=== PATIENT | female | born 1940 | race Caucasian/White ===

== ENCOUNTER 2016-11-09 17:37 | Inpatient (IN) | payer MEDICARE ==
[2016-11-09] MEDS ORDERED: SODIUM CHLORIDE 0.9% 1,000 ML IV STA (18:29)
--- NOTE | 2016-11-09 19:16 | ED ---
General Adult HPI - General Chief complaint: Recheck/Abnormal Lab/Rx Stated complaint: abnormal labs Time Seen by Provider: 11/09/16 18:17 Source: patient, family Mode of arrival: wheelchair Limitations: no limitations - History of Present Illness Initial comments: Patient is a 76-year-old female with past medical history of COPD and heart failure on Lasix presenting with hyponatremia. Patient had routine blood work done the other day which was called into patient today. Patient was told she had a sodium of 118. She was told to hold her Lasix. Patient states she's been weaker than normal period but otherwise denies any other complaints. Denies fever, chills, chest pain, shortness breath, nausea, vomiting, diarrhea, abdominal pain. - Related Data Home Medications Medication Instructions Recorded Confirmed Acetaminophen [Tylenol Arthritis] 650 mg PO Q8H PRN 10/17/16 11/09/16 Albuterol Inhaler [Ventolin Hfa 2 puff INHALATION RT-Q4H PRN 10/17/16 11/09/16 Inhaler] Lisinopril [Prinivil] 10 mg PO DAILY 10/17/16 11/09/16 Meloxicam [Mobic] 15 mg PO DAILY 10/17/16 11/09/16 Multivitamins, Thera [Multivitamin] 1 tab PO DAILY 10/17/16 11/09/16 Furosemide [Lasix] 20 mg PO DAILY 11/09/16 11/09/16 Previous Rx's Medication Instructions Recorded Metoprolol Tartrate [Lopressor] 25 mg PO BID #60 tab 10/20/16 Allergies Allergy/AdvReac Type Severity Reaction Status Date / Time No Known Allergies Allergy Verified 11/09/16 17:47 Review of Systems ROS Statement: Those systems with pertinent positive or pertinent negative responses have been documented in the HPI. Constitutional: No fever and no chills. HENT: No congestion, no rhinorrhea and no sore throat. Eyes: No discharge and no redness. Respiratory: No cough and no shortness of breath. Cardiovascular: No chest pain and no palpitations. Gastrointestinal: No nausea, no vomiting, no abdominal pain and no diarrhea. Genitourinary: No dysuria and no hematuria. Musculoskeletal: No back pain and no arthralgias. Skin: No pallor and no rash. Neurological: No dizziness and No headaches. + Fatigue ROS Other: All systems not noted in ROS Statement are negative. Past Medical History Past Medical History: Heart Failure, COPD, Hypertension History of Any Multi-Drug Resistant Organisms: None Reported Additional Past Surgical History / Comment(s): bilateral cataracts surgery Past Anesthesia/Blood Transfusion Reactions: No Reported Reaction Past Psychological History: No Psychological Hx Reported Smoking Status: Former smoker Past Alcohol Use History: None Reported Past Drug Use History: None Reported - Past Family History Father Family Medical History: Cancer General Exam - General Exam Comments Initial Comments: Constitutional: Frail appearing 76-year-old female. Head: Normocephalic and atraumatic. Eyes: Conjunctivae and EOM are normal. Right eye exhibits no discharge. Left eye exhibits no discharge. No scleral icterus. Neck: Normal range of motion. Neck supple. Cardiovascular: Normal rate and regular rhythm. No murmur heard. Pulmonary/Chest: Effort normal and breath sounds normal. No respiratory distress. No wheezes. Abdominal: Soft. No distension. There is no tenderness. There is no rebound and no guarding. Musculoskeletal: Normal range of motion. No edema or tenderness. Neurological: Patient alert and oriented to person, place, and time. Skin: Skin is warm and dry. Not diaphoretic. Nursing notes and vitals reviewed. Limitations: no limitations Course Vital Signs 11/09/16 11/09/16 17:42 20:03 Temperature 97.2 F L 96.5 F L Pulse Rate 50 L 46 L Respiratory 15 18 Rate Blood Pressure 105/55 129/60 O2 Sat by Pulse 97 96 Oximetry - Reevaluation(s) Reevaluation #1: 11/09/16 19:48 Patient was resting comfortably in bed. Course of stay improved. Denies pain. Discussed physical exam and diagnostic tests with patient. Questions answered and patient is agreeable to staying in the hospital. - Consultations Consultation #1: Discussed care with Dr. Trotter's DARYL. Accepting of patient to their service. EKG Findings - EKG Comments: EKG Findings:: EKG done 2017 showing ventricular rate of 46. Sinus bradycardia. T-wave inversions in 2, 3, aVF, V5, V6. Isolated ST depression in V3. UT, QRS, QTc intervals normal. Prior EKG done October 18, 2016 at 8: 06 showed T-wave inversions inferior laterally. Medical Decision Making - Medical Decision Making Patient's a 76-year-old female with COPD and CHF presenting with hyponatremia. Patient was having routine blood work that showed hyponatremia 116 and repeat 118. Patient complains of generalized fatigue. However today confirms hyponatremia and hyperkalemia. Patient likely is hypovolemic hyponatremia for which IV fluids were provided. UA concern for urinary tract infection for which Rocephin was ordered. EKG was stable T-wave inversions. Troponin was negative. EKG also without any significant QRS widening. Prior to discharge, patient was resting comfortably in bed. Course of stay improved. Denies pain. Discussed physical exam and diagnostic tests with patient. Questions answered and patient is agreeable to discharge with close follow up with Primary Care Physician. Instructed to return to Emergency Department if symptoms worsen. - Lab Data Result diagrams: 11/09/16 19:00 11/09/16 19:00 Lab Results 11/09/16 11/09/16 11/09/16 Range/Units 19:00 19:00 19:00 WBC 7.9 (3.8-10.6) k/uL RBC 4.29 (3.80-5.40) m/uL Hgb 12.6 (11.4-16.0) gm/dL Hct 38.1 (34.0-46.0) % MCV 88.7 (80.0-100.0) fL MCH 29.4 (25.0-35.0) pg MCHC 33.2 (31.0-37.0) g/dL RDW 14.2 (11.5-15.5) % Plt Count 170 (150-450) k/uL Neutrophils % 75 % Lymphocytes % 14 % Monocytes % 6 % Eosinophils % 2 % Basophils % 1 % Neutrophils # 6.0 (1.3-7.7) k/uL Lymphocytes # 1.1 (1.0-4.8) k/uL Monocytes # 0.5 (0-1.0) k/uL Eosinophils # 0.2 (0-0.7) k/uL Basophils # 0.1 (0-0.2) k/uL Sodium 118 L* (137-145) mmol/L Potassium 5.5 H (3.5-5.1) mmol/L Chloride 81 L (98-107) mmol/L Carbon Dioxide 32 H (22-30) mmol/L Anion Gap 5 mmol/L BUN 12 (7-17) mg/dL Creatinine 0.30 L (0.52-1.04) mg/dL Est GFR (MDRD) Af Amer >60 (>60 ml/min/1.73 sqM) Est GFR (MDRD) Non-Af >60 (>60 ml/min/1.73 sqM) Glucose 82 (74-99) mg/dL Calcium 8.6 (8.4-10.2) mg/dL Troponin I (0.000-0.034) ng/mL Urine Color Yellow Urine Appearance Clear (Clear) Urine pH 6.5 (5.0-8.0) Ur Specific [place] 1.008 (1.001-1.035) Urine Protein Negative (Negative) Urine Glucose (UA) Negative (Negative) Urine Ketones Negative (Negative) Urine Blood Trace H (Negative) Urine Nitrate Negative (Negative) Urine Bilirubin Negative (Negative) Urine Urobilinogen 3.0 (<2.0) mg/dL Ur Leukocyte Esterase Moderate H (Negative) Urine RBC 9 H (0-5) /hpf Urine WBC 16 H (0-5) /hpf Urine WBC Clumps Rare H (None) /hpf Ur Squamous Epith Cells 1 (0-4) /hpf Urine Bacteria Occasional H (None) /hpf Urine Mucus Rare H (None) /hpf 11/09/16 Range/Units 19:00 WBC (3.8-10.6) k/uL RBC (3.80-5.40) m/uL Hgb (11.4-16.0) gm/dL Hct (34.0-46.0) % MCV (80.0-100.0) fL MCH (25.0-35.0) pg MCHC (31.0-37.0) g/dL RDW (11.5-15.5) % Plt Count (150-450) k/uL Neutrophils % % Lymphocytes % % Monocytes % % Eosinophils % % Basophils % % Neutrophils # (1.3-7.7) k/uL Lymphocytes # (1.0-4.8) k/uL Monocytes # (0-1.0) k/uL Eosinophils # (0-0.7) k/uL Basophils # (0-0.2) k/uL Sodium (137-145) mmol/L Potassium (3.5-5.1) mmol/L Chloride (98-107) mmol/L Carbon Dioxide (22-30) mmol/L Anion Gap mmol/L BUN (7-17) mg/dL Creatinine (0.52-1.04) mg/dL Est GFR (MDRD) Af Amer (>60 ml/min/1.73 sqM) Est GFR (MDRD) Non-Af (>60 ml/min/1.73 sqM) Glucose (74-99) mg/dL Calcium (8.4-10.2) mg/dL Troponin I 0.034 (0.000-0.034) ng/mL Urine Color Urine Appearance (Clear) Urine pH (5.0-8.0) Ur Specific [place] (1.001-1.035) Urine Protein (Negative) Urine Glucose (UA) (Negative) Urine Ketones (Negative) Urine Blood (Negative) Urine Nitrate (Negative) Urine Bilirubin (Negative) Urine Urobilinogen (<2.0) mg/dL Ur Leukocyte Esterase (Negative) Urine RBC (0-5) /hpf Urine WBC (0-5) /hpf Urine WBC Clumps (None) /hpf Ur Squamous Epith Cells (0-4) /hpf Urine Bacteria (None) /hpf Urine Mucus (None) /hpf Disposition Clinical Impression: Hyponatremia, Hyperkalemia, UTI (urinary tract infection) Disposition: ADMITTED IP TO THIS [facility] Condition: Good Decision to Admit Reason: Admit from EC
[2016-11-09 19:20] LABS: Basophils # (A) 0.1 k/uL (0-0.2); Basophils % (A) 1 %; CH 30.4; CHCM 34.3; Eosinophils # (A) 0.2 k/uL (0-0.7); Eosinophils % (A) 2 %; HCT 38.1 % (34.0-46.0); HGB 12.6 gm/dL (11.4-16.0); Luc # (Auto) 0.14; Luc % (Auto) 2; Lymphocytes # (A) 1.1 k/uL (1.0-4.8); Lymphocytes % (A) 14 %; MCH 29.4 pg (25.0-35.0); MCHC 33.2 g/dL (31.0-37.0); MCV 88.7 fL (80.0-100.0); Mean Platelet Volume 7.2; Monocytes # (A) 0.5 k/uL (0-1.0); Monocytes % (A) 6 %; Neutrophils % (A) 75 %; RBC 4.29 m/uL (3.80-5.40); RDW 14.2 % (11.5-15.5); WBC 7.9 k/uL (3.8-10.6); WBC (Perox) 8.26
[2016-11-09 19:23] LABS: Appearance,Urine Clear (Clear); Bacteria,Urine Occasional /hpf; Bilirubin,Urine Negative (Negative); Glucose,Urine (UA) Negative (Negative); Ketones,Urine Negative (Negative); Leukocyte Esterase,Urine Moderate (Negative); Mucus,Urine Rare /hpf; Nitrite,Urine Negative (Negative); PH, Urine 6.5 (5.0-8.0); Particle Count 2821; Protein,Urine Negative (Negative); RBC,Urine 9 /hpf (0-5); Specific Gravity,Urine 1.008 (1.001-1.035); Squamous Epithelial Cell,Urine 1 /hpf (0-4); UA Billing (MACRO vs. MICRO) MICRO; WBC,Urine 16 /hpf (0-5)
[2016-11-09 19:31] LABS: Anion Gap 5 mmol/L; Blood Urea Nitrogen 12 mg/dL (7-17); Calcium 8.6 mg/dL (8.4-10.2); Carbon Dioxide 32 mmol/L (22-30); Chloride 81 mmol/L (98-107); Glucose 82 mg/dL (74-99); Non-African American GFR(MDRD) >60 (>60 ml/min/1.73 sqM); Potassium 5.5 mmol/L (3.5-5.1)
[2016-11-09 19:33] LABS: Sodium 118 mmol/L (137-145)
[2016-11-10] MEDS: SODIUM CHLORIDE 0.9% 1,000 ML IV SCH ×3 (00:38→21:44)
[2016-11-10 06:37] LABS: CH 29.9; CHCM 33.3; HCT 35.5 % (34.0-46.0); HDW 2.61; HGB 11.5 gm/dL (11.4-16.0); MCHC 32.3 g/dL (31.0-37.0); Mean Platelet Volume 7.1; RBC 3.95 m/uL (3.80-5.40); RDW 14.2 % (11.5-15.5); WBC 5.4 k/uL (3.8-10.6)
[2016-11-10 06:49] LABS: Anion Gap 4 mmol/L; Blood Urea Nitrogen 10 mg/dL (7-17); Carbon Dioxide 30 mmol/L (22-30); Chloride 88 mmol/L (98-107); Glucose 80 mg/dL (74-99); Non-African American GFR(MDRD) >60 (>60 ml/min/1.73 sqM); Potassium 5.1 mmol/L (3.5-5.1); Sodium 122 mmol/L (137-145)
[2016-11-10] MEDS ORDERED: ALBUTEROL NEBULIZED 2.5 MG/3 ML INHALATION PRN (09:28)
[2016-11-10] MEDS: LISINOPRIL 10 MG TAB PO SCH (11:13)
[2016-11-10] MEDS: MELOXICAM 7.5 MG TAB PO SCH (11:14)
[2016-11-10] MEDS: METOPROLOL TARTRATE 25 MG TAB PO SCH ×2 (11:14→21:44)
[2016-11-10] MEDS: MULTIVITAMINS, THERA 1 EACH TAB PO SCH (11:15)
[2016-11-10 14:01] VITALS: BMI 18.9
[2016-11-10] MEDS ORDERED: ACETAMINOPHEN TAB 325 MG TAB PO PRN (15:38)
--- NOTE | 2016-11-10 15:57 | XR ---
EXAMINATION TYPE: XR chest 1V portable DATE OF EXAM: 11/10/2016 3:51 PM HISTORY: Shortness of breath. COMPARISON: 10/20/2016 TECHNIQUE: Single view of the chest is submitted. FINDINGS: Demonstrated are scattered senescent parenchymal change. There is no evidence for focal infiltrate. The heart is enlarged without evidence for congestive failure. Tiny right effusion versus pleural thi ckening. Hilar and mediastinal structures are within normal limits. Degenerative changes are seen of the dorsal spine. IMPRESSION: 1. Chronic changes without evidence for acute pulmonary disease.
--- NOTE | 2016-11-10 18:15 | HP ---
DATE OF ADMISSION: CHIEF COMPLAINT: Abnormal labs, sent from PCP's office. HISTORY OF PRESENT ILLNESS: Mrs. Anika Mcclellan is a 76-year-old female with known history of congestive heart failure with systolic dysfunction, ejection fraction 30% to 35%, moderate aortic regurgitation, and moderate to severe tricuspid regurgitation and severe pulmonary hypertension and chronic obstructive pulmonary disease who came to the hospital as she was found to have sodium level of 118. Patient did have lab work-up done at PCP's office. Patient was told to hold her Lasix and patient felt she has been weaker than normal. Otherwise, patient denied any complaints of chest pain. No worsening shortness of breath. No other issues. The patient denied any fever, chills. No recent illnesses. Apparently patient has been drinking much free water at home. No nausea or vomiting. No diarrhea. No recent illnesses. No sick contacts at home. Patient was admitted to hospital in October 2015 for acute CHF exacerbation and found to have severe pulmonary hypertension and moderate aortic regurgitation at that time. Currently, patient is getting normal saline at 100 mL per hour and her sodium level went up from 118 to 122. Otherwise, denied any fever or chills at this time. REVIEW OF SYSTEMS: CONSTITUTIONAL: No fever. No chills. No weakness or malaise. RESPIRATORY: No cough or sputum production. CARDIOVASCULAR: No worsening shortness of breath. No leg swelling. ABDOMEN: No nausea or vomiting, abdominal pain. GENITOURINARY: Negative. ENDOCRINE: Negative. PSYCHIATRIC: Negative. SKIN: Negative. All other fourteen-point review of systems negative except as above. PAST MEDICAL HISTORY: CHF with ejection fraction 30 to 35%, moderate aortic regurgitation, severe tricuspid regurgitation and severe pulmonary hypertension with PA pressure of 88 mmHg, COPD, active nicotine addiction, hypertension, degenerative joint disease, history of hyponatremia. PAST SURGICAL HISTORY: Bilateral cataract surgery. SOCIAL HISTORY: Patient is a former smoker. Denied any alcohol. Denied any drugs or IVDU. FAMILY HISTORY: Father had cancer. No history of hypertension or premature heart disease in the family. Home medications include: Tylenol arthritis, Ventolin, Lisinopril, Mobic, multivitamin, Lasix and metoprolol. ALLERGIES: No known drug allergies. PHYSICAL EXAMINATION: A 76-year-old female, lying in bed comfortably, awake, alert, oriented x3, appears to be in no apparent distress. VITALS: Blood pressure is 183/70, pulse is 72, respiration 18, temperature afebrile, pulse ox 97% on room air. HEENT: Atraumatic, normocephalic. Neck is supple. No JVD. CVS: S1, S2 heard. No murmurs, no gallop, no rub. LUNGS: Bilateral air entry is present. Basal crackles positive, mainly in the left side. Nonlabored breathing. ABDOMEN: Soft, nontender. Bowel sounds are present. [employer]: Awake, alert, oriented x3. No focal deficit. Cranial nerves are grossly intact. Able to move all her four extremities. EXTREMITIES: No edema. Pulses palpable bilaterally. No clubbing or cyanosis. PSYCHIATRIC: Cooperative. LABORATORY DATA: WBC 7.9, hemoglobin 12.6, platelets 170. Sodium 118, potassium 5.5, chloride 81, bicarb is 32, BUN 12, creatinine 0.3, calcium 8.6. Troponin 0.034. UA showed moderate leukocyte esterase, 15 WBC, and WBC clumps and 1 squamous epithelial cells. Nitrate negative. CHEST X-RAY: Chronic changes without evidence of acute pulmonary disease. IMPRESSION: 1. Hyponatremia most likely hypovolemic hyponatremia due to dehydration and volume depletion. 2. Hyperkalemia. 3. Acute urinary tract infection. 4. History of congestive heart failure systolic dysfunction with ejection fraction of 30 to 35%. 5. Moderate aortic regurgitation. 6. Severe tricuspid regurgitation and severe pulmonary hypertension. 7. Degenerative joint disease. 8. Hypertension, 9. History of left-sided pleural effusion. 10. Chronic obstructive pulmonary disease, stable. 11. Nicotine addiction. Currently the patient quit smoking recently. 12. Deep venous thrombosis prophylaxis with heparin subcu. DISCUSSION AND PLAN: I will continue with the blood pressure medications including metoprolol and lisinopril. Will hold Lasix at this time. Continue with IV fluids. Monitor renal function and potassium is coming down to 5.1 now. Will monitor sodium level, improving at this time. We will continue the current management and follow closely. Will get a chest x-ray and further recommendations based on the clinical course. Prognosis is guarded.
[2016-11-10 22:37] VITALS: RESP 16
[2016-11-11] MEDS: SODIUM CHLORIDE 0.9% 1,000 ML IV SCH ×2 (06:23→20:55)
[2016-11-11 07:09] LABS: Basophils # (A) 0.1 k/uL (0-0.2); Basophils % (A) 2 %; CH 29.3; Eosinophils # (A) 0.2 k/uL (0-0.7); Eosinophils % (A) 4 %; HCT 39.2 % (34.0-46.0); HDW 2.55; HGB 12.3 gm/dL (11.4-16.0); Hypochromasia Slight; Luc # (Auto) 0.16; Luc % (Auto) 3; Lymphocytes # (A) 0.7 k/uL (1.0-4.8); Lymphocytes % (A) 12 %; MCH 29.8 pg (25.0-35.0); MCHC 31.4 g/dL (31.0-37.0); MCV 94.8 fL (80.0-100.0); Mean Platelet Volume 7.8; Monocytes # (A) 0.4 k/uL (0-1.0); Monocytes % (A) 6 %; Neutrophils # (A) 4.4 k/uL (1.3-7.7); Neutrophils % (A) 74 %; RBC 4.13 m/uL (3.80-5.40); RDW 14.3 % (11.5-15.5); WBC (Perox) 5.56
[2016-11-11 07:29] LABS: Anion Gap 6 mmol/L; Blood Urea Nitrogen 11 mg/dL (7-17); Calcium 8.2 mg/dL (8.4-10.2); Carbon Dioxide 25 mmol/L (22-30); Chloride 92 mmol/L (98-107); Glucose 74 mg/dL (74-99); Non-African American GFR(MDRD) >60 (>60 ml/min/1.73 sqM); Potassium 5.1 mmol/L (3.5-5.1); Sodium 123 mmol/L (137-145)
[2016-11-11] MEDS: MELOXICAM 7.5 MG TAB PO SCH (10:15)
[2016-11-11] MEDS: LISINOPRIL 10 MG TAB PO SCH (10:16)
[2016-11-11] MEDS: METOPROLOL TARTRATE 25 MG TAB PO SCH ×2 (10:16→20:55)
[2016-11-11] MEDS: MULTIVITAMINS, THERA 1 EACH TAB PO SCH (12:06)
[2016-11-12] MEDS: SODIUM CHLORIDE 0.9% 1,000 ML IV SCH ×2 (04:43→11:24)
[2016-11-12] MEDS: METOPROLOL TARTRATE 25 MG TAB PO SCH (07:29)
[2016-11-12] MEDS: LISINOPRIL 10 MG TAB PO SCH (07:29)
[2016-11-12] MEDS: MULTIVITAMINS, THERA 1 EACH TAB PO SCH (07:29)
[2016-11-12] MEDS: MELOXICAM 7.5 MG TAB PO SCH (07:29)
[2016-11-12 07:39] VITALS: PULSE 51
[2016-11-12 13:09] VITALS: BP 120/57; TEMP 97.8
[2016-11-12 14:45] LABS: Anion Gap 6 mmol/L; Blood Urea Nitrogen 13 mg/dL (7-17); Calcium 8.3 mg/dL (8.4-10.2); Carbon Dioxide 28 mmol/L (22-30); Chloride 91 mmol/L (98-107); Glucose 111 mg/dL (74-99); Non-African American GFR(MDRD) >60 (>60 ml/min/1.73 sqM); Sodium 125 mmol/L (137-145)
--- NOTE | 2016-12-06 22:56 | DS ---
DATE OF ADMISSION: 11/09/2016 DATE OF DISCHARGE: 11/12/2016 DISCHARGE DIAGNOSIS(ES): 1. Hyponatremia most likely hypovolemic hyponatremia secondary to volume depletion. Lasix has been discontinued. 2. Hyperkalemia, improved. 3. Acute urinary tract infection. 4. History of congestive heart failure, chronic systolic dysfunction ejection fraction 30% to 35% 5. Moderate aortic regurgitation. 6. Severe tricuspid regurgitation and severe pulmonary hypertension. 7. Degenerative joint disease. 8. Hypertension. 9. History of left-sided pleural effusion. 10. Chronic obstructive pulmonary disease, stable. 11. Nicotine addiction, currently the patient quit smoking recently. 12. Deep venous thrombosis prophylaxis with heparin subcu. HOSPITAL COURSE: Ms. Mcclellan is a 76 -year-old female who was sent from PCP's office with sodium level of 118 secondary to volume depletion. Patient was continued on IV fluids while in the hospital. Gently due to history of valvular heart disease and Lasix dose has been discontinued and the patient was continued on blood pressure medication in the form of metoprolol and Lisinopril has been added. Potassium level improved. Otherwise blood pressure is controlled. Patient is tolerating diet, sodium improved to 125 today. The patient does not have any neurological symptoms. Otherwise, patient will be discharged home and will follow-up with primary care physician and cardiology as an outpatient and is stable for discharge. DISCHARGE PHYSICAL EXAMINATION: A 76 -year-old female is lying in the bed. Awake, alert, oriented, x3 appears to be in no apparent distress. VITALS: Blood pressure is 120/77, pulse is 75, respirations 16, temperature afebrile. pulse ox is 95% on room air. Laboratory data reviewed. Sodium of 125, potassium 5.0, chloride 91, calcium 8.3. Discharge physical examination done. Discharge medications include: 1. Tylenol 650 mg q8 hourly p.r.n. for pain arthritis. 2. Albuterol inhaler 2 puffs inhalation q.4-6h. for short of breath. 3. Meloxicam 50 mg p.o. daily p.r.n. for pain. 4. Metoprolol 25 mg p.o. b.i.d. 5. Lisinopril 10 mg daily. Patient will be discharged home in stable condition. She will follow with Dr. Long Bonner. Home with the home health care.
--- NOTE | 2016-12-07 05:37 | PN ---
DATE OF SERVICE: 11/11/2016 INTERVAL HISTORY: Ms. Mcclellan is a 76-year-old female with known history of CHF with systolic dysfunction with ejection fraction 30% to 35% and moderate aortic regurgitation and moderate to severe tricuspid regurgitation and severe pulmonary hypertension and chronic COPD came to the hospital after she was found to have sodium level of 118, most likely secondary to diuresis with Lasix, which has been held at this time and is being continued on IV fluids gently. Patient's sodium level improved to 123 today. Otherwise, patient is symptomatically improving. Denied any headache, dizziness or lightheadedness. No complaints of chest pain, short of breath. No acute overnight issues. REVIEW OF SYSTEMS: CONSTITUTIONAL: No fever. No chills. RESPIRATORY: No cough or sputum production. CARDIOVASCULAR: No chest pain or shortness of breath. ABDOMEN: No nausea, vomiting, or abdominal pain. GENITOURINARY: Negative. ENDOCRINE: Negative. PSYCHIATRIC: Negative. SKIN: Negative. All other 14-point review of systems negative except the above. CURRENT MEDICATIONS: Reviewed. PHYSICAL EXAMINATION: A 76-year-old female lying in the bed comfortably, awake, alert, oriented x3. Appears to be in no apparent distress. VITALS: Blood pressure is 159/73, pulse is 50, respirations 16, temperature afebrile, pulse ox 94% on room air. HEENT: Atraumatic, normocephalic. Neck is supple. No JVD. CVS EXAM: S1, S2 heard. Patient does have systolic murmur and diastolic murmur. LUNGS: Bilateral air entry is present. No wheezing, no crackles. ABDOMEN: Soft, nontender. Bowel sounds are present. CLASSIFICATION CLERK: Awake, alert, oriented x3. No focal neurologic deficits. EXTREMITIES: No edema. Pulses palpable bilaterally. No clubbing or cyanosis. PSYCHIATRIC: Cooperative. LABORATORY DATA: WBC 6.0, hemoglobin 12.3, platelets 193. Sodium 123, potassium 5.1, chloride 92, bicarb is 25. BUN 11, creatinine 0.34. Calcium 8.2. IMPRESSION: 1. Hyponatremia secondary to hypovolemic hyponatremia due to dehydration, volume depletion. Lasix has been held. 2. Hyperkalemia, improved. 3. Acute urinary tract infection. 4. History of congestive heart failure with ejection fraction 30% to 35%, chronic. 5. Moderate aortic regurgitation. 6. Severe tricuspid regurgitation and severe pulmonary hypertension. 7. Degenerative joint disease. 8. Hypertension. 9. History of left-sided pleural effusion. 10. Chronic obstructive pulmonary disease, stable. 11. Nicotine addiction, currently patient did quit smoking recently. 12. Deep venous thrombosis prophylaxis with heparin subcu. DISCUSSION AND PLAN: Patient will be continued on blood pressure medication in the form of metoprolol and lisinopril. Lasix has been held due to volume depletion. Continue with IV fluid. Sodium level is improving now. Potassium is trending down. Will continue with current management. Anticipate discharge in 24 hours with more clinical improvement and laboratory data improvement.
== END 2016-11-12 16:40 | disposition home health service (06) | DRG 641 ==
LOC: EC 17:37 → 6SEL 19:43
PROVIDERS: ADMIT Hospitalist; ATTEND Hospitalist
DX: E87.1 Hypo-osmolality and hyponatremia (principal); E86.0 Dehydration; I27.2 Other secondary pulmonary hypertension; I50.22 Chronic systolic (congestive) heart failure; I11.0 Hypertensive heart disease with heart failure; N39.0 Urinary tract infection, site not specified; J44.9 Chronic obstructive pulmonary disease, unspecified; E87.5 Hyperkalemia; E86.1 Hypovolemia; T50.2X5A Adverse effect of carbonic-anhydrase inhibitors, benzothiadiazides and other diuretics, initial encounter; I08.2 Rheumatic disorders of both aortic and tricuspid valves; R53.83 Other fatigue; M19.90 Unspecified osteoarthritis, unspecified site; Z80.9 Family history of malignant neoplasm, unspecified; Z79.1 Long term (current) use of non-steroidal anti-inflammatories (NSAID); Z79.899 Other long term (current) drug therapy; Z87.891 Personal history of nicotine dependence; Z98.42 Cataract extraction status, left eye; Z98.41 Cataract extraction status, right eye
CPT/HCPCS: 36415; 71010; 80048; 80051; 81001; 82565; 84484; 84520; 85025; 85027; 87086; 93005; 96365; 96366; 99285

== ENCOUNTER 2016-11-15 19:15 | Emergency (ER) | payer MEDICARE ==
[2016-11-15 19:37] VITALS: RESP 18
--- NOTE | 2016-11-15 20:03 | ED ---
General Adult HPI - General Chief complaint: Extremity Problem,Nontraumatic Stated complaint: leg swelling Time Seen by Provider: 11/15/16 19:25 Source: patient, RN notes reviewed Mode of arrival: ambulatory Limitations: no limitations - History of Present Illness Initial comments: This is a 76-year-old female who presents emergency room stating that she was just discharged from hospital a few days ago for hyponatremia. Patient states she went home and has been feeling fine however about 6 got this evening she noticed her left leg was completely swollen. Patient denies any pain or leg or calf. Patient states his leg is normally not any more swollen than the right leg and obviously now it is much more swollen. Patient denies any recent injury or trauma. Patient denies abdominal pain. Patient denies any chest pain palpitations difficulty breathing shortness of breath. Patient denies any recent fever chills or cough. Patient denies headache patient denies numbness weakness. Patient denies any lightheadedness dizziness or near-syncopal episode. - Related Data Home Medications Medication Instructions Recorded Confirmed Acetaminophen [Tylenol Arthritis] 650 mg PO Q8H PRN 10/17/16 11/15/16 Albuterol Inhaler [Ventolin Hfa 2 puff INHALATION RT-Q4H PRN 10/17/16 11/15/16 Inhaler] Meloxicam [Mobic] 15 mg PO DAILY PRN 10/17/16 11/15/16 Furosemide [Lasix] 20 mg PO DAILY 11/15/16 11/15/16 Previous Rx's Medication Instructions Recorded Metoprolol Tartrate [Lopressor] 25 mg PO BID #60 tab 10/20/16 Allergies Allergy/AdvReac Type Severity Reaction Status Date / Time No Known Allergies Allergy Verified 11/15/16 19:49 Review of Systems ROS Statement: Those systems with pertinent positive or pertinent negative responses have been documented in the HPI. ROS Other: All systems not noted in ROS Statement are negative. Past Medical History Past Medical History: Heart Failure, COPD, Hypertension History of Any Multi-Drug Resistant Organisms: None Reported Additional Past Surgical History / Comment(s): bilateral cataracts surgery Past Anesthesia/Blood Transfusion Reactions: No Reported Reaction Past Psychological History: No Psychological Hx Reported Smoking Status: Former smoker Past Alcohol Use History: None Reported Past Drug Use History: None Reported - Past Family History Father Family Medical History: Cancer General Exam - General Exam Comments Initial Comments: GENERAL: Patient is well-developed and well-nourished. Patient is nontoxic and well- hydrated and is in no acute distress. ENT: Neck is soft and supple. No significant lymphadenopathy is noted. Oropharynx is clear. Moist mucous membranes. Neck has full range of motion without eliciting any pain. EYES: The sclera were anicteric and conjunctiva were pink and moist. Extraocular movements were intact and pupils were equal round and reactive to light. Eyelids were unremarkable. PULMONARY: Decreased breath sounds on the right. CARDIOVASCULAR: There is a regular rate and rhythm without any murmurs gallops or rubs. ABDOMEN: Soft and nontender with normal bowel sounds. No palpable organomegaly was noted. There is no palpable pulsatile mass. SKIN: Skin is clear with no lesions or rashes and otherwise unremarkable. NEUROLOGIC: Patient is alert and oriented x3. Cranial nerves II through XII are grossly intact. Motor and sensory are also intact. Normal speech, volume and content. Symmetrical smile. MUSCULOSKELETAL: Normal extremities with adequate strength and full range of motion. Left leg is edematous from the thigh down to the foot much more so than the right leg. LYMPHATICS: No significant lymphadenopathy is noted PSYCHIATRIC: Normal psychiatric evaluation. Normal interpersonal interactions appears functionally intact in deals appropriately with others. No signs of depression. No signs of anxiety. Limitations: no limitations Course Vital Signs 11/15/16 19:33 Temperature 98.5 F Pulse Rate 63 Respiratory 18 Rate Blood Pressure 142/65 O2 Sat by Pulse 96 Oximetry Medical Decision Making - Medical Decision Making I went back in to reevaluate the patient her leg is actually gotten slightly smaller than when I initially saw her and patient agreed with this as did the family. Patient had no other complaints at this time the ultrasound showed no DVT and her lab work was essentially the same as when she left the hospital. Patient did not want to stay in the hospital so I sent the patient to follow-up with primary medical care doctor. - Lab Data Result diagrams: 11/15/16 19:50 11/15/16 19:50 Lab Results 11/15/16 11/15/16 Range/Units 19:50 19:50 WBC 6.2 (3.8-10.6) k/uL RBC 4.05 (3.80-5.40) m/uL Hgb 12.0 (11.4-16.0) gm/dL Hct 36.9 (34.0-46.0) % MCV 91.1 (80.0-100.0) fL MCH 29.7 (25.0-35.0) pg MCHC 32.6 (31.0-37.0) g/dL RDW 14.6 (11.5-15.5) % Plt Count 175 (150-450) k/uL Neutrophils % 76 % Lymphocytes % 12 % Monocytes % 6 % Eosinophils % 4 % Basophils % 1 % Neutrophils # 4.7 (1.3-7.7) k/uL Lymphocytes # 0.7 L (1.0-4.8) k/uL Monocytes # 0.3 (0-1.0) k/uL Eosinophils # 0.3 (0-0.7) k/uL Basophils # 0.1 (0-0.2) k/uL Sodium 126 L (137-145) mmol/L Potassium 5.0 (3.5-5.1) mmol/L Chloride 87 L (98-107) mmol/L Carbon Dioxide 30 (22-30) mmol/L Anion Gap 9 mmol/L BUN 15 (7-17) mg/dL Creatinine 0.39 L (0.52-1.04) mg/dL Est GFR (MDRD) Af Amer >60 (>60 ml/min/1.73 sqM) Est GFR (MDRD) Non-Af >60 (>60 ml/min/1.73 sqM) Glucose 93 (74-99) mg/dL Calcium 8.3 L (8.4-10.2) mg/dL Total Bilirubin 0.5 (0.2-1.3) mg/dL AST 15 (14-36) U/L ALT 25 (9-52) U/L Alkaline Phosphatase 105 (38-126) U/L Total Protein 5.9 L (6.3-8.2) g/dL Albumin 2.8 L (3.5-5.0) g/dL Disposition Clinical Impression: Leg swelling Disposition: HOME SELF-CARE Condition: Good Instructions: Leg Edema (ED) Referrals: Long Bonner MD [Primary Care Provider] - 1-2 days Time of Disposition: 21:16
[2016-11-15 20:12] LABS: Basophils # (A) 0.1 k/uL (0-0.2); Basophils % (A) 1 %; Eosinophils # (A) 0.3 k/uL (0-0.7); Eosinophils % (A) 4 %; HCT 36.9 % (34.0-46.0); HDW 2.58; Luc # (Auto) 0.08; Luc % (Auto) 1; Lymphocytes # (A) 0.7 k/uL (1.0-4.8); Lymphocytes % (A) 12 %; MCH 29.7 pg (25.0-35.0); MCHC 32.6 g/dL (31.0-37.0); MCV 91.1 fL (80.0-100.0); Monocytes # (A) 0.3 k/uL (0-1.0); Monocytes % (A) 6 %; Neutrophils # (A) 4.7 k/uL (1.3-7.7); Neutrophils % (A) 76 %; RBC 4.05 m/uL (3.80-5.40); RDW 14.6 % (11.5-15.5); WBC 6.2 k/uL (3.8-10.6); WBC (Perox) 6.57
--- NOTE | 2016-11-15 20:21 | XR ---
EXAMINATION TYPE: XR chest 2V DATE OF EXAM: 11/15/2016 8:16 PM HISTORY: Shortness of breath and leg swelling. REFERENCE: Previous study dated 11/10/2016. FINDINGS: The lungs are overinflated. The heart is enlarged. There is a small right-sided effusion. T here is vascular congestion and subtle interstitial change. IMPRESSION: 1. COPD. 2. CARDIOMEGALY. 3. SMALL, RIGHT-SIDED EFFUSION. 4. VASCULAR CONGESTION AND SUBTLE INTERSTITIAL CHANGE SUGGESTING MILD PULMONARY EDEMA.
[2016-11-15 20:23] LABS: ALT 25 U/L (9-52); AST 15 U/L (14-36); Alkaline Phosphatase 105 U/L (38-126); Anion Gap 9 mmol/L; Blood Urea Nitrogen 15 mg/dL (7-17); Calcium 8.3 mg/dL (8.4-10.2); Carbon Dioxide 30 mmol/L (22-30); Chloride 87 mmol/L (98-107); Glucose 93 mg/dL (74-99); Non-African American GFR(MDRD) >60 (>60 ml/min/1.73 sqM); Sodium 126 mmol/L (137-145); Total Bilirubin 0.5 mg/dL (0.2-1.3); Total Protein 5.9 g/dL (6.3-8.2)
--- NOTE | 2016-11-15 20:52 | US ---
EXAMINATION TYPE: US venous doppler duplex LE LT DATE OF EXAM: 11/15/2016 8:38 PM COMPARISON: NONE CLINICAL HISTORY: Swelling in left leg SIDE PERFORMED: Left VESSELS IMAGED: External Iliac Vein (EIV) Common Femoral Vein Deep Femoral Vein Greater Saphenous Vein * Femoral Vein Popliteal Vein Small Saphenous Vein * Proximal Calf Veins (* superficial vessels) TECHNOLOGIST IMPRESSION: Left Leg: Negative for DVT. There is extensive edema visualized in the medial left thigh. Probable ly mph nodes visualized in the left groin, largest measuring 1.8 x 0.9 x 1.5 cm. Large anechoic area wit h debris visualized in the left popliteal fossa extending down the left calf measuring approximately 11.1 x 2.4 x 3.5 cm, possible dela cruz's cyst IMPRESSION: 1. This examination is negative for DVT within the left leg. 2. 1.1 cm left-sided popliteal fossa cyst. 3. Normal size inguinal lymph nodes.
[2016-11-15 21:21] VITALS: BP 137/79; PULSE 100; TEMP 97.9
== END 2016-11-15 21:35 | disposition home or self-care (01) ==
LOC: EC 19:15
DX: M79.89 Other specified soft tissue disorders (principal); I10 Essential (primary) hypertension; J44.9 Chronic obstructive pulmonary disease, unspecified; I50.9 Heart failure, unspecified; Z87.891 Personal history of nicotine dependence; Z79.899 Other long term (current) drug therapy
CPT/HCPCS: 36415; 71020; 80053; 85025; 99284; 99285

== ENCOUNTER 2017-12-09 05:54 | Inpatient (IN) | payer MEDICARE ==
[2017-12-09] MEDS ORDERED: DEXTROSE 50%-WATER 50 ML SYRINGE IVP STA (06:20)
[2017-12-09 06:23] LABS: Glucose,Whole Blood 53 mg/dL (75-99)
[2017-12-09 06:25] LABS: Basophils % (A) 0 %; Eosinophils # (A) 0.1 k/uL (0-0.7); Eosinophils % (A) 1 %; HCT 38.8 % (34.0-46.0); HGB 12.7 gm/dL (11.4-16.0); Lymphocytes # (A) 0.8 k/uL (1.0-4.8); Lymphocytes % (A) 9 %; MCH 27.9 pg (25.0-35.0); MCHC 32.7 g/dL (31.0-37.0); MCV 85.5 fL (80.0-100.0); Mean Platelet Volume 9.8; Monocytes # (A) 0.4 k/uL (0-1.0); Monocytes % (A) 5 %; Neutrophils # (A) 7.7 k/uL (1.3-7.7); Neutrophils % (A) 84 %; Platelet Count 173 k/uL (150-450); RBC 4.54 m/uL (3.80-5.40); RDW 13.3 % (11.5-15.5); WBC 9.2 k/uL (3.8-10.6)
--- NOTE | 2017-12-09 06:34 | XR ---
EXAMINATION TYPE: XR chest 1V portable DATE OF EXAM: 12/09/2017 HISTORY: dyspnea. REFERENCE: Previous study dated 11/15/2016. FINDINGS: The lungs are overinflated. The heart is enlarged. There is a small right-sided effusion. T here is bibasilar airspace disease, worse on the left than the right.. IMPRESSION: 1. COPD. 2. CARDIOMEGALY. 3. RIGHT-SIDED EFFUSION. 4. BIBASILAR AIRSPACE DISEASE.
--- NOTE | 2017-12-09 06:44 | ED ---
SOB HPI - General Source: family, EMS Mode of arrival: EMS Limitations: no limitations - History of Present Illness MD Complaint: shortness of breath Onset/Timin -: hour(s) Associated Symptoms: denies other symptoms Treatments Prior to Arrival: oxygen <Rashid Alston - Last Filed: 12/09/17 06:50> <Stalin Brewer - Last Filed: 12/09/17 10:55> - General Chief Complaint: Shortness of Breath Stated Complaint: FÉLIX Time Seen by Provider: 12/09/17 05:59 - History of Present Illness Initial Comments: This patient is a 77-year-old woman brought to be evaluated by EMS. The patient 's family had reportedly found her on the couch and she did not seem responsive. They phoned EMS and then it sounds like a bystander CPR was performed. When first responders arrived, they did find the patient breathing and with palpable pulses. When I interview the patient, she is without complaints. She denies pains, and she denies dyspnea. She does not recall was going on when the ambulance arrived there. (Rashid Alston) - Related Data Home Medications Medication Instructions Recorded Confirmed Albuterol Inhaler [Ventolin Hfa 2 puff INHALATION RT-Q4H PRN 10/17/16 12/09/17 Inhaler] Furosemide [Lasix] 20 mg PO DAILY 12/09/17 12/09/17 Lisinopril [Zestril] 2.5 mg PO DAILY 12/09/17 12/09/17 Previous Rx's Medication Instructions Recorded Metoprolol Tartrate [Lopressor] 25 mg PO BID #60 tab 10/20/16 Allergies Allergy/AdvReac Type Severity Reaction Status Date / Time No Known Allergies Allergy Verified 12/09/17 07:21 Review of Systems ROS Other: All systems not noted in ROS Statement are negative. Constitutional: Denies: fever, chills Respiratory: Denies: cough, dyspnea Cardiovascular: Denies: chest pain, edema Gastrointestinal: Denies: abdominal pain, vomiting, diarrhea Genitourinary: Denies: dysuria Musculoskeletal: Denies: back pain Neurological: Denies: headache, weakness, numbness <Rashid Alston - Last Filed: 12/09/17 06:50> ROS Other: All systems not noted in ROS Statement are negative. <Stalin Brewer - Last Filed: 12/09/17 10:55> ROS Statement: Those systems with pertinent positive or pertinent negative responses have been documented in the HPI. Past Medical History Past Medical History: Heart Failure, COPD, Hypertension History of Any Multi-Drug Resistant Organisms: None Reported Additional Past Surgical History / Comment(s): bilateral cataracts surgery Past Anesthesia/Blood Transfusion Reactions: No Reported Reaction Past Psychological History: No Psychological Hx Reported Smoking Status: Former smoker Past Alcohol Use History: None Reported Past Drug Use History: None Reported - Past Family History Father Family Medical History: Cancer <SebleRashid montez - Last Filed: 12/09/17 06:50> General Exam Limitations: no limitations General appearance: alert, cachectic Head exam: Present: atraumatic, normocephalic Eye exam: Present: normal appearance, other (Blepharitis bilaterally). Absent: scleral icterus, conjunctival injection Neck exam: Present: normal inspection Respiratory exam: Present: normal lung sounds bilaterally, rhonchi. Absent: respiratory distress, wheezes, rales, stridor Cardiovascular Exam: Present: regular rate, normal rhythm, normal heart sounds. Absent: systolic murmur, diastolic murmur, rubs, gallop GI/Abdominal exam: Present: soft. Absent: distended, tenderness, guarding, rebound, rigid Extremities exam: Present: normal inspection, normal capillary refill. Absent: pedal edema Neurological exam: Present: alert, CN II-XII intact. Absent: oriented X3 ( Patient is oriented to person and place but could not recall the date.), motor sensory deficit Skin exam: Present: warm, dry, intact, normal color <GamalielRashid - Last Filed: 12/09/17 06:50> Vital Signs 12/09/17 12/09/17 12/09/17 05:55 06:31 07:33 Temperature 97.3 F L Pulse Rate 106 H 71 Respiratory 20 20 16 Rate Blood Pressure 144/107 156/72 O2 Sat by Pulse 98 94 L Oximetry 12/09/17 12/09/17 09:14 09:29 Temperature Pulse Rate 80 74 Respiratory 16 16 Rate Blood Pressure 141/77 137/75 O2 Sat by Pulse 100 100 Oximetry Medical Decision Making - Lab Data Result diagrams: 12/09/17 06:10 - EKG Data -: EKG Interpreted by Ia EKG shows normal: sinus rhythm, axis (Left axis deviation), intervals (Normal), ST-T waves (There are lateral T inversions.) Rate: normal (Rate approximate 76 bpm) <Rashid Alston - Last Filed: 12/09/17 06:50> - Lab Data Result diagrams: 12/09/17 06:10 12/09/17 06:50 <SaharaesthelaStalin Valerie - Last Filed: 12/09/17 10:55> - Lab Data Lab Results 12/09/17 12/09/17 12/09/17 Range/Units 06:04 06:10 06:10 WBC 9.2 (3.8-10.6) k/uL RBC 4.54 (3.80-5.40) m/uL Hgb 12.7 (11.4-16.0) gm/dL Hct 38.8 (34.0-46.0) % MCV 85.5 (80.0-100.0) fL MCH 27.9 (25.0-35.0) pg MCHC 32.7 (31.0-37.0) g/dL RDW 13.3 (11.5-15.5) % Plt Count 173 (150-450) k/uL Neutrophils % 84 % Lymphocytes % 9 % Monocytes % 5 % Eosinophils % 1 % Basophils % 0 % Neutrophils # 7.7 (1.3-7.7) k/uL Lymphocytes # 0.8 L (1.0-4.8) k/uL Monocytes # 0.4 (0-1.0) k/uL Eosinophils # 0.1 (0-0.7) k/uL Basophils # 0.0 (0-0.2) k/uL PT 12.2 H (9.0-12.0) sec INR 1.3 H (<1.2) APTT 28.9 (22.0-30.0) sec D-Dimer 20.61 H (<0.60) mg/L FEU Sodium (137-145) mmol/L Potassium (3.5-5.1) mmol/L Chloride (98-107) mmol/L Carbon Dioxide (22-30) mmol/L Anion Gap mmol/L BUN (7-17) mg/dL Creatinine (0.52-1.04) mg/dL Est GFR (MDRD) Af Amer (>60 ml/min/1.73 sqM) Est GFR (MDRD) Non-Af (>60 ml/min/1.73 sqM) Glucose (74-99) mg/dL POC Glucose (mg/dL) 53 L (75-99) mg/dL POC Glu Safety Physician ID Trinidad Juan Osmolality ([phone]) mosm/kg Calcium (8.4-10.2) mg/dL Magnesium (1.6-2.3) mg/dL Total Bilirubin (0.2-1.3) mg/dL AST (14-36) U/L ALT (9-52) U/L Alkaline Phosphatase (38-126) U/L Total Creatine Kinase (30-135) U/L CK-MB (CK-2) (0.0-2.4) ng/mL CK-MB (CK-2) Rel Index Troponin I (0.000-0.034) ng/mL NT-Pro-B Natriuret Pep pg/mL Total Protein (6.3-8.2) g/dL Albumin (3.5-5.0) g/dL Urine Color Urine Appearance (Clear) Urine pH (5.0-8.0) Ur Specific [place] (1.001-1.035) Urine Protein (Negative) Urine Glucose (UA) (Negative) Urine Ketones (Negative) Urine Blood (Negative) Urine Nitrite (Negative) Urine Bilirubin (Negative) Urine Urobilinogen (<2.0) mg/dL Ur Leukocyte Esterase (Negative) Urine RBC (0-5) /hpf Urine WBC (0-5) /hpf Urine Bacteria (None) /hpf Urine Osmolality (50-1400) mosm/kg 12/09/17 12/09/17 12/09/17 Range/Units 06:50 06:50 06:50 WBC (3.8-10.6) k/uL RBC (3.80-5.40) m/uL Hgb (11.4-16.0) gm/dL Hct (34.0-46.0) % MCV (80.0-100.0) fL MCH (25.0-35.0) pg MCHC (31.0-37.0) g/dL RDW (11.5-15.5) % Plt Count (150-450) k/uL Neutrophils % % Lymphocytes % % Monocytes % % Eosinophils % % Basophils % % Neutrophils # (1.3-7.7) k/uL Lymphocytes # (1.0-4.8) k/uL Monocytes # (0-1.0) k/uL Eosinophils # (0-0.7) k/uL Basophils # (0-0.2) k/uL PT (9.0-12.0) sec INR (<1.2) APTT (22.0-30.0) sec D-Dimer (<0.60) mg/L FEU Sodium 114 L* (137-145) mmol/L Potassium 4.3 (3.5-5.1) mmol/L Chloride 82 L (98-107) mmol/L Carbon Dioxide 25 (22-30) mmol/L Anion Gap 7 mmol/L BUN 8 (7-17) mg/dL Creatinine 0.33 L (0.52-1.04) mg/dL Est GFR (MDRD) Af Amer >60 (>60 ml/min/1.73 sqM) Est GFR (MDRD) Non-Af >60 (>60 ml/min/1.73 sqM) Glucose 152 H (74-99) mg/dL POC Glucose (mg/dL) (75-99) mg/dL POC Glu Safety Physician ID Osmolality ([phone]) mosm/kg Calcium 8.1 L (8.4-10.2) mg/dL Magnesium 1.5 L (1.6-2.3) mg/dL Total Bilirubin 0.7 (0.2-1.3) mg/dL AST 23 (14-36) U/L ALT 26 (9-52) U/L Alkaline Phosphatase 103 (38-126) U/L Total Creatine Kinase 102 (30-135) U/L CK-MB (CK-2) 3.7 H* (0.0-2.4) ng/mL CK-MB (CK-2) Rel Index 3.6 Troponin I <0.012 (0.000-0.034) ng/mL NT-Pro-B Natriuret Pep 2590 pg/mL Total Protein 5.6 L (6.3-8.2) g/dL Albumin 2.4 L (3.5-5.0) g/dL Urine Color Urine Appearance (Clear) Urine pH (5.0-8.0) Ur Specific [place] (1.001-1.035) Urine Protein (Negative) Urine Glucose (UA) (Negative) Urine Ketones (Negative) Urine Blood (Negative) Urine Nitrite (Negative) Urine Bilirubin (Negative) Urine Urobilinogen (<2.0) mg/dL Ur Leukocyte Esterase (Negative) Urine RBC (0-5) /hpf Urine WBC (0-5) /hpf Urine Bacteria (None) /hpf Urine Osmolality (50-1400) mosm/kg 12/09/17 12/09/17 12/09/17 Range/Units 06:50 07:31 08:42 WBC (3.8-10.6) k/uL RBC (3.80-5.40) m/uL Hgb (11.4-16.0) gm/dL Hct (34.0-46.0) % MCV (80.0-100.0) fL MCH (25.0-35.0) pg MCHC (31.0-37.0) g/dL RDW (11.5-15.5) % Plt Count (150-450) k/uL Neutrophils % % Lymphocytes % % Monocytes % % Eosinophils % % Basophils % % Neutrophils # (1.3-7.7) k/uL Lymphocytes # (1.0-4.8) k/uL Monocytes # (0-1.0) k/uL Eosinophils # (0-0.7) k/uL Basophils # (0-0.2) k/uL PT (9.0-12.0) sec INR (<1.2) APTT (22.0-30.0) sec D-Dimer (<0.60) mg/L FEU Sodium (137-145) mmol/L Potassium (3.5-5.1) mmol/L Chloride (98-107) mmol/L Carbon Dioxide (22-30) mmol/L Anion Gap mmol/L BUN (7-17) mg/dL Creatinine (0.52-1.04) mg/dL Est GFR (MDRD) Af Amer (>60 ml/min/1.73 sqM) Est GFR (MDRD) Non-Af (>60 ml/min/1.73 sqM) Glucose (74-99) mg/dL POC Glucose (mg/dL) 133 H (75-99) mg/dL POC Glu Safety Physician ID Contreras Harry Osmolality 237 L* (280-301) mosm/kg Calcium (8.4-10.2) mg/dL Magnesium (1.6-2.3) mg/dL Total Bilirubin (0.2-1.3) mg/dL AST (14-36) U/L ALT (9-52) U/L Alkaline Phosphatase (38-126) U/L Total Creatine Kinase (30-135) U/L CK-MB (CK-2) (0.0-2.4) ng/mL CK-MB (CK-2) Rel Index Troponin I (0.000-0.034) ng/mL NT-Pro-B Natriuret Pep pg/mL Total Protein (6.3-8.2) g/dL Albumin (3.5-5.0) g/dL Urine Color Yellow Urine Appearance Clear (Clear) Urine pH 6.5 (5.0-8.0) Ur Specific [place] 1.006 (1.001-1.035) Urine Protein Trace H (Negative) Urine Glucose (UA) 2+ H (Negative) Urine Ketones Negative (Negative) Urine Blood Trace H (Negative) Urine Nitrite Negative (Negative) Urine Bilirubin Negative (Negative) Urine Urobilinogen 2.0 (<2.0) mg/dL Ur Leukocyte Esterase Moderate H (Negative) Urine RBC 11 H (0-5) /hpf Urine WBC 11 H (0-5) /hpf Urine Bacteria Rare H (None) /hpf Urine Osmolality (50-1400) mosm/kg 12/09/17 Range/Units 08:42 WBC (3.8-10.6) k/uL RBC (3.80-5.40) m/uL Hgb (11.4-16.0) gm/dL Hct (34.0-46.0) % MCV (80.0-100.0) fL MCH (25.0-35.0) pg MCHC (31.0-37.0) g/dL RDW (11.5-15.5) % Plt Count (150-450) k/uL Neutrophils % % Lymphocytes % % Monocytes % % Eosinophils % % Basophils % % Neutrophils # (1.3-7.7) k/uL Lymphocytes # (1.0-4.8) k/uL Monocytes # (0-1.0) k/uL Eosinophils # (0-0.7) k/uL Basophils # (0-0.2) k/uL PT (9.0-12.0) sec INR (<1.2) APTT (22.0-30.0) sec D-Dimer (<0.60) mg/L FEU Sodium (137-145) mmol/L Potassium (3.5-5.1) mmol/L Chloride (98-107) mmol/L Carbon Dioxide (22-30) mmol/L Anion Gap mmol/L BUN (7-17) mg/dL Creatinine (0.52-1.04) mg/dL Est GFR (MDRD) Af Amer (>60 ml/min/1.73 sqM) Est GFR (MDRD) Non-Af (>60 ml/min/1.73 sqM) Glucose (74-99) mg/dL POC Glucose (mg/dL) (75-99) mg/dL POC Glu Safety Physician ID Osmolality (280-301) mosm/kg Calcium (8.4-10.2) mg/dL Magnesium (1.6-2.3) mg/dL Total Bilirubin (0.2-1.3) mg/dL AST (14-36) U/L ALT (9-52) U/L Alkaline Phosphatase (38-126) U/L Total Creatine Kinase (30-135) U/L CK-MB (CK-2) (0.0-2.4) ng/mL CK-MB (CK-2) Rel Index Troponin I (0.000-0.034) ng/mL NT-Pro-B Natriuret Pep pg/mL Total Protein (6.3-8.2) g/dL Albumin (3.5-5.0) g/dL Urine Color Urine Appearance (Clear) Urine pH (5.0-8.0) Ur Specific [place] (1.001-1.035) Urine Protein (Negative) Urine Glucose (UA) (Negative) Urine Ketones (Negative) Urine Blood (Negative) Urine Nitrite (Negative) Urine Bilirubin (Negative) Urine Urobilinogen (<2.0) mg/dL Ur Leukocyte Esterase (Negative) Urine RBC (0-5) /hpf Urine WBC (0-5) /hpf Urine Bacteria (None) /hpf Urine Osmolality 267 (50-1400) mosm/kg Disposition <Rashid Alston - Last Filed: 12/09/17 06:50> <Stalin Brewer - Last Filed: 12/09/17 10:55> Clinical Impression: Hyponatremia, Hyperkalemia, UTI (urinary tract infection) Disposition: ADMITTED IP TO THIS HOSP Condition: Serious Referrals: Long Bonner MD [Primary Care Provider] - 1-2 days
[2017-12-09 07:07] LABS: ALT 26 U/L (9-52); AST 23 U/L (14-36); Albumin 2.4 g/dL (3.5-5.0); Alkaline Phosphatase 103 U/L (38-126); Anion Gap 7 mmol/L; Blood Urea Nitrogen 8 mg/dL (7-17); Calcium 8.1 mg/dL (8.4-10.2); Carbon Dioxide 25 mmol/L (22-30); Chloride 82 mmol/L (98-107); Glucose 152 mg/dL (74-99); Potassium 4.3 mmol/L (3.5-5.1); Total Bilirubin 0.7 mg/dL (0.2-1.3); Total Protein 5.6 g/dL (6.3-8.2)
[2017-12-09 07:12] LABS: Sodium 114 mmol/L (137-145)
[2017-12-09] MEDS ORDERED: NITROGLYCERIN SL TABS 0.4 MG TAB SUBLINGUAL PRN (07:21)
[2017-12-09] MEDS ORDERED: ALBUTEROL NEBULIZED 2.5 MG/3 ML INHALATION PRN (07:25)
[2017-12-09 07:28] LABS: D-Dimer 20.61 mg/L FEU (<0.60); INR 1.3 (<1.2); Partial Thromboplastin Time 28.9 sec (22.0-30.0); Prothrombin Time 12.2 sec (9.0-12.0)
[2017-12-09] MEDS ORDERED: LEVOFLOXACIN 750MG-D5W PMX 750 MG in DEXTROSE/WATER 1 150ML.BAG IVPB STA (07:28)
[2017-12-09 07:31] LABS: Creatine Kinase 102 U/L (30-135)
[2017-12-09 07:35] LABS: Glucose,Whole Blood 133 mg/dL (75-99)
[2017-12-09] MEDS ORDERED: RX INFO: IV CONTRAST WAS GIVEN 1 EACH MISC MISCELLANE PRN (07:36)
[2017-12-09 07:43] LABS: Troponin I <0.012 ng/mL (0.000-0.034)
[2017-12-09 07:45] LABS: Creatine Kinase MB 3.7 ng/mL (0.0-2.4)
[2017-12-09] MEDS ORDERED: LISINOPRIL 2.5 MG TAB PO SCH (09:00)
[2017-12-09] MEDS ORDERED: FUROSEMIDE 20 MG TAB PO SCH (09:00)
[2017-12-09 09:18] LABS: Appearance,Urine Clear (Clear); Bacteria,Urine Rare /hpf; Bilirubin,Urine Negative (Negative); Blood,Urine Trace (Negative); Color,Urine Yellow; Glucose,Urine (UA) 2+ (Negative); Ketones,Urine Negative (Negative); Leukocyte Esterase,Urine Moderate (Negative); PH, Urine 6.5 (5.0-8.0); Protein,Urine Trace (Negative); RBC,Urine 11 /hpf (0-5); Specific Gravity,Urine 1.006 (1.001-1.035); WBC,Urine 11 /hpf (0-5)
[2017-12-09] MEDS: SODIUM CHLORIDE 0.9% 1,000 ML IV SCH ×2 (09:27→22:02)
--- NOTE | 2017-12-09 09:43 | CT ---
EXAMINATION TYPE: CT chest angio for PE DATE OF EXAM: 12/09/2017 COMPARISON: NONE HISTORY: SOB, elevated d dimer CT DLP: 189.4 mGycm Automated exposure control for dose reduction was used. CONTRAST: CT Chest for pulmonary embolism performed with with IV Contrast, patient injected with 100 mL of Omni paque 350. FINDINGS: There is atelectasis or consolidation at the right lung base. Lungs otherwise clear. There is no significant mediastinal or hilar adenopathy. There is no evidence of pulmonary embolus. The aorta is normal in caliber without evidence of dissect ion. The heart is enlarged. There is no pericardial fluid. There is a small right pleural effusion. There is diffuse osteopenia involving the thoracic spine. This is likely on the basis of osteoporosis process. There is a mild dextroscoliosis. IMPRESSION: 1. This examination is negative for pulmonary embolus. 2. Atelectasis versus consolidation, right lung base. 3. Small right effusion. 4. Cardiomegaly.
[2017-12-09] MEDS ORDERED: SODIUM CHLORIDE 0.9% 500 ML IV STA (11:16)
[2017-12-09] MEDS ORDERED: SODIUM CHLORIDE 0.9% 1,000 ML IV STA (11:16)
[2017-12-09 14:02] LABS: Creatine Kinase MB 6.2 ng/mL (0.0-2.4)
[2017-12-09 14:04] LABS: Troponin I 0.05 ng/mL (0.000-0.034)
[2017-12-09] MEDS: METOPROLOL TARTRATE 25 MG TAB PO SCH ×2 (15:09→21:53)
[2017-12-09 16:48] LABS: Glucose,Whole Blood 85 mg/dL (75-99)
[2017-12-09 17:50] LABS: Glucose,Whole Blood 154 mg/dL (75-99)
[2017-12-09 19:03] LABS: Anion Gap 3 mmol/L; Blood Urea Nitrogen 6 mg/dL (7-17); Calcium 7.7 mg/dL (8.4-10.2); Carbon Dioxide 25 mmol/L (22-30); Chloride 87 mmol/L (98-107); Glucose 119 mg/dL (74-99)
[2017-12-09 19:12] LABS: Sodium 115 mmol/L (137-145)
[2017-12-09 19:23] LABS: Potassium 5.1 mmol/L (3.5-5.1)
[2017-12-09 20:19] LABS: Glucose,Whole Blood 114 mg/dL (75-99)
[2017-12-09 21:13] LABS: Creatine Kinase MB 6.5 ng/mL (0.0-2.4)
[2017-12-09 21:14] LABS: Troponin I 0.105 ng/mL (0.000-0.034)
[2017-12-09 22:14] LABS: Basophils % (A) 0 %; Eosinophils % (A) 0 %; HCT 36.7 % (34.0-46.0); HGB 11.7 gm/dL (11.4-16.0); Lymphocytes # (A) 0.6 k/uL (1.0-4.8); Lymphocytes % (A) 8 %; MCH 27.7 pg (25.0-35.0); MCHC 31.9 g/dL (31.0-37.0); MCV 86.8 fL (80.0-100.0); Mean Platelet Volume 6.3; Monocytes # (A) 0.4 k/uL (0-1.0); Monocytes % (A) 6 %; Neutrophils % (A) 84 %; Platelet Count 152 k/uL (150-450); RBC 4.23 m/uL (3.80-5.40); RDW 12.9 % (11.5-15.5); WBC 7.2 k/uL (3.8-10.6)
[2017-12-09 22:26] LABS: ALT 21 U/L (9-52); AST 24 U/L (14-36); Albumin 2.3 g/dL (3.5-5.0); Alkaline Phosphatase 94 U/L (38-126); Blood Urea Nitrogen 5 mg/dL (7-17); Carbon Dioxide 22 mmol/L (22-30); Glucose 82 mg/dL (74-99); Total Bilirubin 0.6 mg/dL (0.2-1.3); Total Protein 5.4 g/dL (6.3-8.2)
[2017-12-09] MEDS ORDERED: VANCOMYCIN IV PER PHARMACY 1 EACH MISC MISCELLANE PRN (22:30)
[2017-12-09] MEDS ORDERED: IOHEXOL 350 MG/ML 25 ML BOTTLE (ORAL USE) PO PRN (22:31)
[2017-12-09 22:33] LABS: Chloride 87 mmol/L (98-107); Potassium 4.2 mmol/L (3.5-5.1)
[2017-12-09 22:36] LABS: Anion Gap 7 mmol/L
[2017-12-09 22:45] LABS: Sodium 116 mmol/L (137-145)
[2017-12-09] MEDS ORDERED: SODIUM CHLORIDE 3%(HYPERTONIC) 500 ML IV ONE (23:00)
--- NOTE | 2017-12-09 23:04 | CT ---
EXAMINATION TYPE: CT brain wo con DATE OF EXAM: 12/09/2017 COMPARISON: NONE HISTORY: Syncope, altered mental status. CT DLP: 868.9 mGycm Automated exposure control for dose reduction was used. FINDINGS: There is cerebral cortical atrophy. There is no mass effect nor midline shift. There is no sign of in tracranial hemorrhage. The calvarium appears intact. There is sclerotic change in the mastoid sinuses . There is mild hypodensity in the periventricular white matter. IMPRESSION: CEREBRAL ATROPHY AND MILD CHRONIC SMALL VESSEL ISCHEMIA. NO ACUTE INTRACRANIAL ABNORMALITY. BILATERAL MASTOIDITIS.
[2017-12-09] MEDS ORDERED: DEXTROSE 50%-WATER 50 ML SYRINGE IVP ONE (23:10)
[2017-12-09 23:13] LABS: Glucose,Whole Blood 66 mg/dL (75-99)
[2017-12-09 23:32] LABS: Glucose,Whole Blood 89 mg/dL (75-99)
--- NOTE | 2017-12-09 23:52 | HP ---
HISTORY AND PHYSICAL CHIEF COMPLAINT: Unresponsiveness. HISTORY OF PRESENT ILLNESS: This 77-year-old woman with a past medical history of multiple medical problems including COPD, CHF, hypertension, bilateral cataract surgery, being followed by Dr. Bonner in the outpatient setting, recently admitted to [facility] with hyponatremia, hyponatremia thought to be hypovolemic hyponatremia. Lasix discontinued and patient also has urinary retention, CHF, and other multiple medical issues. The patient improved significantly and sodium improved to 125. Patient was sent home. Initially sodium was 118. The patient was initially admitted from Dr. Caldwell's office. The patient went home and the family apparently today found her lying in the bed and was unresponsive. EMS was called and the bystander CPR was performed. The EMS found the patient breathing and having a pulse and the patient was mildly confused. The patient taken to [facility] and admitted for further evaluation and treatment. The chest x-ray showed bilateral infiltrates and the sodium was found to be 115 and the patient is admitted for evaluation. Troponin 0.105. Detailed history could not be taken from the patient because the patient has change in mental status and most of the history taken from my discussion with staff and review of the chart and discussion with the ER physician at this time. PAST MEDICAL HISTORY: History of CHF, COPD, hypertension, recent hyponatremia. MEDICATIONS: Prior to admission include: 1. Lopressor 25 mg b.i.d. 2. Zestril 2.5 mg daily. 3. Lasix 20 mg. 4. Ventolin HFA 2 puffs q.4h p.r.n. ALLERGIES: None. FAMILY HISTORY: History of cancer in the family. SOCIAL HISTORY: Previous history of smoking. No history of current smoking. REVIEW OF SYSTEMS: Could not be taken because of the patient's change in mental status. PHYSICAL EXAM: Patient is confused. Pulse is 64, blood pressure is 118/50, respiration 18, temperature is normal. Pulse ox is 100% on 4 L. HEENT is conjunctivae normal. Oral mucosa moist. Neck is no jugular venous distention. No carotid bruit. No lymph node enlargement. Cardiovascular system: No S1, S2, no S3, no S4. RESPIRATORY: Breath sounds diminished in the bases. Bilateral scattered rhonchi and crackles and coarse crackles also present bilaterally. No bronchial breath sounds. ABDOMEN: Soft, scaphoid, nontender. No mass palpable. Legs no edema and no swelling. NERVOUS SYSTEM: Higher functions as mentioned earlier. Otherwise moves all 4 limbs. No focal deficits. Lymphatics: No lymph nodes palpable in the neck, axillae or groin. Skin no ulcers, rashes or bleeding. LABS: CBC within normal limits and sodium is 115. Chloride is 87. LFTs are normal. Calcium is 7.7, osmolality is 237 and CK-MB 6.5, troponin 0.105. UA noted. ASSESSMENT: 1. Change in mental status acute metabolic encephalopathy, possibly secondary to hyponatremia. 2. Hyponatremia, severe, possibly secondary to Syndrome of inappropriate antidiuretic hormone. 3. Troponin 0.105 indeterminate. 4. History of congestive heart failure with chronic systolic dysfunction, ejection fraction 30-35%. 5. Possible bibasilar pneumonia. Consider aspiration of gram-negative. 6. History of recent urinary tract infection. 7. Moderate aortic regurgitation. 8. Severe tricuspid regurgitation, severe pulmonary hypertension. 9. Degenerative joint disease. 10.Hypertension. 11.History of left-sided pleural effusion. 12.Chronic obstructive pulmonary disease. 13.History of nicotine dependence. RECOMMENDATIONS AND DISCUSSION: In this 77-year-old woman who presented with multiple complex medical issues, we will monitor the patient closely, continue the current medications, management and symptomatic treatment. I would recommend 3% saline because of the extremely low sodium and as well as some symptoms and also change in mental status and acute metabolic encephalopathy. I would also recommend broad-spectrum IV antibiotics, bronchodilators. Resume the home medications. Also recommend nephrology evaluation. Monitor in the ICU with Dr. Naylor. Prognosis: Extremely guarded because of multiple complex medical issues and further recommendations to follow. Copy of dictation being forwarded to Dr. Bonner who is the primary physician. I would also recommend a CT scan of the chest, CT scan of the abdomen and pelvis also and as well as CT scan of the head, also the CT of the chest showing right lung base atelectasis, consolidation. I would also cover with broad-spectrum IV antibiotics for possible acute pneumonia also and flu swabbing was also recommended to rule out the possibility of any acute influenza. MMODL / IJN: [id number] /
[2017-12-10] MEDS ORDERED: FUROSEMIDE 10 MG/ML 2 ML VIAL IV ONE ×2 (00:03→18:56)
[2017-12-10] MEDS: PIPERACILLIN-TAZOBACTAM 3.375 GM in DEXTROSE/WATER 1 50ML.BAG IVPB SCH ×3 (00:23→16:44)
[2017-12-10] MEDS: SODIUM CHLORIDE 0.9% 1,000 ML IV SCH ×2 (00:23→22:26)
[2017-12-10 01:41] LABS: Glucose,Whole Blood 141 mg/dL (75-99)
[2017-12-10] MEDS ORDERED: HYDROCORTISONE SUCCINATE 100 MG/2 ML VIAL IV STA (02:25)
[2017-12-10] MEDS ORDERED: NOREPINEPHRIN 4 MG-0.9% NS PMX 4 MG/250 ML ML IV SCH (02:30)
[2017-12-10 03:09] LABS: Anion Gap 6 mmol/L; Blood Urea Nitrogen 4 mg/dL (7-17); Carbon Dioxide 26 mmol/L (22-30); Chloride 86 mmol/L (98-107); Cholesterol 79 mg/dL (<200); Glucose 104 mg/dL (74-99); HDL Cholesterol 45 mg/dL (40-60); LDL Cholesterol,Calculated 25 mg/dL (0-99); Triglycerides 43 mg/dL (<150)
[2017-12-10 03:10] LABS: Potassium 4.7 mmol/L (3.5-5.1); Sodium 118 mmol/L (137-145)
[2017-12-10 03:16] LABS: Basophils % (A) 0 %; Eosinophils % (A) 0 %; HCT 36.6 % (34.0-46.0); HGB 12.3 gm/dL (11.4-16.0); Lymphocytes # (A) 0.5 k/uL (1.0-4.8); Lymphocytes % (A) 6 %; MCH 28.4 pg (25.0-35.0); MCHC 33.6 g/dL (31.0-37.0); MCV 84.6 fL (80.0-100.0); Mean Platelet Volume 8.5; Monocytes # (A) 0.6 k/uL (0-1.0); Monocytes % (A) 8 %; Neutrophils # (A) 6.3 k/uL (1.3-7.7); Neutrophils % (A) 84 %; Platelet Count 153 k/uL (150-450); RBC 4.32 m/uL (3.80-5.40); WBC 7.5 k/uL (3.8-10.6)
[2017-12-10] MEDS: VANCOMYCIN 750 MG in SODIUM CHLORIDE 0.9% 250 ML IVPB SCH ×2 (04:21→14:00)
[2017-12-10 06:33] LABS: Glucose,Whole Blood 99 mg/dL (75-99)
--- NOTE | 2017-12-10 07:50 | P.NPCON ---
History of Present Illness - Reason for Consult hyponatremia - History of Present Illness Reason for consultation: Hyponatremia History of present illness: Patient is a 77-year-old female seen in renal consultation for hyponatremia. Patient was brought to the hospital by the EMS after she was found unresponsive by the family members. Apparently CPR was performed by a bystander. At the time of EMS evaluation she had good pulses. She is currently resting in bed. She is on nonrebreather. Her sodium level was noted to be 114 at the time of admission. She was maintained on normal saline at 100 mL an hour which was subsequently decreased to 50 mL an hour overnight. She also received 1 dose of Lasix last night at 40 mg. Her sodium level this morning is up to 121. She is nonoliguric. Creatinine is 0.3. I don't see any thiazide diuretics and home medications. Hemodynamically she is stable although her blood pressures were in the systolic 70s to 80s at times and did require short course of levofed which has now been discontinued. She's not able to tolerate anything by mouth at this time. CTA did not suggest pulmonary embolus. She is noted to have a small right effusion. Brain CT revealed no acute changes. Vital signs are stable. General: The patient appeared well nourished and normally developed. HEENT: Head exam is unremarkable. Neck is without jugular venous distension. LUNGS: Lungs are clear to auscultation and percussion. Breath sounds decreased. HEART: Rate and Rhythm are regular. First and second heart sounds normal. No murmurs, rubs or gallops. ABDOMEN: Abdominal exam reveals normal bowel sounds. Non-tender and non- distended. No evidence of peritonitis. EXTREMITITES: No clubbing, cyanosis, or edema. Past Medical History Past Medical History: Heart Failure, COPD, Hypertension History of Any Multi-Drug Resistant Organisms: None Reported Additional Past Surgical History / Comment(s): bilateral cataracts surgery Past Anesthesia/Blood Transfusion Reactions: No Reported Reaction Past Psychological History: No Psychological Hx Reported Smoking Status: Former smoker Past Alcohol Use History: None Reported Past Drug Use History: None Reported - Past Family History Father Family Medical History: Cancer Medications and Allergies Home Medications Medication Instructions Recorded Confirmed Type Albuterol Inhaler [Ventolin Hfa 2 puff INHALATION RT-Q4H PRN 10/17/16 12/09/17 History Inhaler] Metoprolol Tartrate [Lopressor] 25 mg PO BID #60 tab 10/20/16 12/09/17 Rx Furosemide [Lasix] 20 mg PO DAILY 12/09/17 12/09/17 History Lisinopril [Zestril] 2.5 mg PO DAILY 12/09/17 12/09/17 History Allergies Allergy/AdvReac Type Severity Reaction Status Date / Time No Known Allergies Allergy Verified 12/09/17 07:21 Physical Exam Vitals: Vital Signs Temp Pulse Resp BP Pulse Ox 12/10/17 07:00 61 17 131/60 100 12/10/17 06:30 62 17 118/58 100 12/10/17 06:00 66 22 117/72 100 12/10/17 05:30 65 21 140/53 100 12/10/17 05:00 68 27 H 129/51 100 12/10/17 04:50 62 36 H 121/56 100 12/10/17 04:40 60 16 136/60 100 12/10/17 04:30 59 L 15 111/55 100 12/10/17 04:20 60 16 94/51 100 12/10/17 04:10 60 16 113/58 100 12/10/17 04:00 97.6 F 58 L 16 90/46 100 12/10/17 03:50 57 L 18 103/52 100 12/10/17 03:40 54 L 16 81/46 100 12/10/17 03:30 57 L 14 132/63 100 12/10/17 03:20 54 L 16 97/47 100 12/10/17 03:10 57 L 16 100/47 100 12/10/17 03:00 62 17 83/55 100 12/10/17 02:50 66 30 H 112/56 100 12/10/17 02:40 66 25 H 95/55 100 12/10/17 02:30 61 24 72/45 100 12/10/17 02:20 58 L 22 72/45 100 12/10/17 02:10 62 24 90/49 100 12/10/17 02:00 64 27 H 90/49 100 12/10/17 01:30 62 15 95/55 100 12/10/17 01:10 61 15 144/72 100 12/10/17 01:00 72 14 144/72 100 12/10/17 00:50 86 29 H 144/72 100 12/10/17 00:40 93 19 107/50 75 L 12/10/17 00:30 80 24 107/50 88 L 12/10/17 00:20 64 17 107/50 91 L 12/10/17 00:10 78 21 120/55 97 12/10/17 00:00 98.8 F 77 22 120/55 94 L 12/09/17 23:53 77 22 120/55 90 L 12/09/17 23:50 75 23 120/55 95 12/09/17 23:40 64 13 140/73 88 L 12/09/17 23:30 98.5 F 64 17 140/73 98 12/09/17 23:20 67 16 140/73 12/09/17 23:10 98.5 F 74 21 140/73 12/09/17 22:03 66 16 117/56 100 12/09/17 20:54 64 18 102/56 100 12/09/17 19:22 62 20 120/64 100 12/09/17 18:46 62 16 116/62 100 12/09/17 16:55 97.8 F 70 16 112/57 96 12/09/17 16:03 71 16 112/57 95 12/09/17 15:11 81 16 112/59 95 12/09/17 14:00 97.8 F 77 18 105/58 96 12/09/17 13:00 94 22 173/81 91 L 12/09/17 09:29 74 16 137/75 100 12/09/17 09:14 80 16 141/77 100 Intake and Output 12/09/17 12/10/17 12/10/17 22:59 06:59 14:59 Intake Total 753.00 Output Total 1000 Balance -247.00 Intake: IV 400 Sodium Chloride 0.9% 1, 400 000 ml @ 50 mls/hr IV . Q20H [facility] Rx#:[id number] Intake, IV Titration 353.00 Amount Norepinephrin 4 mg-0.9% 53.00 Ns Pmx 4 mg In 250 ml @ Titrate IV .Q0M [facility] Rx#: [id number] Piperacillin-Tazobactam 3 50 .375 gm In Dextrose/Water 1 50ml.bag @ 12.5 mls/hr IVPB Q8HR [facility] Rx#: [id number] Vancomycin 750 mg In 250 Sodium Chloride 0.9% 250 ml @ 125 mls/hr IVPB Q12H [facility] Rx#:[id number] Output: Urine 1000 Other: Voiding Method Indwelling Catheter # Bowel Movements 2 Weight 51.1 kg Results - Lab Results Most recent lab results Calcium 8.0 mg/dL (8.4-10.2) L 12/10/17 02:32 Magnesium 1.5 mg/dL (1.6-2.3) L 12/09/17 06:50 12/10/17 02:32 12/10/17 06:50 Assessment and Plan Plan: Assessment: #1. Hypovolemic hyponatremia improving with normal saline. Sodium level 114 on admission and is up to 121 this morning. Also component of tea and toast diet as a BUN is noted to be only 4 and urine osmolality 267. #2. Pyuria. Follow-up urine culture. #3. Benign hypertension. Patient's been hypotensive this admission. #4. History of CHF. Unknown ejection fraction. Currently compensated. Plan: Continue normal saline at 50 mL an hour. Recheck sodium level at noon today. Check urine sodium level. Possible speech evaluation prior to advancing diet. Continue to monitor renal function and urine output. Hold hypertensives for systolic blood pressure less than 120. Check TSH, cortisol and uric acid level. Follow-up cultures. Thank you for the consultation. I will continue to follow the patient with you during her hospital stay.
[2017-12-10] MEDS: IPRATROPIUM-ALBUTEROL 3 ML NEB INHALATION SCH ×2 (08:31→11:50)
[2017-12-10] MEDS: ENOXAPARIN 40 MG/0.4 ML SYRINGE SQ SCH (09:22)
[2017-12-10] MEDS: PANTOPRAZOLE 40 MG/10 ML VIAL IVP SCH (09:22)
[2017-12-10] MEDS: HYDROCORTISONE SUCCINATE 100 MG/2 ML VIAL IV SCH ×2 (09:38→15:09)
[2017-12-10] MEDS: ASPIRIN 325 MG TAB PO SCH (09:41)
--- NOTE | 2017-12-10 09:44 | XR ---
EXAMINATION TYPE: XR chest 1V DATE OF EXAM: 12/10/2017 COMPARISON: 12/09/2017 HISTORY: 77-year-old female NG tube placement TECHNIQUE: Single frontal view of the chest is obtained. FINDINGS: NG tube is satisfactory. Heart mildly enlarged. Hyperinflation with interstitial prominence. Patchy r ight basilar density. Small meniscus peripheral right costophrenic angle. IMPRESSION: 1. COPD and cardiomegaly. 2. Similar trace right effusion with some adjacent patchy right basilar atelectasis or infiltrate.
[2017-12-10 12:44] LABS: Glucose,Whole Blood 114 mg/dL (75-99)
--- NOTE | 2017-12-10 13:14 | P.CNPUL ---
History of Present Illness Consult date: 12/10/17 Reason for consult: other (ICU management) Chief complaint: Altered mental status History of present illness: This is a 77-year-old female with history of hypertension, congestive heart failure, COPD, patient is mostly bedridden according to her children for the last 1 year. No clear cut reason or etiology for her medical debility. But according to her son, patient has been gradually going downhill for the last one year at least. And she is at a point where she is either in bed or in a wheelchair. Family found patient in bed unresponsive, questionable CPR performed by a bystander, however when EMS arrived the patient had a good pulse. She was resting in bed, placed on a nonrebreather mask, and brought into the hospital. Workup revealed a low sodium of 114. Patient was given 0.9 normal saline, and at one point she was hypotensive requiring fluid boluses with 0.9 normal saline. A 12 point last night the patient became more hypotensive hence she was wasted briefly on norepinephrine. But it is discontinued this morning. CT of the chest showed atelectasis at the right lung base, small tiny right pleural effusion, there was evidence of cardiomegaly , chest x-ray is basically the same. CT of the brain was nondiagnostic. Her CBC was normal. D-dimer was elevated at 20.61, BNP level was 2590, serum osmolality was 23 7 repeat sodium this morning is up to 122. Urine osmolality was 267. Urine sodium was 29. Influenza screen was negative. Considering the profound hyponatremia, and considering the patient may have required 3% saline infusion, patient was admitted to the ICU, did not require any 3% infusion, but she did require a brief infusion of norepinephrine for low blood pressure. The patient herself is a poor historian, nonverbal, does not follow any instructions. Eyes remain closed all the time. Review of Systems Cannot be obtained from the patient, however her son told me that the patient has been deteriorating over the last 1 year or so, mostly in bed or in the wheelchair most of the time. Care is being delivered by her kids at home. According to him she never complains. Past Medical History Past Medical History: Heart Failure, COPD, Hypertension History of Any Multi-Drug Resistant Organisms: None Reported Additional Past Surgical History / Comment(s): bilateral cataracts surgery Past Anesthesia/Blood Transfusion Reactions: No Reported Reaction Past Psychological History: No Psychological Hx Reported Smoking Status: Former smoker Past Alcohol Use History: None Reported Past Drug Use History: None Reported - Past Family History Father Family Medical History: Cancer Medications and Allergies Home Medications Medication Instructions Recorded Confirmed Type Albuterol Inhaler [Ventolin Hfa 2 puff INHALATION RT-Q4H PRN 10/17/16 12/09/17 History Inhaler] Metoprolol Tartrate [Lopressor] 25 mg PO BID #60 tab 10/20/16 12/09/17 Rx Furosemide [Lasix] 20 mg PO DAILY 12/09/17 12/09/17 History Lisinopril [Zestril] 2.5 mg PO DAILY 12/09/17 12/09/17 History Allergies Allergy/AdvReac Type Severity Reaction Status Date / Time No Known Allergies Allergy Verified 12/09/17 07:21 Physical Exam Vitals: Vital Signs Temp Pulse Resp BP Pulse Ox 12/10/17 12:00 98.4 F 59 L 13 90/54 100 12/10/17 11:56 72 12/10/17 11:45 69 12/10/17 11:30 67 17 103/58 100 12/10/17 11:00 65 20 117/60 100 12/10/17 10:30 64 15 118/60 100 12/10/17 10:00 62 15 104/55 100 12/10/17 09:30 68 16 112/58 100 12/10/17 09:00 65 21 114/58 100 12/10/17 08:41 74 12/10/17 08:31 65 12/10/17 08:30 66 14 100/56 100 12/10/17 08:00 98.1 F 65 16 108/60 100 12/10/17 07:30 70 14 110/56 100 12/10/17 07:00 61 17 131/60 100 12/10/17 06:30 62 17 118/58 100 12/10/17 06:00 66 22 117/72 100 12/10/17 05:30 65 21 140/53 100 12/10/17 05:00 68 27 H 129/51 100 12/10/17 04:50 62 36 H 121/56 100 12/10/17 04:40 60 16 136/60 100 12/10/17 04:30 59 L 15 111/55 100 02/19/18 04:20 60 16 94/51 100 02/19/18 04:10 60 16 113/58 100 02/18 04:00 97.6 F 58 L 16 90/46 100 02/19/18 03:50 57 L 18 103/52 100 0219/18 03:40 54 L 16 81/46 100 02/19/18 03:30 57 L 14 132/63 100 0219/18 03:20 54 L 16 97/47 100 02/18 03:10 57 L 16 100/47 100 0219/18 03:00 62 17 83/55 100 0219/18 02:50 66 30 H 112/56 100 02/18 02:40 66 25 H 95/55 100 12/10/18 02:30 61 24 72/45 100 02/18 02:20 58 L 22 72/45 100 12/10/18 02:10 62 24 90/49 100 12/10/18 02:00 64 27 H 90/49 100 18 01:30 62 15 95/55 100 02/18 01:10 61 15 144/72 100 02/18 01:00 72 14 144/72 100 12/10/18 00:50 86 29 H 144/72 100 12/10/18 00:40 93 19 107/50 75 L 12/10/18 00:30 80 24 107/50 88 L //18 00:20 64 17 107/50 91 L 12/10/18 00:10 78 21 120/55 97 02/18 00:00 98.8 F 77 22 120/55 94 L 02/18/18 23:53 77 22 120/55 90 L 02/18/18 23:50 75 23 120/55 95 02/18/18 23:40 64 13 140/73 88 L 02/18/18 23:30 98.5 F 64 17 140/73 98 02/18/18 23:20 67 16 140/73 02/18/18 23:10 98.5 F 74 21 140/73 02/18/18 22:03 66 16 117/56 100 02/18/18 20:54 64 18 102/56 100 02/18/18 19:22 62 20 120/64 100 02/18/18 18:46 62 16 116/62 100 12/09/17 16:55 97.8 F 70 16 112/57 96 12/09/17 16:03 71 16 112/57 95 12/09/17 15:11 81 16 112/59 95 12/09/17 14:00 97.8 F 77 18 105/58 96 12/09/17 13:00 94 22 173/81 91 L Intake and Output 12/09/17 12/10/17 12/10/17 22:59 06:59 14:59 Intake Total 753.00 320.0 Output Total 1000 342 Balance -247.00 -22.0 Intake: IV 400 260.0 Piperacillin-Tazobactam 3 50.0 .375 gm In Dextrose/Water 1 50ml.bag @ 12.5 mls/hr IVPB Q8HR [facility] Rx#: [id number] Sodium Chloride 0.9% 1, 400 210 000 ml @ 50 mls/hr IV . Q20H [facility] Rx#:[id number] Intake, IV Titration 353.00 Amount Norepinephrin 4 mg-0.9% 53.00 Ns Pmx 4 mg In 250 ml @ Titrate IV .Q0M [facility] Rx#: [id number] Piperacillin-Tazobactam 3 50 .375 gm In Dextrose/Water 1 50ml.bag @ 12.5 mls/hr IVPB Q8HR [facility] Rx#: [id number] Vancomycin 750 mg In 250 Sodium Chloride 0.9% 250 ml @ 125 mls/hr IVPB Q12H [facility] Rx#:[id number] Tube Feeding 30 Other 30 Output: Urine 1000 342 Other: Voiding Method Indwelling Catheter Indwelling Catheter # Bowel Movements 2 Weight 51.1 kg 51.1 kg Patient Weight 12/11/17 06:59 Weight 51.1 kg General appearance: Frail-looking 77-year-old, does not respond to any stimuli, eyes closed, nonverbal Head exam: atraumatic, normocephalic Eye exam: Sunken eyeballs, (Blepharitis bilaterally).negative scleral icterus, negative conjunctival injection Neck exam: normal inspection Respiratory exam: Diminished breath sounds at the bases, no crackles or rhonchi or wheezes were appreciated. Cardiovascular Exam: Normal S1 and S2, no S3 gallop, no murmur. GI/Abdominal exam: Soft nontender no megaly no rebound no guarding. Extremities exam: normal inspection, normal capillary refill. Negative pedal edema Neurological exam: Patient is hardly arousable, does not open eyes, does not respond to any stimuli, does not follow any instructions. Skin exam: Multiple decubitus ulcers in the buttock and in the hips area bilaterally. Lymphatics: No lymphadenopathy. Results - Laboratory Findings CBC and BMP: 12/10/17 02:32 12/10/17 12:07 PT/INR, D-dimer PT 12.2 sec (9.0-12.0) H 12/09/17 06:10 INR 1.3 (<1.2) H 12/09/17 06:10 D-Dimer 20.61 mg/L FEU (<0.60) H 12/09/17 06:10 Abnormal lab findings: Abnormal Labs 12/09/17 12/09/17 12/09/17 06:04 06:10 06:10 Lymphocytes # 0.8 L PT 12.2 H INR 1.3 H D-Dimer 20.61 H Sodium Chloride BUN Creatinine Glucose POC Glucose (mg/dL) 53 L Osmolality Uric Acid Calcium Magnesium Total Creatine Kinase CK-MB (CK-2) Troponin I Total Protein Albumin Urine Protein Urine Glucose (UA) Urine Blood Ur Leukocyte Esterase Urine RBC Urine WBC Urine Bacteria Ur Random Sodium 12/09/17 12/09/17 12/09/17 06:50 06:50 06:50 Lymphocytes # PT INR D-Dimer Sodium 114 L* Chloride 82 L BUN Creatinine 0.33 L Glucose 152 H POC Glucose (mg/dL) Osmolality 237 L* Uric Acid Calcium 8.1 L Magnesium 1.5 L Total Creatine Kinase CK-MB (CK-2) 3.7 H* Troponin I Total Protein 5.6 L Albumin 2.4 L Urine Protein Urine Glucose (UA) Urine Blood Ur Leukocyte Esterase Urine RBC Urine WBC Urine Bacteria Ur Random Sodium 12/09/17 12/09/17 12/09/17 07:31 08:42 12:42 Lymphocytes # PT INR D-Dimer Sodium Chloride BUN Creatinine Glucose POC Glucose (mg/dL) 133 H Osmolality Uric Acid Calcium Magnesium Total Creatine Kinase 139 H CK-MB (CK-2) 6.2 H* Troponin I 0.050 H* Total Protein Albumin Urine Protein Trace H Urine Glucose (UA) 2+ H Urine Blood Trace H Ur Leukocyte Esterase Moderate H Urine RBC 11 H Urine WBC 11 H Urine Bacteria Rare H Ur Random Sodium 12/09/17 12/09/17 12/09/17 17:46 18:44 20:16 Lymphocytes # PT INR D-Dimer Sodium 115 L* Chloride 87 L BUN 6 L Creatinine 0.30 L Glucose 119 H POC Glucose (mg/dL) 154 H 114 H Osmolality Uric Acid Calcium 7.7 L Magnesium Total Creatine Kinase CK-MB (CK-2) Troponin I Total Protein Albumin Urine Protein Urine Glucose (UA) Urine Blood Ur Leukocyte Esterase Urine RBC Urine WBC Urine Bacteria Ur Random Sodium 12/09/17 12/09/17 12/09/17 20:28 21:51 21:57 Lymphocytes # 0.6 L PT INR D-Dimer Sodium 116 L* Chloride 87 L BUN 5 L Creatinine 0.30 L Glucose POC Glucose (mg/dL) Osmolality Uric Acid Calcium 8.0 L Magnesium Total Creatine Kinase CK-MB (CK-2) 6.5 H* Troponin I 0.105 H* Total Protein 5.4 L Albumin 2.3 L Urine Protein Urine Glucose (UA) Urine Blood Ur Leukocyte Esterase Urine RBC Urine WBC Urine Bacteria Ur Random Sodium 12/09/17 12/10/17 12/10/17 23:09 01:37 02:32 Lymphocytes # PT INR D-Dimer Sodium 118 L* Chloride 86 L BUN 4 L Creatinine 0.30 L Glucose 104 H POC Glucose (mg/dL) 66 L 141 H Osmolality Uric Acid Calcium 8.0 L Magnesium Total Creatine Kinase CK-MB (CK-2) Troponin I Total Protein Albumin Urine Protein Urine Glucose (UA) Urine Blood Ur Leukocyte Esterase Urine RBC Urine WBC Urine Bacteria Ur Random Sodium 12/10/17 12/10/17 12/10/17 02:32 06:50 06:50 Lymphocytes # 0.5 L PT INR D-Dimer Sodium 121 L Chloride BUN Creatinine Glucose POC Glucose (mg/dL) Osmolality Uric Acid 2.2 L Calcium Magnesium Total Creatine Kinase CK-MB (CK-2) Troponin I Total Protein Albumin Urine Protein Urine Glucose (UA) Urine Blood Ur Leukocyte Esterase Urine RBC Urine WBC Urine Bacteria Ur Random Sodium 12/10/17 12/10/17 12/10/17 08:30 12:07 12:42 Lymphocytes # PT INR D-Dimer Sodium 122 L Chloride BUN Creatinine Glucose POC Glucose (mg/dL) 114 H Osmolality Uric Acid Calcium Magnesium Total Creatine Kinase CK-MB (CK-2) Troponin I Total Protein Albumin Urine Protein Urine Glucose (UA) Urine Blood Ur Leukocyte Esterase Urine RBC Urine WBC Urine Bacteria Ur Random Sodium 29 L - Diagnostic Findings Chest x-ray: image reviewed CT scan - chest: image reviewed Assessment and Plan Assessment: Impression: 1 acute hypovolemic hyponatremia, most likely related to poor intake, not clear to be whether the patient was on diuretics at home or not. 2 chronic medical debility, patient has been bedridden and wheelchair ridden for quite some time. 3 history of benign essential hypertension. 4 history of congestive heart failure, unknown ejection fraction, unknown whether her congestive heart failure is systolic or diastolic. 5 hypotension secondary to hypovolemic shock, strongly doubt any underlying sepsis. 6 multiple decubitus ulcers secondary to medical debility and considering the patient is bed and wheelchair ridden. 7 pyuria as noted on the urinalysis, however urine cultures are pending to determine whether the patient has acute urinary tract infection. [address] of the chest showing mostly atelectasis and small right pleural effusion, doubt clinical significance. At this point. Recommendation: Continue present treatment plan including IV fluids, patient will need some nutritional support, hence a nasogastric tube was placed, and the patient will be fed via enteral feeding. Patient will be placed on GI and DVT prophylaxis, we'll recommend psych social worker evaluation, eventually she needs to be transferred to [facility]/correction. Strongly doubt if the family members can take care of this patient at home. Continue empiric antibiotics presently on tidal final cultures from blood and urine are available. Time with Patient: Greater than 30
--- NOTE | 2017-12-10 13:41 | ECHOF ---
Referral Reason:elected troponins, eval LV function MEASUREMENTS -------- HEIGHT: 152.4 cm WEIGHT: 50.8 kg BP: 108/53 RVIDd: 4.3 cm (< 3.3) IVSd: 1.2 cm (0.6 - 1.1) LVIDd: 3.4 cm (3.9 - 5.3) LVPWd: 1.4 cm (0.6 - 1.1) IVSs: 1.5 cm LVIDs: 2.5 cm LVPWs: 1.7 cm LA Diam: 3.6 cm (2.7 - 3.8) LAESV Index (A-L): 41.07 ml/m Ao Diam: 3.3 cm (2.0 - 3.7) AV Cusp: 2.3 cm (1.5 - 2.6) MV EXCURSION: 14.881 mm (> 18.000) MV EF SLOPE: 60 mm/s (70 - 150) EPSS: 1.1 cm MV E Saw: 0.84 m/s MV DecT: 228 ms MV A Saw: 0.97 m/s MV E/A Ratio: 0.87 AV maxP.45 mmHg AV meanP.89 mmHg AR PHT: 653 ms RAP: 5.00 mmHg RVSP: 49.64 mmHg FINDINGS -------- Sinus rhythm. This was a technically adequate study. The left ventricular size is normal. There is moderate concentric left ventricular hypertrophy. O verall left ventricular systolic function is normal with, an EF between 55 - 60 %. The right ventricle is severely enlarged. LA is severely dilated >40 ml/m2 The right atrium is normal in size. There is mild aortic valve sclerosis. There is mild aortic regurgitation. Peak/mean gradient acro ss the Aortic Valve is 13.45mmHg / 6.89mmHg. The mitral valve leaflets are mildly thickened. Mild mitral annular calcification present. There is trace to mild mitral regurgitation. Mild tricuspid regurgitation present. There is moderate pulmonary hypertension. The right ventric ular systolic pressure, as measured by Doppler, is 49.64mmHg. The pulmonic valve was not well visualized. There is no pulmonic regurgitation present. The aortic root size is normal. Small inferior vena cava consistent with a right atrial pressure of 5 mmHg. There is no pericardial effusion. CONCLUSIONS -------- 1. Sinus rhythm. 2. This was a technically adequate study. 3. The left ventricular size is normal. 4. There is moderate concentric left ventricular hypertrophy. 5. Overall left ventricular systolic function is normal with, an EF between 55 - 60 %. 6. The right ventricle is severely enlarged. 7. LA is severely dilated >40 ml/m2 8. The right atrium is normal in size. 9. There is mild aortic valve sclerosis. 10. There is mild aortic regurgitation. 11. Peak/mean gradient across the Aortic Valve is 13.45mmHg / 6.89mmHg. 12. The mitral valve leaflets are mildly thickened. 13. Mild mitral annular calcification present. 14. There is trace to mild mitral regurgitation. 15. Mild tricuspid regurgitation present. 16. There is moderate pulmonary hypertension. 17. The right ventricular systolic pressure, as measured by Doppler, is 49.64mmHg. 18. The pulmonic valve was not well visualized. 19. There is no pulmonic regurgitation present. 20. The aortic root size is normal. 21. Small inferior vena cava consistent with a right atrial pressure of 5 mmHg. 22. There is no pericardial effusion. VOCATIONAL PLACEMENT SPECIALIST: Amanda Garcia RDCS
[2017-12-10] MEDS: MAGNESIUM SULFATE-D5W PMX 1 GM in DEXTROSE/WATER 1 100ML.BAG IVPB SCH ×2 (13:54→14:57)
--- NOTE | 2017-12-10 15:25 | CONS ---
CONSULTATION This is a 77-year-old lady who has been brought into the hospital after being found sort of unresponsive. 911 was called and after arrival she has not been very responsive. She is quite lethargic. Apparently, she was found on the couch and the patient's children called the EMS and bystander CPR was performed for a few minutes, but even this is not verified. The patient is lethargic, does not respond very well. Her sodium level is quite low. She has been seen here in the hospital in September has ejection fraction in the 35-40% range with a global hypokinesia, carries a diagnosis of cardiomyopathy, hypertension, and COPD. She is a former smoker. Details are unavailable. I cannot obtain any meaningful history from the patient. Her troponin profile suggests hypoxia related myocardial injury and does not represent any significant acute ischemia that would require intervention. She was apparently hypoxic. Troponin went up to 0.10. I am recommending an additional troponin to be performed as well as the repeat echocardiogram. I am unable to obtain any meaningful history from the patient. Her D-dimer was also quite elevated, but CT angiography did not reveal any evidence of pulmonary embolism. PAST MEDICAL HISTORY: Based on the chart review here, this lady carries a diagnosis of cardiomyopathy with ejection fraction in the 35-40% range. She also seems to have bronchial asthma and hypertension. MEDICATIONS: At home include inhalers, Lasix and lisinopril and metoprolol 25 mg b.i.d. ALLERGIES: None. SOCIAL HISTORY: Patient is a past smoker. PHYSICAL EXAMINATION: On examination, blood pressure is 108/60, pulse rate is 70 per minute, sinus. HEENT unremarkable. Fundus was not examined by me. NECK: Supple. There is JVD of 1 cm. No carotid bruit. Heart exam reveals S1, S2 with a short systolic murmur at the base. Lungs reveal diminished air entry. Abdomen is soft, nontender. Lower extremities reveal deformities. There are decubital ulcers noted on her buttock. EKG reveals a sinus mechanism with a lot of artifact, leftward axis, poor R-wave progression over precordial leads. LABORATORY DATA: Suggests the her creatinine is normal. Potassium level is normal. Her troponin profile suggests abnormality, but this may be related to a hypoxia related injury. The patient is very well oxygenated at this time. IMPRESSION: 1. Unresponsive secondary to multiple causes, rule out metabolic causes. 2. Cardiomyopathy, last documented ejection fraction was 35-40%. 3. History of non-ST elevation myocardial infarction, but this is a type 2 myocardial infarction could be related to a hypoxia related injury. 4. RECOMMENDATIONS: I am recommending cautious hydration, echocardiography to repeat another troponin level and magnesium level. The patient is currently on a subcu heparin. Her hyponatremia is being addressed by Nephrology at this time. Prognosis remains quite guarded. Thank you very much for the consult. PRATIK / KRYSTIANN: [id number] /
--- NOTE | 2017-12-10 16:40 | PN ---
PROGRESS NOTE DATE OF SERVICE: 12/10/2017 This 77-year-old woman was admitted with unresponsiveness also had significant metabolic encephalopathy. Patient has severe hyponatremia. Sodium is coming up to 121. NG tube was inserted. The patient is being closely monitored as nephrology evaluation is in progress at this time. PAST MEDICAL HISTORY: Reviewed. REVIEW OF SYSTEMS: Could not be taken because the patient is confused. CURRENT MEDICATIONS: Reviewed include: 1. Ventolin 2.5 q.4h p.r.n. 2. DuoNeb q.i.d. and p.r.n. 3. Aspirin 325 mg daily. 4. Lovenox 40 mg daily. 5. Solu-Cortef 50 mg IV q.i.d. 6. Omnipack 25 mg q.6h p.r.n. 7. Nitrostat 0.4 mg p.r.n. 8. Levophed drip. 9. Zosyn 3.375 IV q.8. 10.Vancomycin. PHYSICAL EXAM: Patient is alert. The patient is conscious but confused. Pulse is 70. Blood pressure 102/60, respirations 18, temp 98.4, pulse ox 100% on 6 L. HEENT conjunctivae normal. Oral mucosa moist. Neck is no jugular venous distention. No carotid bruit. No lymph node enlargement. Cardiovascular systems: S1, S2 muffled. Respiration: Breath sounds diminished at the bases. Bilateral scattered rhonchi and crackles. ABDOMEN: Soft, scaphoid. Legs no edema. No swelling. LABS: CBC within normal limits. Sodium 122, chloride is 86, and glucose 104 and uric acid is 2.2 and magnesium is 1.4. Troponin 0.251. Cortisol is 114. Random sodium is 29. Influenza is negative. ASSESSMENT: 1. Change in mental status acute metabolic encephalopathy, possibly secondary to hyponatremia. 2. Severe hyponatremia, possibly secondary to hypovolemic hyponatremia or Syndrome of inappropriate antidiuretic hormone. 3. Troponin 0.105 indeterminate. 4. History of congestive heart failure with chronic systolic dysfunction ejection fraction 30-35%. 5. Bibasilar pneumonia possibly aspiration or gram-negative. 6. History of recent urinary tract infection. 7. Moderate aortic regurgitation. 8. Severe tricuspid regurgitation and severe pulmonary hypertension. 9. Degenerative joint disease. 10.Hypertension. 11.History of left-sided pleural effusion. 12.Chronic obstructive pulmonary disease. 13.History of nicotine dependence. RECOMMENDATIONS AND DISCUSSION: Recommend to continue current medications. Continue to monitor. Symptomatic treatment and broad-spectrum IV antibiotics and IV fluids, Lasix. Closely monitor with Nephrology and pulmonology. Prognosis is extremely guarded because of multiple complex medical issues. Further medications to follow. See orders for details. MMODL / IJN: [id number] /
[2017-12-10 17:59] LABS: Glucose,Whole Blood 168 mg/dL (75-99)
[2017-12-10 23:58] LABS: Glucose,Whole Blood 162 mg/dL (75-99)
[2017-12-11] MEDS: HYDROCORTISONE SUCCINATE 100 MG/2 ML VIAL IV SCH ×4 (00:10→23:40)
[2017-12-11] MEDS: PIPERACILLIN-TAZOBACTAM 3.375 GM in DEXTROSE/WATER 1 50ML.BAG IVPB SCH ×4 (00:13→23:39)
[2017-12-11] MEDS: INSULIN ASPART 100 UNIT/ML 1 ML 10 ML VIAL SQ SCH ×4 (00:17→17:45)
[2017-12-11] MEDS: VANCOMYCIN 750 MG in SODIUM CHLORIDE 0.9% 250 ML IVPB SCH ×2 (03:12→14:20)
[2017-12-11 04:28] LABS: Basophils % (A) 0 %; Eosinophils % (A) 1 %; HCT 35.4 % (34.0-46.0); HGB 11.5 gm/dL (11.4-16.0); Lymphocytes # (A) 0.3 k/uL (1.0-4.8); Lymphocytes % (A) 5 %; MCH 27.8 pg (25.0-35.0); MCHC 32.5 g/dL (31.0-37.0); MCV 85.7 fL (80.0-100.0); Mean Platelet Volume 6.8; Monocytes # (A) 0.3 k/uL (0-1.0); Monocytes % (A) 5 %; Neutrophils # (A) 5.7 k/uL (1.3-7.7); Neutrophils % (A) 89 %; Platelet Count 159 k/uL (150-450); RBC 4.14 m/uL (3.80-5.40); RDW 13.1 % (11.5-15.5); WBC 6.4 k/uL (3.8-10.6)
[2017-12-11 04:36] LABS: Anion Gap 5 mmol/L; Blood Urea Nitrogen 9 mg/dL (7-17); Calcium 8.5 mg/dL (8.4-10.2); Carbon Dioxide 30 mmol/L (22-30); Chloride 92 mmol/L (98-107); Glucose 100 mg/dL (74-99); Potassium 3.5 mmol/L (3.5-5.1); Sodium 127 mmol/L (137-145)
[2017-12-11] MEDS ORDERED: Potassium Replacement Protocol 1 EACH MISC MISCELLANE PRN (05:32)
[2017-12-11 06:02] LABS: Glucose,Whole Blood 121 mg/dL (75-99)
[2017-12-11] MEDS: MAGNESIUM SULFATE-D5W PMX 1 GM in DEXTROSE/WATER 1 100ML.BAG IVPB SCH ×2 (06:14→07:48)
[2017-12-11] MEDS: POTASSIUM CHLORIDE 10 MEQ in SODIUM CHLORIDE 0.9% 100 ML IV SCH ×2 (06:14→07:49)
[2017-12-11] MEDS: ASPIRIN 325 MG TAB PO SCH (08:28)
[2017-12-11] MEDS: PANTOPRAZOLE 40 MG/10 ML VIAL IVP SCH (08:28)
[2017-12-11] MEDS: ENOXAPARIN 40 MG/0.4 ML SYRINGE SQ SCH (08:28)
[2017-12-11] MEDS: METOPROLOL TARTRATE 12.5 MG TAB PO SCH (09:49)
[2017-12-11] MEDS: IPRATROPIUM-ALBUTEROL 3 ML NEB INHALATION SCH ×4 (10:07→19:56)
--- NOTE | 2017-12-11 10:18 | PN ---
PROGRESS NOTE This lady came in unresponsive. She had hyponatremia, which has improved to 127 from 114. She remains in sinus rhythm. For 24 hours she has been off Levophed. She is also on hydrocortisone. Echo revealed preserved systolic function. Troponin is up to 0.25. However, the troponin levels suggest probably a type 2 myocardial infarction with hypoxia and hypotension related myocardial damage. Overall LV function is good. No aggressive invasive intervention at this time. We will add a small dose of beta sami and see how she does. S1, S2 heard normally, short systolic murmur noted. Lungs reveal improved air entry. Abdomen is soft. Lower extremities reveal some deformities and there is evidence of decub ulcers also. MMODL / IJN: [id number] /
--- NOTE | 2017-12-11 10:45 | P.PN ---
Subjective Progress Note Date: 12/11/17 Principal diagnosis: Acute hypovolemic hyponatremia This is a 77-year-old female with history of hypertension, congestive heart failure, COPD, patient is mostly bedridden according to her children for the last 1 year. No clear cut reason or etiology for her medical debility. But according to her son, patient has been gradually going downhill for the last one year at least. And she is at a point where she is either in bed or in a wheelchair. Family found patient in bed unresponsive, questionable CPR performed by a bystander, however when EMS arrived the patient had a good pulse. She was resting in bed, placed on a nonrebreather mask, and brought into the hospital. Workup revealed a low sodium of 114. Patient was given 0.9 normal saline, and at one point she was hypotensive requiring fluid boluses with 0.9 normal saline. A 12 point last night the patient became more hypotensive hence she was wasted briefly on norepinephrine. But it is discontinued this morning. CT of the chest showed atelectasis at the right lung base, small tiny right pleural effusion, there was evidence of cardiomegaly , chest x-ray is basically the same. CT of the brain was nondiagnostic. Her CBC was normal. D-dimer was elevated at 20.61, BNP level was 2590, serum osmolality was 23 7 repeat sodium this morning is up to 122. Urine osmolality was 267. Urine sodium was 29. Influenza screen was negative. Considering the profound hyponatremia, and considering the patient may have required 3% saline infusion, patient was admitted to the ICU, did not require any 3% infusion, but she did require a brief infusion of norepinephrine for low blood pressure. The patient herself is a poor historian, nonverbal, does not follow any instructions. Eyes remain closed all the time. Patient was reevaluated today on 12/11/2017, patient is a bit more awake, however unable to follow any instructions, pulled her nasogastric tube out yesterday, and refused having another one to be placed. Hence the patient is taking meds by mouth, and her nutrition seems to be very poor since she doesn't eat much. And she keeps saying that she is not hungry and she has no appetite. Hence I recommended a dietitian consult for caloric count, and recommendation regarding nutritional status. Labs were reviewed sodium is up to 127. The rest of the labs were unremarkable including basic metabolic profile and CBC. Cultures of urine and blood are negative so far. Objective - Vital Signs Vital signs: Vital Signs Temp 97.6 F 12/11/17 08:00 Pulse 66 12/11/17 10:00 Resp 16 12/11/17 10:00 BP 159/73 12/11/17 10:00 Pulse Ox 100 12/11/17 10:00 Intake & Output 12/10/17 12/11/17 12/11/17 18:59 06:59 18:59 Intake Total 1215.0 802.5 552.5 Output Total 535 945 122 Balance 680.0 -142.5 430.5 Weight 51.1 kg 48.7 kg Intake: IV 915.0 602.5 502.5 Magnesium Sulfate-D5w Pmx 200 200 1 gm In Dextrose/Water 1 100ml.bag @ 100 mls/hr IVPB Q1H [facility] Rx#: [id number] Piperacillin-Tazobactam 3 75.0 12.5 12.5 .375 gm In Dextrose/Water 1 50ml.bag @ 12.5 mls/hr IVPB Q8HR [facility] Rx#: [id number] Potassium Chloride 10 meq 200 In Sodium Chloride 0.9% 100 ml @ 100 mls/hr IV Q1H [facility] Rx#:[id number] Sodium Chloride 0.9% 1, 390 590 90 000 ml @ 50 mls/hr IV . Q20H [facility] Rx#:[id number] Vancomycin 750 mg In 250 Sodium Chloride 0.9% 250 ml @ 125 mls/hr IVPB Q12H [facility] Rx#:[id number] Oral 50 Tube Feeding 240 200 Other 60 Output: Urine 535 945 122 Other: Voiding Method Indwelling Catheter Indwelling Catheter Indwelling Catheter - Exam General appearance: Frail-looking 77-year-old, awake today, likes to be left alone, follows very simple instructions. Head exam: atraumatic, normocephalic Eye exam: Sunken eyeballs, (Blepharitis bilaterally).negative scleral icterus, negative conjunctival injection Neck exam: normal inspection Respiratory exam: Diminished breath sounds at the bases, no crackles or rhonchi or wheezes were appreciated. Cardiovascular Exam: Normal S1 and S2, no S3 gallop, no murmur. GI/Abdominal exam: Soft nontender no megaly no rebound no guarding. Extremities exam: normal inspection, normal capillary refill. Negative pedal edema Neurological exam: Patient is awake, moves all extremities, follows very simple instructions, wishes to be left alone, refusing to have a nasogastric tube to be placed back in. Skin exam: Multiple decubitus ulcers in the buttock and in the hips area bilaterally. Lymphatics: No lymphadenopathy. - Labs CBC & Chem 7: 12/11/17 04:16 12/11/17 09:18 Labs: Abnormal Lab Results - Last 24 Hours (Table) 12/10/17 12/10/17 12/10/17 Range/Units 12:07 12:07 12:07 Lymphocytes # (1.0-4.8) k/uL Sodium 122 L (137-145) mmol/L Chloride (98-107) mmol/L Creatinine (0.52-1.04) mg/dL Glucose (74-99) mg/dL POC Glucose (mg/dL) (75-99) mg/dL Magnesium 1.4 L (1.6-2.3) mg/dL Troponin I 0.251 H* (0.000-0.034) ng/mL 12/10/17 12/10/17 12/10/17 Range/Units 12:42 17:44 17:58 Lymphocytes # (1.0-4.8) k/uL Sodium 121 L (137-145) mmol/L Chloride (98-107) mmol/L Creatinine (0.52-1.04) mg/dL Glucose (74-99) mg/dL POC Glucose (mg/dL) 114 H 168 H (75-99) mg/dL Magnesium (1.6-2.3) mg/dL Troponin I (0.000-0.034) ng/mL 12/10/17 12/10/17 12/11/17 Range/Units 23:41 23:55 04:16 Lymphocytes # 0.3 L (1.0-4.8) k/uL Sodium 123 L (137-145) mmol/L Chloride (98-107) mmol/L Creatinine (0.52-1.04) mg/dL Glucose (74-99) mg/dL POC Glucose (mg/dL) 162 H (75-99) mg/dL Magnesium (1.6-2.3) mg/dL Troponin I (0.000-0.034) ng/mL 12/11/17 12/11/17 12/11/17 Range/Units 04:16 05:43 09:18 Lymphocytes # (1.0-4.8) k/uL Sodium 127 L 126 L (137-145) mmol/L Chloride 92 L (98-107) mmol/L Creatinine 0.37 L (0.52-1.04) mg/dL Glucose 100 H (74-99) mg/dL POC Glucose (mg/dL) 121 H (75-99) mg/dL Magnesium (1.6-2.3) mg/dL Troponin I (0.000-0.034) ng/mL Microbiology - Last 24 Hours (Table) 12/09/17 20:28 Blood Culture - Preliminary Blood No Growth after 24 hours 12/09/17 08:42 Urine Culture - Final Urine,Catheterized Assessment and Plan Assessment: Impression: 1 acute hypovolemic hyponatremia, and acute metabolic encephalopathy most likely related to poor intake, not clear to be whether the patient was on diuretics at home or not. 2 chronic medical debility, patient has been bedridden and wheelchair ridden for quite some time. 3 history of benign essential hypertension. 4 history of congestive heart failure, unknown ejection fraction, unknown whether her congestive heart failure is systolic or diastolic. 5 hypotension secondary to hypovolemic shock, strongly doubt any underlying sepsis. 6 multiple decubitus ulcers secondary to medical debility and considering the patient is bed and wheelchair ridden. 7 pyuria as noted on the urinalysis, however urine cultures are pending to determine whether the patient has acute urinary tract infection. [address] of the chest showing mostly atelectasis and small right pleural effusion, doubt clinical significance. At this point. Recommendation: Continue present treatment plan including IV fluids, patient will need some nutritional support, dietitian consult was initiated, we will also consult infectious disease to evaluate for recommendation regarding her decubitus ulcers, will transfer the patient out of the ICU to a regular medical floor, she was definitely need some placement hopefully in a halfway upon discharge. Time with Patient: Less than 30
--- NOTE | 2017-12-11 11:50 | P.PN ---
Subjective Patient is seen in follow-up for hyponatremia. Sodium level [place] coming up gradually and was 126 from 9:00 this morning. Patient pulled out her NG tube last night. She is currently maintained on normal saline at 50 mL an hour. She did receive 1 dose of Lasix 20 mg last night. She is currently resting in bed. A little bit more awake today. Starting to tolerate oral intake. Hemodynamically stable. Vital signs are stable. General: The patient appeared well nourished and normally developed. HEENT: Head exam is unremarkable. Neck is without jugular venous distension. LUNGS: Lungs are clear to auscultation and percussion. Breath sounds decreased. HEART: Rate and Rhythm are regular. First and second heart sounds normal. No murmurs, rubs or gallops. ABDOMEN: Abdominal exam reveals normal bowel sounds. Non-tender and non- distended. No evidence of peritonitis. EXTREMITITES: No clubbing, cyanosis, or edema. Objective - Vital Signs Vital signs: Vital Signs Temp 97.6 F 12/11/17 08:00 Pulse 64 12/11/17 11:40 Resp 16 12/11/17 10:00 BP 159/73 12/11/17 10:00 Pulse Ox 100 12/11/17 10:00 Intake & Output 12/10/17 12/11/17 12/11/17 18:59 06:59 18:59 Intake Total 1215.0 802.5 552.5 Output Total 535 945 122 Balance 680.0 -142.5 430.5 Weight 51.1 kg 48.7 kg Intake: IV 915.0 602.5 502.5 Magnesium Sulfate-D5w Pmx 200 200 1 gm In Dextrose/Water 1 100ml.bag @ 100 mls/hr IVPB Q1H [facility] Rx#: [id number] Piperacillin-Tazobactam 3 75.0 12.5 12.5 .375 gm In Dextrose/Water 1 50ml.bag @ 12.5 mls/hr IVPB Q8HR [facility] Rx#: [id number] Potassium Chloride 10 meq 200 In Sodium Chloride 0.9% 100 ml @ 100 mls/hr IV Q1H [facility] Rx#:[id number] Sodium Chloride 0.9% 1, 390 590 90 000 ml @ 50 mls/hr IV . Q20H [facility] Rx#:[id number] Vancomycin 750 mg In 250 Sodium Chloride 0.9% 250 ml @ 125 mls/hr IVPB Q12H [facility] Rx#:[id number] Oral 50 Tube Feeding 240 200 Other 60 Output: Urine 535 945 122 Other: Voiding Method Indwelling Catheter Indwelling Catheter Indwelling Catheter - Labs CBC & Chem 7: 12/11/17 04:16 12/11/17 09:18 Labs: Abnormal Lab Results - Last 24 Hours (Table) 12/10/17 12/10/17 12/10/17 Range/Units 12:07 12:07 12:07 Lymphocytes # (1.0-4.8) k/uL Sodium 122 L (137-145) mmol/L Chloride (98-107) mmol/L Creatinine (0.52-1.04) mg/dL Glucose (74-99) mg/dL POC Glucose (mg/dL) (75-99) mg/dL Magnesium 1.4 L (1.6-2.3) mg/dL Troponin I 0.251 H* (0.000-0.034) ng/mL 12/10/17 12/10/17 12/10/17 Range/Units 12:42 17:44 17:58 Lymphocytes # (1.0-4.8) k/uL Sodium 121 L (137-145) mmol/L Chloride (98-107) mmol/L Creatinine (0.52-1.04) mg/dL Glucose (74-99) mg/dL POC Glucose (mg/dL) 114 H 168 H (75-99) mg/dL Magnesium (1.6-2.3) mg/dL Troponin I (0.000-0.034) ng/mL 12/10/17 12/10/17 12/11/17 Range/Units 23:41 23:55 04:16 Lymphocytes # 0.3 L (1.0-4.8) k/uL Sodium 123 L (137-145) mmol/L Chloride (98-107) mmol/L Creatinine (0.52-1.04) mg/dL Glucose (74-99) mg/dL POC Glucose (mg/dL) 162 H (75-99) mg/dL Magnesium (1.6-2.3) mg/dL Troponin I (0.000-0.034) ng/mL 12/11/17 12/11/17 12/11/17 Range/Units 04:16 05:43 09:18 Lymphocytes # (1.0-4.8) k/uL Sodium 127 L 126 L (137-145) mmol/L Chloride 92 L (98-107) mmol/L Creatinine 0.37 L (0.52-1.04) mg/dL Glucose 100 H (74-99) mg/dL POC Glucose (mg/dL) 121 H (75-99) mg/dL Magnesium (1.6-2.3) mg/dL Troponin I (0.000-0.034) ng/mL Microbiology - Last 24 Hours (Table) 12/09/17 20:28 Blood Culture - Preliminary Blood No Growth after 24 hours 12/09/17 08:42 Urine Culture - Final Urine,Catheterized Assessment and Plan Plan: Assessment: #1. Hypovolemic hyponatremia improved with normal saline. Now appears euvolemic. Also component of tea and toast diet as a BUN is noted to be only 4 and urine osmolality 267 on admission. TSH and cortisol levels normal. #2. Pyuria. Urine culture negative so far. #3. Benign hypertension. Patient was hypotensive on admission but now blood pressures are stable in the range of systolic 112-140. #4. Diastolic CHF with moderate pulmonary hypertension. Plan: Hep-Lock IV fluids. Lasix 20 mg IV once today. Repeat sodium level at 6 PM today. Continue to monitor renal function and urine output. Hold hypertensives for systolic blood pressure less than 120. Follow-up cultures. Stable from nephrology standpoint to be transferred out of the intensive care unit.
[2017-12-11 11:56] LABS: Glucose,Whole Blood 123 mg/dL (75-99)
[2017-12-11] MEDS ORDERED: FUROSEMIDE 10 MG/ML 2 ML VIAL IV ONE (12:00)
--- NOTE | 2017-12-11 12:48 | CDI ---
Last Revision, September 2017 Documentation Clarification Form Date: 12/11/2017 12:25:00 PM From: Marlene Wyatt RN, CCDS Admit Date: 12/09/2017 7:25:00 AM Patient Name: Anika Mcclellan Visit Number: [id number] ATTENTION: The Clinical Documentation Specialists (CDI) and [facility] Coding Staff appreciate your assistance in clarifying documentation. Please respond to the clarification below the line at the bottom and electronically sign. The CDI & [facility] Coding staff will review the response and follow-up if needed. Please note: Queries are made part of the Legal Health Record. If you have any questions, please contact the author of this message via ITS. Dr. Maxim Trotter Documentation in the medical record indicated low O2 saturations and increased O2 requirements. Please indicate a condition associated with the clinical indicators and treatment. History/Risk Factors: CHF, COPD Tobacco use: hx of smoking Clinical Indicators: 12/10 39 Vital signs: HR 93, RR 29, B/P 107/50, spo2 75% on 6l corrected to 100 % w 100% NRB Pulse oximetry: 12/10 39 75% on 6L NC 12/11 Lung/Breathing assessment per Pulmonary Progress note: "Respiratory exam: Diminished breath sounds at the bases, no crackles or rhonchi or wheezes were appreciated." Per V/S nursing documented respirations as Labored Treatment: Breathing TX: Duoneb QID Continuous Pulse ox Per ICU Protocol O2: 2l NC increased to 6L NC, increased to 12/10 100% NRB then changed to 15L high flow, decreased to 10L high flow 8L, gradually decreased to 1-2L at current In your professional opinion, can you please clarify if these findings signify one of the following conditions? Acuity: Acute Acute on Chronic Specificity: Respiratory Failure, further specify (if known): With hypercapnia? With hypoxia? Respiratory Distress Respiratory Insufficiency Other Diagnosis, please specify Unable to determine Please continue to document in your progress notes and discharge summary in order to capture severity of illness and risk of mortality. Include clinical findings that support your diagnosis. MTDD
--- NOTE | 2017-12-11 13:12 | CDI ---
Last Revision, September 2017 Documentation Clarification Form Date: 12/11/2017 12:48:00 PM From: Marlene Wyatt RN, CCDS Admit Date: 12/09/2017 7:25:00 AM Patient Name: Anika Mcclellan Visit Number: [id number] ATTENTION: The Clinical Documentation Specialists (CDI) and [facility] Coding Staff appreciate your assistance in clarifying documentation. Please respond to the clarification below the line at the bottom and electronically sign. The CDI & [facility] Coding staff will review the response and follow-up if needed. Please note: Queries are made part of the Legal Health Record. If you have any questions, please contact the author of this message via ITS. Dr. Maxim Trotter Pt is bed ridden/wheel chair bound and requires assistance with ADLs; please further identify condition if possible. Patient history/risk factors: CHF, Hypovolemic hyponatremia pt came in unresponsive, moderate aortic regurgitation, severe tricuspid Regurg, COPD Clinical Indicators: 12/11 Pulmonary Progress Note: "patient is mostly bedridden according to her children for the last 1 year. Impression: chronic medical debility, patient has been bedridden and wheelchair ridden for quite some time." BMI: 21 Total protein 5.4, albumin 2.3 ED Note: "General Appearance: Cachectic" Nursing Documentation: "Bilaterally equally weak hand tier and detonator. Bilateral lower extremity strength is severely weak, rigid, spastic, but equal. Bilateral upper extremities mild weakness equally. Pressure injuries and dermatitis to skin. Pt requires passive ROM and physical assistance." Treatment: Consults: Nepro, Pulmonary, Cardiology Physical assistance for ADL In your professional opinion, can you please identify a diagnosis for the patients inability to perform ADL's? Functional Quadriplegia Gait Dysfunction Other, please specify Unable to determine Please continue to document in your progress notes and discharge summary in order to capture severity of illness and risk of mortality. Include clinical findings that support your diagnosis. Gait Dysfunction MTDD
--- NOTE | 2017-12-11 13:29 | CDI ---
Last Revision, September 2017 Documentation Clarification Form Date: 12/11/2017 1:21:00 PM From: Marlene Wyatt RN, CCDS Admit Date: 12/09/2017 7:25:00 AM Patient Name: Anika Mcclellan Visit Number: [id number] ATTENTION: The Clinical Documentation Specialists (CDI) and [facility] Coding Staff appreciate your assistance in clarifying documentation. Please respond to the clarification below the line at the bottom and electronically sign. The CDI & [facility] Coding staff will review the response and follow-up if needed. Please note: Queries are made part of the Legal Health Record. If you have any questions, please contact the author of this message via ITS. Dr. 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 Mild Protein-Calorie Malnutrition Moderate Protein-Calorie Malnutrition Severe Protein-Calorie Malnutrition Other condition, please specify Unable to determine Continue to document in your progress notes and discharge summary in order to capture severity of illness and risk of mortality. Include clinical findings that support your diagnosis. none MTDD
--- NOTE | 2017-12-11 17:00 | PN ---
PROGRESS NOTE DATE OF SERVICE: 12/11/2017 This 77-year-old woman who was admitted with change in mental status and severe hyponatremia had possible hypovolemic hyponatremia; SIADH needs to be ruled out. The patient also has a history of CHF. The patient also complained of generalized tiredness and weakness. The patient has a Nieves catheter in situ. The patient is being closely monitored. Patient also had a brief episode of hypotension as well as hypoxia. Past medical history reviewed. REVIEW OF SYSTEMS: CARDIOVASCULAR SYSTEM: No angina, palpitations. RESPIRATORY SYSTEM: As mentioned earlier. GI: As mentioned earlier. : No dysuria or retention. NERVOUS SYSTEM: As mentioned earlier. CURRENT MEDICATIONS: Current medications are reviewed and include: 1. Ventolin 2.5 q.4 and p.r.n. 2. DuoNeb q.i.d. and p.r.n. 3. Aspirin 325 mg daily. 4. Lovenox 40 mg subcutaneously. 5. Solu-Cortef 50 mg IV q.i.d. 6. Lopressor 12.5 mg daily. 7. Vancomycin. 8. Nitrostat 0.4 sublingually p.r.n. 9. Protonix 40 mg IV daily. 10.Zosyn 3.75 IV q.8. 11.Vancomycin 750 IV b.i.d. PHYSICAL EXAMINATION: Patient is alert and oriented x3. Pulse 66, blood pressure 159/73, respiration 16, temperature normal, pulse ox 100% on 1 L. HEENT: Conjunctivae normal. Oral mucosa moist. NECK: No jugular venous distention. No carotid bruit. No lymph node enlargement. CARDIOVASCULAR SYSTEM: S1, S2 muffled. No S3. No S4. RESPIRATORY SYSTEM: Breath sounds diminished at the bases. Scattered rhonchi and crackles. ABDOMEN: Soft, nontender. No mass palpable. LEGS: Minimal edema. NERVOUS SYSTEM: Higher functions as mentioned earlier. Moves all 4 limbs. No focal motor or sensory deficit. LYMPHATICS: No lymph node palpable in neck, axillae or groin. SKIN: No ulcer, rash, bleeding. LABS: CBC within normal limits. Glucose noted. Sodium is 127 and 126. ASSESSMENT: 1. Change in mental status, acute metabolic encephalopathy, possibly secondary to severe hyponatremia, possibly secondary to hypovolemic hyponatremia. SIADH to be ruled out. 2. Acute hypoxic respiratory failure, resolved. 3. Troponin 0.105, indeterminate. 4. History of congestive heart failure with chronic systolic dysfunction, ejection fraction 30% to 35%. 5. Bibasilar pneumonia, possibly aspiration or Gram-negative. 6. History of recent urinary tract infection. 7. Moderate aortic regurgitation. 8. Severe tricuspid regurgitation. 9. Pulmonary hypertension. 10.History of degenerative joint disease. 11.History of hypertension. 12.History of left-sided pleural effusion. 13.Chronic obstructive pulmonary disease. 14.History of nicotine dependence. 15.FULL CODE. RECOMMENDATIONS AND DISCUSSION: In this 77-year-old woman who presented with multiple complex medical issues, we will monitor the patient closely, continue the current medications, continue symptomatic treatment. Remove the Nieves catheter. Continue the rest of the medications. Continue to monitor. Continue with the broad-spectrum IV antibiotics. Monitor closely. PT, OT evaluation. The prognosis is guarded because of the multiple complex medical issues. The most recent chest x-ray was done on 12/10, which was reviewed by me. It showed significant improvement. We will continue to monitor. Increase ambulation. Closely follow with Pulmonary. Further recommendations will follow. MMODL / IJN: [id number] /
[2017-12-11 17:15] LABS: Glucose,Whole Blood 164 mg/dL (75-99)
[2017-12-11 20:31] LABS: Glucose,Whole Blood 210 mg/dL (75-99)
--- NOTE | 2017-12-11 22:06 | P.CONS ---
History of Present Illness - Reason for Consult Consult date: 12/11/17 - Chief Complaint Unresponsive - History of Present Illness 77-year-old female who is cared for by her family in a family living situation apparently became unresponsive and was given some form of CPR by one of the bystanders. EMS was called and upon their arrival the patient had easily palpable pulses in was breathing spontaneously. She was brought to the emergency center where she was found evidence of significant altered status with sodium of 114. It is related over the last year the patient has just declined to the point tenderness she's no longer walking and they're trying to care for her while she is generally bedbound. The patient has obvious dementia and is not able to relate to any specific history. She is quite unaware where she is at, and does not understand my role as a physician. She is unable to assist in turning to have her ulcers evaluated. She is completely unaware of fecal soiling. Review of Systems ROS unobtainable: due to mental status Past Medical History Past Medical History: Heart Failure, COPD, Hypertension History of Any Multi-Drug Resistant Organisms: None Reported Additional Past Surgical History / Comment(s): bilateral cataracts surgery Past Anesthesia/Blood Transfusion Reactions: No Reported Reaction Past Psychological History: No Psychological Hx Reported Additional Psychological History / Comment(s): Cared for at family setting with significant decline over the last year Smoking Status: Former smoker Past Alcohol Use History: None Reported Past Drug Use History: None Reported - Past Family History Father Family Medical History: Cancer Medications and Allergies Home Medications and Allergies Comment(s): Current Medications Albuterol Sulfate (Ventolin Nebulized) 2.5 mg INHALATION RT-Q4H PRN PRN Reason: Shortness Of Breath Albuterol/Ipratropium (Duoneb 0.5 Mg-3 Mg/3 Ml Soln) 3 ml INHALATION RT-QID [facility] Last Admin: 12/11/17 19:56 Dose: 3 ml Aspirin (Aspirin) 325 mg PO DAILY [facility] Last Admin: 12/11/17 08:28 Dose: 325 mg Enoxaparin Sodium (Lovenox) 40 mg SQ DAILY [facility] Last Admin: 12/11/17 08:28 Dose: 40 mg Hydrocortisone Sodium Succinate (Solu-Cortef) 50 mg IV Q8HR [facility] Last Admin: 12/11/17 16:52 Dose: 50 mg Piperacillin/Tazobactam/ (Dextrose 3.375 gm/ IV Solution) 50 mls @ 12.5 mls/hr IVPB Q8HR [facility] Last Admin: 12/11/17 16:52 Dose: 12.5 mls/hr Vancomycin HCl 750 mg/ Sodium (Chloride) 250 mls @ 125 mls/hr IVPB Q12H [facility] Last Admin: 12/11/17 14:20 Dose: 125 mls/hr Insulin Aspart (Novolog) 0 unit SQ Q6H EDUIN PRN Reason: Protocol Last Admin: 12/11/17 17:45 Dose: 3 unit Metoprolol Tartrate (Lopressor) 12.5 mg PO DAILY [facility] Last Admin: 12/11/17 09:49 Dose: 12.5 mg Miscellaneous Information (Potassium Per Protocol) 1 each MISCELLANE DAILY PRN ; Protocol PRN Reason: Per Protocol Miscellaneous Information (Vancomycin Trough Due) 1 each MISCELLANE ONCE ONE Stop: 12/12/17 02:01 Nitroglycerin (Nitrostat) 0.4 mg SUBLINGUAL Q5M PRN PRN Reason: Chest Pain Pantoprazole Sodium (Protonix) 40 mg IVP DAILY [facility] Last Admin: 12/11/17 08:28 Dose: 40 mg Home Medications Medication Instructions Recorded Confirmed Type Albuterol Inhaler [Ventolin Hfa 2 puff INHALATION RT-Q4H PRN 10/17/16 12/09/17 History Inhaler] Metoprolol Tartrate [Lopressor] 25 mg PO BID #60 tab 10/20/16 12/09/17 Rx Furosemide [Lasix] 20 mg PO DAILY 12/09/17 12/09/17 History Lisinopril [Zestril] 2.5 mg PO DAILY 12/09/17 12/09/17 History Allergies Allergy/AdvReac Type Severity Reaction Status Date / Time No Known Allergies Allergy Verified 12/09/17 07:21 Physical Exam Vitals: Vital Signs Temp Pulse Pulse Resp BP BP Pulse Ox 12/11/17 20:08 72 12/11/17 19:57 72 12/11/17 16:18 75 12/11/17 16:08 74 99 12/11/17 15:00 97.6 F 73 16 113/64 97 12/11/17 11:40 64 12/11/17 11:26 64 12/11/17 10:00 66 16 159/73 100 02/20/18 09:00 67 16 138/68 99 12/11/17 08:00 97.6 F 77 16 112/63 94 L 12/11/17 07:00 66 20 136/67 100 12/11/17 05:00 73 33 H 125/66 100 12/11/17 04:00 97.6 F 66 20 119/59 100 12/11/17 03:00 80 17 115/63 100 12/11/17 02:00 70 27 H 114/62 100 12/11/17 01:00 81 21 120/71 99 12/11/17 00:02 82 20 117/65 100 12/11/17 00:00 97.8 F 83 19 117/65 100 12/10/17 23:55 20 12/10/17 23:00 83 30 H 131/70 96 12/10/17 22:00 85 20 135/68 99 Intake and Output 12/11/17 12/11/17 12/11/17 06:59 14:59 22:59 Intake Total 400 720.0 Output Total 295 497 Balance 105 223.0 Intake: IV 400 670.0 Magnesium Sulfate-D5w Pmx 200 1 gm In Dextrose/Water 1 100ml.bag @ 100 mls/hr IVPB Q1H EDUIN Rx#: [id number] Piperacillin-Tazobactam 3 50.0 .375 gm In Dextrose/Water 1 50ml.bag @ 12.5 mls/hr IVPB Q8HR EDUIN Rx#: [id number] Potassium Chloride 10 meq 200 In Sodium Chloride 0.9% 100 ml @ 100 mls/hr IV Q1H EDUIN Rx#:[id number] Sodium Chloride 0.9% 1, 400 220 000 ml @ 50 mls/hr IV . Q20H EDUIN Rx#:[id number] Oral 50 Tube Feeding 0 Output: Urine 295 497 Other: Voiding Method Indwelling Catheter Indwelling Catheter Weight 48.7 kg 48.7 kg Patient Weight 12/12/17 06:59 Weight 48.7 kg 77-year-old female who has a completely unkept status, although she is not grossly dirty, her finger nails have not been attended to in months and are dirty, similar on the feet. The patient is laying in bed with evidence of some early contractures the bilateral lower extremities. It is noted is not able to give any meaningful history. HEENT: Anicteric conjunctiva are pink and moist nasal mucosa grossly intact without significant lesions, there is no thrush. Edentulous Neck: The neck is supple without significant lymphadenopathy or thyromegaly. Lungs: Symmetrical air entry is noted however expiratory wheezes are scattered but no donovan bronchial sounds no dullness or egophony Heart: Irregular with an audible S1 and S2 without S4 no distinct murmur click or rub is noted Abdomen: Positive bowel sounds soft and nontender without palpable masses or organomegaly. There was no guarding or rebound. Extremities: Upper extremity has a IV site that is intact. No lesions in the upper extremities are noted. Lower extremities have evidence of is noted some early contractures. Is evidence of distinct wasting of the musculature of the upper and lower extremities. Please see the nursing photography for the pressure ulcerations noted to the coccyx as well as to the left and right trochanteric areas. The patient is incontinent and unaware Neuro: The patient was arousable, attempts to communicate with the observer. the content of speech is poor and has little meaning. She does not seem to be uncomfortable. As noted she does have some lower extremity contracture starting , when the legs are attempt to be straight and she does complain of discomfort. Results CBC & Chem 7: 12/11/17 04:16 12/11/17 18:15 Labs: Abnormal Lab Results - Last 24 Hours (Table) 12/10/17 12/10/17 12/11/17 Range/Units 23:41 23:55 04:16 Lymphocytes # 0.3 L (1.0-4.8) k/uL Sodium 123 L (137-145) mmol/L Chloride (98-107) mmol/L Creatinine (0.52-1.04) mg/dL Glucose (74-99) mg/dL POC Glucose (mg/dL) 162 H (75-99) mg/dL 12/11/17 12/11/17 12/11/17 Range/Units 04:16 05:43 09:18 Lymphocytes # (1.0-4.8) k/uL Sodium 127 L 126 L (137-145) mmol/L Chloride 92 L (98-107) mmol/L Creatinine 0.37 L (0.52-1.04) mg/dL Glucose 100 H (74-99) mg/dL POC Glucose (mg/dL) 121 H (75-99) mg/dL 12/11/17 12/11/17 12/11/17 Range/Units 11:55 17:13 18:15 Lymphocytes # (1.0-4.8) k/uL Sodium 128 L (137-145) mmol/L Chloride (98-107) mmol/L Creatinine (0.52-1.04) mg/dL Glucose (74-99) mg/dL POC Glucose (mg/dL) 123 H 164 H (75-99) mg/dL 12/11/17 Range/Units 20:29 Lymphocytes # (1.0-4.8) k/uL Sodium (137-145) mmol/L Chloride (98-107) mmol/L Creatinine (0.52-1.04) mg/dL Glucose (74-99) mg/dL POC Glucose (mg/dL) 210 H (75-99) mg/dL Microbiology - Last 24 Hours (Table) 12/09/17 20:28 Blood Culture - Preliminary Blood No Growth after 24 hours Laboratory Results WBC 6.4 k/uL (3.8-10.6) 12/11/17 04:16 RBC 4.14 m/uL (3.80-5.40) 12/11/17 04:16 Hgb 11.5 gm/dL (11.4-16.0) 12/11/17 04:16 Hct 35.4 % (34.0-46.0) 12/11/17 04:16 MCV 85.7 fL (80.0-100.0) 12/11/17 04:16 MCH 27.8 pg (25.0-35.0) 12/11/17 04:16 MCHC 32.5 g/dL (31.0-37.0) 12/11/17 04:16 RDW 13.1 % (11.5-15.5) 12/11/17 04:16 Plt Count 159 k/uL (150-450) 12/11/17 04:16 Neutrophils % 89 % 12/11/17 04:16 Lymphocytes % 5 % 12/11/17 04:16 Monocytes % 5 % 12/11/17 04:16 Eosinophils % 1 % 12/11/17 04:16 Basophils % 0 % 12/11/17 04:16 Neutrophils # 5.7 k/uL (1.3-7.7) 12/11/17 04:16 Lymphocytes # 0.3 k/uL (1.0-4.8) L 12/11/17 04:16 Monocytes # 0.3 k/uL (0-1.0) 12/11/17 04:16 Eosinophils # 0.0 k/uL (0-0.7) 12/11/17 04:16 Basophils # 0.0 k/uL (0-0.2) 12/11/17 04:16 PT 12.2 sec (9.0-12.0) H 12/09/17 06:10 INR 1.3 (<1.2) H 12/09/17 06:10 APTT 28.9 sec (22.0-30.0) 12/09/17 06:10 D-Dimer 20.61 mg/L FEU (<0.60) H 12/09/17 06:10 Sodium 128 mmol/L (137-145) L 12/11/17 18:15 Potassium 3.5 mmol/L (3.5-5.1) 12/11/17 04:16 Chloride 92 mmol/L (98-107) L 12/11/17 04:16 Carbon Dioxide 30 mmol/L (22-30) 12/11/17 04:16 Anion Gap 5 mmol/L 12/11/17 04:16 BUN 9 mg/dL (7-17) 12/11/17 04:16 Creatinine 0.37 mg/dL (0.52-1.04) L 12/11/17 04:16 Est GFR (MDRD) Af Amer >60 (>60 ml/min/1.73 sqM) 12/11/17 04:16 Est GFR (MDRD) Non-Af >60 (>60 ml/min/1.73 sqM) 12/11/17 04:16 Glucose 100 mg/dL (74-99) H 12/11/17 04:16 POC Glucose (mg/dL) 210 mg/dL (75-99) H 12/11/17 20:29 POC Glu Marketing Production Manager ID Stephanie Smallwood 12/11/17 20:29 Osmolality 237 mosm/kg (280-301) L* 12/09/17 06:50 Uric Acid 2.2 mg/dL (3.7-7.4) L 12/10/17 06:50 Calcium 8.5 mg/dL (8.4-10.2) 12/11/17 04:16 Magnesium 1.9 mg/dL (1.6-2.3) 12/11/17 04:16 Total Bilirubin 0.6 mg/dL (0.2-1.3) 12/09/17 21:51 AST 24 U/L (14-36) 12/09/17 21:51 ALT 21 U/L (9-52) 12/09/17 21:51 Alkaline Phosphatase 94 U/L (38-126) 12/09/17 21:51 Total Creatine Kinase 128 U/L (30-135) 12/09/17 20:28 CK-MB (CK-2) 6.5 ng/mL (0.0-2.4) H* 12/09/17 20:28 CK-MB (CK-2) Rel Index 5.1 12/09/17 20:28 Troponin I 0.251 ng/mL (0.000-0.034) H* 12/10/17 12:07 NT-Pro-B Natriuret Pep 2590 pg/mL 12/09/17 06:50 Total Protein 5.4 g/dL (6.3-8.2) L 12/09/17 21:51 Albumin 2.3 g/dL (3.5-5.0) L 12/09/17 21:51 Triglycerides 43 mg/dL (<150) 12/10/17 02:32 Cholesterol 79 mg/dL (<200) 12/10/17 02:32 LDL Cholesterol, Calc 25 mg/dL (0-99) 12/10/17 02:32 HDL Cholesterol 45 mg/dL (40-60) 12/10/17 02:32 TSH 1.570 mIU/L (0.465-4.680) 12/10/17 12:07 Cortisol 114 ug/dL 12/10/17 12:07 Urine Color Yellow 12/09/17 08:42 Urine Appearance Clear (Clear) 12/09/17 08:42 Urine pH 6.5 (5.0-8.0) 12/09/17 08:42 Ur Specific [place] 1.006 (1.001-1.035) 12/09/17 08:42 Urine Protein Trace (Negative) H 12/09/17 08:42 Urine Glucose (UA) 2+ (Negative) H 12/09/17 08:42 Urine Ketones Negative (Negative) 12/09/17 08:42 Urine Blood Trace (Negative) H 12/09/17 08:42 Urine Nitrite Negative (Negative) 12/09/17 08:42 Urine Bilirubin Negative (Negative) 12/09/17 08:42 Urine Urobilinogen 2.0 mg/dL (<2.0) 12/09/17 08:42 Ur Leukocyte Esterase Moderate (Negative) H 12/09/17 08:42 Urine RBC 11 /hpf (0-5) H 12/09/17 08:42 Urine WBC 11 /hpf (0-5) H 12/09/17 08:42 Urine Bacteria Rare /hpf (None) H 12/09/17 08:42 Urine Osmolality 267 mosm/kg (50-1400) 12/09/17 08:42 Ur Random Sodium 29 mmol/L (30-90) L 12/10/17 08:30 Influenza Type A RNA Not Detected (Not Detectd) 12/09/17 22:00 Influenza Type B (PCR) Not Detected (Not Detectd) 12/09/17 22:00 Microbiology 12/09/17 20:28 Blood Blood Culture - Preliminary No Growth after 24 hours 12/09/17 08:42 Urine,Catheterized Urine Culture - Final Assessment and Plan (1) Hyponatremia Current Visit: Yes Status: Acute Code(s): E87.1 - HYPO-OSMOLALITY AND HYPONATREMIA SNOMED Code(s): 34449705 (2) Pressure ulcer of coccygeal region, stage 3 Narrative/Plan: 77-year-old female is transported to hospital after she became unresponsive. The patient was found evidence of significant hyponatremia which is noted to be hypovolemic in nature. With rehydration sodium solution she is not having improvement. There was concern as urinary tract infection however urine culture is negative for blood cultures are pending. She does not have a history of MRSA but does have significant pressure ulcerations and concerns to underlying sepsis. Will continue Zosyn for now however will discontinue vancomycin. Local wound care with hydrocolloid dressings will be utilized to pressure ulcerations. The stage III pressure ulceration of the coccyx is present at admission, is due to pressure and does not appear to be grossly infected at this time. We'll monitor cultures and further alter antibiotic therapy as possible. equipment services associate was contacted for further intervention as far as placement at discharge Current Visit: Yes Status: Acute Code(s): L89.153 - PRESSURE ULCER OF SACRAL REGION, STAGE 3 SNOMED Code(s): 109063301
[2017-12-11 23:49] LABS: Glucose,Whole Blood 229 mg/dL (75-99)
[2017-12-12] MEDS: INSULIN ASPART 100 UNIT/ML 1 ML 10 ML VIAL SQ SCH ×5 (00:14→21:30)
[2017-12-12] MEDS ORDERED: VANCOMYCIN TROUGH DUE 1 EACH MISC MISCELLANE ONE (02:00)
[2017-12-12 06:31] LABS: Glucose,Whole Blood 139 mg/dL (75-99)
[2017-12-12] MEDS: IPRATROPIUM-ALBUTEROL 3 ML NEB INHALATION SCH ×4 (07:26→19:11)
[2017-12-12] MEDS: PIPERACILLIN-TAZOBACTAM 3.375 GM in DEXTROSE/WATER 1 50ML.BAG IVPB SCH ×3 (08:51→23:57)
[2017-12-12] MEDS: HYDROCORTISONE SUCCINATE 100 MG/2 ML VIAL IV SCH ×2 (08:52→15:55)
[2017-12-12] MEDS: ENOXAPARIN 40 MG/0.4 ML SYRINGE SQ SCH (08:52)
[2017-12-12] MEDS: ASPIRIN 325 MG TAB PO SCH (08:52)
[2017-12-12] MEDS: PANTOPRAZOLE 40 MG/10 ML VIAL IVP SCH (08:52)
[2017-12-12] MEDS: METOPROLOL TARTRATE 12.5 MG TAB PO SCH (08:52)
[2017-12-12 10:34] LABS: Basophils % (A) 0 %; Eosinophils % (A) 0 %; HCT 41.1 % (34.0-46.0); HGB 12.7 gm/dL (11.4-16.0); Lymphocytes # (A) 0.2 k/uL (1.0-4.8); Lymphocytes % (A) 3 %; MCH 27.5 pg (25.0-35.0); MCHC 30.8 g/dL (31.0-37.0); MCV 89.4 fL (80.0-100.0); Mean Platelet Volume 6.6; Monocytes # (A) 0.3 k/uL (0-1.0); Monocytes % (A) 4 %; Neutrophils # (A) 5.8 k/uL (1.3-7.7); Neutrophils % (A) 92 %; Platelet Count 176 k/uL (150-450); RDW 13.4 % (11.5-15.5); WBC 6.3 k/uL (3.8-10.6)
[2017-12-12 11:02] LABS: Anion Gap 7 mmol/L; Blood Urea Nitrogen 19 mg/dL (7-17); Calcium 8.8 mg/dL (8.4-10.2); Carbon Dioxide 32 mmol/L (22-30); Chloride 94 mmol/L (98-107); Glucose 263 mg/dL (74-99); Potassium 3.9 mmol/L (3.5-5.1); Sodium 133 mmol/L (137-145)
[2017-12-12 11:32] LABS: Glucose,Whole Blood 204 mg/dL (75-99)
--- NOTE | 2017-12-12 11:39 | P.PN ---
Subjective Patient is seen in follow-up for hyponatremia. Sodium level is coming up gradually and is up to 133 today. She is currently resting in bed. A little bit more awake today. Oral intake is good. No vomiting or diarrhea. Denies chest pain or shortness of breath. Hemodynamically stable. Vital signs are stable. General: The patient appeared well nourished and normally developed. HEENT: Head exam is unremarkable. Neck is without jugular venous distension. LUNGS: Lungs are clear to auscultation and percussion. Breath sounds decreased. HEART: Rate and Rhythm are regular. First and second heart sounds normal. No murmurs, rubs or gallops. ABDOMEN: Abdominal exam reveals normal bowel sounds. Non-tender and non- distended. No evidence of peritonitis. EXTREMITITES: No clubbing, cyanosis, or edema. Objective - Vital Signs Vital signs: Vital Signs Temp 97.2 F L 12/12/17 06:22 Pulse 72 12/12/17 11:18 Resp 17 12/12/17 06:22 BP 139/76 12/12/17 06:22 Pulse Ox 97 12/12/17 06:22 Intake & Output 12/11/17 12/12/17 12/12/17 18:59 06:59 18:59 Intake Total 720.0 Output Total 497 500 Balance 223.0 -500 Weight 48.7 kg Intake: IV 670.0 Magnesium Sulfate-D5w Pmx 200 1 gm In Dextrose/Water 1 100ml.bag @ 100 mls/hr IVPB Q1H EDUIN Rx#: [id number] Piperacillin-Tazobactam 3 50.0 .375 gm In Dextrose/Water 1 50ml.bag @ 12.5 mls/hr IVPB Q8HR EDUIN Rx#: [id number] Potassium Chloride 10 meq 200 In Sodium Chloride 0.9% 100 ml @ 100 mls/hr IV Q1H EDUIN Rx#:[id number] Sodium Chloride 0.9% 1, 220 000 ml @ 50 mls/hr IV . Q20H EDUIN Rx#:[id number] Oral 50 Output: Urine 497 500 Other: Voiding Method Indwelling Catheter Indwelling Catheter # Bowel Movements 1 - Labs CBC & Chem 7: 12/12/17 10:04 12/12/17 10:04 Labs: Abnormal Lab Results - Last 24 Hours (Table) 12/11/17 12/11/1718 Range/Units 11:55 17:13 18:15 MCHC (31.0-37.0) g/dL Lymphocytes # (1.0-4.8) k/uL Sodium 128 L (137-145) mmol/L Chloride (98-107) mmol/L Carbon Dioxide (22-30) mmol/L BUN (7-17) mg/dL Glucose (74-99) mg/dL POC Glucose (mg/dL) 123 H 164 H (75-99) mg/dL 12/11/17 12/11/17 12/12/17 Range/Units 20:29 23:47 06:20 MCHC (31.0-37.0) g/dL Lymphocytes # (1.0-4.8) k/uL Sodium (137-145) mmol/L Chloride (98-107) mmol/L Carbon Dioxide (22-30) mmol/L BUN (7-17) mg/dL Glucose (74-99) mg/dL POC Glucose (mg/dL) 210 H 229 H 139 H (75-99) mg/dL 12/12/17 12/12/17 12/12/17 Range/Units 10:04 10:04 11:28 MCHC 30.8 L (31.0-37.0) g/dL Lymphocytes # 0.2 L (1.0-4.8) k/uL Sodium 133 L (137-145) mmol/L Chloride 94 L (98-107) mmol/L Carbon Dioxide 32 H (22-30) mmol/L BUN 19 H (7-17) mg/dL Glucose 263 H (74-99) mg/dL POC Glucose (mg/dL) 204 H (75-99) mg/dL Microbiology - Last 24 Hours (Table) 12/09/17 20:28 Blood Culture - Preliminary Blood No Growth after 48 hours Assessment and Plan Plan: Assessment: #1. Hypovolemic hyponatremia improved with normal saline. Now appears euvolemic. Also component of tea and toast diet as a BUN is noted to be only 4 and urine osmolality 267 on admission. TSH and cortisol levels normal. #2. Pyuria. Urine culture negative so far. #3. Benign hypertension. Patient was hypotensive on admission but now blood pressures are stable in the range of systolic 120-130s. #4. Diastolic CHF with moderate pulmonary hypertension. Plan: Encouraged oral intake. Add 1200 mL fluid restriction. Continue to monitor renal function and urine output. Hold hypertensives for systolic blood pressure less than 120. Follow-up cultures. Repeat electrolytes in the morning.
[2017-12-12 17:21] LABS: Glucose,Whole Blood 124 mg/dL (75-99)
[2017-12-12 19:05] LABS: Hemoglobin A1C 5.1 % (4.0-6.0)
[2017-12-12 20:34] LABS: Glucose,Whole Blood 212 mg/dL (75-99)
--- NOTE | 2017-12-12 22:28 | P.PN ---
Subjective Progress Note Date: 12/12/17 Principal diagnosis: Weakness 77-year-old female who is cared for by her family in a family living situation apparently became unresponsive and was given some form of CPR by one of the bystanders. EMS was called and upon their arrival the patient had easily palpable pulses in was breathing spontaneously. She was brought to the emergency center where she was found evidence of significant altered status with sodium of 114. It is related over the last year the patient has just declined to the point tenderness she's no longer walking and they're trying to care for her while she is generally bedbound. The patient has obvious dementia and is not able to relate to any specific history. She is quite unaware where she is at, and does not understand my role as a physician. She is unable to assist in turning to have her ulcers evaluated. She is completely unaware of fecal soiling On 12/12/2017 the patient has little change of her status. The staff have put her in an upright position to have a meal and she appears to have great difficulty understanding what she is also due with her food tray. With direction she eventually is able to take a bite of her mash potato. Objective - Vital Signs Vital signs: Vital Signs Temp 99.4 F 12/12/17 15:00 Pulse 84 12/12/17 19:25 Resp 16 12/12/17 15:00 BP 129/77 12/12/17 15:00 Pulse Ox 97 12/12/17 15:03 Intake & Output 12/12/17 12/12/17 12/13/17 06:59 18:59 06:59 Intake Total 50 Output Total 500 650 Balance -500 -600 Weight 48.6 kg Intake: Oral 50 Tube Feeding 0 Output: Urine 500 650 Other: Voiding Method Indwelling Catheter Indwelling Catheter Indwelling Catheter # Bowel Movements 1 - Exam 77-year-old female who has a completely unkept status, although she is not grossly dirty, her finger nails have not been attended to in months and are dirty, similar on the feet. The patient is laying in bed with evidence of some early contractures the bilateral lower extremities. It is noted is not able to give any meaningful history. HEENT: Anicteric conjunctiva are pink and moist nasal mucosa grossly intact without significant lesions, there is no thrush. Edentulous Neck: The neck is supple without significant lymphadenopathy or thyromegaly. Lungs: Symmetrical air entry is noted however expiratory wheezes are scattered but no donovan bronchial sounds no dullness or egophony Heart: Irregular with an audible S1 and S2 without S4 no distinct murmur click or rub is noted Abdomen: Positive bowel sounds soft and nontender without palpable masses or organomegaly. There was no guarding or rebound. Extremities: Upper extremity has a IV site that is intact. No lesions in the upper extremities are noted. Lower extremities have evidence of is noted some early contractures. Is evidence of distinct wasting of the musculature of the upper and lower extremities. Please see the nursing photography for the pressure ulcerations noted to the coccyx as well as to the left and right trochanteric areas. Neuro: The patient was arousable, attempts to communicate with the observer. the content of speech remains poor, She does not seem to be uncomfortable. As noted she does have some lower extremity contracture starting, - Labs CBC & Chem 7: 12/12/17 10:04 12/12/17 10:04 Labs: Abnormal Lab Results - Last 24 Hours (Table) 12/11/17 12/12/17 12/12/17 Range/Units 23:47 06:20 10:04 MCHC 30.8 L (31.0-37.0) g/dL Lymphocytes # 0.2 L (1.0-4.8) k/uL Sodium (137-145) mmol/L Chloride (98-107) mmol/L Carbon Dioxide (22-30) mmol/L BUN (7-17) mg/dL Glucose (74-99) mg/dL POC Glucose (mg/dL) 229 H 139 H (75-99) mg/dL 12/12/17 12/12/17 12/12/17 Range/Units 10:04 11:28 17:20 MCHC (31.0-37.0) g/dL Lymphocytes # (1.0-4.8) k/uL Sodium 133 L (137-145) mmol/L Chloride 94 L (98-107) mmol/L Carbon Dioxide 32 H (22-30) mmol/L BUN 19 H (7-17) mg/dL Glucose 263 H (74-99) mg/dL POC Glucose (mg/dL) 204 H 124 H (75-99) mg/dL 12/12/17 Range/Units 20:32 MCHC (31.0-37.0) g/dL Lymphocytes # (1.0-4.8) k/uL Sodium (137-145) mmol/L Chloride (98-107) mmol/L Carbon Dioxide (22-30) mmol/L BUN (7-17) mg/dL Glucose (74-99) mg/dL POC Glucose (mg/dL) 212 H (75-99) mg/dL Microbiology - Last 24 Hours (Table) 12/09/17 20:28 Blood Culture - Preliminary Blood No Growth after 48 hours Laboratory Results WBC 6.3 k/uL (3.8-10.6) 12/12/17 10:04 RBC 4.60 m/uL (3.80-5.40) 12/12/17 10:04 Hgb 12.7 gm/dL (11.4-16.0) 12/12/17 10:04 Hct 41.1 % (34.0-46.0) 12/12/17 10:04 MCV 89.4 fL (80.0-100.0) 12/12/17 10:04 MCH 27.5 pg (25.0-35.0) 12/12/17 10:04 MCHC 30.8 g/dL (31.0-37.0) L 12/12/17 10:04 RDW 13.4 % (11.5-15.5) 12/12/17 10:04 Plt Count 176 k/uL (150-450) 12/12/17 10:04 Neutrophils % 92 % 12/12/17 10:04 Lymphocytes % 3 % 12/12/17 10:04 Monocytes % 4 % 12/12/17 10:04 Eosinophils % 0 % 12/12/17 10:04 Basophils % 0 % 12/12/17 10:04 Neutrophils # 5.8 k/uL (1.3-7.7) 12/12/17 10:04 Lymphocytes # 0.2 k/uL (1.0-4.8) L 12/12/17 10:04 Monocytes # 0.3 k/uL (0-1.0) 12/12/17 10:04 Eosinophils # 0.0 k/uL (0-0.7) 12/12/17 10:04 Basophils # 0.0 k/uL (0-0.2) 12/12/17 10:04 PT 12.2 sec (9.0-12.0) H 12/09/17 06:10 INR 1.3 (<1.2) H 12/09/17 06:10 APTT 28.9 sec (22.0-30.0) 12/09/17 06:10 D-Dimer 20.61 mg/L FEU (<0.60) H 12/09/17 06:10 Sodium 133 mmol/L (137-145) L 12/12/17 10:04 Potassium 3.9 mmol/L (3.5-5.1) 12/12/17 10:04 Chloride 94 mmol/L (98-107) L 12/12/17 10:04 Carbon Dioxide 32 mmol/L (22-30) H 12/12/17 10:04 Anion Gap 7 mmol/L 12/12/17 10:04 BUN 19 mg/dL (7-17) H 12/12/17 10:04 Creatinine 0.54 mg/dL (0.52-1.04) 12/12/17 10:04 Est GFR (MDRD) Af Amer >60 (>60 ml/min/1.73 sqM) 12/12/17 10:04 Est GFR (MDRD) Non-Af >60 (>60 ml/min/1.73 sqM) 12/12/17 10:04 Glucose 263 mg/dL (74-99) H 12/12/17 10:04 POC Glucose (mg/dL) 212 mg/dL (75-99) H 12/12/17 20:32 POC Glu Asphalt Raker ID Stephanie Smallwood 12/12/17 20:32 Osmolality 237 mosm/kg (280-301) L* 12/09/17 06:50 Uric Acid 2.2 mg/dL (3.7-7.4) L 12/10/17 06:50 Calcium 8.8 mg/dL (8.4-10.2) 12/12/17 10:04 Magnesium 1.9 mg/dL (1.6-2.3) 12/12/17 10:04 Total Bilirubin 0.6 mg/dL (0.2-1.3) 12/09/17 21:51 AST 24 U/L (14-36) 12/09/17 21:51 ALT 21 U/L (9-52) 12/09/17 21:51 Alkaline Phosphatase 94 U/L (38-126) 12/09/17 21:51 Total Creatine Kinase 128 U/L (30-135) 12/09/17 20:28 CK-MB (CK-2) 6.5 ng/mL (0.0-2.4) H* 12/09/17 20:28 CK-MB (CK-2) Rel Index 5.1 12/09/17 20:28 Troponin I 0.251 ng/mL (0.000-0.034) H* 12/10/17 12:07 NT-Pro-B Natriuret Pep 2590 pg/mL 12/09/17 06:50 Total Protein 5.4 g/dL (6.3-8.2) L 12/09/17 21:51 Albumin 2.3 g/dL (3.5-5.0) L 12/09/17 21:51 Triglycerides 43 mg/dL (<150) 12/10/17 02:32 Cholesterol 79 mg/dL (<200) 12/10/17 02:32 LDL Cholesterol, Calc 25 mg/dL (0-99) 12/10/17 02:32 HDL Cholesterol 45 mg/dL (40-60) 12/10/17 02:32 TSH 1.570 mIU/L (0.465-4.680) 12/10/17 12:07 Cortisol 114 ug/dL 12/10/17 12:07 Urine Color Yellow 12/09/17 08:42 Urine Appearance Clear (Clear) 12/09/17 08:42 Urine pH 6.5 (5.0-8.0) 12/09/17 08:42 Ur Specific [place] 1.006 (1.001-1.035) 12/09/17 08:42 Urine Protein Trace (Negative) H 12/09/17 08:42 Urine Glucose (UA) 2+ (Negative) H 12/09/17 08:42 Urine Ketones Negative (Negative) 12/09/17 08:42 Urine Blood Trace (Negative) H 12/09/17 08:42 Urine Nitrite Negative (Negative) 12/09/17 08:42 Urine Bilirubin Negative (Negative) 12/09/17 08:42 Urine Urobilinogen 2.0 mg/dL (<2.0) 12/09/17 08:42 Ur Leukocyte Esterase Moderate (Negative) H 12/09/17 08:42 Urine RBC 11 /hpf (0-5) H 12/09/17 08:42 Urine WBC 11 /hpf (0-5) H 12/09/17 08:42 Urine Bacteria Rare /hpf (None) H 12/09/17 08:42 Urine Osmolality 267 mosm/kg (50-1400) 12/09/17 08:42 Ur Random Sodium 29 mmol/L (30-90) L 12/10/17 08:30 Vancomycin Trough 9.2 ug/mL 12/12/17 01:19 Influenza Type A RNA Not Detected (Not Detectd) 12/09/17 22:00 Influenza Type B (PCR) Not Detected (Not Detectd) 12/09/17 22:00 Microbiology 12/09/17 20:28 Blood Blood Culture - Preliminary No Growth after 48 hours 12/09/17 08:42 Urine,Catheterized Urine Culture - Final Assessment and Plan (1) Hyponatremia Current Visit: Yes Status: Acute Code(s): E87.1 - HYPO-OSMOLALITY AND HYPONATREMIA SNOMED Code(s): 53986041 (2) Pressure ulcer of coccygeal region, stage 3 Narrative/Plan: 77-year-old female is transported to hospital after she became unresponsive. The patient was found evidence of significant hyponatremia which is noted to be hypovolemic in nature. With rehydration sodium solution she is not having improvement. There was concern as urinary tract infection however urine culture is negative for blood cultures are pending. She does not have a history of MRSA but does have significant pressure ulcerations and concerns to underlying sepsis. Will continue Zosyn for now however will discontinue vancomycin. Local wound care with hydrocolloid dressings will be utilized to pressure ulcerations. The stage III pressure ulceration of the coccyx is present at admission, is due to pressure and does not appear to be grossly infected at this time. Cultures are pending. We'll monitor cultures and further alter antibiotic therapy as possible. child protective services specialist was contacted for further intervention as far as placement at discharge Current Visit: Yes Status: Acute Code(s): L89.153 - PRESSURE ULCER OF SACRAL REGION, STAGE 3 SNOMED Code(s): 464276094
[2017-12-13] MEDS: IPRATROPIUM-ALBUTEROL 3 ML NEB INHALATION SCH ×4 (07:14→18:55)
[2017-12-13] MEDS: INSULIN ASPART 100 UNIT/ML 1 ML 10 ML VIAL SQ SCH ×4 (07:43→21:29)
[2017-12-13 08:10] LABS: Glucose,Whole Blood 124 mg/dL (75-99)
[2017-12-13] MEDS: PIPERACILLIN-TAZOBACTAM 3.375 GM in DEXTROSE/WATER 1 50ML.BAG IVPB SCH ×3 (08:24→23:30)
[2017-12-13] MEDS: ASPIRIN 325 MG TAB PO SCH (08:30)
[2017-12-13] MEDS: METOPROLOL TARTRATE 12.5 MG TAB PO SCH (08:30)
[2017-12-13] MEDS: HYDROCORTISONE SUCCINATE 100 MG/2 ML VIAL IV SCH ×4 (08:30→23:30)
[2017-12-13] MEDS: PANTOPRAZOLE 40 MG/10 ML VIAL IVP SCH (08:30)
[2017-12-13] MEDS: ENOXAPARIN 40 MG/0.4 ML SYRINGE SQ SCH (08:30)
[2017-12-13 08:31] LABS: Basophils % (A) 1 %; Eosinophils % (A) 0 %; HGB 11.7 gm/dL (11.4-16.0); Hypochromasia Slight; Lymphocytes # (A) 0.4 k/uL (1.0-4.8); Lymphocytes % (A) 6 %; MCH 27.8 pg (25.0-35.0); MCV 92.7 fL (80.0-100.0); Mean Platelet Volume 6.8; Monocytes # (A) 0.3 k/uL (0-1.0); Monocytes % (A) 6 %; Neutrophils # (A) 4.7 k/uL (1.3-7.7); Neutrophils % (A) 85 %; Platelet Count 149 k/uL (150-450); RBC 4.21 m/uL (3.80-5.40); RDW 13.6 % (11.5-15.5); WBC 5.5 k/uL (3.8-10.6)
[2017-12-13 08:39] LABS: Anion Gap 6 mmol/L; Blood Urea Nitrogen 23 mg/dL (7-17); Calcium 8.8 mg/dL (8.4-10.2); Carbon Dioxide 34 mmol/L (22-30); Chloride 96 mmol/L (98-107); Glucose 120 mg/dL (74-99); Potassium 4.7 mmol/L (3.5-5.1); Sodium 136 mmol/L (137-145)
--- NOTE | 2017-12-13 11:23 | P.PN ---
Subjective Patient is seen in follow-up for hyponatremia. Sodium level is coming up gradually and is up to 136 today. She is currently resting in bed. Currently sleeping. Family present at bedside. Oral intake is good. No major changes overnight. Hemodynamically stable. Vital signs are stable. General: The patient appeared well nourished and normally developed. HEENT: Head exam is unremarkable. Neck is without jugular venous distension. LUNGS: Lungs are clear to auscultation and percussion. Breath sounds decreased. HEART: Rate and Rhythm are regular. First and second heart sounds normal. No murmurs, rubs or gallops. ABDOMEN: Abdominal exam reveals normal bowel sounds. Non-tender and non- distended. No evidence of peritonitis. EXTREMITITES: No clubbing, cyanosis, or edema. Objective - Vital Signs Vital signs: Vital Signs Temp 97.7 F 12/13/17 07:00 Pulse 72 12/13/17 11:07 Resp 16 12/13/17 08:00 BP 120/81 12/13/17 07:00 Pulse Ox 97 12/13/17 07:00 Intake & Output 12/12/17 12/13/17 12/13/17 18:59 06:59 18:59 Intake Total 50 100 Output Total 650 600 Balance -600 -500 Weight 48.6 kg 48.6 kg Intake: IV 50 Piperacillin-Tazobactam 3 50 .375 gm In Dextrose/Water 1 50ml.bag @ 12.5 mls/hr IVPB Q8HR [facility] Rx#: [id number] Intake, IV Titration 50 Amount Piperacillin-Tazobactam 3 50 .375 gm In Dextrose/Water 1 50ml.bag @ 12.5 mls/hr IVPB Q8HR [facility] Rx#: [id number] Oral 50 Tube Feeding 0 Output: Urine 650 600 Other: Voiding Method Indwelling Catheter Indwelling Catheter Indwelling Catheter - Labs CBC & Chem 7: 12/13/17 07:29 12/13/17 07:29 Labs: Abnormal Lab Results - Last 24 Hours (Table) 12/12/17 12/12/17 12/12/17 Range/Units 11:28 17:20 20:32 MCHC (31.0-37.0) g/dL Plt Count (150-450) k/uL Lymphocytes # (1.0-4.8) k/uL Sodium (137-145) mmol/L Chloride (98-107) mmol/L Carbon Dioxide (22-30) mmol/L BUN (7-17) mg/dL Creatinine (0.52-1.04) mg/dL Glucose (74-99) mg/dL POC Glucose (mg/dL) 204 H 124 H 212 H (75-99) mg/dL 12/13/17 12/13/17 12/13/17 Range/Units 07:27 07:29 07:29 MCHC 30.0 L (31.0-37.0) g/dL Plt Count 149 L (150-450) k/uL Lymphocytes # 0.4 L (1.0-4.8) k/uL Sodium 136 L (137-145) mmol/L Chloride 96 L (98-107) mmol/L Carbon Dioxide 34 H (22-30) mmol/L BUN 23 H (7-17) mg/dL Creatinine 0.41 L (0.52-1.04) mg/dL Glucose 120 H (74-99) mg/dL POC Glucose (mg/dL) 124 H (75-99) mg/dL Microbiology - Last 24 Hours (Table) 12/09/17 20:28 Blood Culture - Preliminary Blood No Growth after 72 hours Assessment and Plan Plan: Assessment: #1. Hypovolemic hyponatremia improved with normal saline. Now appears euvolemic. Also component of tea and toast diet as a BUN is noted to be only 4 and urine osmolality 267 on admission. TSH and cortisol levels normal. Sodium level up to 136 today. #2. Pyuria. Urine culture negative so far. #3. Benign hypertension. Controlled. #4. Diastolic CHF with moderate pulmonary hypertension. Plan: Encouraged oral intake. Maintain 1200 mL fluid restriction. Continue to monitor renal function and urine output. Hold hypertensives for systolic blood pressure less than 120. Follow-up cultures. Repeat electrolytes in the morning. Stable to be discharged from nephrology standpoint.
[2017-12-13 12:30] LABS: Glucose,Whole Blood 167 mg/dL (75-99)
[2017-12-13 17:21] LABS: Glucose,Whole Blood 150 mg/dL (75-99)
--- NOTE | 2017-12-13 18:32 | PN ---
PROGRESS NOTE DATE OF SERVICE: 12/13/2017 This 77-year-old woman who was admitted with change in mental status and also acute metabolic encephalopathy secondary to severe hyponatremia is being closely monitored at this time. The patient has significant weakness, also. The sensorium is fluctuating. On exam, patient is mildly arousable. Pulse 82, blood pressure 125/69, respiration 16, temperature 99.1, pulse ox 94% on 1.5 L. HEENT: Conjunctivae normal. Oral mucosa moist. NECK: No jugular venous distention. No carotid bruit. No lymph node enlargement. CARDIOVASCULAR SYSTEM: S1, S2 muffled. No S3. No S4. RESPIRATORY SYSTEM: Breath sounds diminished at the bases. A few scattered rhonchi and crackles. ABDOMEN: Soft, non-tender. No mass palpable. LEGS: No edema. No swelling. NERVOUS SYSTEM: Diffusely weak. LABS: CBC within normal limits. Platelets 149. Sodium 136. Glucose 124. ASSESSMENT: 1. Change in mental status, acute metabolic encephalopathy, possibly secondary to severe hyponatremia, possibly secondary to hypovolemic hyponatremia. SIADH to be ruled out. 2. Acute hypoxic respiratory failure, resolved. 3. Troponin 0.105, indeterminate. 4. History of congestive heart failure with chronic systolic dysfunction, ejection fraction 30% to 35%. 5. Bibasilar pneumonia, possibly aspiration or Gram-negative. 6. History of recent urinary tract infection. 7. Moderate aortic regurgitation. 8. Severe tricuspid regurgitation. 9. Pulmonary hypertension. 10.History of degenerative joint disease. 11.History of hypertension. 12.History of left-sided pleural effusion. 13.Chronic obstructive pulmonary disease. 14.History of nicotine dependence. 15.FULL CODE. RECOMMENDATION AND DISCUSSION: I recommend to continue current medications, continue symptomatic treatment. Otherwise PT/OT evaluation and possible ECF transfer. Prognosis guarded. Continue the rest of the medications. Closely follow with multiple consultants. Further recommendations to follow. MMODL / IJN: [id number] /
[2017-12-13 21:20] LABS: Glucose,Whole Blood 158 mg/dL (75-99)
--- NOTE | 2017-12-13 21:51 | P.PN ---
Subjective Progress Note Date: 12/12/17 Progress note being dictated for Dr. Trotter. Interval history: This a 77-year-old female admitted with change in mental status, acute metabolic encephalopathy secondary to severe hyponatremia, significant generalized weakness and multiple other medical issues. 1200 mL fluid restriction initiated this morning. Sodium improving, 133 .More alert today, Sensorium improving. Diet intake improving with no nausea vomiting or diarrhea. Objective - Vital Signs Vital signs: Vital Signs Temp 99.1 F 12/13/17 15:00 Pulse 75 12/13/17 15:41 Resp 16 12/13/17 15:12 BP 125/69 12/13/17 15:00 Pulse Ox 94 L 12/13/17 15:00 Intake & Output 12/12/17 12/13/17 12/13/17 18:59 06:59 18:59 Intake Total 50 100 50 Output Total 650 600 Balance -600 -500 50 Weight 48.6 kg 48.6 kg 48.6 kg Intake: IV 50 50 Piperacillin-Tazobactam 3 50 50 .375 gm In Dextrose/Water 1 50ml.bag @ 12.5 mls/hr IVPB Q8HR [facility] Rx#: [id number] Intake, IV Titration 50 Amount Piperacillin-Tazobactam 3 50 .375 gm In Dextrose/Water 1 50ml.bag @ 12.5 mls/hr IVPB Q8HR [facility] Rx#: [id number] Oral 50 Tube Feeding 0 Output: Urine 650 600 Other: Voiding Method Indwelling Catheter Indwelling Catheter Indwelling Catheter - Exam PHYSICAL EXAM: VITAL SIGNS: As above GENERAL: Sitting up in bed, tired appearing, arousable HEENT: Conjunctivae normal. eyes normal. Oral mucosa moist NECK: No JVD. No thyroid enlargement. No LNs CARDIOVASCULAR: S1, S2 muffled. No murmur RESPIRATION: Breath sounds diminished in the bases. Scattered rhonchi and crackles. ABDOMEN: Soft, nontender . No guarding. no masses palpable. Bowel sounds heard. LEGS: No edema. no swelling. PSYCHIATRY: Alert and oriented -2, calm, cooperative. NERVOUS SYSTEM: Cranial N 2-12 grossly normal. Moves all 4 limbs. Diffuse weakness Microbiology 12/09/17 20:28 Blood Blood Culture - Preliminary No Growth after 72 hours 12/09/17 08:42 Urine,Catheterized Urine Culture - Final - Labs CBC & Chem 7: 12/13/17 07:29 12/13/17 07:29 Labs: Abnormal Lab Results - Last 24 Hours (Table) 12/12/17 12/12/17 12/13/17 Range/Units 17:20 20:32 07:27 MCHC (31.0-37.0) g/dL Plt Count (150-450) k/uL Lymphocytes # (1.0-4.8) k/uL Sodium (137-145) mmol/L Chloride (98-107) mmol/L Carbon Dioxide (22-30) mmol/L BUN (7-17) mg/dL Creatinine (0.52-1.04) mg/dL Glucose (74-99) mg/dL POC Glucose (mg/dL) 124 H 212 H 124 H (75-99) mg/dL 12/13/17 12/13/17 12/13/17 Range/Units 07:29 07:29 12:28 MCHC 30.0 L (31.0-37.0) g/dL Plt Count 149 L (150-450) k/uL Lymphocytes # 0.4 L (1.0-4.8) k/uL Sodium 136 L (137-145) mmol/L Chloride 96 L (98-107) mmol/L Carbon Dioxide 34 H (22-30) mmol/L BUN 23 H (7-17) mg/dL Creatinine 0.41 L (0.52-1.04) mg/dL Glucose 120 H (74-99) mg/dL POC Glucose (mg/dL) 167 H (75-99) mg/dL Microbiology - Last 24 Hours (Table) 12/09/17 20:28 Blood Culture - Preliminary Blood No Growth after 72 hours Assessment and Plan Assessment: 1. Change in mental status, acute metabolic encephalopathy possibly secondary to severe hyponatremia, possibly hypovolemic hyponatremia, rule out SIADH. 2. Acute hypoxic respiratory failure, resolved 3. Troponin 0.105, indeterminate 4. History of CHF with chronic systolic dysfunction, EF 30-35% 5. Bibasilar pneumonia, possibly aspiration and gram-negative 6. Moderate aortic regurgitation 7. Severe tricuspid regurgitation 8. Pulmonary hypertension 9. Degenerative joint disease 10. COPD Plan: Continue on current medication regime ,monitoring and symptomatic treatment. PT OT. Preauthorization pending for subacute rehab. Discharge planning in progress for tomorrow. Antibiotics as per infectious disease. Close monitoring of electrolytes with repeat labs ordered for a.m. Further recommendations to follow. Prognosis guarded given multiple complex medical issues. The impression and plan of care has been dictated as directed. : I performed a history and examination of this patient, discussed the same with the dictator. I agree with the dictator's note ,documented as a scribe. Any additional findings or plans will be noted.
[2017-12-14 07:19] LABS: Glucose,Whole Blood 192 mg/dL (75-99)
[2017-12-14] MEDS ORDERED: PANTOPRAZOLE 40 MG TABLET PO SCH (07:30)
[2017-12-14] MEDS: IPRATROPIUM-ALBUTEROL 3 ML NEB INHALATION SCH ×4 (07:33→20:21)
[2017-12-14] MEDS: INSULIN ASPART 100 UNIT/ML 1 ML 10 ML VIAL SQ SCH ×4 (08:12→21:45)
[2017-12-14] MEDS: HYDROCORTISONE SUCCINATE 100 MG/2 ML VIAL IV SCH ×3 (08:13→23:36)
[2017-12-14] MEDS: ASPIRIN 325 MG TAB PO SCH (08:13)
[2017-12-14] MEDS: METOPROLOL TARTRATE 12.5 MG TAB PO SCH (08:15)
[2017-12-14] MEDS: ENOXAPARIN 40 MG/0.4 ML SYRINGE SQ SCH (08:15)
[2017-12-14] MEDS: PIPERACILLIN-TAZOBACTAM 3.375 GM in DEXTROSE/WATER 1 50ML.BAG IVPB SCH ×2 (08:38→17:11)
[2017-12-14] MEDS ORDERED: FUROSEMIDE 10 MG/ML 4 ML VIAL IV STA (08:42)
[2017-12-14 08:50] LABS: Basophils % (A) 0 %; Eosinophils % (A) 0 %; HCT 44.1 % (34.0-46.0); HGB 12.4 gm/dL (11.4-16.0); Hypochromasia Marked; Lymphocytes # (A) 0.6 k/uL (1.0-4.8); Lymphocytes % (A) 7 %; MCH 26.8 pg (25.0-35.0); MCHC 28.1 g/dL (31.0-37.0); MCV 95.5 fL (80.0-100.0); Mean Platelet Volume 6.7; Monocytes # (A) 0.8 k/uL (0-1.0); Monocytes % (A) 8 %; Neutrophils # (A) 7.2 k/uL (1.3-7.7); Neutrophils % (A) 82 %; Platelet Count 222 k/uL (150-450); RBC 4.62 m/uL (3.80-5.40); RDW 13.4 % (11.5-15.5); WBC 8.8 k/uL (3.8-10.6)
[2017-12-14 09:08] LABS: Blood Urea Nitrogen 26 mg/dL (7-17); Chloride 97 mmol/L (98-107); Glucose 168 mg/dL (74-99); Potassium 5.5 mmol/L (3.5-5.1); Sodium 143 mmol/L (137-145)
[2017-12-14 09:14] LABS: Anion Gap 6 mmol/L
[2017-12-14 09:17] LABS: Carbon Dioxide 40 mmol/L (22-30)
--- NOTE | 2017-12-14 09:25 | XR ---
EXAMINATION TYPE: XR chest 1V portable DATE OF EXAM: 12/14/2017 COMPARISON: Prior chest x-ray 12/10/2017 HISTORY: Shortness of breath TECHNIQUE: Single frontal view of the chest is obtained. FINDINGS: Patient is rotated. Retrocardiac density is present and has developed in the interval, the re is obscured left hemidiaphragm. Coronary artery calcification is present. No evident pneumothorax. There is blunting the right costophrenic angle as on prior exam. Heart is likely enlarged. NG tube h as been removed. The aorta is dense. IMPRESSION: Correlate for left lower lobe atelectasis versus pneumonia, there may be small effusion. Cardiomegaly. Rotated exam. Follow-up as indicated.
[2017-12-14] MEDS ORDERED: INSULIN REGULAR 100 UNIT/ML VIAL IV ONE (09:35)
--- NOTE | 2017-12-14 09:36 | P.PN ---
Subjective Patient is seen in follow-up for hyponatremia. Sodium level is coming up gradually and is up to 143 today. She is currently resting in bed. Currently sleeping. Oral intake is good. According to the nurse she was quite dyspneic and rhonchorous this morning. She is not requiring 3 L of nasal cannula. Oxygen saturation now is up to 91%. Patient is not a very reliable historian. Vital signs are stable. General: The patient appeared well nourished and normally developed. HEENT: Head exam is unremarkable. Neck is without jugular venous distension. LUNGS: Lungs are clear to auscultation and percussion. Breath sounds decreased. HEART: Rate and Rhythm are regular. First and second heart sounds normal. No murmurs, rubs or gallops. ABDOMEN: Abdominal exam reveals normal bowel sounds. Non-tender and non- distended. No evidence of peritonitis. EXTREMITITES: No clubbing, cyanosis, or edema. Objective - Vital Signs Vital signs: Vital Signs Temp 98.1 F 12/14/17 07:00 Pulse 76 12/14/17 07:44 Resp 20 12/14/17 07:00 BP 124/68 12/14/17 07:00 Pulse Ox 91 L 12/14/17 07:00 Intake & Output 12/13/17 12/14/17 12/14/17 18:59 06:59 18:59 Intake Total 50 300 Output Total 900 700 Balance -850 -400 Weight 48.6 kg 47 kg Intake: IV 50 Piperacillin-Tazobactam 3 50 .375 gm In Dextrose/Water 1 50ml.bag @ 12.5 mls/hr IVPB Q8HR [facility] Rx#: [id number] Oral 300 Output: Urine 900 700 Other: Voiding Method Indwelling Catheter Indwelling Catheter - Labs CBC & Chem 7: 12/14/17 08:21 12/14/17 08:20 Labs: Abnormal Lab Results - Last 24 Hours (Table) 12/13/17 12/13/17 12/13/17 Range/Units 12:28 17:17 21:13 MCHC (31.0-37.0) g/dL Lymphocytes # (1.0-4.8) k/uL Potassium (3.5-5.1) mmol/L Chloride (98-107) mmol/L Carbon Dioxide (22-30) mmol/L BUN (7-17) mg/dL Glucose (74-99) mg/dL POC Glucose (mg/dL) 167 H 150 H 158 H (75-99) mg/dL 12/14/17 12/14/17 12/14/17 Range/Units 07:15 08:20 08:21 MCHC 28.1 L (31.0-37.0) g/dL Lymphocytes # 0.6 L (1.0-4.8) k/uL Potassium 5.5 H (3.5-5.1) mmol/L Chloride 97 L (98-107) mmol/L Carbon Dioxide 40 H* (22-30) mmol/L BUN 26 H (7-17) mg/dL Glucose 168 H (74-99) mg/dL POC Glucose (mg/dL) 192 H (75-99) mg/dL Microbiology - Last 24 Hours (Table) 12/09/17 20:28 Blood Culture - Preliminary Blood No Growth after 96 hours Assessment and Plan Plan: Assessment: #1. Hypovolemic hyponatremia improved with normal saline. Now appears euvolemic. Also component of tea and toast diet as a BUN is noted to be only 4 and urine osmolality 267 on admission. TSH and cortisol levels normal. Sodium level up to 143 today. #2. Pyuria. Urine culture negative so far. #3. Benign hypertension. Controlled. #4. Diastolic CHF with moderate pulmonary hypertension. #5. Metabolic alkalosis secondary to volume contraction. However I will order an ABG to check for underlying respiratory acidosis. #6. Mild hyperkalemia likely from high potassium intake. I don't see any medications that will cause hyperkalemia. No evidence of metabolic acidosis or hyperglycemia. Plan: Encouraged oral intake. I will discontinue the fluid restriction. Continue to monitor renal function and urine output. Hold hypertensives for systolic blood pressure less than 120. Follow-up cultures. Lasix 40 mg IV once now. Check chest x-ray now. Check ABG. Continue to monitor respiratory status closely. 10 units of IV regular insulin with amp D50. Recheck potassium level at 4 PM today.
[2017-12-14 10:16] LABS: ABG Base Excess 14.3 mmol/L; ABG Oxygen Saturation 91.2 % (94-97); ABG PH 7.22 (7.35-7.45); ABG PO2 70 mmHg (83-108); ABG TCO2 45 mmol/L (19-24)
[2017-12-14] MEDS: DEXTROSE 50%-WATER 50 ML SYRINGE IVP STA ×3 (10:17→19:50)
[2017-12-14 10:25] LABS: ABG PCO2 103 mmHg (35-45)
[2017-12-14 10:26] LABS: ABG HCO3 42 mmol/L (21-25)
[2017-12-14 10:47] LABS: Glucose,Whole Blood 313 mg/dL (75-99)
[2017-12-14 10:59] LABS: Glucose,Whole Blood 176 mg/dL (75-99)
[2017-12-14] MEDS ORDERED: SUCCINYLCHOLINE CHLORIDE 100 MG/5 ML SYR IV ONE (11:00)
[2017-12-14] MEDS ORDERED: MIDAZOLAM 2 MG/2 ML VIAL ONE (11:00)
[2017-12-14] MEDS ORDERED: NOREPINEPHRIN 4 MG-0.9% NS PMX 4 MG/250 ML ML IV ONE (11:01)
[2017-12-14] MEDS ORDERED: PROPOFOL 100 ML IV ONE (11:01)
[2017-12-14] MEDS ORDERED: MORPHINE SULFATE 4 MG/ML SYRINGE ONE (11:02)
[2017-12-14] MEDS ORDERED: NOREPINEPHRIN 4 MG-0.9% NS PMX 4 MG/250 ML ML IV SCH (11:15)
[2017-12-14] MEDS ORDERED: PROPOFOL 1,000 MG in EMPTY BAG 1 BAG IV SCH (11:15)
[2017-12-14 11:49] LABS: ABG Base Excess 9.5 mmol/L; ABG HCO3 37 mmol/L (21-25); ABG Oxygen Saturation 99.2 % (94-97); ABG PH 7.21 (7.35-7.45); ABG PO2 270 mmHg (83-108); ABG TCO2 40 mmol/L (19-24)
[2017-12-14 11:52] LABS: ABG PCO2 93 mmHg (35-45)
--- NOTE | 2017-12-14 12:18 | PCN ---
PROCEDURE NOTE The operative report is placement of a right radial arterial line. PREOPERATIVE DIAGNOSIS: Acute hypercapnic respiratory failure requiring intubation and mechanical ventilation. POSTOPERATIVE DIAGNOSIS: Acute hypercapnic respiratory failure requiring intubation and mechanical ventilation. ANESTHESIA USED: None deployed. PROCEDURE: Patient was placed in a supine position. The right wrist was prepared in a sterile fashion, and drapes were applied. The right radial artery was palpated easily, cannulated, and a guidewire was placed. A Unblab catheter was inserted over the guidewire, the guidewire was removed. Good blood flow and good waveform noted on the screen. Line was secured using 3.0 silk sutures. MMODL / IJN: [id number] /
--- NOTE | 2017-12-14 12:18 | PCN ---
PROCEDURE NOTE The operative report is placement of right internal jugular triple-lumen catheter. PREOPERATIVE DIAGNOSIS: Acute hypoxic hypercapnic respiratory failure and hypotension. POSTOPERATIVE DIAGNOSIS: Acute hypoxic hypercapnic respiratory failure and hypotension. ANESTHESIA USED: 2 mL of 1% lidocaine. PROCEDURE: The patient was placed in a Trendelenburg position, and the area of the right cervical region was prepared in a sterile fashion and drapes were applied. Using the posterior approach, the area was locally anesthetized. Then, the right internal jugular vein was easily cannulated using the posterior approach, and a guidewire was placed. The area was dilated, then the dilator was removed. Triple-lumen catheter was inserted and advanced over the guidewire, the guidewire was removed. Good blood flow was noted in the 3 different ports of the triple-lumen catheter. No evidence of any immediate complications. Chest x-ray is pending at the time of my dictation. MMODL / IJN: [id number] /
--- NOTE | 2017-12-14 12:30 | PCN ---
PROCEDURE NOTE PROCEDURE: Intubation. PREOPERATIVE DIAGNOSIS: Acute hypercapnic respiratory failure. POSTOPERATIVE DIAGNOSIS: Acute hypercapnic respiratory failure. ANESTHESIA USED: Patient received 4 mg of morphine sulfate, 4 mg of Versed, and 50 mg of succinylcholine. PROCEDURE: Patient was placed in a supine position, she was Ambu bagged by Respiratory Therapy, and her O2 saturations was noted to be in the mid 90s. Then, she received morphine, Versed, and succinylcholine. When the patient was adequately anesthetized and paralyzed, a GlideScope was used, i.e. depress the tongue, I was able to visualize the vocal cords fully, a size 7.5 endotracheal tube was used, advanced to the vocal cords, and as we advanced to the vocal cords, the cuff was inflated. There was good breath sounds bilaterally and the patient was connected to mechanical ventilation. Saturations was noted to be in the high 90s at the time. Procedure was well tolerated, the endotracheal tube was secured. Had no evidence of any complications. Chest x-ray is pending. MMODL / IJN: [id number] /
--- NOTE | 2017-12-14 12:33 | P.PN ---
Subjective Progress Note Date: 12/14/17 Principal diagnosis: Acute hypoxic and hypercapnic respiratory failure secondary to acute diastolic congestive heart failure and COPD exacerbation This is a 77-year-old female with history of hypertension, congestive heart failure, COPD, patient is mostly bedridden according to her children for the last 1 year. No clear cut reason or etiology for her medical debility. But according to her son, patient has been gradually going downhill for the last one year at least. And she is at a point where she is either in bed or in a wheelchair. Family found patient in bed unresponsive, questionable CPR performed by a bystander, however when EMS arrived the patient had a good pulse. She was resting in bed, placed on a nonrebreather mask, and brought into the hospital. Workup revealed a low sodium of 114. Patient was given 0.9 normal saline, and at one point she was hypotensive requiring fluid boluses with 0.9 normal saline. A 12 point last night the patient became more hypotensive hence she was wasted briefly on norepinephrine. But it is discontinued this morning. CT of the chest showed atelectasis at the right lung base, small tiny right pleural effusion, there was evidence of cardiomegaly , chest x-ray is basically the same. CT of the brain was nondiagnostic. Her CBC was normal. D-dimer was elevated at 20.61, BNP level was 2590, serum osmolality was 23 7 repeat sodium this morning is up to 122. Urine osmolality was 267. Urine sodium was 29. Influenza screen was negative. Considering the profound hyponatremia, and considering the patient may have required 3% saline infusion, patient was admitted to the ICU, did not require any 3% infusion, but she did require a brief infusion of norepinephrine for low blood pressure. The patient herself is a poor historian, nonverbal, does not follow any instructions. Eyes remain closed all the time. Patient was reevaluated today on 12/11/2017, patient is a bit more awake, however unable to follow any instructions, pulled her nasogastric tube out yesterday, and refused having another one to be placed. Hence the patient is taking meds by mouth, and her nutrition seems to be very poor since she doesn't eat much. And she keeps saying that she is not hungry and she has no appetite. Hence I recommended a dietitian consult for caloric count, and recommendation regarding nutritional status. Labs were reviewed sodium is up to 127. The rest of the labs were unremarkable including basic metabolic profile and CBC. Cultures of urine and blood are negative so far. On 12/14/2017 we were reconsulted regarding patient's deteriorating mental status, patient was noted to be hypoxic this morning with a pulse ox around 69% on 1-1/2 L. Her FiO2 was then increased to 5 L per nasal cannula, patient was noted to be increasingly lethargic, barely responsive at the time of our evaluation. Blood gas was obtained on FiO2 of 32%, and it showed primary respiratory acidosis, with acute on chronic hypercapnic respiratory failure, pH was 7.22, pCO2 is 103, pO2 was 70, bicarb was 42, and O2 sat was 91.2 on FiO2 32 %. Patient's lung sounds are positive for coarse rhonchi throughout the lung foss. Patient is tachypnec and tachycardic with a heart rate at 110 BPM. She remained afebrile. She was then placed on BiPAP support with pressures of 12 and 4 and FiO2 of 100%. Stat chest x-ray was obtained and it showed left lower lobe atelectasis versus pneumonia or a small pleural effusion. She was given one-time dose of Lasix 40 mg IV push. Today's labs show sodium is 143, potassium is 5.5, CO2 is 40, BUN was 26, and creatinine was 0.55. Nephrology has ordered 50% dextrose, and 10 units of regular insulin IV push for the treatment of hyperkalemia of 5.5. Patient is starting to diurese. Patient was transferred to the intensive care to the treatment room. The BiPAP treatment did not improve patient's mentation, and decision was made to proceed with intubation and placement on mechanical ventilation. Patient was successfully intubated, and placed on mechanical ventilator with settings of assist control mode with a rate of 16, tidal vital 300, FiO2 of 100% and a PEEP of 5. Repeat blood gases were obtained and reviewed, and showed pH of 7.21, pCO2 of 93, pO2 of 270, and bicarb of 37, this is done on FiO2 of 100%. The settings were adjusted to assist control mode with a rate of 22, tidal volume 300, FiO2 was dropped down to 60%, and PEEP at 5. Patient became very hypotensive with the blood pressure in the 60s over 50s, she was given 2 L bolus of IV 0.9 normal saline. Diprivan is infusing at 10 mics per kilo per minute, and norepinephrine drip is infusing at the rate of 40 mics per minute. Blood pressure has improved, and currently running in the 100s over 50s. OG tube was placed, and connected to low intermittent suction. Right IJ triple lumen central line was placed, right radial arterial line was placed for hemodynamic monitoring. Blood gases will be repeated in half an hour. Objective - Vital Signs Vital signs: Vital Signs Temp 98.1 F 12/14/17 07:00 Pulse 76 12/14/17 07:44 Resp 20 12/14/17 07:00 BP 124/68 12/14/17 07:00 Pulse Ox 91 L 12/14/17 07:00 Intake & Output 12/13/17 12/14/17 12/14/17 18:59 06:59 18:59 Intake Total 50 300 Output Total 900 700 Balance -850 -400 Weight 48.6 kg 47 kg Intake: IV 50 Piperacillin-Tazobactam 3 50 .375 gm In Dextrose/Water 1 50ml.bag @ 12.5 mls/hr IVPB Q8HR [facility] Rx#: [id number] Oral 300 Output: Urine 900 700 Other: Voiding Method Indwelling Catheter Indwelling Catheter Indwelling Catheter - Exam GENERAL EXAM: Sedated, frail looking, chronically ill looking 77-year-old female, in the treatment room on mechanical ventilation HEAD: Normocephalic/atraumatic. EYES: Normal reaction of pupils, equal size. Conjunctiva pink, sclera white. NOSE: Clear with pink turbinates. MOUTH: Upper dentures were removed, there are food debris removed from the mouth. Mucous membranes are dry. ET tube is present, it is secured with a tie , 22 cm at the lip. OG tube is present, to low intermittent suction. THROAT: No erythema or exudates. NECK: No masses, no JVD, no thyroid enlargement, no adenopathy. Right J triple- lumen central venous catheter is present CHEST: No chest wall deformity. Symmetrical expansion. LUNGS: Equal air entry with scattered rhonchi bilaterally. CVS: Regular rate and rhythm, normal S1 and S2, no gallops, no murmurs, no rubs ABDOMEN: Soft, nontender. No hepatosplenomegaly, normal bowel sounds, no guarding or rigidity. EXTREMITIES: No clubbing, no edema, no cyanosis, 2+ pulses and upper and lower extremities. Patient has contractures of upper and lower extremities. 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 There are scattered bruises on bilateral arms and wrists. MUSCULOSKELETAL: Muscle strength and tone normal. SPINE: No scoliosis or deformity SKIN: No rashes CENTRAL NERVOUS SYSTEM: Sedated, intubated on mechanical ventilator No focal deficits, tone is normal in all 4 extremities. PSYCHIATRIC: Unable to assess, patient is sedated and intubated. - Labs CBC & Chem 7: 12/14/17 08:21 12/14/17 08:20 Labs: Abnormal Lab Results - Last 24 Hours (Table) 12/13/17 12/13/17 12/13/17 Range/Units 12:28 17:17 21:13 MCHC (31.0-37.0) g/dL Lymphocytes # (1.0-4.8) k/uL ABG pH (7.35-7.45) ABG pCO2 (35-45) mmHg ABG pO2 (83-108) mmHg ABG HCO3 (21-25) mmol/L ABG Total CO2 (19-24) mmol/L ABG O2 Saturation (94-97) % Potassium (3.5-5.1) mmol/L Chloride (98-107) mmol/L Carbon Dioxide (22-30) mmol/L BUN (7-17) mg/dL Glucose (74-99) mg/dL POC Glucose (mg/dL) 167 H 150 H 158 H (75-99) mg/dL 12/14/17 12/14/17 12/14/17 Range/Units 07:15 08:20 08:21 MCHC 28.1 L (31.0-37.0) g/dL Lymphocytes # 0.6 L (1.0-4.8) k/uL ABG pH (7.35-7.45) ABG pCO2 (35-45) mmHg ABG pO2 (83-108) mmHg ABG HCO3 (21-25) mmol/L ABG Total CO2 (19-24) mmol/L ABG O2 Saturation (94-97) % Potassium 5.5 H (3.5-5.1) mmol/L Chloride 97 L (98-107) mmol/L Carbon Dioxide 40 H* (22-30) mmol/L BUN 26 H (7-17) mg/dL Glucose 168 H (74-99) mg/dL POC Glucose (mg/dL) 192 H (75-99) mg/dL 12/14/17 12/14/17 12/14/17 Range/Units 10:14 10:27 10:56 MCHC (31.0-37.0) g/dL Lymphocytes # (1.0-4.8) k/uL ABG pH 7.22 L (7.35-7.45) ABG pCO2 103 H* (35-45) mmHg ABG pO2 70 L (83-108) mmHg ABG HCO3 42 H* (21-25) mmol/L ABG Total CO2 45 H (19-24) mmol/L ABG O2 Saturation 91.2 L (94-97) % Potassium (3.5-5.1) mmol/L Chloride (98-107) mmol/L Carbon Dioxide (22-30) mmol/L BUN (7-17) mg/dL Glucose (74-99) mg/dL POC Glucose (mg/dL) 313 H 176 H (75-99) mg/dL 12/14/17 Range/Units 11:47 MCHC (31.0-37.0) g/dL Lymphocytes # (1.0-4.8) k/uL ABG pH 7.21 L (7.35-7.45) ABG pCO2 93 H* (35-45) mmHg ABG pO2 270 H (83-108) mmHg ABG HCO3 37 H (21-25) mmol/L ABG Total CO2 40 H (19-24) mmol/L ABG O2 Saturation 99.2 H (94-97) % Potassium (3.5-5.1) mmol/L Chloride (98-107) mmol/L Carbon Dioxide (22-30) mmol/L BUN (7-17) mg/dL Glucose (74-99) mg/dL POC Glucose (mg/dL) (75-99) mg/dL Microbiology - Last 24 Hours (Table) 12/09/17 20:28 Blood Culture - Preliminary Blood No Growth after 96 hours Assessment and Plan Plan: Assessment: #1. Acute hypoxic and hypercapnic respiratory failure secondary to diastolic congestive heart failure, and COPD exacerbation. Patient became increasingly obtunded, blood gas showed severe respiratory acidosis, with acute on chronic hypercapnic respiratory failure, requiring intubation and mechanical ventilation. #2. Acute hyperkalemia, most likely secondary to severe respiratory acidosis, treated with a round of D50 and regular insulin 10 units #3. Acute hypotension secondary to severe respiratory acidosis #4. acute hypovolemic hyponatremia, improved, today's sodium is 143 #5. chronic medical debility, patient has been bedridden and wheelchair ridden for quite some time. #6. history of benign essential hypertension. #7. history of congestive heart failure, diastolic #8. hypotension secondary to hypovolemic shock, strongly doubt any underlying sepsis. #9. multiple decubitus ulcers secondary to medical debility and considering the patient is bed and wheelchair ridden. #10. pyuria as noted on the urinalysis, however urine cultures are negative so far, patient has been afebrile, and has been on Zosyn #11. abnormal CT of the chest showing mostly atelectasis and small right pleural effusion, doubt clinical significance. At this point. Recommendation: Patient was given a brief trial of BiPAP support, however in view of severe degree of respiratory acidosis with hypercapnia failure, she was intubated and placed on mechanical ventilator. We gave her 2 L IV bolus of 0.9 normal saline. She remains on norepinephrine drip currently down to 30 mics per minute , anticipate improvements in her blood pressure as her acidosis improves. Vent changes were made, we'll repeat blood gases in half an hour. Chest x-ray post intubation and placement of right IJ central line catheter was obtained and reviewed, and it showed satisfactory position of the lines in the ET tube. There was again left pleural effusion versus pneumonia or atelectasis is noted. Patient remains on Zosyn, continue with nebulized treatments. We'll continue GI/DVT prophylaxis, will collect new sets of blood cultures, sputum culture and urine culture. Daily chest x-rays, daily labs. I performed a history & physical examination of the patient and discussed their management with my nurse practitioner, Tiffany Juan. I reviewed the nurse practitioner's note and agree with the documented findings and plan of care. Lung sounds are positive for coarse rhonchi bilaterally. The findings and the impression was discussed with the patient. I attest to the documentation by the nurse practitioner. Critical care time is 45 minutes not including the time for procedures Time with Patient: Greater than 30
--- NOTE | 2017-12-14 12:33 | XR ---
EXAMINATION TYPE: XR chest 1V portable DATE OF EXAM: 12/14/2017 COMPARISON: 12/14/2017 HISTORY: Endotracheal tube placement TECHNIQUE: Single frontal view of the chest is obtained. FINDINGS: Endotracheal tube is placed at the level of the aortic arch approximately 3.5 cm from the ana cristina. This is satisfactory in position. Enteric tube slightly cephalad place with the fenestrated p ortion at the gastroesophageal junction and could be advanced at least 3 to 4 cm for optimal placemen t. There is redemonstration of pulmonary hyperinflation, right basilar linear atelectasis, and left basi lar obscuration of the hemidiaphragm and costophrenic angle. Generalized osseous demineralization and dextroscoliotic curvature are seen. IMPRESSION: 1. Satisfactory placement of the endotracheal tube with slight cephalad placement of the enteric tube . Recommend advancement of at least 3 to 4 cm. 2. Persistent retrocardiac density that may relate to a small pleural effusion and atelectasis or pne umonia in the proper clinical setting. 3. Right basilar atelectasis and radiographic sequela of COPD.
[2017-12-14] MEDS ORDERED: DEXTROSE 5% IN WATER 100 ML with AMIODARONE 150 MG IV ONE (13:23)
[2017-12-14] MEDS ORDERED: SODIUM CHLORIDE 0.9% 1,000 ML IV ONE ×3 (13:51→14:02)
[2017-12-14 13:54] LABS: ALT 26 U/L (9-52); AST 19 U/L (14-36); Albumin 2.5 g/dL (3.5-5.0); Alkaline Phosphatase 76 U/L (38-126); Anion Gap 5 mmol/L; Blood Urea Nitrogen 24 mg/dL (7-17); Calcium 8.3 mg/dL (8.4-10.2); Carbon Dioxide 38 mmol/L (22-30); Chloride 102 mmol/L (98-107); Potassium 3.2 mmol/L (3.5-5.1); Sodium 145 mmol/L (137-145); Total Bilirubin 0.4 mg/dL (0.2-1.3); Total Protein 5.4 g/dL (6.3-8.2)
[2017-12-14] MEDS ORDERED: SODIUM CHLORIDE 0.9% 1,000 ML IV SCH (14:00)
[2017-12-14 14:05] LABS: Glucose <20 mg/dL (74-99)
[2017-12-14] MEDS ORDERED: DEXTROSE 50%-WATER 50 ML SYRINGE IVP ONE ×6 (14:05→23:04)
[2017-12-14 14:11] LABS: Glucose,Whole Blood <20 mg/dL (75-99)
[2017-12-14 14:30] LABS: Glucose,Whole Blood 106 mg/dL (75-99)
[2017-12-14] MEDS: AMIODARONE 450 MG in DEXTROSE 5% IN WATER 250 ML IV SCH ×2 (14:34)
[2017-12-14 14:57] LABS: Glucose,Whole Blood 40 mg/dL (75-99)
[2017-12-14 15:40] LABS: Glucose,Whole Blood 90 mg/dL (75-99)
[2017-12-14 15:50] LABS: Glucose,Whole Blood 50 mg/dL (75-99)
[2017-12-14] MEDS: POTASSIUM PHOSPHATE 10 MMOL in SODIUM CHLORIDE 0.9% 250 ML IV SCH ×2 (16:00→17:57)
[2017-12-14 16:15] LABS: Glucose,Whole Blood 122 mg/dL (75-99)
[2017-12-14] MEDS ORDERED: NOREPINEPHRIN 16 MG-0.9%NS PMX 16 MG/250 ML ML IV SCH (16:30)
[2017-12-14 17:00] LABS: Glucose,Whole Blood 50 mg/dL (75-99)
[2017-12-14] MEDS ORDERED: DEXTROSE 10% IN WATER 1,000 ML IV SCH (17:00)
[2017-12-14] MEDS: PROPOFOL 1,000 MG in EMPTY BAG 1 BAG IV SCH ×2 (17:30→18:54)
[2017-12-14 17:37] LABS: Glucose,Whole Blood 117 mg/dL (75-99)
[2017-12-14 18:10] LABS: Glucose,Whole Blood 61 mg/dL (75-99)
[2017-12-14 18:48] LABS: Glucose,Whole Blood 115 mg/dL (75-99)
[2017-12-14 19:54] LABS: Glucose,Whole Blood 37 mg/dL (75-99)
--- NOTE | 2017-12-14 20:03 | PN ---
PROGRESS NOTE DATE OF SERVICE: 12/14/2017 This 77-year-old woman with past medical history of multiple medical problems was admitted with severe hyponatremia, change in mental status, metabolic encephalopathy secondary to hyponatremia. Patient has taken a turn for the worse today. The patient is more short of breath. The patient was thought to have acute on chronic systolic CHF with ejection fraction 30% to 35% with acute hypoxic hypercarbic respiratory failure. Patient was moved to ICU and the patient is mechanically intubated. Patient is being closely monitored. The patient also has atrial ablation with a fast ventricular rate. The patient is on amiodarone drip. The patient is on Levophed drip with hypotension. Patient also had suspected pneumonia previously. The patient was also found to be hypoglycemic. The serum cortisol was normal earlier. Troponin is indeterminate. The patient is mechanically and sedated, unable to give a coherent history; most of the history is taken from my discussion with staff and review of chart at this time. Past medical history reviewed. Review of systems could not be taken because of above- mentioned reasons. CURRENT MEDICATIONS: 1. Ventolin 2.5 q.i.d. p.r.n. 2. DuoNeb q.i.d. and p.r.n. 3. Amiodarone drip. 4. Aspirin 325 mg. 5. Peridex. 6. Dextrose water . 7. Lovenox 40 mg subcutaneously daily. 8. Solu-Cortef 50 IV q.8. 9. NovoLog. 10.Lopressor 12.5 mg daily. 11.Nitrostat. 12.Levophed. PHYSICAL EXAMINATION: Patient is mechanically ventilated and sedated. The pulse is 66, blood pressure 98/57, respiration 24, temperature normal, pulse ox 99% on mechanical ventilation. Vent settings are noted: 400 tidal volume and 45% FiO2, 5 of PEEP. HEENT: Conjunctivae normal. Oral mucosa moist. NECK: Jugular venous distention at the root of the neck. CARDIOVASCULAR SYSTEM: S1, S2 muffled. No S3. No S4. Ejection systolic murmur. RESPIRATORY SYSTEM: Breath sounds diminished at the bases. Bilateral scattered rhonchi and crackles. Expiratory wheezing also present. ABDOMEN: Soft, non-tender. LEGS: No edema. No swelling. NERVOUS SYSTEM: Patient is mechanically ventilated and sedated. LABS: CBC within normal limits. Otherwise ABGs show pH of 7.21, pCO2 93. Potassium is 3.2. Other labs are noted. ASSESSMENT: 1. Change in mental status, acute metabolic encephalopathy, possibly secondary to severe hyponatremia, possibly secondary to hypovolemic hyponatremia. SIADH to be ruled out. Present on admission. 2. Congestive heart failure, acute exacerbation, with acute on chronic systolic dysfunction, ejection fraction 30% to 35%. 3. Hypoglycemia. 4. Acute hypoxic hypercarbic respiratory failure, on mechanical ventilation. 5. Atrial fibrillation with fast ventricular rate. 6. Troponin 0.105, indeterminate. 7. Bibasilar pneumonia. 8. History of recent urinary tract infection. 9. Moderate aortic regurgitation. 10.Severe tricuspid regurgitation. 11.Pulmonary hypertension. 12.History of degenerative joint disease. 13.History of hypertension. 14.History of left-sided pleural effusion. 15.Chronic obstructive pulmonary disease history. 16.History of nicotine dependence. 17.FULL CODE. RECOMMENDATIONS AND DISCUSSION: In this 77-year-old woman who presented with multiple complex medical issues., we will we will monitor the patient closely, continue the current medications, continue with symptomatic treatment. I recommend broad-spectrum IV antibiotics. Continue to monitor. Monitor blood sugars closely. Hydrocortisone. Random cortisol level was high. We will continue to monitor the blood sugars. Hold metoprolol. Levophed drip. Proton pump inhibitors. DVT prophylaxis. Broad-spectrum IV antibiotics. Prognosis guarded because of multiple complex medical issues.. Further recommendations to follow. Will follow the patient closely with Cardiology and Pulmonology. PRATIK / KRYSTIANN: [id number] / KYLIE
[2017-12-14 20:10] LABS: Glucose,Whole Blood 181 mg/dL (75-99)
[2017-12-14 20:50] LABS: Glucose,Whole Blood 75 mg/dL (75-99)
[2017-12-14 21:16] LABS: Glucose,Whole Blood 54 mg/dL (75-99)
[2017-12-14 21:42] LABS: Glucose,Whole Blood 155 mg/dL (75-99)
[2017-12-14] MEDS: CHLORHEXIDINE GLUCONATE 15 ML CUP MUCOUS MEM SCH (21:51)
[2017-12-14] MEDS: PANTOPRAZOLE 40 MG/10 ML VIAL IVP SCH (21:51)
[2017-12-14 22:07] LABS: Glucose,Whole Blood 112 mg/dL (75-99)
[2017-12-14] MEDS: SODIUM CHLORIDE 0.9% 1,000 ML IV SCH (22:30)
[2017-12-14 22:32] LABS: Glucose,Whole Blood 84 mg/dL (75-99)
[2017-12-14] MEDS ORDERED: POTASSIUM CHLORIDE 20 MEQ in WATER FOR INJECTION 1 100ML.BAG IVPB ONE (22:57)
[2017-12-14 23:03] LABS: Glucose,Whole Blood 66 mg/dL (75-99)
--- NOTE | 2017-12-14 23:25 | P.PN ---
Subjective Progress Note Date: 12/14/17 Principal diagnosis: Weakness 77-year-old female who is cared for by her family in a family living situation apparently became unresponsive and was given some form of CPR by one of the bystanders. EMS was called and upon their arrival the patient had easily palpable pulses in was breathing spontaneously. She was brought to the emergency center where she was found evidence of significant altered status with sodium of 114. It is related over the last year the patient has just declined to the point tenderness she's no longer walking and they're trying to care for her while she is generally bedbound. The patient has obvious dementia and is not able to relate to any specific history. She is quite unaware where she is at, and does not understand my role as a physician. She is unable to assist in turning to have her ulcers evaluated. She is completely unaware of fecal soiling On 12/12/2017 the patient has little change of her status. The staff have put her in an upright position to have a meal and she appears to have great difficulty understanding what she is also due with her food tray. With direction she eventually is able to take a bite of her mash potato 12/14/2017 patient has developed respiratory failure and is now intubated sedated and mechanically ventilated. She developed significant hypercarbic respiratory failure with a CO2 of greater than 100. Objective - Vital Signs Vital signs: Vital Signs Temp 98.5 F 12/14/17 23:00 Pulse 58 L 12/14/17 23:00 Resp 24 12/14/17 23:00 BP 91/50 12/14/17 23:00 Pulse Ox 98 12/14/17 23:00 Intake & Output 12/14/17 12/14/17 12/15/17 06:59 18:59 06:59 Intake Total 300 3830.936 371.728 Output Total 700 1225 275 Balance -400 2605.936 96.728 Weight 47 kg 47 kg Intake: Intake, IV Titration 3830.936 331.728 Amount Amiodarone 450 mg In 178.806 Dextrose 5% in Water 250 ml @ 0.5 MG/MIN 16.66 mls /hr IV .Q15H1M [facility] Rx#: [id number] Dextrose 10% in Water 1, 20 60 000 ml @ 20 mls/hr IV . Q24H [facility] Rx#:[id number] Norepinephrin 16 mg-0.9% 9.228 Ns Pmx 16 mg In 250 ml @ Titrate IV .Q0M [facility] Rx#: [id number] Norepinephrin 4 mg-0.9% 213.75 Ns Pmx 4 mg In 250 ml @ Titrate IV .Q0M [facility] Rx#: [id number] Piperacillin-Tazobactam 3 12.5 37.5 .375 gm In Dextrose/Water 1 50ml.bag @ 12.5 mls/hr IVPB Q8HR [facility] Rx#: [id number] Potassium Phosphate 10 125 mmol In Sodium Chloride 0 .9% 250 ml @ 125 mls/hr IV Q2H [facility] Rx#:[id number] Propofol 1,000 mg In 5.88 Empty Bag 1 bag @ Titrate IV .Q0M [facility] Rx#: [id number] Sodium Chloride 0.9% 1, 400 100 000 ml @ 100 mls/hr IV . Q10H [facility] Rx#:[id number] Sodium Chloride 0.9% 1, 1000 000 ml @ 999 mls/hr IV . Q1H1M [facility] Rx#:[id number] Sodium Chloride 0.9% 1, 2000 000 ml @ 999 mls/hr IV . Q1H1M [facility] Rx#:[id number] Oral 300 Tube Feeding 40 Output: Urine 700 1225 275 Other: Voiding Method Indwelling Catheter Indwelling Catheter ABP, PAP, CO, CI - Last Documented Arterial Blood Pressure 122/54 - Exam 77-year-old female who has a completely unkept status, much improved since coming to Hospital but is now intubated sedated and mechanically ventilated because her respiratory failure HEENT: Anicteric conjunctiva are pink and moist nasal mucosa grossly intact without significant lesions, there is no thrush. Edentulous Neck: The neck is supple without significant lymphadenopathy or thyromegaly. Lungs: Symmetrical air entry is noted however expiratory wheezes are scattered but no donovan bronchial sounds Heart: Irregular with an audible S1 and S2 without S4 no distinct murmur click or rub is noted Abdomen: Positive bowel sounds soft and nontender without palpable masses or organomegaly. There was no guarding or rebound. Extremities: Upper extremity has a IV site that is intact. No lesions in the upper extremities are noted. Lower extremities have evidence of is noted some early contractures. Is evidence of distinct wasting of the musculature of the upper and lower extremities. Please see the nursing photography for the pressure ulcerations noted to the coccyx as well as to the left and right trochanteric areas. Neuro: She is intubated sedated and mechanically ventilated - Labs CBC & Chem 7: 12/14/17 08:21 12/14/17 22:00 Labs: Abnormal Lab Results - Last 24 Hours (Table) 12/14/17 12/14/17 12/14/17 Range/Units 07:15 08:20 08:21 MCHC 28.1 L (31.0-37.0) g/dL Lymphocytes # 0.6 L (1.0-4.8) k/uL ABG pH (7.35-7.45) ABG pCO2 (35-45) mmHg ABG pO2 (83-108) mmHg ABG HCO3 (21-25) mmol/L ABG Total CO2 (19-24) mmol/L ABG O2 Saturation (94-97) % Potassium 5.5 H (3.5-5.1) mmol/L Chloride 97 L (98-107) mmol/L Carbon Dioxide 40 H* (22-30) mmol/L BUN 26 H (7-17) mg/dL Glucose 168 H (74-99) mg/dL POC Glucose (mg/dL) 192 H (75-99) mg/dL Calcium (8.4-10.2) mg/dL Phosphorus (2.5-4.5) mg/dL Total Protein (6.3-8.2) g/dL Albumin (3.5-5.0) g/dL 12/14/17 12/14/17 12/14/17 Range/Units 10:14 10:27 10:56 MCHC (31.0-37.0) g/dL Lymphocytes # (1.0-4.8) k/uL ABG pH 7.22 L (7.35-7.45) ABG pCO2 103 H* (35-45) mmHg ABG pO2 70 L (83-108) mmHg ABG HCO3 42 H* (21-25) mmol/L ABG Total CO2 45 H (19-24) mmol/L ABG O2 Saturation 91.2 L (94-97) % Potassium (3.5-5.1) mmol/L Chloride (98-107) mmol/L Carbon Dioxide (22-30) mmol/L BUN (7-17) mg/dL Glucose (74-99) mg/dL POC Glucose (mg/dL) 313 H 176 H (75-99) mg/dL Calcium (8.4-10.2) mg/dL Phosphorus (2.5-4.5) mg/dL Total Protein (6.3-8.2) g/dL Albumin (3.5-5.0) g/dL 12/14/17 12/14/17 12/14/17 Range/Units 11:47 13:30 14:08 MCHC (31.0-37.0) g/dL Lymphocytes # (1.0-4.8) k/uL ABG pH 7.21 L (7.35-7.45) ABG pCO2 93 H* (35-45) mmHg ABG pO2 270 H (83-108) mmHg ABG HCO3 37 H (21-25) mmol/L ABG Total CO2 40 H (19-24) mmol/L ABG O2 Saturation 99.2 H (94-97) % Potassium 3.2 L (3.5-5.1) mmol/L Chloride (98-107) mmol/L Carbon Dioxide 38 H (22-30) mmol/L BUN 24 H (7-17) mg/dL Glucose <20 L* (74-99) mg/dL POC Glucose (mg/dL) <20 L (75-99) mg/dL Calcium 8.3 L (8.4-10.2) mg/dL Phosphorus 2.0 L (2.5-4.5) mg/dL Total Protein 5.4 L (6.3-8.2) g/dL Albumin 2.5 L (3.5-5.0) g/dL 12/14/17 12/14/17 12/14/17 Range/Units 14:29 14:53 15:48 MCHC (31.0-37.0) g/dL Lymphocytes # (1.0-4.8) k/uL ABG pH (7.35-7.45) ABG pCO2 (35-45) mmHg ABG pO2 (83-108) mmHg ABG HCO3 (21-25) mmol/L ABG Total CO2 (19-24) mmol/L ABG O2 Saturation (94-97) % Potassium (3.5-5.1) mmol/L Chloride (98-107) mmol/L Carbon Dioxide (22-30) mmol/L BUN (7-17) mg/dL Glucose (74-99) mg/dL POC Glucose (mg/dL) 106 H 40 L 50 L (75-99) mg/dL Calcium (8.4-10.2) mg/dL Phosphorus (2.5-4.5) mg/dL Total Protein (6.3-8.2) g/dL Albumin (3.5-5.0) g/dL 12/14/17 12/14/17 12/14/17 Range/Units 16:13 16:58 17:35 MCHC (31.0-37.0) g/dL Lymphocytes # (1.0-4.8) k/uL ABG pH (7.35-7.45) ABG pCO2 (35-45) mmHg ABG pO2 (83-108) mmHg ABG HCO3 (21-25) mmol/L ABG Total CO2 (19-24) mmol/L ABG O2 Saturation (94-97) % Potassium (3.5-5.1) mmol/L Chloride (98-107) mmol/L Carbon Dioxide (22-30) mmol/L BUN (7-17) mg/dL Glucose (74-99) mg/dL POC Glucose (mg/dL) 122 H 50 L 117 H (75-99) mg/dL Calcium (8.4-10.2) mg/dL Phosphorus (2.5-4.5) mg/dL Total Protein (6.3-8.2) g/dL Albumin (3.5-5.0) g/dL 12/14/17 12/14/17 12/14/17 Range/Units 18:08 18:45 19:52 MCHC (31.0-37.0) g/dL Lymphocytes # (1.0-4.8) k/uL ABG pH (7.35-7.45) ABG pCO2 (35-45) mmHg ABG pO2 (83-108) mmHg ABG HCO3 (21-25) mmol/L ABG Total CO2 (19-24) mmol/L ABG O2 Saturation (94-97) % Potassium (3.5-5.1) mmol/L Chloride (98-107) mmol/L Carbon Dioxide (22-30) mmol/L BUN (7-17) mg/dL Glucose (74-99) mg/dL POC Glucose (mg/dL) 61 L 115 H 37 L (75-99) mg/dL Calcium (8.4-10.2) mg/dL Phosphorus (2.5-4.5) mg/dL Total Protein (6.3-8.2) g/dL Albumin (3.5-5.0) g/dL 12/14/17 12/14/17 12/14/17 Range/Units 20:07 21:15 21:40 MCHC (31.0-37.0) g/dL Lymphocytes # (1.0-4.8) k/uL ABG pH (7.35-7.45) ABG pCO2 (35-45) mmHg ABG pO2 (83-108) mmHg ABG HCO3 (21-25) mmol/L ABG Total CO2 (19-24) mmol/L ABG O2 Saturation (94-97) % Potassium (3.5-5.1) mmol/L Chloride (98-107) mmol/L Carbon Dioxide (22-30) mmol/L BUN (7-17) mg/dL Glucose (74-99) mg/dL POC Glucose (mg/dL) 181 H 54 L 155 H (75-99) mg/dL Calcium (8.4-10.2) mg/dL Phosphorus (2.5-4.5) mg/dL Total Protein (6.3-8.2) g/dL Albumin (3.5-5.0) g/dL 12/14/17 12/14/17 12/14/17 Range/Units 22:00 22:05 23:01 MCHC (31.0-37.0) g/dL Lymphocytes # (1.0-4.8) k/uL ABG pH (7.35-7.45) ABG pCO2 (35-45) mmHg ABG pO2 (83-108) mmHg ABG HCO3 (21-25) mmol/L ABG Total CO2 (19-24) mmol/L ABG O2 Saturation (94-97) % Potassium 3.1 L (3.5-5.1) mmol/L Chloride (98-107) mmol/L Carbon Dioxide (22-30) mmol/L BUN (7-17) mg/dL Glucose (74-99) mg/dL POC Glucose (mg/dL) 112 H 66 L (75-99) mg/dL Calcium (8.4-10.2) mg/dL Phosphorus (2.5-4.5) mg/dL Total Protein (6.3-8.2) g/dL Albumin (3.5-5.0) g/dL Microbiology - Last 24 Hours (Table) 12/14/17 14:00 Urine Culture - Preliminary Urine,Catheterized 12/09/17 20:28 Blood Culture - Preliminary Blood No Growth after 120 hours Assessment and Plan (1) Hyponatremia Current Visit: Yes Status: Acute Code(s): E87.1 - HYPO-OSMOLALITY AND HYPONATREMIA SNOMED Code(s): 75499370 (2) Pressure ulcer of coccygeal region, stage 3 Narrative/Plan: 77-year-old female is transported to hospital after she became unresponsive. The patient was found evidence of significant hyponatremia which is noted to be hypovolemic in nature. With rehydration sodium solution she is not having improvement. There was concern as urinary tract infection however urine culture is negative for blood cultures are pending. She does not have a history of MRSA but does have significant pressure ulcerations and concerns to underlying sepsis. Will continue Zosyn for now however will discontinue vancomycin. Local wound care with hydrocolloid dressings will be utilized to pressure ulcerations. The stage III pressure ulceration of the coccyx is present at admission, is due to pressure and does not appear to be grossly infected at this time. Cultures are pending. We'll monitor cultures and further alter antibiotic therapy as possible. On 12/14/2012 the patient has had a major decline of her status with respiratory failure hypercapnic in nature requiring intubation with sedation and mechanical ventilation. Her prognosis is very poor. Continue local wound care and antibiotic therapy. Current Visit: Yes Status: Acute Code(s): L89.153 - PRESSURE ULCER OF SACRAL REGION, STAGE 3 SNOMED Code(s): 146422411
[2017-12-14 23:29] LABS: Glucose,Whole Blood 141 mg/dL (75-99)
[2017-12-15 00:09] LABS: Glucose,Whole Blood 94 mg/dL (75-99)
[2017-12-15 00:27] LABS: Glucose,Whole Blood 86 mg/dL (75-99)
[2017-12-15 01:11] LABS: Glucose,Whole Blood 78 mg/dL (75-99)
[2017-12-15] MEDS: PIPERACILLIN-TAZOBACTAM 3.375 GM in DEXTROSE/WATER 1 50ML.BAG IVPB SCH ×3 (01:13→15:35)
[2017-12-15 01:45] LABS: Glucose,Whole Blood 84 mg/dL (75-99)
[2017-12-15 02:39] LABS: Glucose,Whole Blood 81 mg/dL (75-99)
[2017-12-15 03:33] LABS: Glucose,Whole Blood 88 mg/dL (75-99)
[2017-12-15 04:41] LABS: Glucose,Whole Blood 98 mg/dL (75-99)
[2017-12-15 04:53] LABS: Basophils % (A) 0 %; Eosinophils % (A) 0 %; HGB 11.5 gm/dL (11.4-16.0); Hypochromasia Marked; Lymphocytes # (A) 0.6 k/uL (1.0-4.8); Lymphocytes % (A) 5 %; MCH 27.8 pg (25.0-35.0); MCHC 29.6 g/dL (31.0-37.0); Mean Platelet Volume 7.2; Monocytes # (A) 0.6 k/uL (0-1.0); Monocytes % (A) 5 %; Neutrophils # (A) 11.4 k/uL (1.3-7.7); Neutrophils % (A) 89 %; Platelet Count 172 k/uL (150-450); RBC 4.14 m/uL (3.80-5.40); RDW 13.5 % (11.5-15.5); WBC 12.8 k/uL (3.8-10.6)
[2017-12-15 05:04] LABS: ALT 20 U/L (9-52); AST 14 U/L (14-36); Alkaline Phosphatase 60 U/L (38-126); Anion Gap 2 mmol/L; Blood Urea Nitrogen 19 mg/dL (7-17); Calcium 8.3 mg/dL (8.4-10.2); Carbon Dioxide 35 mmol/L (22-30); Chloride 103 mmol/L (98-107); Glucose 102 mg/dL (74-99); Potassium 3.8 mmol/L (3.5-5.1); Sodium 140 mmol/L (137-145); Total Bilirubin 0.3 mg/dL (0.2-1.3); Total Protein 4.6 g/dL (6.3-8.2)
[2017-12-15] MEDS: AMIODARONE 450 MG in DEXTROSE 5% IN WATER 250 ML IV SCH ×2 (05:33)
[2017-12-15] MEDS: MAGNESIUM SULFATE-D5W PMX 1 GM in DEXTROSE/WATER 1 100ML.BAG IVPB SCH ×2 (05:33→06:34)
[2017-12-15 05:34] LABS: Glucose,Whole Blood 94 mg/dL (75-99)
[2017-12-15 05:55] LABS: Phosphorus 2.8 mg/dL (2.5-4.5)
[2017-12-15 06:33] LABS: Glucose,Whole Blood 111 mg/dL (75-99)
[2017-12-15] MEDS: PROPOFOL 1,000 MG in EMPTY BAG 1 BAG IV SCH ×2 (06:34→19:02)
--- NOTE | 2017-12-15 07:00 | XR ---
EXAMINATION TYPE: XR chest 1V portable DATE OF EXAM: 12/15/2017 HISTORY: Tube placement. REFERENCE: Previous study dated 12/14/2017. FINDINGS: The patient is NG tube and ET tube remain in place, unchanged in appearance. A right internal security manager al jugular catheter is in place. Its tip is at the junction of the inferior vena cava and the right a trium. The heart is enlarged. There are small, bilateral effusions. There is dense left basilar airspace dis ease and lesser right basilar airspace disease. There has been no interval change in the appearance o f the chest. IMPRESSION: NO SIGNIFICANT INTERVAL CHANGE IN THE APPEARANCE OF THE CHEST.
[2017-12-15] MEDS: IPRATROPIUM-ALBUTEROL 3 ML NEB INHALATION SCH ×4 (07:06→20:06)
[2017-12-15 07:52] LABS: Glucose,Whole Blood 113 mg/dL (75-99)
[2017-12-15] MEDS: INSULIN ASPART 100 UNIT/ML 1 ML 10 ML VIAL SQ SCH ×2 (08:00→11:43)
[2017-12-15] MEDS: POTASSIUM CHLORIDE 10 MEQ in WATER FOR INJECTION 1 100ML.BAG IVPB SCH ×2 (08:00→09:00)
[2017-12-15] MEDS: HYDROCORTISONE SUCCINATE 100 MG/2 ML VIAL IV SCH ×2 (08:05→15:21)
[2017-12-15 08:21] LABS: ABG Base Excess 9.8 mmol/L; ABG HCO3 34 mmol/L (21-25); ABG Oxygen Saturation 98.2 % (94-97); ABG PCO2 48 mmHg (35-45); ABG PH 7.45 (7.35-7.45); ABG PO2 109 mmHg (83-108); ABG TCO2 35 mmol/L (19-24)
[2017-12-15] MEDS: SODIUM CHLORIDE 0.9% 1,000 ML IV SCH (09:01)
[2017-12-15] MEDS: ENOXAPARIN 40 MG/0.4 ML SYRINGE SQ SCH (09:03)
[2017-12-15] MEDS: CHLORHEXIDINE GLUCONATE 15 ML CUP MUCOUS MEM SCH ×2 (09:04→20:52)
[2017-12-15] MEDS: PANTOPRAZOLE 40 MG/10 ML VIAL IVP SCH ×2 (09:04→20:52)
[2017-12-15] MEDS: ASPIRIN 325 MG TAB PO SCH (09:04)
[2017-12-15 09:05] LABS: Glucose,Whole Blood 110 mg/dL (75-99)
[2017-12-15 10:15] LABS: Glucose,Whole Blood 115 mg/dL (75-99)
--- NOTE | 2017-12-15 11:05 | P.PN ---
Subjective Patient is seen in follow-up for hyponatremia. Sodium level has come up gradually and is 140 today. Patient was noted to be in respiratory distress yesterday and was subsequently transferred to the intensive care unit. She is currently intubated and sedated. She is currently on 2 mics of levofed. She is maintained on tube feeds. Her blood sugar was less than 20 and she is currently maintained on D10 at 45 cc an hour as well as normal saline at 100 mL an hour. Vital signs are stable. General: The patient appeared well nourished and normally developed. HEENT: Head exam is unremarkable. Neck is without jugular venous distension. LUNGS: Lungs are clear to auscultation and percussion. Breath sounds decreased. HEART: Rate and Rhythm are regular. First and second heart sounds normal. No murmurs, rubs or gallops. ABDOMEN: Abdominal exam reveals normal bowel sounds. Non-tender and non- distended. No evidence of peritonitis. EXTREMITITES: No clubbing, cyanosis, or edema. Objective - Vital Signs Vital signs: Vital Signs Temp 98.9 F 12/15/17 08:00 Pulse 54 L 12/15/17 10:00 Resp 24 12/15/17 10:00 BP 93/51 12/15/17 07:00 Pulse Ox 97 12/15/17 10:00 Intake & Output 12/14/17 12/15/17 12/15/17 18:59 06:59 18:59 Intake Total 3830.936 2229.821 697.283 Output Total 1225 625 140 Balance 2605.936 1604.821 557.283 Weight 47 kg 54.3 kg Intake: IV 437.5 Dextrose 10% in Water 1, 135 000 ml @ 45 mls/hr IV . [id number] [facility] Rx#:[id number] Piperacillin-Tazobactam 3 12.5 .375 gm In Dextrose/Water 1 50ml.bag @ 12.5 mls/hr IVPB Q8HR [facility] Rx#: [id number] Sodium Chloride 0.9% 1, 290 000 ml @ 100 mls/hr IV . Q10H [facility] Rx#:[id number] Intake, IV Titration 3830.936 2009.821 149.783 Amount Amiodarone 450 mg In 178.806 Dextrose 5% in Water 250 ml @ 0.5 MG/MIN 16.66 mls /hr IV .Q15H1M [facility] Rx#: [id number] Dextrose 10% in Water 1, 20 440 45 000 ml @ 45 mls/hr IV . [id number] [facility] Rx#:[id number] Magnesium Sulfate-D5w Pmx 200 1 gm In Dextrose/Water 1 100ml.bag @ 100 mls/hr IVPB Q1H [facility] Rx#: [id number] Norepinephrin 16 mg-0.9% 41.301 4.783 Ns Pmx 16 mg In 250 ml @ Titrate IV .Q0M [facility] Rx#: [id number] Norepinephrin 4 mg-0.9% 213.75 Ns Pmx 4 mg In 250 ml @ Titrate IV .Q0M [facility] Rx#: [id number] Piperacillin-Tazobactam 3 12.5 62.5 .375 gm In Dextrose/Water 1 50ml.bag @ 12.5 mls/hr IVPB Q8HR [facility] Rx#: [id number] Potassium Chloride 20 meq 100 In Water For Injection 1 100ml.bag @ 50 mls/hr IVPB [facility]CE [facility] Rx#: [id number] Potassium Phosphate 10 125 mmol In Sodium Chloride 0 .9% 250 ml @ 125 mls/hr IV Q2H [facility] Rx#:[id number] Propofol 1,000 mg In 5.88 41.020 Empty Bag 1 bag @ Titrate IV .Q0M [facility] Rx#: [id number] Sodium Chloride 0.9% 1, 400 100 000 ml @ 100 mls/hr IV . Q10H [facility] Rx#:[id number] Sodium Chloride 0.9% 1, 900 100 000 ml @ 100 mls/hr IV . Q10H [facility] Rx#:[id number] Sodium Chloride 0.9% 1, 1000 000 ml @ 999 mls/hr IV . Q1H1M [facility] Rx#:[id number] Sodium Chloride 0.9% 1, 2000 000 ml @ 999 mls/hr IV . Q1H1M [facility] Rx#:[id number] Tube Feeding 220 80 Other 30 Output: Urine 1225 625 140 Other: Voiding Method Indwelling Catheter Indwelling Catheter Indwelling Catheter ABP, PAP, CO, CI - Last Documented Arterial Blood Pressure 87/45 - Labs CBC & Chem 7: 12/15/17 04:30 12/15/17 04:30 Labs: Abnormal Lab Results - Last 24 Hours (Table) 12/14/17 12/14/17 12/14/17 Range/Units 11:47 13:30 14:08 WBC (3.8-10.6) k/uL MCHC (31.0-37.0) g/dL Neutrophils # (1.3-7.7) k/uL Lymphocytes # (1.0-4.8) k/uL ABG pH 7.21 L (7.35-7.45) ABG pCO2 93 H* (35-45) mmHg ABG pO2 270 H (83-108) mmHg ABG HCO3 37 H (21-25) mmol/L ABG Total CO2 40 H (19-24) mmol/L ABG O2 Saturation 99.2 H (94-97) % Potassium 3.2 L (3.5-5.1) mmol/L Carbon Dioxide 38 H (22-30) mmol/L BUN 24 H (7-17) mg/dL Creatinine (0.52-1.04) mg/dL Glucose <20 L* (74-99) mg/dL POC Glucose (mg/dL) <20 L (75-99) mg/dL Calcium 8.3 L (8.4-10.2) mg/dL Phosphorus 2.0 L (2.5-4.5) mg/dL Total Protein 5.4 L (6.3-8.2) g/dL Albumin 2.5 L (3.5-5.0) g/dL 12/14/17 12/14/17 12/14/17 Range/Units 14:29 14:53 15:48 WBC (3.8-10.6) k/uL MCHC (31.0-37.0) g/dL Neutrophils # (1.3-7.7) k/uL Lymphocytes # (1.0-4.8) k/uL ABG pH (7.35-7.45) ABG pCO2 (35-45) mmHg ABG pO2 (83-108) mmHg ABG HCO3 (21-25) mmol/L ABG Total CO2 (19-24) mmol/L ABG O2 Saturation (94-97) % Potassium (3.5-5.1) mmol/L Carbon Dioxide (22-30) mmol/L BUN (7-17) mg/dL Creatinine (0.52-1.04) mg/dL Glucose (74-99) mg/dL POC Glucose (mg/dL) 106 H 40 L 50 L (75-99) mg/dL Calcium (8.4-10.2) mg/dL Phosphorus (2.5-4.5) mg/dL Total Protein (6.3-8.2) g/dL Albumin (3.5-5.0) g/dL 12/14/17 12/14/17 12/14/17 Range/Units 16:13 16:58 17:35 WBC (3.8-10.6) k/uL MCHC (31.0-37.0) g/dL Neutrophils # (1.3-7.7) k/uL Lymphocytes # (1.0-4.8) k/uL ABG pH (7.35-7.45) ABG pCO2 (35-45) mmHg ABG pO2 (83-108) mmHg ABG HCO3 (21-25) mmol/L ABG Total CO2 (19-24) mmol/L ABG O2 Saturation (94-97) % Potassium (3.5-5.1) mmol/L Carbon Dioxide (22-30) mmol/L BUN (7-17) mg/dL Creatinine (0.52-1.04) mg/dL Glucose (74-99) mg/dL POC Glucose (mg/dL) 122 H 50 L 117 H (75-99) mg/dL Calcium (8.4-10.2) mg/dL Phosphorus (2.5-4.5) mg/dL Total Protein (6.3-8.2) g/dL Albumin (3.5-5.0) g/dL 12/14/17 12/14/17 12/14/17 Range/Units 18:08 18:45 19:52 WBC (3.8-10.6) k/uL MCHC (31.0-37.0) g/dL Neutrophils # (1.3-7.7) k/uL Lymphocytes # (1.0-4.8) k/uL ABG pH (7.35-7.45) ABG pCO2 (35-45) mmHg ABG pO2 (83-108) mmHg ABG HCO3 (21-25) mmol/L ABG Total CO2 (19-24) mmol/L ABG O2 Saturation (94-97) % Potassium (3.5-5.1) mmol/L Carbon Dioxide (22-30) mmol/L BUN (7-17) mg/dL Creatinine (0.52-1.04) mg/dL Glucose (74-99) mg/dL POC Glucose (mg/dL) 61 L 115 H 37 L (75-99) mg/dL Calcium (8.4-10.2) mg/dL Phosphorus (2.5-4.5) mg/dL Total Protein (6.3-8.2) g/dL Albumin (3.5-5.0) g/dL 12/14/17 12/14/17 12/14/17 Range/Units 20:07 21:15 21:40 WBC (3.8-10.6) k/uL MCHC (31.0-37.0) g/dL Neutrophils # (1.3-7.7) k/uL Lymphocytes # (1.0-4.8) k/uL ABG pH (7.35-7.45) ABG pCO2 (35-45) mmHg ABG pO2 (83-108) mmHg ABG HCO3 (21-25) mmol/L ABG Total CO2 (19-24) mmol/L ABG O2 Saturation (94-97) % Potassium (3.5-5.1) mmol/L Carbon Dioxide (22-30) mmol/L BUN (7-17) mg/dL Creatinine (0.52-1.04) mg/dL Glucose (74-99) mg/dL POC Glucose (mg/dL) 181 H 54 L 155 H (75-99) mg/dL Calcium (8.4-10.2) mg/dL Phosphorus (2.5-4.5) mg/dL Total Protein (6.3-8.2) g/dL Albumin (3.5-5.0) g/dL 12/14/17 12/14/17 12/14/17 Range/Units 22:00 22:05 23:01 WBC (3.8-10.6) k/uL MCHC (31.0-37.0) g/dL Neutrophils # (1.3-7.7) k/uL Lymphocytes # (1.0-4.8) k/uL ABG pH (7.35-7.45) ABG pCO2 (35-45) mmHg ABG pO2 (83-108) mmHg ABG HCO3 (21-25) mmol/L ABG Total CO2 (19-24) mmol/L ABG O2 Saturation (94-97) % Potassium 3.1 L (3.5-5.1) mmol/L Carbon Dioxide (22-30) mmol/L BUN (7-17) mg/dL Creatinine (0.52-1.04) mg/dL Glucose (74-99) mg/dL POC Glucose (mg/dL) 112 H 66 L (75-99) mg/dL Calcium (8.4-10.2) mg/dL Phosphorus (2.5-4.5) mg/dL Total Protein (6.3-8.2) g/dL Albumin (3.5-5.0) g/dL 12/14/17 12/15/17 12/15/17 Range/Units 23:27 04:30 04:30 WBC 12.8 H (3.8-10.6) k/uL MCHC 29.6 L (31.0-37.0) g/dL Neutrophils # 11.4 H (1.3-7.7) k/uL Lymphocytes # 0.6 L (1.0-4.8) k/uL ABG pH (7.35-7.45) ABG pCO2 (35-45) mmHg ABG pO2 (83-108) mmHg ABG HCO3 (21-25) mmol/L ABG Total CO2 (19-24) mmol/L ABG O2 Saturation (94-97) % Potassium (3.5-5.1) mmol/L Carbon Dioxide 35 H (22-30) mmol/L BUN 19 H (7-17) mg/dL Creatinine 0.50 L (0.52-1.04) mg/dL Glucose 102 H (74-99) mg/dL POC Glucose (mg/dL) 141 H (75-99) mg/dL Calcium 8.3 L (8.4-10.2) mg/dL Phosphorus (2.5-4.5) mg/dL Total Protein 4.6 L (6.3-8.2) g/dL Albumin 2.0 L (3.5-5.0) g/dL 12/15/17 12/15/17 12/15/17 Range/Units 06:32 07:50 08:19 WBC (3.8-10.6) k/uL MCHC (31.0-37.0) g/dL Neutrophils # (1.3-7.7) k/uL Lymphocytes # (1.0-4.8) k/uL ABG pH (7.35-7.45) ABG pCO2 48 H (35-45) mmHg ABG pO2 109 H (83-108) mmHg ABG HCO3 34 H (21-25) mmol/L ABG Total CO2 35 H (19-24) mmol/L ABG O2 Saturation 98.2 H (94-97) % Potassium (3.5-5.1) mmol/L Carbon Dioxide (22-30) mmol/L BUN (7-17) mg/dL Creatinine (0.52-1.04) mg/dL Glucose (74-99) mg/dL POC Glucose (mg/dL) 111 H 113 H (75-99) mg/dL Calcium (8.4-10.2) mg/dL Phosphorus (2.5-4.5) mg/dL Total Protein (6.3-8.2) g/dL Albumin (3.5-5.0) g/dL 12/15/17 12/15/17 Range/Units 09:03 10:13 WBC (3.8-10.6) k/uL MCHC (31.0-37.0) g/dL Neutrophils # (1.3-7.7) k/uL Lymphocytes # (1.0-4.8) k/uL ABG pH (7.35-7.45) ABG pCO2 (35-45) mmHg ABG pO2 (83-108) mmHg ABG HCO3 (21-25) mmol/L ABG Total CO2 (19-24) mmol/L ABG O2 Saturation (94-97) % Potassium (3.5-5.1) mmol/L Carbon Dioxide (22-30) mmol/L BUN (7-17) mg/dL Creatinine (0.52-1.04) mg/dL Glucose (74-99) mg/dL POC Glucose (mg/dL) 110 H 115 H (75-99) mg/dL Calcium (8.4-10.2) mg/dL Phosphorus (2.5-4.5) mg/dL Total Protein (6.3-8.2) g/dL Albumin (3.5-5.0) g/dL Microbiology - Last 24 Hours (Table) 12/14/17 21:40 Gram Stain - Preliminary Sputum Sputum Culture - Preliminary 12/14/17 14:00 Urine Culture - Preliminary Urine,Catheterized 12/09/17 20:28 Blood Culture - Preliminary Blood No Growth after 120 hours Assessment and Plan Plan: Assessment: #1. Hypovolemic hyponatremia improved with normal saline. Now appears euvolemic. Also component of tea and toast diet as a BUN is noted to be only 4 and urine osmolality 267 on admission. TSH and cortisol levels normal. Sodium level 140 today. #2. Pyuria. Urine culture negative so far. #3. Benign hypertension. Blood pressures were on the lower side due to sedation and she is currently on low-dose Levophed. #4. Diastolic CHF with moderate pulmonary hypertension. #5. Acute hypercapnic respiratory failure. Plan: Discontinue D10. Change normal saline to D5 normal saline to run at 100 mL an hour. Continue to monitor renal function and urine output. Wean levofed and FiO2. Avoid nephrotoxic agents and hypotensive episodes. Maintain tube feeds.
[2017-12-15 11:41] LABS: Glucose,Whole Blood 112 mg/dL (75-99)
[2017-12-15] MEDS: DEXTROSE 5%-0.9% NACL 1,000 ML IV SCH ×2 (11:54→22:00)
[2017-12-15 11:56] LABS: Glucose,Whole Blood 132 mg/dL (75-99)
[2017-12-15 12:44] LABS: Glucose,Whole Blood 126 mg/dL (75-99)
--- NOTE | 2017-12-15 13:46 | P.PN ---
Subjective Progress Note Date: 12/15/17 Principal diagnosis: Acute hypovolemic hyponatremia This is a 77-year-old female with history of hypertension, congestive heart failure, COPD, patient is mostly bedridden according to her children for the last 1 year. No clear cut reason or etiology for her medical debility. But according to her son, patient has been gradually going downhill for the last one year at least. And she is at a point where she is either in bed or in a wheelchair. Family found patient in bed unresponsive, questionable CPR performed by a bystander, however when EMS arrived the patient had a good pulse. She was resting in bed, placed on a nonrebreather mask, and brought into the hospital. Workup revealed a low sodium of 114. Patient was given 0.9 normal saline, and at one point she was hypotensive requiring fluid boluses with 0.9 normal saline. A 12 point last night the patient became more hypotensive hence she was wasted briefly on norepinephrine. But it is discontinued this morning. CT of the chest showed atelectasis at the right lung base, small tiny right pleural effusion, there was evidence of cardiomegaly , chest x-ray is basically the same. CT of the brain was nondiagnostic. Her CBC was normal. D-dimer was elevated at 20.61, BNP level was 2590, serum osmolality was 23 7 repeat sodium this morning is up to 122. Urine osmolality was 267. Urine sodium was 29. Influenza screen was negative. Considering the profound hyponatremia, and considering the patient may have required 3% saline infusion, patient was admitted to the ICU, did not require any 3% infusion, but she did require a brief infusion of norepinephrine for low blood pressure. The patient herself is a poor historian, nonverbal, does not follow any instructions. Eyes remain closed all the time. Patient was reevaluated today on 12/11/2017, patient is a bit more awake, however unable to follow any instructions, pulled her nasogastric tube out yesterday, and refused having another one to be placed. Hence the patient is taking meds by mouth, and her nutrition seems to be very poor since she doesn't eat much. And she keeps saying that she is not hungry and she has no appetite. Hence I recommended a dietitian consult for caloric count, and recommendation regarding nutritional status. Labs were reviewed sodium is up to 127. The rest of the labs were unremarkable including basic metabolic profile and CBC. Cultures of urine and blood are negative so far. On 12/14/2017 we were reconsulted regarding patient's deteriorating mental status, patient was noted to be hypoxic this morning with a pulse ox around 69% on 1-1/2 L. Her FiO2 was then increased to 5 L per nasal cannula, patient was noted to be increasingly lethargic, barely responsive at the time of our evaluation. Blood gas was obtained on FiO2 of 32%, and it showed primary respiratory acidosis, with acute on chronic hypercapnic respiratory failure, pH was 7.22, pCO2 is 103, pO2 was 70, bicarb was 42, and O2 sat was 91.2 on FiO2 32 %. Patient's lung sounds are positive for coarse rhonchi throughout the lung foss. Patient is tachypnec and tachycardic with a heart rate at 110 BPM. She remained afebrile. She was then placed on BiPAP support with pressures of 12 and 4 and FiO2 of 100%. Stat chest x-ray was obtained and it showed left lower lobe atelectasis versus pneumonia or a small pleural effusion. She was given one-time dose of Lasix 40 mg IV push. Today's labs show sodium is 143, potassium is 5.5, CO2 is 40, BUN was 26, and creatinine was 0.55. Nephrology has ordered 50% dextrose, and 10 units of regular insulin IV push for the treatment of hyperkalemia of 5.5. Patient is starting to diurese. Patient was transferred to the intensive care to the treatment room. The BiPAP treatment did not improve patient's mentation, and decision was made to proceed with intubation and placement on mechanical ventilation. Patient was successfully intubated, and placed on mechanical ventilator with settings of assist control mode with a rate of 16, tidal vital 300, FiO2 of 100% and a PEEP of 5. Repeat blood gases were obtained and reviewed, and showed pH of 7.21, pCO2 of 93, pO2 of 270, and bicarb of 37, this is done on FiO2 of 100%. The settings were adjusted to assist control mode with a rate of 22, tidal volume 300, FiO2 was dropped down to 60%, and PEEP at 5. Patient became very hypotensive with the blood pressure in the 60s over 50s, she was given 2 L bolus of IV 0.9 normal saline. Diprivan is infusing at 10 mics per kilo per minute, and norepinephrine drip is infusing at the rate of 40 mics per minute. Blood pressure has improved, and currently running in the 100s over 50s. OG tube was placed, and connected to low intermittent suction. Right IJ triple lumen central line was placed, right radial arterial line was placed for hemodynamic monitoring. Blood gases will be repeated in half an hour. Patient was reevaluated today on 12/11/2017, remains on mechanical ventilation, same ventilator settings as yesterday, patient seems to be hemodynamically stable today, and she is off pressors. She did receive significant amount of fluids yesterday, she is now on nutritional support/enteral feeding. She is also on antibiotics, remains on hydrocortisone, and she remains on GI and DVT prophylaxis. Patient opens eyes to verbal stimuli, she follows simple instructions like squeezing hands and wiggling toes. Otherwise seems to be quite frail and weak, and medically debilitated. ABG today showed a pO2 of 109 pCO2 of 48 pH of 7.45. Electrolytes and renal profile were noted to be relatively normal except for bicarb of 35. CBC is relatively normal with WBC count of 12.8 hemoglobin is 11.5. Patient continued to have intermittent episodes of hypoglycemia yesterday in spite of feeding via orogastric tube, hence she was placed on D10 W drip at 45 ML per hour. That seems to be controlling her sugars fine and remember the patient remains on hydrocortisone at 50 mg IV push every 8. All labs were reviewed, her albumin is 2.0. All cultures remain negative, patient remains on antibiotics in the form Zosyn. Chest x-ray shows a left lower lobe consolidation, possible left lower lobe pneumonia. Objective - Vital Signs Vital signs: Vital Signs Temp 98.5 F 12/15/17 12:00 Pulse 55 L 12/15/17 13:00 Resp 24 12/15/17 13:00 BP 93/51 12/15/17 07:00 Pulse Ox 97 12/15/17 13:00 Intake & Output 12/14/17 12/15/17 12/15/17 18:59 06:59 18:59 Intake Total 3830.936 2229.821 1187.236 Output Total 1225 625 226 Balance 2605.936 1604.821 961.236 Weight 47 kg 54.3 kg Intake: IV 813.0 0.9 for pressure 3 Dextrose 10% in Water 1, 180 000 ml @ 45 mls/hr IV . [id number] EDUIN Rx#:[id number] Dextrose 5%-0.9% NaCl 1, 200 000 ml @ 100 mls/hr IV . Q10H EDUIN Rx#:[id number] Piperacillin-Tazobactam 3 50.0 .375 gm In Dextrose/Water 1 50ml.bag @ 12.5 mls/hr IVPB Q8HR EDUIN Rx#: [id number] Sodium Chloride 0.9% 1, 380 000 ml @ 100 mls/hr IV . Q10H EDUIN Rx#:[id number] Intake, IV Titration 3830.936 2009.821 174.236 Amount Amiodarone 450 mg In 178.806 Dextrose 5% in Water 250 ml @ 0.5 MG/MIN 16.66 mls /hr IV .Q15H1M EDUIN Rx#: [id number] Dextrose 10% in Water 1, 20 440 45 000 ml @ 45 mls/hr IV . [id number] EDUIN Rx#:[id number] Magnesium Sulfate-D5w Pmx 200 1 gm In Dextrose/Water 1 100ml.bag @ 100 mls/hr IVPB Q1H EDUIN Rx#: [id number] Norepinephrin 16 mg-0.9% 41.301 4.783 Ns Pmx 16 mg In 250 ml @ Titrate IV .Q0M EDUIN Rx#: [id number] Norepinephrin 4 mg-0.9% 213.75 Ns Pmx 4 mg In 250 ml @ Titrate IV .Q0M EDUIN Rx#: [id number] Piperacillin-Tazobactam 3 12.5 62.5 .375 gm In Dextrose/Water 1 50ml.bag @ 12.5 mls/hr IVPB Q8HR EDUIN Rx#: [id number] Potassium Chloride 20 meq 100 In Water For Injection 1 100ml.bag @ 50 mls/hr IVPB ONCE ONE Rx#: [id number] Potassium Phosphate 10 125 mmol In Sodium Chloride 0 .9% 250 ml @ 125 mls/hr IV Q2H EDUIN Rx#:[id number] Propofol 1,000 mg In 5.88 41.020 24.453 Empty Bag 1 bag @ Titrate IV .Q0M EDUIN Rx#: [id number] Sodium Chloride 0.9% 1, 400 100 000 ml @ 100 mls/hr IV . Q10H EDUIN Rx#:[id number] Sodium Chloride 0.9% 1, 900 100 000 ml @ 100 mls/hr IV . Q10H EDUIN Rx#:[id number] Sodium Chloride 0.9% 1, 1000 000 ml @ 999 mls/hr IV . Q1H1M ONE Rx#:[id number] Sodium Chloride 0.9% 1, 2000 000 ml @ 999 mls/hr IV . Q1H1M ONE Rx#:[id number] Tube Feeding 220 140 Other 60 Output: Urine 1225 625 226 Other: Voiding Method Indwelling Catheter Indwelling Catheter Indwelling Catheter ABP, PAP, CO, CI - Last Documented Arterial Blood Pressure 99/42 - Exam GENERAL EXAM: Sedated, frail looking, chronically ill looking 77-year-old female, on mechanical ventilation HEAD: Normocephalic/atraumatic. EYES: Normal reaction of pupils, equal size. Conjunctiva pink, sclera white. NOSE: Clear with pink turbinates. MOUTH: Upper dentures were removed, there are food debris removed from the mouth. Mucous membranes are dry. ET tube is present, it is secured with a tie , 22 cm at the lip. OG tube is present, to low intermittent suction. THROAT: No erythema or exudates. NECK: No masses, no JVD, no thyroid enlargement, no adenopathy. Right J triple- lumen central venous catheter is present CHEST: No chest wall deformity. Symmetrical expansion. LUNGS: Equal air entry with scattered rhonchi bilaterally. CVS: Regular rate and rhythm, normal S1 and S2, no gallops, no murmurs, no rubs ABDOMEN: Soft, nontender. No hepatosplenomegaly, normal bowel sounds, no guarding or rigidity. EXTREMITIES: No clubbing, no edema, no cyanosis, 2+ pulses and upper and lower extremities. Patient has contractures of upper and lower extremities. 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 There are scattered bruises on bilateral arms and wrists. MUSCULOSKELETAL: Muscle strength and tone normal. SPINE: No scoliosis or deformity SKIN: No rashes CENTRAL NERVOUS SYSTEM: Sedated, intubated on mechanical ventilator follows simple instructions like squeezing hands and wiggling toes. - Labs CBC & Chem 7: 12/15/17 04:30 12/15/17 04:30 Labs: Abnormal Lab Results - Last 24 Hours (Table) 12/14/17 12/14/17 12/14/17 Range/Units 13:30 14:08 14:29 WBC (3.8-10.6) k/uL MCHC (31.0-37.0) g/dL Neutrophils # (1.3-7.7) k/uL Lymphocytes # (1.0-4.8) k/uL ABG pCO2 (35-45) mmHg ABG pO2 (83-108) mmHg ABG HCO3 (21-25) mmol/L ABG Total CO2 (19-24) mmol/L ABG O2 Saturation (94-97) % Potassium 3.2 L (3.5-5.1) mmol/L Carbon Dioxide 38 H (22-30) mmol/L BUN 24 H (7-17) mg/dL Creatinine (0.52-1.04) mg/dL Glucose <20 L* (74-99) mg/dL POC Glucose (mg/dL) <20 L 106 H (75-99) mg/dL Calcium 8.3 L (8.4-10.2) mg/dL Phosphorus 2.0 L (2.5-4.5) mg/dL Total Protein 5.4 L (6.3-8.2) g/dL Albumin 2.5 L (3.5-5.0) g/dL 12/14/17 12/14/17 12/14/17 Range/Units 14:53 15:48 16:13 WBC (3.8-10.6) k/uL MCHC (31.0-37.0) g/dL Neutrophils # (1.3-7.7) k/uL Lymphocytes # (1.0-4.8) k/uL ABG pCO2 (35-45) mmHg ABG pO2 (83-108) mmHg ABG HCO3 (21-25) mmol/L ABG Total CO2 (19-24) mmol/L ABG O2 Saturation (94-97) % Potassium (3.5-5.1) mmol/L Carbon Dioxide (22-30) mmol/L BUN (7-17) mg/dL Creatinine (0.52-1.04) mg/dL Glucose (74-99) mg/dL POC Glucose (mg/dL) 40 L 50 L 122 H (75-99) mg/dL Calcium (8.4-10.2) mg/dL Phosphorus (2.5-4.5) mg/dL Total Protein (6.3-8.2) g/dL Albumin (3.5-5.0) g/dL 12/14/17 12/14/17 12/14/17 Range/Units 16:58 17:35 18:08 WBC (3.8-10.6) k/uL MCHC (31.0-37.0) g/dL Neutrophils # (1.3-7.7) k/uL Lymphocytes # (1.0-4.8) k/uL ABG pCO2 (35-45) mmHg ABG pO2 (83-108) mmHg ABG HCO3 (21-25) mmol/L ABG Total CO2 (19-24) mmol/L ABG O2 Saturation (94-97) % Potassium (3.5-5.1) mmol/L Carbon Dioxide (22-30) mmol/L BUN (7-17) mg/dL Creatinine (0.52-1.04) mg/dL Glucose (74-99) mg/dL POC Glucose (mg/dL) 50 L 117 H 61 L (75-99) mg/dL Calcium (8.4-10.2) mg/dL Phosphorus (2.5-4.5) mg/dL Total Protein (6.3-8.2) g/dL Albumin (3.5-5.0) g/dL 12/14/17 12/14/17 12/14/17 Range/Units 18:45 19:52 20:07 WBC (3.8-10.6) k/uL MCHC (31.0-37.0) g/dL Neutrophils # (1.3-7.7) k/uL Lymphocytes # (1.0-4.8) k/uL ABG pCO2 (35-45) mmHg ABG pO2 (83-108) mmHg ABG HCO3 (21-25) mmol/L ABG Total CO2 (19-24) mmol/L ABG O2 Saturation (94-97) % Potassium (3.5-5.1) mmol/L Carbon Dioxide (22-30) mmol/L BUN (7-17) mg/dL Creatinine (0.52-1.04) mg/dL Glucose (74-99) mg/dL POC Glucose (mg/dL) 115 H 37 L 181 H (75-99) mg/dL Calcium (8.4-10.2) mg/dL Phosphorus (2.5-4.5) mg/dL Total Protein (6.3-8.2) g/dL Albumin (3.5-5.0) g/dL 12/14/17 12/14/17 12/14/17 Range/Units 21:15 21:40 22:00 WBC (3.8-10.6) k/uL MCHC (31.0-37.0) g/dL Neutrophils # (1.3-7.7) k/uL Lymphocytes # (1.0-4.8) k/uL ABG pCO2 (35-45) mmHg ABG pO2 (83-108) mmHg ABG HCO3 (21-25) mmol/L ABG Total CO2 (19-24) mmol/L ABG O2 Saturation (94-97) % Potassium 3.1 L (3.5-5.1) mmol/L Carbon Dioxide (22-30) mmol/L BUN (7-17) mg/dL Creatinine (0.52-1.04) mg/dL Glucose (74-99) mg/dL POC Glucose (mg/dL) 54 L 155 H (75-99) mg/dL Calcium (8.4-10.2) mg/dL Phosphorus (2.5-4.5) mg/dL Total Protein (6.3-8.2) g/dL Albumin (3.5-5.0) g/dL 12/14/17 12/14/17 12/14/17 Range/Units 22:05 23:01 23:27 WBC (3.8-10.6) k/uL MCHC (31.0-37.0) g/dL Neutrophils # (1.3-7.7) k/uL Lymphocytes # (1.0-4.8) k/uL ABG pCO2 (35-45) mmHg ABG pO2 (83-108) mmHg ABG HCO3 (21-25) mmol/L ABG Total CO2 (19-24) mmol/L ABG O2 Saturation (94-97) % Potassium (3.5-5.1) mmol/L Carbon Dioxide (22-30) mmol/L BUN (7-17) mg/dL Creatinine (0.52-1.04) mg/dL Glucose (74-99) mg/dL POC Glucose (mg/dL) 112 H 66 L 141 H (75-99) mg/dL Calcium (8.4-10.2) mg/dL Phosphorus (2.5-4.5) mg/dL Total Protein (6.3-8.2) g/dL Albumin (3.5-5.0) g/dL 12/15/17 12/15/17 12/15/17 Range/Units 04:30 04:30 06:32 WBC 12.8 H (3.8-10.6) k/uL MCHC 29.6 L (31.0-37.0) g/dL Neutrophils # 11.4 H (1.3-7.7) k/uL Lymphocytes # 0.6 L (1.0-4.8) k/uL ABG pCO2 (35-45) mmHg ABG pO2 (83-108) mmHg ABG HCO3 (21-25) mmol/L ABG Total CO2 (19-24) mmol/L ABG O2 Saturation (94-97) % Potassium (3.5-5.1) mmol/L Carbon Dioxide 35 H (22-30) mmol/L BUN 19 H (7-17) mg/dL Creatinine 0.50 L (0.52-1.04) mg/dL Glucose 102 H (74-99) mg/dL POC Glucose (mg/dL) 111 H (75-99) mg/dL Calcium 8.3 L (8.4-10.2) mg/dL Phosphorus (2.5-4.5) mg/dL Total Protein 4.6 L (6.3-8.2) g/dL Albumin 2.0 L (3.5-5.0) g/dL 12/15/17 12/15/17 12/15/17 Range/Units 07:50 08:19 09:03 WBC (3.8-10.6) k/uL MCHC (31.0-37.0) g/dL Neutrophils # (1.3-7.7) k/uL Lymphocytes # (1.0-4.8) k/uL ABG pCO2 48 H (35-45) mmHg ABG pO2 109 H (83-108) mmHg ABG HCO3 34 H (21-25) mmol/L ABG Total CO2 35 H (19-24) mmol/L ABG O2 Saturation 98.2 H (94-97) % Potassium (3.5-5.1) mmol/L Carbon Dioxide (22-30) mmol/L BUN (7-17) mg/dL Creatinine (0.52-1.04) mg/dL Glucose (74-99) mg/dL POC Glucose (mg/dL) 113 H 110 H (75-99) mg/dL Calcium (8.4-10.2) mg/dL Phosphorus (2.5-4.5) mg/dL Total Protein (6.3-8.2) g/dL Albumin (3.5-5.0) g/dL 12/15/17 12/15/17 12/15/17 Range/Units 10:13 11:39 11:54 WBC (3.8-10.6) k/uL MCHC (31.0-37.0) g/dL Neutrophils # (1.3-7.7) k/uL Lymphocytes # (1.0-4.8) k/uL ABG pCO2 (35-45) mmHg ABG pO2 (83-108) mmHg ABG HCO3 (21-25) mmol/L ABG Total CO2 (19-24) mmol/L ABG O2 Saturation (94-97) % Potassium (3.5-5.1) mmol/L Carbon Dioxide (22-30) mmol/L BUN (7-17) mg/dL Creatinine (0.52-1.04) mg/dL Glucose (74-99) mg/dL POC Glucose (mg/dL) 115 H 112 H 132 H (75-99) mg/dL Calcium (8.4-10.2) mg/dL Phosphorus (2.5-4.5) mg/dL Total Protein (6.3-8.2) g/dL Albumin (3.5-5.0) g/dL 12/15/17 Range/Units 12:43 WBC (3.8-10.6) k/uL MCHC (31.0-37.0) g/dL Neutrophils # (1.3-7.7) k/uL Lymphocytes # (1.0-4.8) k/uL ABG pCO2 (35-45) mmHg ABG pO2 (83-108) mmHg ABG HCO3 (21-25) mmol/L ABG Total CO2 (19-24) mmol/L ABG O2 Saturation (94-97) % Potassium (3.5-5.1) mmol/L Carbon Dioxide (22-30) mmol/L BUN (7-17) mg/dL Creatinine (0.52-1.04) mg/dL Glucose (74-99) mg/dL POC Glucose (mg/dL) 126 H (75-99) mg/dL Calcium (8.4-10.2) mg/dL Phosphorus (2.5-4.5) mg/dL Total Protein (6.3-8.2) g/dL Albumin (3.5-5.0) g/dL Microbiology - Last 24 Hours (Table) 12/14/17 21:40 Gram Stain - Preliminary Sputum Sputum Culture - Preliminary 12/14/17 14:00 Urine Culture - Preliminary Urine,Catheterized 12/09/17 20:28 Blood Culture - Preliminary Blood No Growth after 120 hours Assessment and Plan Assessment: Impression: 1 Acute hypoxic and hypercapnic respiratory failure requiring intubation and mechanical ventilation, most likely secondary to COPD, respiratory muscle weakness, medical debility, and suspect left lower lobe pneumonia. 2 chronic medical debility, patient has been bedridden and wheelchair ridden for quite some time. I suspect profound muscle weakness and respiratory muscle weakness with hypercapnia. 3 history of benign essential hypertension. 4 history of congestive heart failure, unknown ejection fraction, unknown whether her congestive heart failure is systolic or diastolic. 5 hypotension secondary to hypovolemic shock, strongly doubt any underlying sepsis. 6 multiple decubitus ulcers secondary to medical debility and considering the patient is bed and wheelchair ridden. 7 possible urinary tract infection, urine cultures are still pending. 8 left lower lobe consolidation, pneumonia, is a strongly suspected or could be a collapsed left lower lobe. At this point it is not clear. Recommendation: Continue antibiotics, bronchodilators, nutritional support, ventilatory support, hemodynamic support, continue hydrocortisone, will follow closely. Critical care time is 45 minutes. Continue GI and DVT prophylaxis. Follow pending cultures of blood sputum and urine. Prognosis remains extremely poor and guarded, critical care time is 40 minutes. Time with Patient: Greater than 30
[2017-12-15 13:51] LABS: Glucose,Whole Blood 139 mg/dL (75-99)
[2017-12-15] MEDS ORDERED: FUROSEMIDE 10 MG/ML 2 ML VIAL IV ONE (14:15)
[2017-12-15 15:11] LABS: Glucose,Whole Blood 145 mg/dL (75-99)
[2017-12-15 16:00] LABS: Glucose,Whole Blood 135 mg/dL (75-99)
[2017-12-15 17:44] LABS: Glucose,Whole Blood 164 mg/dL (75-99)
[2017-12-15 20:01] LABS: Glucose,Whole Blood 182 mg/dL (75-99)
--- NOTE | 2017-12-15 21:21 | PN ---
PROGRESS NOTE DATE OF SERVICE: 12/15/17 INTERVAL HISTORY: This 77-year-old woman was admitted with multiple medical problems. Currently, had acute respiratory failure. Patient also possibly congestive heart failure acute exacerbation. Patient also had hyponatremia. Patient also had hypoglycemia as well as acute hypoxic hypercarbic respiratory failure also. The patient has atrial fibrillation, multiple medical problems. Patient is on broad-spectrum IV antibiotics. Patient closely monitored in ICU at this time. Dr. Naylor and Nephrology and infectious disease following the patient closely. The chest x-ray the most recent chest x-ray showed no significant difference at this time. The patient has an extremely poor social support. PAST MEDICAL HISTORY: Reviewed. REVIEW OF SYSTEMS: Could not be taken. The patient is mechanically ventilated and sedated. Vent settings noted. CURRENT MEDICATIONS ARE: Reviewed include: 1. Ventolin 2.5 q.4 hours p.r.n. 2. DuoNeb q.i.d. and p.r.n. 3. Aspirin 81 mg. 4. Peridex 15 mL b.i.d. 5. IV fluids. 6. Lovenox 40 mg subcu daily. 7. Solu-Cortef 550 mg IV q.8h. 8. Nitrostat. 9. Protonix 40 mg IV b.i.d. 10.Zosyn 3.65 IV q.8h. 11.Propofol. PHYSICAL EXAM: Patient is mechanically sedated. Pulse 59, blood pressure 115/42, respiratory rate 20, temperature normal, pulse ox 99% on mechanical ventilation. Vent settings are noted on 40% FiO2. HEENT: Conjunctivae normal. Oral mucosa moist. Neck is no jugular venous distention. No carotid bruit. No lymph node enlargement. Cardiovascular system : S1, S2 muffled. Respiratory: Breath sounds diminished in the bases. Neck is no jugular venous distention. No carotid bruit. No lymph node enlargement. Cardiovascular: S1, S2 muffled. RESPIRATORY: Breath sounds diminished in the bases. A few scattered rhonchi and crackles. Expiratory wheezing and crackles. ABDOMEN: Soft, nontender. Legs no edema. No swelling. Central nervous system : Could not be examined significantly emaciated and wasted and weak. LAB: Investigations at this time shows WBC 12.8 and ABGs noted. Sodium is 140, potassium 4.8. ASSESSMENT: 1. Change in mental status, acute metabolic encephalopathy, possibly secondary to severe hypernatremia and possibly secondary to hyponatremia. is to be ruled out present on admission. 2. Congestive heart failure exacerbation with acute on chronic systolic dysfunction, ejection fraction 30-35%. 3. Hypoglycemia, multifactorial. 4. Acute hypoxic hypercarbic respiratory failure on mechanical ventilation. 5. Atrial fibrillation with fast ventricular rate. 6. Troponin 0.105 indeterminate. 7. Bibasilar pneumonia. 8. History of recent urinary tract infection. 9. Moderate aortic regurgitation. 10.Severe tricuspid regurgitation. 11.Pulmonary hypertension. 12.History of degenerative joint disease. 13.History of hypertension. 14.History of left-sided pleural effusion. 15.History of chronic obstructive pulmonary disease. 16.History of nicotine dependence. 17.FULL CODE. RECOMMENDATIONS AND DISCUSSION: Recommend to continue current medications, management and symptomatic treatment. Otherwise, at this time, I recommend continue with mechanical ventilation. Closely follow with Dr. Naylor. Repeat labs. As mentioned earlier, poor social support. Discussed with staff and we will discuss with outsole caser regarding the possibility of obtaining legal guardianship. The patient continues to be full code, but as mentioned earlier, overall prognosis is extremely guarded. Closely follow with Dr. Naylor regarding further attempts and plans at weaning. Further recommendations to follow. MMODL / IJN: [id number] / KYLIE
[2017-12-15 22:58] LABS: Glucose,Whole Blood 200 mg/dL (75-99)
--- NOTE | 2017-12-15 23:00 | P.PN ---
Subjective Progress Note Date: 12/15/17 Principal diagnosis: Weakness 77-year-old female who is cared for by her family in a family living situation apparently became unresponsive and was given some form of CPR by one of the bystanders. EMS was called and upon their arrival the patient had easily palpable pulses in was breathing spontaneously. She was brought to the emergency center where she was found evidence of significant altered status with sodium of 114. It is related over the last year the patient has just declined to the point tenderness she's no longer walking and they're trying to care for her while she is generally bedbound. The patient has obvious dementia and is not able to relate to any specific history. She is quite unaware where she is at, and does not understand my role as a physician. She is unable to assist in turning to have her ulcers evaluated. She is completely unaware of fecal soiling On 12/12/2017 the patient has little change of her status. The staff have put her in an upright position to have a meal and she appears to have great difficulty understanding what she is also due with her food tray. With direction she eventually is able to take a bite of her mash potato 12/14/2017 patient has developed respiratory failure and is now intubated sedated and mechanically ventilated. She developed significant hypercarbic respiratory failure with a CO2 of greater than 100. 12/15/2017 patient remains intubated sedated and mechanically ventilated but nursing staff relates when sedation is lightened she does follow commands such as squeezing hand. The patient is very comfortable and has had improvement of her blood gas with the current ventilation support. Objective - Vital Signs Vital signs: Vital Signs Temp 98.4 F 12/15/17 20:00 Pulse 55 L 12/15/17 22:00 Resp 24 12/15/17 22:00 BP 106/56 12/15/17 22:00 Pulse Ox 98 12/15/17 22:00 Intake & Output 12/15/17 12/15/17 12/16/17 06:59 18:59 06:59 Intake Total 2229.821 1956.512 505.692 Output Total 625 748 184 Balance 8091.059 9005.512 321.692 Weight 54.3 kg 53.9 kg Intake: IV 1398.0 154.5 0.9 at 10 30 30 0.9 for pressure 33 12 Dextrose 10% in Water 1, 180 000 ml @ 45 mls/hr IV . [id number] [facility] Rx#:[id number] Dextrose 5%-0.9% NaCl 1, 700 100 000 ml @ 100 mls/hr IV . Q10H [facility] Rx#:[id number] Piperacillin-Tazobactam 3 75.0 12.5 .375 gm In Dextrose/Water 1 50ml.bag @ 12.5 mls/hr IVPB Q8HR [facility] Rx#: [id number] Sodium Chloride 0.9% 1, 380 000 ml @ 100 mls/hr IV . Q10H [facility] Rx#:[id number] Intake, IV Titration 2009.821 228.512 311.192 Amount Dextrose 10% in Water 1, 440 45 000 ml @ 45 mls/hr IV . [id number] [facility] Rx#:[id number] Dextrose 5%-0.9% NaCl 1, 300 000 ml @ 100 mls/hr IV . Q10H [facility] Rx#:[id number] Magnesium Sulfate-D5w Pmx 200 1 gm In Dextrose/Water 1 100ml.bag @ 100 mls/hr IVPB Q1H [facility] Rx#: [id number] Norepinephrin 16 mg-0.9% 41.301 16.696 Ns Pmx 16 mg In 250 ml @ Titrate IV .Q0M [facility] Rx#: [id number] Piperacillin-Tazobactam 3 62.5 .375 gm In Dextrose/Water 1 50ml.bag @ 12.5 mls/hr IVPB Q8HR [facility] Rx#: [id number] Potassium Chloride 20 meq 100 In Water For Injection 1 100ml.bag @ 50 mls/hr IVPB ONCE ONE Rx#: [id number] Potassium Phosphate 10 125 mmol In Sodium Chloride 0 .9% 250 ml @ 125 mls/hr IV Q2H [facility] Rx#:[id number] Propofol 1,000 mg In 41.020 66.816 11.192 Empty Bag 1 bag @ Titrate IV .Q0M [facility] Rx#: [id number] Sodium Chloride 0.9% 1, 100 000 ml @ 100 mls/hr IV . Q10H [facility] Rx#:[id number] Sodium Chloride 0.9% 1, 900 100 000 ml @ 100 mls/hr IV . Q10H [facility] Rx#:[id number] Tube Feeding 220 240 40 Other 90 Output: Urine 625 748 184 Other: Voiding Method Indwelling Catheter Indwelling Catheter ABP, PAP, CO, CI - Last Documented Arterial Blood Pressure 90/42 - Exam 77-year-old female who has a completely unkept status, much improved since coming to Hospital but is now intubated sedated and mechanically ventilated because her respiratory failure HEENT: Anicteric conjunctiva are pink and moist nasal mucosa grossly intact without significant lesions, there is no thrush. Edentulous Neck: The neck is supple without significant lymphadenopathy or thyromegaly. Lungs: Symmetrical air entry is noted however expiratory wheezes are scattered but no donovan bronchial sounds Heart: Irregular with an audible S1 and S2 without S4 no distinct murmur click or rub is noted Abdomen: Positive bowel sounds soft and nontender without palpable masses or organomegaly. There was no guarding or rebound. Extremities: Upper extremity has a IV site that is intact. No lesions in the upper extremities are noted. Lower extremities have evidence of is noted some early contractures. Is evidence of distinct wasting of the musculature of the upper and lower extremities. Please see the nursing photography for the pressure ulcerations noted to the coccyx as well as to the left and right trochanteric areas. Neuro: She is intubated sedated and mechanically ventilated - Labs CBC & Chem 7: 12/15/17 04:30 12/15/17 16:15 Labs: Abnormal Lab Results - Last 24 Hours (Table) 12/14/17 12/14/17 12/14/17 Range/Units 22:00 23:01 23:27 WBC (3.8-10.6) k/uL MCHC (31.0-37.0) g/dL Neutrophils # (1.3-7.7) k/uL Lymphocytes # (1.0-4.8) k/uL ABG pCO2 (35-45) mmHg ABG pO2 (83-108) mmHg ABG HCO3 (21-25) mmol/L ABG Total CO2 (19-24) mmol/L ABG O2 Saturation (94-97) % Potassium 3.1 L (3.5-5.1) mmol/L Carbon Dioxide (22-30) mmol/L BUN (7-17) mg/dL Creatinine (0.52-1.04) mg/dL Glucose (74-99) mg/dL POC Glucose (mg/dL) 66 L 141 H (75-99) mg/dL Calcium (8.4-10.2) mg/dL Total Protein (6.3-8.2) g/dL Albumin (3.5-5.0) g/dL 12/15/17 12/15/17 12/15/17 Range/Units 04:30 04:30 06:32 WBC 12.8 H (3.8-10.6) k/uL MCHC 29.6 L (31.0-37.0) g/dL Neutrophils # 11.4 H (1.3-7.7) k/uL Lymphocytes # 0.6 L (1.0-4.8) k/uL ABG pCO2 (35-45) mmHg ABG pO2 (83-108) mmHg ABG HCO3 (21-25) mmol/L ABG Total CO2 (19-24) mmol/L ABG O2 Saturation (94-97) % Potassium (3.5-5.1) mmol/L Carbon Dioxide 35 H (22-30) mmol/L BUN 19 H (7-17) mg/dL Creatinine 0.50 L (0.52-1.04) mg/dL Glucose 102 H (74-99) mg/dL POC Glucose (mg/dL) 111 H (75-99) mg/dL Calcium 8.3 L (8.4-10.2) mg/dL Total Protein 4.6 L (6.3-8.2) g/dL Albumin 2.0 L (3.5-5.0) g/dL 12/15/17 12/15/17 12/15/17 Range/Units 07:50 08:19 09:03 WBC (3.8-10.6) k/uL MCHC (31.0-37.0) g/dL Neutrophils # (1.3-7.7) k/uL Lymphocytes # (1.0-4.8) k/uL ABG pCO2 48 H (35-45) mmHg ABG pO2 109 H (83-108) mmHg ABG HCO3 34 H (21-25) mmol/L ABG Total CO2 35 H (19-24) mmol/L ABG O2 Saturation 98.2 H (94-97) % Potassium (3.5-5.1) mmol/L Carbon Dioxide (22-30) mmol/L BUN (7-17) mg/dL Creatinine (0.52-1.04) mg/dL Glucose (74-99) mg/dL POC Glucose (mg/dL) 113 H 110 H (75-99) mg/dL Calcium (8.4-10.2) mg/dL Total Protein (6.3-8.2) g/dL Albumin (3.5-5.0) g/dL 12/15/17 12/15/17 12/15/17 Range/Units 10:13 11:39 11:54 WBC (3.8-10.6) k/uL MCHC (31.0-37.0) g/dL Neutrophils # (1.3-7.7) k/uL Lymphocytes # (1.0-4.8) k/uL ABG pCO2 (35-45) mmHg ABG pO2 (83-108) mmHg ABG HCO3 (21-25) mmol/L ABG Total CO2 (19-24) mmol/L ABG O2 Saturation (94-97) % Potassium (3.5-5.1) mmol/L Carbon Dioxide (22-30) mmol/L BUN (7-17) mg/dL Creatinine (0.52-1.04) mg/dL Glucose (74-99) mg/dL POC Glucose (mg/dL) 115 H 112 H 132 H (75-99) mg/dL Calcium (8.4-10.2) mg/dL Total Protein (6.3-8.2) g/dL Albumin (3.5-5.0) g/dL 12/15/17 12/15/17 12/15/17 Range/Units 12:43 13:49 15:09 WBC (3.8-10.6) k/uL MCHC (31.0-37.0) g/dL Neutrophils # (1.3-7.7) k/uL Lymphocytes # (1.0-4.8) k/uL ABG pCO2 (35-45) mmHg ABG pO2 (83-108) mmHg ABG HCO3 (21-25) mmol/L ABG Total CO2 (19-24) mmol/L ABG O2 Saturation (94-97) % Potassium (3.5-5.1) mmol/L Carbon Dioxide (22-30) mmol/L BUN (7-17) mg/dL Creatinine (0.52-1.04) mg/dL Glucose (74-99) mg/dL POC Glucose (mg/dL) 126 H 139 H 145 H (75-99) mg/dL Calcium (8.4-10.2) mg/dL Total Protein (6.3-8.2) g/dL Albumin (3.5-5.0) g/dL 12/15/17 12/15/17 12/15/17 Range/Units 15:59 17:43 20:00 WBC (3.8-10.6) k/uL MCHC (31.0-37.0) g/dL Neutrophils # (1.3-7.7) k/uL Lymphocytes # (1.0-4.8) k/uL ABG pCO2 (35-45) mmHg ABG pO2 (83-108) mmHg ABG HCO3 (21-25) mmol/L ABG Total CO2 (19-24) mmol/L ABG O2 Saturation (94-97) % Potassium (3.5-5.1) mmol/L Carbon Dioxide (22-30) mmol/L BUN (7-17) mg/dL Creatinine (0.52-1.04) mg/dL Glucose (74-99) mg/dL POC Glucose (mg/dL) 135 H 164 H 182 H (75-99) mg/dL Calcium (8.4-10.2) mg/dL Total Protein (6.3-8.2) g/dL Albumin (3.5-5.0) g/dL Microbiology - Last 24 Hours (Table) 12/09/17 20:28 Blood Culture - Final Blood No Growth after 144 hours 12/14/17 14:00 Urine Culture - Final Urine,Catheterized 12/14/17 14:03 Blood Culture - Preliminary Blood No Growth after 24 hours 12/14/17 21:40 Gram Stain - Preliminary Sputum Sputum Culture - Preliminary Laboratory Results WBC 12.8 k/uL (3.8-10.6) H 12/15/17 04:30 RBC 4.14 m/uL (3.80-5.40) 12/15/17 04:30 Hgb 11.5 gm/dL (11.4-16.0) 12/15/17 04:30 Hct 39.0 % (34.0-46.0) 12/15/17 04:30 MCV 94.0 fL (80.0-100.0) 12/15/17 04:30 MCH 27.8 pg (25.0-35.0) 12/15/17 04:30 MCHC 29.6 g/dL (31.0-37.0) L 12/15/17 04:30 RDW 13.5 % (11.5-15.5) 12/15/17 04:30 Plt Count 172 k/uL (150-450) 12/15/17 04:30 Neutrophils % 89 % 12/15/17 04:30 Lymphocytes % 5 % 12/15/17 04:30 Monocytes % 5 % 12/15/17 04:30 Eosinophils % 0 % 12/15/17 04:30 Basophils % 0 % 12/15/17 04:30 Neutrophils # 11.4 k/uL (1.3-7.7) H 12/15/17 04:30 Lymphocytes # 0.6 k/uL (1.0-4.8) L 12/15/17 04:30 Monocytes # 0.6 k/uL (0-1.0) 12/15/17 04:30 Eosinophils # 0.0 k/uL (0-0.7) 12/15/17 04:30 Basophils # 0.0 k/uL (0-0.2) 12/15/17 04:30 Hypochromasia Marked 12/15/17 04:30 PT 12.2 sec (9.0-12.0) H 12/09/17 06:10 INR 1.3 (<1.2) H 12/09/17 06:10 APTT 28.9 sec (22.0-30.0) 12/09/17 06:10 D-Dimer 20.61 mg/L FEU (<0.60) H 12/09/17 06:10 Sample Site [place] 12/15/17 08:19 ABG pH 7.45 (7.35-7.45) 12/15/17 08:19 ABG pCO2 48 mmHg (35-45) H 12/15/17 08:19 ABG pO2 109 mmHg (83-108) H 12/15/17 08:19 ABG HCO3 34 mmol/L (21-25) H 12/15/17 08:19 ABG Total CO2 35 mmol/L (19-24) H 12/15/17 08:19 ABG O2 Saturation 98.2 % (94-97) H 12/15/17 08:19 ABG Base Excess 9.8 mmol/L 12/15/17 08:19 Rigoberto Test Yes 12/15/17 08:19 FiO2 45 % 12/15/17 08:19 Sodium 140 mmol/L (137-145) 12/15/17 04:30 Potassium 4.2 mmol/L (3.5-5.1) 12/15/17 16:15 Chloride 103 mmol/L (98-107) 12/15/17 04:30 Carbon Dioxide 35 mmol/L (22-30) H 12/15/17 04:30 Anion Gap 2 mmol/L 12/15/17 04:30 BUN 19 mg/dL (7-17) H 12/15/17 04:30 Creatinine 0.50 mg/dL (0.52-1.04) L 12/15/17 04:30 Est GFR (MDRD) Af Amer >60 (>60 ml/min/1.73 sqM) 12/15/17 04:30 Est GFR (MDRD) Non-Af >60 (>60 ml/min/1.73 sqM) 12/15/17 04:30 Glucose 102 mg/dL (74-99) H 12/15/17 04:30 POC Glucose (mg/dL) 182 mg/dL (75-99) H 12/15/17 20:00 POC Glu Information Systems Security Developer ID Genevieve Zaidi 12/15/17 20:[address] Glu mg/dL 100 12/12/17 10:04 Hemoglobin A1c 5.1 % (4.0-6.0) 12/12/17 10:04 Osmolality 237 mosm/kg (280-301) L* 12/09/17 06:50 Plasma Lactic Acid Jase 1.5 mmol/L (0.7-2.0) 12/14/17 14:25 Uric Acid 2.2 mg/dL (3.7-7.4) L 12/10/17 06:50 Calcium 8.3 mg/dL (8.4-10.2) L 12/15/17 04:30 Ionized Calcium Tania 5.1 mg/dL (4.5-5.3) 12/14/17 23:00 Phosphorus 2.8 mg/dL (2.5-4.5) 12/15/17 04:30 Magnesium 1.8 mg/dL (1.6-2.3) 12/15/17 04:30 Total Bilirubin 0.3 mg/dL (0.2-1.3) 12/15/17 04:30 AST 14 U/L (14-36) 12/15/17 04:30 ALT 20 U/L (9-52) 12/15/17 04:30 Alkaline Phosphatase 60 U/L (38-126) 12/15/17 04:30 Total Creatine Kinase 128 U/L (30-135) 12/09/17 20:28 CK-MB (CK-2) 6.5 ng/mL (0.0-2.4) H* 12/09/17 20:28 CK-MB (CK-2) Rel Index 5.1 12/09/17 20:28 Troponin I 0.251 ng/mL (0.000-0.034) H* 12/10/17 12:07 NT-Pro-B Natriuret Pep 2590 pg/mL 12/09/17 06:50 Total Protein 4.6 g/dL (6.3-8.2) L 12/15/17 04:30 Albumin 2.0 g/dL (3.5-5.0) L 12/15/17 04:30 Triglycerides 43 mg/dL (<150) 12/10/17 02:32 Cholesterol 79 mg/dL (<200) 12/10/17 02:32 LDL Cholesterol, Calc 25 mg/dL (0-99) 12/10/17 02:32 HDL Cholesterol 45 mg/dL (40-60) 12/10/17 02:32 TSH 4.130 mIU/L (0.465-4.680) 12/15/17 04:30 Cortisol 114 ug/dL 12/10/17 12:07 Urine Color Yellow 12/09/17 08:42 Urine Appearance Clear (Clear) 12/09/17 08:42 Urine pH 6.5 (5.0-8.0) 12/09/17 08:42 Ur Specific [place] 1.006 (1.001-1.035) 12/09/17 08:42 Urine Protein Trace (Negative) H 12/09/17 08:42 Urine Glucose (UA) 2+ (Negative) H 12/09/17 08:42 Urine Ketones Negative (Negative) 12/09/17 08:42 Urine Blood Trace (Negative) H 12/09/17 08:42 Urine Nitrite Negative (Negative) 12/09/17 08:42 Urine Bilirubin Negative (Negative) 12/09/17 08:42 Urine Urobilinogen 2.0 mg/dL (<2.0) 12/09/17 08:42 Ur Leukocyte Esterase Moderate (Negative) H 12/09/17 08:42 Urine RBC 11 /hpf (0-5) H 12/09/17 08:42 Urine WBC 11 /hpf (0-5) H 12/09/17 08:42 Urine Bacteria Rare /hpf (None) H 12/09/17 08:42 Urine Osmolality 267 mosm/kg (50-1400) 12/09/17 08:42 Ur Random Sodium 29 mmol/L (30-90) L 12/10/17 08:30 Vancomycin Trough 9.2 ug/mL 12/12/17 01:19 Influenza Type A RNA Not Detected (Not Detectd) 12/09/17 22:00 Influenza Type B (PCR) Not Detected (Not Detectd) 12/09/17 22:00 Microbiology 12/09/17 20:28 Blood Blood Culture - Final No Growth after 144 hours 12/14/17 14:00 Urine,Catheterized Urine Culture - Final 12/14/17 14:03 Blood Blood Culture - Preliminary No Growth after 24 hours 12/14/17 21:40 Sputum Gram Stain - Preliminary 12/14/17 21:40 Sputum Sputum Culture - Preliminary 12/09/17 08:42 Urine,Catheterized Urine Culture - Final Assessment and Plan (1) Hyponatremia Current Visit: Yes Status: Acute Code(s): E87.1 - HYPO-OSMOLALITY AND HYPONATREMIA SNOMED Code(s): 97169382 (2) Pressure ulcer of coccygeal region, stage 3 Narrative/Plan: 77-year-old female is transported to hospital after she became unresponsive. The patient was found evidence of significant hyponatremia which is noted to be hypovolemic in nature. With rehydration sodium solution she is not having improvement. There was concern as urinary tract infection however urine culture is negative for blood cultures are pending. She does not have a history of MRSA but does have significant pressure ulcerations and concerns to underlying sepsis. Will continue Zosyn for now however will discontinue vancomycin. Local wound care with hydrocolloid dressings will be utilized to pressure ulcerations. The stage III pressure ulceration of the coccyx is present at admission, is due to pressure and does not appear to be grossly infected at this time. Cultures are pending. We'll monitor cultures and further alter antibiotic therapy as possible. On 12/14/2017 the patient has had a major decline of her status with respiratory failure hypercapnic in nature requiring intubation with sedation and mechanical ventilation. Her prognosis is very poor. Continue local wound care and antibiotic therapy. 12/15/2017 patient has had some improvement in that her ventilator settings have improved she is on less PEEP and FiO2. Pulmonary critical care was following and we'll work toward potential extubation the next several days. Her most recent ABG shows evidence of improvement of her markedly elevated CO2. Her leukocytosis is improving. Sputum culture is in process. Pressure ulcer is being treated and is showing some mild improvement with the current treatment. Continue to offload and will do well to have a specialty mattress when she is out of ICU. Current Visit: Yes Status: Acute Code(s): L89.153 - PRESSURE ULCER OF SACRAL REGION, STAGE 3 SNOMED Code(s): 547685866
[2017-12-16] MEDS: PIPERACILLIN-TAZOBACTAM 3.375 GM in DEXTROSE/WATER 1 50ML.BAG IVPB SCH ×4 (01:01→23:48)
[2017-12-16] MEDS: HYDROCORTISONE SUCCINATE 100 MG/2 ML VIAL IV SCH ×4 (01:01→23:48)
[2017-12-16 02:13] LABS: Glucose,Whole Blood 149 mg/dL (75-99)
[2017-12-16 04:08] LABS: Glucose,Whole Blood 167 mg/dL (75-99)
[2017-12-16 04:18] LABS: Basophils % (A) 0 %; Eosinophils % (A) 0 %; HCT 39.5 % (34.0-46.0); HGB 11.7 gm/dL (11.4-16.0); Hypochromasia Slight; Lymphocytes # (A) 0.7 k/uL (1.0-4.8); Lymphocytes % (A) 6 %; MCH 27.5 pg (25.0-35.0); MCHC 29.6 g/dL (31.0-37.0); MCV 92.9 fL (80.0-100.0); Mean Platelet Volume 7.3; Monocytes # (A) 0.5 k/uL (0-1.0); Monocytes % (A) 5 %; Neutrophils # (A) 9.6 k/uL (1.3-7.7); Neutrophils % (A) 88 %; Platelet Count 179 k/uL (150-450); RBC 4.25 m/uL (3.80-5.40); RDW 13.7 % (11.5-15.5); WBC 10.9 k/uL (3.8-10.6)
[2017-12-16 04:30] LABS: ALT 20 U/L (9-52); AST 9 U/L (14-36); Alkaline Phosphatase 66 U/L (38-126); Anion Gap 4 mmol/L; Blood Urea Nitrogen 18 mg/dL (7-17); Calcium 7.9 mg/dL (8.4-10.2); Carbon Dioxide 35 mmol/L (22-30); Chloride 104 mmol/L (98-107); Glucose 167 mg/dL (74-99); Phosphorus 3.1 mg/dL (2.5-4.5); Sodium 143 mmol/L (137-145); Total Bilirubin 0.2 mg/dL (0.2-1.3); Total Protein 4.4 g/dL (6.3-8.2)
[2017-12-16] MEDS: PROPOFOL 1,000 MG in EMPTY BAG 1 BAG IV SCH ×2 (05:50→16:01)
[2017-12-16] MEDS: POTASSIUM CHLORIDE 10 MEQ in WATER FOR INJECTION 1 100ML.BAG IVPB SCH ×2 (06:29→08:27)
--- NOTE | 2017-12-16 07:02 | XR ---
EXAMINATION TYPE: XR chest 1V portable DATE OF EXAM: 12/16/2017 HISTORY: Tube placement. REFERENCE: Previous study dated 12/15/2017. FINDINGS: The patient is ET tube and NG tube remain in place, unchanged in appearance. There is a rig ht subclavian catheter in place. Its tip is at the junction of the right atrium and the inferior vena cava. The heart is enlarged. There is evidence of COPD. There is right basilar infiltrate either representi ng atelectasis or pneumonia. I suspect bilateral effusions. There is left basilar consolidation. IMPRESSION: 1. HEART AND MEGALY. 2. CONTINUING BIBASILAR INFILTRATES. 3. I SUSPECT SMALL, BILATERAL EFFUSIONS.
[2017-12-16 07:03] LABS: Glucose,Whole Blood 192 mg/dL (75-99)
[2017-12-16] MEDS: DEXTROSE 5%-0.9% NACL 1,000 ML IV SCH ×2 (08:28→11:31)
[2017-12-16] MEDS: PANTOPRAZOLE 40 MG/10 ML VIAL IVP SCH ×2 (08:28→20:11)
[2017-12-16] MEDS: ENOXAPARIN 40 MG/0.4 ML SYRINGE SQ SCH (08:28)
[2017-12-16] MEDS: CHLORHEXIDINE GLUCONATE 15 ML CUP MUCOUS MEM SCH ×2 (08:28→20:11)
[2017-12-16] MEDS: ASPIRIN 81 MG PO SCH (08:28)
[2017-12-16 08:37] LABS: Glucose,Whole Blood 159 mg/dL (75-99)
[2017-12-16] MEDS: IPRATROPIUM-ALBUTEROL 3 ML NEB INHALATION SCH ×4 (08:48→19:29)
[2017-12-16 08:49] LABS: ABG Base Excess 10.3 mmol/L; ABG HCO3 34 mmol/L (21-25); ABG Oxygen Saturation 98.3 % (94-97); ABG PCO2 47 mmHg (35-45); ABG PH 7.47 (7.35-7.45); ABG PO2 116 mmHg (83-108); ABG TCO2 35 mmol/L (19-24)
[2017-12-16] MEDS ORDERED: PANTOPRAZOLE 40 MG TABLET PO SCH (09:00)
--- NOTE | 2017-12-16 10:58 | P.PN ---
Subjective Patient is seen in follow-up for hyponatremia. Sodium level has come up gradually and is 143 today. Patient was noted to be in respiratory distress on December 14 and was subsequently transferred to the intensive care unit. She is currently intubated and sedated. She is currently off levofed. She is maintained on normal saline at 100 mL an hour. She did receive 1 dose of Lasix 20 mg IV yesterday due to decreased urine output. Vital signs are stable. General: The patient appeared well nourished and normally developed. HEENT: Head exam is unremarkable. Neck is without jugular venous distension. LUNGS: Lungs are clear to auscultation and percussion. Breath sounds decreased. HEART: Rate and Rhythm are regular. First and second heart sounds normal. No murmurs, rubs or gallops. ABDOMEN: Abdominal exam reveals normal bowel sounds. Non-tender and non- distended. No evidence of peritonitis. EXTREMITITES: No clubbing, cyanosis, or edema. Objective - Vital Signs Vital signs: Vital Signs Temp 98.4 F 12/16/17 04:00 Pulse 58 L 12/16/17 10:00 Resp 20 12/16/17 10:00 BP 101/58 12/16/17 07:00 Pulse Ox 100 12/16/17 10:00 Intake & Output 12/15/17 12/16/17 12/16/17 18:59 06:59 18:59 Intake Total 6194.182 5857.951 752 Output Total 748 494 165 Balance 5161.325 9472.951 587 Weight 53.9 kg 57.3 kg Intake: IV 1398.0 1007.5 552 0.9 at 10 30 109 40 0.9 for pressure 33 36 12 Dextrose 10% in Water 1, 180 000 ml @ 45 mls/hr IV . [id number] [facility] Rx#:[id number] Dextrose 5%-0.9% NaCl 1, 700 800 400 000 ml @ 100 mls/hr IV . Q10H [facility] Rx#:[id number] Piperacillin-Tazobactam 3 75.0 62.5 .375 gm In Dextrose/Water 1 50ml.bag @ 12.5 mls/hr IVPB Q8HR [facility] Rx#: [id number] Potassium Chloride 10 meq 100 In Water For Injection 1 100ml.bag @ 100 mls/hr IVPB Q1H [facility] Rx#: [id number] Sodium Chloride 0.9% 1, 380 000 ml @ 100 mls/hr IV . Q10H [facility] Rx#:[id number] Intake, IV Titration 228.512 517.451 100 Amount Dextrose 10% in Water 1, 45 000 ml @ 45 mls/hr IV . [id number] [facility] Rx#:[id number] Dextrose 5%-0.9% NaCl 1, 400 000 ml @ 100 mls/hr IV . Q10H [facility] Rx#:[id number] Norepinephrin 16 mg-0.9% 16.696 15.876 Ns Pmx 16 mg In 250 ml @ Titrate IV .Q0M [facility] Rx#: [id number] Potassium Chloride 10 meq 100 In Water For Injection 1 100ml.bag @ 100 mls/hr IVPB Q1H [facility] Rx#: [id number] Propofol 1,000 mg In 66.816 101.575 Empty Bag 1 bag @ Titrate IV .Q0M [facility] Rx#: [id number] Sodium Chloride 0.9% 1, 100 000 ml @ 100 mls/hr IV . Q10H [facility] Rx#:[id number] Tube Feeding 240 220 100 Other 90 Output: Urine 748 494 165 Other: Voiding Method Indwelling Catheter Indwelling Catheter Indwelling Catheter ABP, PAP, CO, CI - Last Documented Arterial Blood Pressure 109/43 - Labs CBC & Chem 7: 12/16/17 04:05 12/16/17 04:05 Labs: Abnormal Lab Results - Last 24 Hours (Table) 12/15/17 12/15/17 12/15/17 Range/Units 11:39 11:54 12:43 WBC (3.8-10.6) k/uL MCHC (31.0-37.0) g/dL Neutrophils # (1.3-7.7) k/uL Lymphocytes # (1.0-4.8) k/uL ABG pH (7.35-7.45) ABG pCO2 (35-45) mmHg ABG pO2 (83-108) mmHg ABG HCO3 (21-25) mmol/L ABG Total CO2 (19-24) mmol/L ABG O2 Saturation (94-97) % Carbon Dioxide (22-30) mmol/L BUN (7-17) mg/dL Creatinine (0.52-1.04) mg/dL Glucose (74-99) mg/dL POC Glucose (mg/dL) 112 H 132 H 126 H (75-99) mg/dL Calcium (8.4-10.2) mg/dL AST (14-36) U/L Total Protein (6.3-8.2) g/dL Albumin (3.5-5.0) g/dL 12/15/17 12/15/17 12/15/17 Range/Units 13:49 15:09 15:59 WBC (3.8-10.6) k/uL MCHC (31.0-37.0) g/dL Neutrophils # (1.3-7.7) k/uL Lymphocytes # (1.0-4.8) k/uL ABG pH (7.35-7.45) ABG pCO2 (35-45) mmHg ABG pO2 (83-108) mmHg ABG HCO3 (21-25) mmol/L ABG Total CO2 (19-24) mmol/L ABG O2 Saturation (94-97) % Carbon Dioxide (22-30) mmol/L BUN (7-17) mg/dL Creatinine (0.52-1.04) mg/dL Glucose (74-99) mg/dL POC Glucose (mg/dL) 139 H 145 H 135 H (75-99) mg/dL Calcium (8.4-10.2) mg/dL AST (14-36) U/L Total Protein (6.3-8.2) g/dL Albumin (3.5-5.0) g/dL 12/15/17 12/15/17 12/15/17 Range/Units 17:43 20:00 22:56 WBC (3.8-10.6) k/uL MCHC (31.0-37.0) g/dL Neutrophils # (1.3-7.7) k/uL Lymphocytes # (1.0-4.8) k/uL ABG pH (7.35-7.45) ABG pCO2 (35-45) mmHg ABG pO2 (83-108) mmHg ABG HCO3 (21-25) mmol/L ABG Total CO2 (19-24) mmol/L ABG O2 Saturation (94-97) % Carbon Dioxide (22-30) mmol/L BUN (7-17) mg/dL Creatinine (0.52-1.04) mg/dL Glucose (74-99) mg/dL POC Glucose (mg/dL) 164 H 182 H 200 H (75-99) mg/dL Calcium (8.4-10.2) mg/dL AST (14-36) U/L Total Protein (6.3-8.2) g/dL Albumin (3.5-5.0) g/dL 12/16/17 12/16/17 12/16/17 Range/Units 02:11 04:05 04:05 WBC 10.9 H (3.8-10.6) k/uL MCHC 29.6 L (31.0-37.0) g/dL Neutrophils # 9.6 H (1.3-7.7) k/uL Lymphocytes # 0.7 L (1.0-4.8) k/uL ABG pH (7.35-7.45) ABG pCO2 (35-45) mmHg ABG pO2 (83-108) mmHg ABG HCO3 (21-25) mmol/L ABG Total CO2 (19-24) mmol/L ABG O2 Saturation (94-97) % Carbon Dioxide 35 H (22-30) mmol/L BUN 18 H (7-17) mg/dL Creatinine 0.48 L (0.52-1.04) mg/dL Glucose 167 H (74-99) mg/dL POC Glucose (mg/dL) 149 H (75-99) mg/dL Calcium 7.9 L (8.4-10.2) mg/dL AST 9 L (14-36) U/L Total Protein 4.4 L (6.3-8.2) g/dL Albumin 2.0 L (3.5-5.0) g/dL 12/16/17 12/16/17 12/16/17 Range/Units 04:05 06:59 08:35 WBC (3.8-10.6) k/uL MCHC (31.0-37.0) g/dL Neutrophils # (1.3-7.7) k/uL Lymphocytes # (1.0-4.8) k/uL ABG pH (7.35-7.45) ABG pCO2 (35-45) mmHg ABG pO2 (83-108) mmHg ABG HCO3 (21-25) mmol/L ABG Total CO2 (19-24) mmol/L ABG O2 Saturation (94-97) % Carbon Dioxide (22-30) mmol/L BUN (7-17) mg/dL Creatinine (0.52-1.04) mg/dL Glucose (74-99) mg/dL POC Glucose (mg/dL) 167 H 192 H 159 H (75-99) mg/dL Calcium (8.4-10.2) mg/dL AST (14-36) U/L Total Protein (6.3-8.2) g/dL Albumin (3.5-5.0) g/dL 12/16/17 Range/Units 08:47 WBC (3.8-10.6) k/uL MCHC (31.0-37.0) g/dL Neutrophils # (1.3-7.7) k/uL Lymphocytes # (1.0-4.8) k/uL ABG pH 7.47 H (7.35-7.45) ABG pCO2 47 H (35-45) mmHg ABG pO2 116 H (83-108) mmHg ABG HCO3 34 H (21-25) mmol/L ABG Total CO2 35 H (19-24) mmol/L ABG O2 Saturation 98.3 H (94-97) % Carbon Dioxide (22-30) mmol/L BUN (7-17) mg/dL Creatinine (0.52-1.04) mg/dL Glucose (74-99) mg/dL POC Glucose (mg/dL) (75-99) mg/dL Calcium (8.4-10.2) mg/dL AST (14-36) U/L Total Protein (6.3-8.2) g/dL Albumin (3.5-5.0) g/dL Microbiology - Last 24 Hours (Table) 12/09/17 20:28 Blood Culture - Final Blood No Growth after 144 hours 12/14/17 14:00 Urine Culture - Final Urine,Catheterized 12/14/17 14:03 Blood Culture - Preliminary Blood No Growth after 24 hours Assessment and Plan Plan: Assessment: #1. Hypovolemic hyponatremia improved with normal saline. Now appears euvolemic. Also component of tea and toast diet as a BUN is noted to be only 4 and urine osmolality 267 on admission. TSH and cortisol levels normal. Sodium level 143 today. #2. Pyuria. Urine culture negative so far. #3. Benign hypertension. Blood pressures were on the lower side due to sedation - now off levofed. #4. Diastolic CHF with moderate pulmonary hypertension. #5. Acute hypercapnic respiratory failure. Plan: I will decreased rate of normal saline to 75 mL an hour. Continue to monitor renal function and urine output. Wean levofed and FiO2. Avoid nephrotoxic agents and hypotensive episodes. May repeat Lasix 20 mg IV once if becomes oliguric.
[2017-12-16] MEDS ORDERED: CISATRACURIUM 2 MG/ML 5 ML VIAL IV ONE ×2 (11:16→11:25)
[2017-12-16 11:51] LABS: Glucose,Whole Blood 133 mg/dL (75-99)
--- NOTE | 2017-12-16 12:12 | PCN ---
PROCEDURE NOTE OPERATIVE REPORT: Bronchoscopy and bronchoalveolar lavage of the left lower lobe. PREOPERATIVE DIAGNOSIS: Respiratory failure, left lower lobe collapse. POSTOPERATIVE DIAGNOSIS: Respiratory failure, left lower lobe collapse. ANESTHESIA: The patient was already on propofol drip and Nimbex was given at a dose of 6 mg x1. DESCRIPTION OF PROCEDURE: Patient was already on mechanical ventilation. Her endotracheal tube was connected to an adapter, which was also connected to mechanical ventilation. After adequate sedation with propofol and Nimbex, the patient was placed in a supine position, the bronchoscope was advanced through the endotracheal tube. In the meantime, we were monitoring her blood pressure continuously, heart rate was continuously monitored, blood pressure and O2 saturation was continuously monitored. The bronchoscope was advanced down the endotracheal tube, and all the way to the trachea. Thorough examination was done of the trachea, ana cristina, right upper lobe, right middle lobe, right lower lobe, left upper lobe lingula and left lower lobe. There was evidence of some mucus plugging noted in the lingula and the left lower lobe. These were suctioned and the left lower lobe was lavaged. Procedure was well tolerated. No evidence of any immediate complications. The fluid obtained from the left lower lobe was sent for the further diagnostic studies. MMODL / IJN: [id number] /
--- NOTE | 2017-12-16 13:15 | P.PN ---
Subjective Progress Note Date: 12/16/17 Principal diagnosis: Acute hypovolemic hyponatremia This is a 77-year-old female with history of hypertension, congestive heart failure, COPD, patient is mostly bedridden according to her children for the last 1 year. No clear cut reason or etiology for her medical debility. But according to her son, patient has been gradually going downhill for the last one year at least. And she is at a point where she is either in bed or in a wheelchair. Family found patient in bed unresponsive, questionable CPR performed by a bystander, however when EMS arrived the patient had a good pulse. She was resting in bed, placed on a nonrebreather mask, and brought into the hospital. Workup revealed a low sodium of 114. Patient was given 0.9 normal saline, and at one point she was hypotensive requiring fluid boluses with 0.9 normal saline. A 12 point last night the patient became more hypotensive hence she was wasted briefly on norepinephrine. But it is discontinued this morning. CT of the chest showed atelectasis at the right lung base, small tiny right pleural effusion, there was evidence of cardiomegaly , chest x-ray is basically the same. CT of the brain was nondiagnostic. Her CBC was normal. D-dimer was elevated at 20.61, BNP level was 2590, serum osmolality was 23 7 repeat sodium this morning is up to 122. Urine osmolality was 267. Urine sodium was 29. Influenza screen was negative. Considering the profound hyponatremia, and considering the patient may have required 3% saline infusion, patient was admitted to the ICU, did not require any 3% infusion, but she did require a brief infusion of norepinephrine for low blood pressure. The patient herself is a poor historian, nonverbal, does not follow any instructions. Eyes remain closed all the time. Patient was reevaluated today on 12/11/2017, patient is a bit more awake, however unable to follow any instructions, pulled her nasogastric tube out yesterday, and refused having another one to be placed. Hence the patient is taking meds by mouth, and her nutrition seems to be very poor since she doesn't eat much. And she keeps saying that she is not hungry and she has no appetite. Hence I recommended a dietitian consult for caloric count, and recommendation regarding nutritional status. Labs were reviewed sodium is up to 127. The rest of the labs were unremarkable including basic metabolic profile and CBC. Cultures of urine and blood are negative so far. On 12/14/2017 we were reconsulted regarding patient's deteriorating mental status, patient was noted to be hypoxic this morning with a pulse ox around 69% on 1-1/2 L. Her FiO2 was then increased to 5 L per nasal cannula, patient was noted to be increasingly lethargic, barely responsive at the time of our evaluation. Blood gas was obtained on FiO2 of 32%, and it showed primary respiratory acidosis, with acute on chronic hypercapnic respiratory failure, pH was 7.22, pCO2 is 103, pO2 was 70, bicarb was 42, and O2 sat was 91.2 on FiO2 32 %. Patient's lung sounds are positive for coarse rhonchi throughout the lung foss. Patient is tachypnec and tachycardic with a heart rate at 110 BPM. She remained afebrile. She was then placed on BiPAP support with pressures of 12 and 4 and FiO2 of 100%. Stat chest x-ray was obtained and it showed left lower lobe atelectasis versus pneumonia or a small pleural effusion. She was given one-time dose of Lasix 40 mg IV push. Today's labs show sodium is 143, potassium is 5.5, CO2 is 40, BUN was 26, and creatinine was 0.55. Nephrology has ordered 50% dextrose, and 10 units of regular insulin IV push for the treatment of hyperkalemia of 5.5. Patient is starting to diurese. Patient was transferred to the intensive care to the treatment room. The BiPAP treatment did not improve patient's mentation, and decision was made to proceed with intubation and placement on mechanical ventilation. Patient was successfully intubated, and placed on mechanical ventilator with settings of assist control mode with a rate of 16, tidal vital 300, FiO2 of 100% and a PEEP of 5. Repeat blood gases were obtained and reviewed, and showed pH of 7.21, pCO2 of 93, pO2 of 270, and bicarb of 37, this is done on FiO2 of 100%. The settings were adjusted to assist control mode with a rate of 22, tidal volume 300, FiO2 was dropped down to 60%, and PEEP at 5. Patient became very hypotensive with the blood pressure in the 60s over 50s, she was given 2 L bolus of IV 0.9 normal saline. Diprivan is infusing at 10 mics per kilo per minute, and norepinephrine drip is infusing at the rate of 40 mics per minute. Blood pressure has improved, and currently running in the 100s over 50s. OG tube was placed, and connected to low intermittent suction. Right IJ triple lumen central line was placed, right radial arterial line was placed for hemodynamic monitoring. Blood gases will be repeated in half an hour. Patient was reevaluated today on 12/15/2017, remains on mechanical ventilation, same ventilator settings as yesterday, patient seems to be hemodynamically stable today, and she is off pressors. She did receive significant amount of fluids yesterday, she is now on nutritional support/enteral feeding. She is also on antibiotics, remains on hydrocortisone, and she remains on GI and DVT prophylaxis. Patient opens eyes to verbal stimuli, she follows simple instructions like squeezing hands and wiggling toes. Otherwise seems to be quite frail and weak, and medically debilitated. ABG today showed a pO2 of 109 pCO2 of 48 pH of 7.45. Electrolytes and renal profile were noted to be relatively normal except for bicarb of 35. CBC is relatively normal with WBC count of 12.8 hemoglobin is 11.5. Patient continued to have intermittent episodes of hypoglycemia yesterday in spite of feeding via orogastric tube, hence she was placed on D10 W drip at 45 ML per hour. That seems to be controlling her sugars fine and remember the patient remains on hydrocortisone at 50 mg IV push every 8. All labs were reviewed, her albumin is 2.0. All cultures remain negative, patient remains on antibiotics in the form Zosyn. Chest x-ray shows a left lower lobe consolidation, possible left lower lobe pneumonia. Reevaluated today on 12/16/2017, remains on mechanical ventilation, and ventilator settings are tidal volume of 350 assist-control rate of 20 PEEP of 5 and FiO2 of 40%. ABG showed a pO2 of 116 pCO2 of 47 pH of 7.47. CBC is relatively unremarkable hemoglobin is 11.7. Basic metabolic profile and renal profile were noted to be normal, bicarb is 35. Her sodium level has improved significantly since admission. Patient is currently off norepinephrine, maintained at 100 mL of normal saline, and she did receive 1 dose of 20 mg of Lasix yesterday for decreased urine output, responded quite well. Chest x-ray today showed left lower lobe consolidation, on bronchoscopy was noted to have a mucous plug which was removed patient remains on enteral feeding via orogastric tube.. Objective - Vital Signs Vital signs: Vital Signs Temp 98.4 F 12/16/17 04:00 Pulse 56 L 12/16/17 12:15 Resp 20 12/16/17 12:00 BP 101/58 12/16/17 07:00 Pulse Ox 94 L 12/16/17 12:00 Intake & Output 12/15/17 12/16/17 12/16/17 18:59 06:59 18:59 Intake Total 8561.311 8277.951 1018 Output Total 748 494 245 Balance 9630.557 7960.951 773 Weight 53.9 kg 57.3 kg Intake: IV 1398.0 1007.5 778 0.9 at 10 30 109 60 0.9 for pressure 33 36 18 Dextrose 10% in Water 1, 180 000 ml @ 45 mls/hr IV . [id number] EDUIN Rx#:[id number] Dextrose 5%-0.9% NaCl 1, 700 800 600 000 ml @ 100 mls/hr IV . Q10H EDUIN Rx#:[id number] Piperacillin-Tazobactam 3 75.0 62.5 .375 gm In Dextrose/Water 1 50ml.bag @ 12.5 mls/hr IVPB Q8HR EDUIN Rx#: [id number] Potassium Chloride 10 meq 100 In Water For Injection 1 100ml.bag @ 100 mls/hr IVPB Q1H EDUIN Rx#: [id number] Sodium Chloride 0.9% 1, 380 000 ml @ 100 mls/hr IV . Q10H EDUIN Rx#:[id number] Intake, IV Titration 228.512 517.451 100 Amount Dextrose 10% in Water 1, 45 000 ml @ 45 mls/hr IV . [id number] EDUIN Rx#:[id number] Dextrose 5%-0.9% NaCl 1, 400 000 ml @ 100 mls/hr IV . Q10H EDUIN Rx#:[id number] Norepinephrin 16 mg-0.9% 16.696 15.876 Ns Pmx 16 mg In 250 ml @ Titrate IV .Q0M EDUIN Rx#: [id number] Potassium Chloride 10 meq 100 In Water For Injection 1 100ml.bag @ 100 mls/hr IVPB Q1H EDUIN Rx#: [id number] Propofol 1,000 mg In 66.816 101.575 Empty Bag 1 bag @ Titrate IV .Q0M EDUIN Rx#: [id number] Sodium Chloride 0.9% 1, 100 000 ml @ 100 mls/hr IV . Q10H EDUIN Rx#:[id number] Tube Feeding 240 220 140 Other 90 Output: Urine 748 494 245 Other: Voiding Method Indwelling Catheter Indwelling Catheter Indwelling Catheter ABP, PAP, CO, CI - Last Documented Arterial Blood Pressure 123/52 - Exam GENERAL EXAM: Sedated, frail looking, chronically ill looking 77-year-old female, on mechanical ventilation HEAD: Normocephalic/atraumatic. EYES: Normal reaction of pupils, equal size. Conjunctiva pink, sclera white. NOSE: Clear with pink turbinates. MOUTH: Upper dentures were removed, there are food debris removed from the mouth. Mucous membranes are dry. ET tube is present, it is secured with a tie , 22 cm at the lip. OG tube is present, to low intermittent suction. THROAT: No erythema or exudates. NECK: No masses, no JVD, no thyroid enlargement, no adenopathy. Right J triple- lumen central venous catheter is present CHEST: No chest wall deformity. Symmetrical expansion. LUNGS: Equal air entry with scattered rhonchi bilaterally. Diminished breath sounds at the left base CVS: Regular rate and rhythm, normal S1 and S2, no gallops, no murmurs, no rubs ABDOMEN: Soft, nontender. No hepatosplenomegaly, normal bowel sounds, no guarding or rigidity. EXTREMITIES: No clubbing, no edema, no cyanosis, 2+ pulses and upper and lower extremities. Patient has contractures of upper and lower extremities. 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 There are scattered bruises on bilateral arms and wrists. MUSCULOSKELETAL: Generalized muscle weakness was noted. SKIN: No rashes, no erythema. CENTRAL NERVOUS SYSTEM: Arousable, follows very simple instructions, but generally weak and frail. - Labs CBC & Chem 7: 12/16/17 04:05 12/16/17 04:05 Labs: Abnormal Lab Results - Last 24 Hours (Table) 12/15/17 12/15/17 12/15/17 Range/Units 13:49 15:09 15:59 WBC (3.8-10.6) k/uL MCHC (31.0-37.0) g/dL Neutrophils # (1.3-7.7) k/uL Lymphocytes # (1.0-4.8) k/uL ABG pH (7.35-7.45) ABG pCO2 (35-45) mmHg ABG pO2 (83-108) mmHg ABG HCO3 (21-25) mmol/L ABG Total CO2 (19-24) mmol/L ABG O2 Saturation (94-97) % Carbon Dioxide (22-30) mmol/L BUN (7-17) mg/dL Creatinine (0.52-1.04) mg/dL Glucose (74-99) mg/dL POC Glucose (mg/dL) 139 H 145 H 135 H (75-99) mg/dL Calcium (8.4-10.2) mg/dL AST (14-36) U/L Total Protein (6.3-8.2) g/dL Albumin (3.5-5.0) g/dL 12/15/17 12/15/17 12/15/17 Range/Units 17:43 20:00 22:56 WBC (3.8-10.6) k/uL MCHC (31.0-37.0) g/dL Neutrophils # (1.3-7.7) k/uL Lymphocytes # (1.0-4.8) k/uL ABG pH (7.35-7.45) ABG pCO2 (35-45) mmHg ABG pO2 (83-108) mmHg ABG HCO3 (21-25) mmol/L ABG Total CO2 (19-24) mmol/L ABG O2 Saturation (94-97) % Carbon Dioxide (22-30) mmol/L BUN (7-17) mg/dL Creatinine (0.52-1.04) mg/dL Glucose (74-99) mg/dL POC Glucose (mg/dL) 164 H 182 H 200 H (75-99) mg/dL Calcium (8.4-10.2) mg/dL AST (14-36) U/L Total Protein (6.3-8.2) g/dL Albumin (3.5-5.0) g/dL 12/16/17 12/16/17 12/16/17 Range/Units 02:11 04:05 04:05 WBC 10.9 H (3.8-10.6) k/uL MCHC 29.6 L (31.0-37.0) g/dL Neutrophils # 9.6 H (1.3-7.7) k/uL Lymphocytes # 0.7 L (1.0-4.8) k/uL ABG pH (7.35-7.45) ABG pCO2 (35-45) mmHg ABG pO2 (83-108) mmHg ABG HCO3 (21-25) mmol/L ABG Total CO2 (19-24) mmol/L ABG O2 Saturation (94-97) % Carbon Dioxide 35 H (22-30) mmol/L BUN 18 H (7-17) mg/dL Creatinine 0.48 L (0.52-1.04) mg/dL Glucose 167 H (74-99) mg/dL POC Glucose (mg/dL) 149 H (75-99) mg/dL Calcium 7.9 L (8.4-10.2) mg/dL AST 9 L (14-36) U/L Total Protein 4.4 L (6.3-8.2) g/dL Albumin 2.0 L (3.5-5.0) g/dL 12/16/17 12/16/17 12/16/17 Range/Units 04:05 06:59 08:35 WBC (3.8-10.6) k/uL MCHC (31.0-37.0) g/dL Neutrophils # (1.3-7.7) k/uL Lymphocytes # (1.0-4.8) k/uL ABG pH (7.35-7.45) ABG pCO2 (35-45) mmHg ABG pO2 (83-108) mmHg ABG HCO3 (21-25) mmol/L ABG Total CO2 (19-24) mmol/L ABG O2 Saturation (94-97) % Carbon Dioxide (22-30) mmol/L BUN (7-17) mg/dL Creatinine (0.52-1.04) mg/dL Glucose (74-99) mg/dL POC Glucose (mg/dL) 167 H 192 H 159 H (75-99) mg/dL Calcium (8.4-10.2) mg/dL AST (14-36) U/L Total Protein (6.3-8.2) g/dL Albumin (3.5-5.0) g/dL 12/16/17 12/16/17 Range/Units 08:47 11:49 WBC (3.8-10.6) k/uL MCHC (31.0-37.0) g/dL Neutrophils # (1.3-7.7) k/uL Lymphocytes # (1.0-4.8) k/uL ABG pH 7.47 H (7.35-7.45) ABG pCO2 47 H (35-45) mmHg ABG pO2 116 H (83-108) mmHg ABG HCO3 34 H (21-25) mmol/L ABG Total CO2 35 H (19-24) mmol/L ABG O2 Saturation 98.3 H (94-97) % Carbon Dioxide (22-30) mmol/L BUN (7-17) mg/dL Creatinine (0.52-1.04) mg/dL Glucose (74-99) mg/dL POC Glucose (mg/dL) 133 H (75-99) mg/dL Calcium (8.4-10.2) mg/dL AST (14-36) U/L Total Protein (6.3-8.2) g/dL Albumin (3.5-5.0) g/dL Microbiology - Last 24 Hours (Table) 12/09/17 20:28 Blood Culture - Final Blood No Growth after 144 hours 12/14/17 14:00 Urine Culture - Final Urine,Catheterized 12/14/17 14:03 Blood Culture - Preliminary Blood No Growth after 24 hours Assessment and Plan Assessment: Impression: 1 Acute hypoxic and hypercapnic respiratory failure requiring intubation and mechanical ventilation, most likely secondary to COPD, respiratory muscle weakness, medical debility, and suspect left lower lobe pneumonia. 2 chronic medical debility, patient has been bedridden and wheelchair ridden for quite some time. I suspect profound muscle weakness and respiratory muscle weakness with hypercapnia. 3 history of benign essential hypertension. 4 history of congestive heart failure, unknown ejection fraction, unknown whether her congestive heart failure is systolic or diastolic. 5 hypotension secondary to hypovolemic shock, strongly doubt any underlying sepsis. 6 multiple decubitus ulcers secondary to medical debility and considering the patient is bed and wheelchair ridden. 7 possible urinary tract infection, urine cultures are still pending. 8 left lower lobe consolidation, pneumonia is strongly suspected, but not confirmed yet. 9 left lower lobe collapse and mucous plugging, improved visually with bronchoscopy and BAL of the left lower lobe on 12/16/2017. Recommendation: Continue antibiotics, bronchodilators, nutritional support, ventilatory support, hemodynamic support, continue hydrocortisone, will follow closely. Critical care time is 35 minutes not including the time spent on procedures/bronchoscopy. At this point, the patient is quite frail, not quite ready for extubation, but this will be addressed in the next 24-48 hours. Time with Patient: Greater than 30
[2017-12-16 16:45] LABS: Glucose,Whole Blood 133 mg/dL (75-99)
--- NOTE | 2017-12-16 17:02 | P.PN ---
Subjective Progress Note Date: 12/16/17 Principal diagnosis: Weakness 77-year-old female who is cared for by her family in a family living situation apparently became unresponsive and was given some form of CPR by one of the bystanders. EMS was called and upon their arrival the patient had easily palpable pulses in was breathing spontaneously. She was brought to the emergency center where she was found evidence of significant altered status with sodium of 114. It is related over the last year the patient has just declined to the point tenderness she's no longer walking and they're trying to care for her while she is generally bedbound. The patient has obvious dementia and is not able to relate to any specific history. She is quite unaware where she is at, and does not understand my role as a physician. She is unable to assist in turning to have her ulcers evaluated. She is completely unaware of fecal soiling On 12/12/2017 the patient has little change of her status. The staff have put her in an upright position to have a meal and she appears to have great difficulty understanding what she is also due with her food tray. With direction she eventually is able to take a bite of her mash potato 12/14/2017 patient has developed respiratory failure and is now intubated sedated and mechanically ventilated. She developed significant hypercarbic respiratory failure with a CO2 of greater than 100. 12/15/2017 patient remains intubated sedated and mechanically ventilated but nursing staff relates when sedation is lightened she does follow commands such as squeezing hand. The patient is very comfortable and has had improvement of her blood gas with the current ventilation support. 12/16/2017 patient has had some difficulties today and that likely has mucus plugging with poor aeration to the left chest. We'll undergo bronchoscopy today and potential extubation after bronchoscopy if she has further improvement. She is without fever or chill and hemodynamically is stable no longer on vasopressor therapy. Objective - Vital Signs Vital signs: Vital Signs Temp 97.8 F 12/16/17 16:00 Pulse 55 L 12/16/17 16:00 Resp 20 12/16/17 16:00 BP 101/58 12/16/17 07:00 Pulse Ox 100 12/16/17 16:00 Intake & Output 12/15/17 12/16/17 12/16/17 18:59 06:59 18:59 Intake Total 1490.120 9076.951 1476.558 Output Total 748 494 385 Balance 1779.453 6294.951 1091.558 Weight 53.9 kg 57.3 kg 57.3 kg Intake: IV 1398.0 1007.5 1100.0 0.9 at 10 30 109 100 0.9 for pressure 33 36 30 Dextrose 10% in Water 1, 180 000 ml @ 45 mls/hr IV . [id number] EDUIN Rx#:[id number] Dextrose 5%-0.9% NaCl 1, 700 800 400 000 ml @ 100 mls/hr IV . Q10H EDUIN Rx#:[id number] Dextrose 5%-0.9% NaCl 1, 420 000 ml @ 70 mls/hr IV . [id number] EDUIN Rx#:[id number] Piperacillin-Tazobactam 3 75.0 62.5 50.0 .375 gm In Dextrose/Water 1 50ml.bag @ 12.5 mls/hr IVPB Q8HR EDUIN Rx#: [id number] Potassium Chloride 10 meq 100 In Water For Injection 1 100ml.bag @ 100 mls/hr IVPB Q1H EDUIN Rx#: [id number] Sodium Chloride 0.9% 1, 380 000 ml @ 100 mls/hr IV . Q10H EDUIN Rx#:[id number] Intake, IV Titration 228.512 517.451 186.558 Amount Dextrose 10% in Water 1, 45 000 ml @ 45 mls/hr IV . [id number] EDUIN Rx#:[id number] Dextrose 5%-0.9% NaCl 1, 400 000 ml @ 100 mls/hr IV . Q10H EDUIN Rx#:[id number] Norepinephrin 16 mg-0.9% 16.696 15.876 Ns Pmx 16 mg In 250 ml @ Titrate IV .Q0M EDUIN Rx#: [id number] Potassium Chloride 10 meq 100 In Water For Injection 1 100ml.bag @ 100 mls/hr IVPB Q1H EDUIN Rx#: [id number] Propofol 1,000 mg In 66.816 101.575 86.558 Empty Bag 1 bag @ Titrate IV .Q0M EDUIN Rx#: [id number] Sodium Chloride 0.9% 1, 100 000 ml @ 100 mls/hr IV . Q10H EDUIN Rx#:[id number] Tube Feeding 240 220 190 Other 90 Output: Urine 748 494 385 Other: Voiding Method Indwelling Catheter Indwelling Catheter Indwelling Catheter ABP, PAP, CO, CI - Last Documented Arterial Blood Pressure 119/52 - Exam 77-year-old female who has a completely unkept status, much improved since coming to Hospital but is now intubated sedated and mechanically ventilated because her respiratory failure HEENT: Anicteric conjunctiva are pink and moist nasal mucosa grossly intact without significant lesions, there is no thrush. Edentulous Neck: The neck is supple without significant lymphadenopathy or thyromegaly. Lungs: Symmetrical air entry is noted however expiratory wheezes are scattered but no donovan bronchial sounds Heart: Irregular with an audible S1 and S2 without S4 no distinct murmur click or rub is noted Abdomen: Positive bowel sounds soft and nontender without palpable masses or organomegaly. There was no guarding or rebound. Extremities: Upper extremity has a IV site that is intact. No lesions in the upper extremities are noted. Lower extremities have evidence of is noted some early contractures. Is evidence of distinct wasting of the musculature of the upper and lower extremities. Please see the nursing photography for the pressure ulcerations noted to the coccyx as well as to the left and right trochanteric areas. Neuro: She is intubated sedated and mechanically ventilated - Labs CBC & Chem 7: 12/16/17 04:05 12/16/17 04:05 Labs: Abnormal Lab Results - Last 24 Hours (Table) 12/15/17 12/15/17 12/15/17 Range/Units 17:43 20:00 22:56 WBC (3.8-10.6) k/uL MCHC (31.0-37.0) g/dL Neutrophils # (1.3-7.7) k/uL Lymphocytes # (1.0-4.8) k/uL ABG pH (7.35-7.45) ABG pCO2 (35-45) mmHg ABG pO2 (83-108) mmHg ABG HCO3 (21-25) mmol/L ABG Total CO2 (19-24) mmol/L ABG O2 Saturation (94-97) % Carbon Dioxide (22-30) mmol/L BUN (7-17) mg/dL Creatinine (0.52-1.04) mg/dL Glucose (74-99) mg/dL POC Glucose (mg/dL) 164 H 182 H 200 H (75-99) mg/dL Calcium (8.4-10.2) mg/dL AST (14-36) U/L Total Protein (6.3-8.2) g/dL Albumin (3.5-5.0) g/dL 12/16/17 12/16/17 12/16/17 Range/Units 02:11 04:05 04:05 WBC 10.9 H (3.8-10.6) k/uL MCHC 29.6 L (31.0-37.0) g/dL Neutrophils # 9.6 H (1.3-7.7) k/uL Lymphocytes # 0.7 L (1.0-4.8) k/uL ABG pH (7.35-7.45) ABG pCO2 (35-45) mmHg ABG pO2 (83-108) mmHg ABG HCO3 (21-25) mmol/L ABG Total CO2 (19-24) mmol/L ABG O2 Saturation (94-97) % Carbon Dioxide 35 H (22-30) mmol/L BUN 18 H (7-17) mg/dL Creatinine 0.48 L (0.52-1.04) mg/dL Glucose 167 H (74-99) mg/dL POC Glucose (mg/dL) 149 H (75-99) mg/dL Calcium 7.9 L (8.4-10.2) mg/dL AST 9 L (14-36) U/L Total Protein 4.4 L (6.3-8.2) g/dL Albumin 2.0 L (3.5-5.0) g/dL 12/16/17 12/16/17 12/16/17 Range/Units 04:05 06:59 08:35 WBC (3.8-10.6) k/uL MCHC (31.0-37.0) g/dL Neutrophils # (1.3-7.7) k/uL Lymphocytes # (1.0-4.8) k/uL ABG pH (7.35-7.45) ABG pCO2 (35-45) mmHg ABG pO2 (83-108) mmHg ABG HCO3 (21-25) mmol/L ABG Total CO2 (19-24) mmol/L ABG O2 Saturation (94-97) % Carbon Dioxide (22-30) mmol/L BUN (7-17) mg/dL Creatinine (0.52-1.04) mg/dL Glucose (74-99) mg/dL POC Glucose (mg/dL) 167 H 192 H 159 H (75-99) mg/dL Calcium (8.4-10.2) mg/dL AST (14-36) U/L Total Protein (6.3-8.2) g/dL Albumin (3.5-5.0) g/dL 12/16/17 12/16/17 12/16/17 Range/Units 08:47 11:49 16:42 WBC (3.8-10.6) k/uL MCHC (31.0-37.0) g/dL Neutrophils # (1.3-7.7) k/uL Lymphocytes # (1.0-4.8) k/uL ABG pH 7.47 H (7.35-7.45) ABG pCO2 47 H (35-45) mmHg ABG pO2 116 H (83-108) mmHg ABG HCO3 34 H (21-25) mmol/L ABG Total CO2 35 H (19-24) mmol/L ABG O2 Saturation 98.3 H (94-97) % Carbon Dioxide (22-30) mmol/L BUN (7-17) mg/dL Creatinine (0.52-1.04) mg/dL Glucose (74-99) mg/dL POC Glucose (mg/dL) 133 H 133 H (75-99) mg/dL Calcium (8.4-10.2) mg/dL AST (14-36) U/L Total Protein (6.3-8.2) g/dL Albumin (3.5-5.0) g/dL Microbiology - Last 24 Hours (Table) 12/16/17 11:25 Bronchial Washings Culture - Preliminary Bronchoalviolar Lavage - Left 12/16/17 11:25 Fungal Culture - Preliminary Bronchoalviolar Lavage - Left 12/16/17 11:25 Acid Fast Bacilli Culture - Preliminary Bronchoalviolar Lavage - Left 12/14/17 14:03 Blood Culture - Preliminary Blood No Growth after 48 hours 12/09/17 20:28 Blood Culture - Final Blood No Growth after 144 hours 12/14/17 14:00 Urine Culture - Final Urine,Catheterized Laboratory Results WBC 10.9 k/uL (3.8-10.6) H 12/16/17 04:05 RBC 4.25 m/uL (3.80-5.40) 12/16/17 04:05 Hgb 11.7 gm/dL (11.4-16.0) 12/16/17 04:05 Hct 39.5 % (34.0-46.0) 12/16/17 04:05 MCV 92.9 fL (80.0-100.0) 12/16/17 04:05 MCH 27.5 pg (25.0-35.0) 12/16/17 04:05 MCHC 29.6 g/dL (31.0-37.0) L 12/16/17 04:05 RDW 13.7 % (11.5-15.5) 12/16/17 04:05 Plt Count 179 k/uL (150-450) 12/16/17 04:05 Neutrophils % 88 % 12/16/17 04:05 Lymphocytes % 6 % 12/16/17 04:05 Monocytes % 5 % 12/16/17 04:05 Eosinophils % 0 % 12/16/17 04:05 Basophils % 0 % 12/16/17 04:05 Neutrophils # 9.6 k/uL (1.3-7.7) H 12/16/17 04:05 Lymphocytes # 0.7 k/uL (1.0-4.8) L 12/16/17 04:05 Monocytes # 0.5 k/uL (0-1.0) 12/16/17 04:05 Eosinophils # 0.0 k/uL (0-0.7) 12/16/17 04:05 Basophils # 0.0 k/uL (0-0.2) 12/16/17 04:05 Hypochromasia Slight 12/16/17 04:05 PT 12.2 sec (9.0-12.0) H 12/09/17 06:10 INR 1.3 (<1.2) H 12/09/17 06:10 APTT 28.9 sec (22.0-30.0) 12/09/17 06:10 D-Dimer 20.61 mg/L FEU (<0.60) H 12/09/17 06:10 Sample Site taylor 12/16/17 08:47 ABG pH 7.47 (7.35-7.45) H 12/16/17 08:47 ABG pCO2 47 mmHg (35-45) H 12/16/17 08:47 ABG pO2 116 mmHg (83-108) H 12/16/17 08:47 ABG HCO3 34 mmol/L (21-25) H 12/16/17 08:47 ABG Total CO2 35 mmol/L (19-24) H 12/16/17 08:47 ABG O2 Saturation 98.3 % (94-97) H 12/16/17 08:47 ABG Base Excess 10.3 mmol/L 12/16/17 08:47 Rigoberto Test Yes 12/16/17 08:47 FiO2 40 % 12/16/17 08:47 Sodium 143 mmol/L (137-145) 12/16/17 04:05 Potassium 4.0 mmol/L (3.5-5.1) 12/16/17 04:05 Chloride 104 mmol/L (98-107) 12/16/17 04:05 Carbon Dioxide 35 mmol/L (22-30) H 12/16/17 04:05 Anion Gap 4 mmol/L 12/16/17 04:05 BUN 18 mg/dL (7-17) H 12/16/17 04:05 Creatinine 0.48 mg/dL (0.52-1.04) L 12/16/17 04:05 Est GFR (MDRD) Af Amer >60 (>60 ml/min/1.73 sqM) 12/16/17 04:05 Est GFR (MDRD) Non-Af >60 (>60 ml/min/1.73 sqM) 12/16/17 04:05 Glucose 167 mg/dL (74-99) H 12/16/17 04:05 POC Glucose (mg/dL) 133 mg/dL (75-99) H 12/16/17 16:42 POC Glu [employer]er ID Josh Robbins 12/16/17 16:[address] Glu mg/dL 100 12/12/17 10:04 Hemoglobin A1c 5.1 % (4.0-6.0) 12/12/17 10:04 Osmolality 237 mosm/kg (280-301) L* 12/09/17 06:50 Plasma Lactic Acid Jase 1.5 mmol/L (0.7-2.0) 12/14/17 14:25 Uric Acid 2.2 mg/dL (3.7-7.4) L 12/10/17 06:50 Calcium 7.9 mg/dL (8.4-10.2) L 12/16/17 04:05 Ionized Calcium Tania 5.1 mg/dL (4.5-5.3) 12/14/17 23:00 Phosphorus 3.1 mg/dL (2.5-4.5) 12/16/17 04:05 Magnesium 2.1 mg/dL (1.6-2.3) 12/16/17 04:05 Total Bilirubin 0.2 mg/dL (0.2-1.3) 12/16/17 04:05 AST 9 U/L (14-36) L 12/16/17 04:05 ALT 20 U/L (9-52) 12/16/17 04:05 Alkaline Phosphatase 66 U/L (38-126) 12/16/17 04:05 Total Creatine Kinase 128 U/L (30-135) 12/09/17 20:28 CK-MB (CK-2) 6.5 ng/mL (0.0-2.4) H* 12/09/17 20:28 CK-MB (CK-2) Rel Index 5.1 12/09/17 20:28 Troponin I 0.251 ng/mL (0.000-0.034) H* 12/10/17 12:07 NT-Pro-B Natriuret Pep 2590 pg/mL 12/09/17 06:50 Total Protein 4.4 g/dL (6.3-8.2) L 12/16/17 04:05 Albumin 2.0 g/dL (3.5-5.0) L 12/16/17 04:05 Triglycerides 43 mg/dL (<150) 12/10/17 02:32 Cholesterol 79 mg/dL (<200) 12/10/17 02:32 LDL Cholesterol, Calc 25 mg/dL (0-99) 12/10/17 02:32 HDL Cholesterol 45 mg/dL (40-60) 12/10/17 02:32 TSH 4.130 mIU/L (0.465-4.680) 12/15/17 04:30 Cortisol 114 ug/dL 12/10/17 12:07 Urine Color Yellow 12/09/17 08:42 Urine Appearance Clear (Clear) 12/09/17 08:42 Urine pH 6.5 (5.0-8.0) 12/09/17 08:42 Ur Specific [place] 1.006 (1.001-1.035) 12/09/17 08:42 Urine Protein Trace (Negative) H 12/09/17 08:42 Urine Glucose (UA) 2+ (Negative) H 12/09/17 08:42 Urine Ketones Negative (Negative) 12/09/17 08:42 Urine Blood Trace (Negative) H 12/09/17 08:42 Urine Nitrite Negative (Negative) 12/09/17 08:42 Urine Bilirubin Negative (Negative) 12/09/17 08:42 Urine Urobilinogen 2.0 mg/dL (<2.0) 12/09/17 08:42 Ur Leukocyte Esterase Moderate (Negative) H 12/09/17 08:42 Urine RBC 11 /hpf (0-5) H 12/09/17 08:42 Urine WBC 11 /hpf (0-5) H 12/09/17 08:42 Urine Bacteria Rare /hpf (None) H 12/09/17 08:42 Urine Osmolality 267 mosm/kg (50-1400) 12/09/17 08:42 Ur Random Sodium 29 mmol/L (30-90) L 12/10/17 08:30 Vancomycin Trough 9.2 ug/mL 12/12/17 01:19 Influenza Type A RNA Not Detected (Not Detectd) 12/09/17 22:00 Influenza Type B (PCR) Not Detected (Not Detectd) 12/09/17 22:00 Microbiology 12/16/17 11:25 Bronchoalviolar Lavage - Left Bronchial Washings Culture - Preliminary 12/16/17 11:25 Bronchoalviolar Lavage - Left Fungal Culture - Preliminary 12/16/17 11:25 Bronchoalviolar Lavage - Left Acid Fast Bacilli Culture - Preliminary 12/14/17 14:03 Blood Blood Culture - Preliminary No Growth after 48 hours 12/09/17 20:28 Blood Blood Culture - Final No Growth after 144 hours 12/14/17 14:00 Urine,Catheterized Urine Culture - Final 12/14/17 21:40 Sputum Gram Stain - Preliminary 12/14/17 21:40 Sputum Sputum Culture - Preliminary 12/09/17 08:42 Urine,Catheterized Urine Culture - Final Assessment and Plan (1) Hyponatremia Current Visit: Yes Status: Acute Code(s): E87.1 - HYPO-OSMOLALITY AND HYPONATREMIA SNOMED Code(s): 69877865 (2) Pressure ulcer of coccygeal region, stage 3 Narrative/Plan: 77-year-old female is transported to hospital after she became unresponsive. The patient was found evidence of significant hyponatremia which is noted to be hypovolemic in nature. With rehydration sodium solution she is not having improvement. There was concern as urinary tract infection however urine culture is negative for blood cultures are pending. She does not have a history of MRSA but does have significant pressure ulcerations and concerns to underlying sepsis. Will continue Zosyn for now however will discontinue vancomycin. Local wound care with hydrocolloid dressings will be utilized to pressure ulcerations. The stage III pressure ulceration of the coccyx is present at admission, is due to pressure and does not appear to be grossly infected at this time. Cultures are pending. We'll monitor cultures and further alter antibiotic therapy as possible. On 12/14/2017 the patient has had a major decline of her status with respiratory failure hypercapnic in nature requiring intubation with sedation and mechanical ventilation. Her prognosis is very poor. Continue local wound care and antibiotic therapy. 12/15/2017 patient has had some improvement in that her ventilator settings have improved she is on less PEEP and FiO2. Pulmonary critical care was following and we'll work toward potential extubation the next several days. Her most recent ABG shows evidence of improvement of her markedly elevated CO2. Her leukocytosis is improving. Sputum culture is in process. Pressure ulcer is being treated and is showing some mild improvement with the current treatment. Continue to offload and will do well to have a specialty mattress when she is out of ICU. 12/16/2017 for bronchoscopy today and potential extubation if possible. Continue Zosyn at this time and monitor for any other resistant pathogens. Continue ongoing supportive care. Current Visit: Yes Status: Acute Code(s): L89.153 - PRESSURE ULCER OF SACRAL REGION, STAGE 3 SNOMED Code(s): 833169011
--- NOTE | 2017-12-16 18:38 | PN ---
PROGRESS NOTE DATE OF SERVICE: 12/16/2017 This 77-year-old woman was admitted with initial change in mental status also had multiple other medical problems including CHF, pneumonia. Patient has acute hypercapnic respiratory failure. Patient also had a mucus plug today. Dr. Naylor performed a bronchoscopy. Patient is mechanically ventilated and sedated. The patient also on multiple IV drips also. PAST MEDICAL HISTORY: Reviewed. REVIEW OF SYSTEMS: Could not be taken, the patient mechanically ventilated and sedated. CURRENT MEDICATIONS ARE: Reviewed and include: 1. Ventolin 2.5 q.4h p.r.n. 2. DuoNeb q.i.d. and p.r.n. 3. Aspirin 81 mg. 4. Peridex 15 mL daily. 5. Lovenox 40 mg subcu daily. 6. Solu-Cortef 50 mg IV q.8. 7. Nitrostat 0.5 mg p.r.n. 8. Levophed drip 0.9 p.r.n. 9. Protonix. 10.Zosyn 3.375 mg IV q.8h p.r.n. 11.Propofol. PHYSICAL EXAM: Patient is on mechanical ventilation. Pulse is 80, blood pressure 127/51, respiration 20, temperature is normal. Pulse ox 100% on 40% FiO2, mechanical ventilator. Settings are noted. HEENT: Conjunctivae normal. Oral mucosa moist. Neck is no jugular venous distention. No carotid bruit. No lymph node enlargement. Cardiovascular is S1, S2 muffled. Respirations: Breath sounds diminished in the bases. A few scattered rhonchi and crackles. ABDOMEN: Soft, nontender. No mass palpable. Legs no edema and no swelling. Central nervous system: Higher functions as mentioned earlier. Moves all four limbs. No focal deficits LYMPHATICS: No lymph nodes palpable in neck, axillae or groin. Central nervous system: No focal deficits. LABS: WBC 10.2, hemoglobin 7.7, glucose 133. ASSESSMENT: 1. Change in mental status acute metabolic encephalopathy, possibly secondary to severe hyponatremia, possibly hypovolemic hyponatremia, rule out SIADH. 2. Congestive heart failure acute exacerbation, acute on chronic systolic dysfunction ejection fraction 30-34%. 3. Hypoglycemia, multifactorial. 4. Acute hypoxic hypercarbic respiratory failure on mechanical ventilation. 5. Atrial fibrillation with fast ventricular rate. 6. Troponin 0.10 indeterminate. 7. Bibasilar pneumonia possibly gram-negative. 8. History of recent urinary tract infection. 9. Moderate aortic regurgitation. 10.Severe tricuspid regurgitation. 11.Pulmonary hypertension. 12.History of degenerative joint disease.. 13.History hypertension. 14.History of left-sided pleural effusion. 15.Chronic obstructive pulmonary disease. 16.History of nicotine dependence. 17.FULL CODE. RECOMMENDATIONS AND DISCUSSION: Recommend to continue current management and symptomatic treatment. Otherwise continue bronchodilators, continue mechanical ventilation settings and support. Closely follow with Dr. Naylor. Monitor electrolytes closely. Monitor renal functions. Continue antibiotics. I would also recommend social worker psychiatric evaluation for the possibility of guardianship. The prognosis guarded because of multiple complex medical issues. Further recommendations to follow. Discussed with staff. Further weaning attempts and monitoring per Dr. Naylor. Further recommendations to follow. MMODL / IJN: [id number] /
[2017-12-16 20:10] LABS: Glucose,Whole Blood 146 mg/dL (75-99)
[2017-12-16 23:49] LABS: Glucose,Whole Blood 158 mg/dL (75-99)
[2017-12-17] MEDS: PROPOFOL 1,000 MG in EMPTY BAG 1 BAG IV SCH (00:37)
[2017-12-17] MEDS ORDERED: FUROSEMIDE 10 MG/ML 2 ML VIAL IV ONE (03:07)
[2017-12-17] MEDS: DEXTROSE 5%-0.9% NACL 1,000 ML IV SCH ×2 (03:17→20:59)
[2017-12-17 04:14] LABS: Glucose,Whole Blood 132 mg/dL (75-99)
[2017-12-17 04:23] LABS: Basophils % (A) 0 %; Eosinophils % (A) 0 %; HCT 41.1 % (34.0-46.0); HGB 12.3 gm/dL (11.4-16.0); Lymphocytes # (A) 0.7 k/uL (1.0-4.8); Lymphocytes % (A) 8 %; MCH 27.6 pg (25.0-35.0); MCV 91.8 fL (80.0-100.0); Mean Platelet Volume 7.9; Monocytes # (A) 0.4 k/uL (0-1.0); Monocytes % (A) 5 %; Neutrophils # (A) 6.7 k/uL (1.3-7.7); Neutrophils % (A) 85 %; Platelet Count 173 k/uL (150-450); RBC 4.48 m/uL (3.80-5.40); RDW 14.1 % (11.5-15.5); WBC 7.9 k/uL (3.8-10.6)
[2017-12-17 04:35] LABS: Anion Gap 2 mmol/L; Blood Urea Nitrogen 20 mg/dL (7-17); Carbon Dioxide 34 mmol/L (22-30); Chloride 107 mmol/L (98-107); Glucose 142 mg/dL (74-99); Potassium 3.7 mmol/L (3.5-5.1); Sodium 143 mmol/L (137-145)
[2017-12-17 04:36] LABS: ALT 20 U/L (9-52); AST 8 U/L (14-36); Alkaline Phosphatase 70 U/L (38-126); Calcium 7.8 mg/dL (8.4-10.2); Total Bilirubin 0.2 mg/dL (0.2-1.3); Total Protein 4.5 g/dL (6.3-8.2)
[2017-12-17] MEDS ORDERED: Potassium Replacement Protocol 1 EACH MISC MISCELLANE PRN (04:56)
[2017-12-17] MEDS ORDERED: POTASSIUM BICARBONATE/CIT AC 20 MEQ TABLET.EFF NG-TUBE SCH (05:00)
--- NOTE | 2017-12-17 07:20 | XR ---
EXAMINATION TYPE: XR chest 1V portable DATE OF EXAM: 12/17/2017 COMPARISON: 12/16/2017 HISTORY: Ventilatory dependent respiratory failure. TECHNIQUE: Single frontal view of the chest is obtained. FINDINGS: There are trace pleural effusions and left basilar subsegmental atelectasis with a retroca rdiac consolidation. Right basilar subsegmental atelectasis is also horizontally oriented parallel to the right hemidiaphragm. There is pulmonary per inflation representing underlying COPD with right ap ical pleural parenchymal scarring. Generalized osseous demineralization is seen. Right-sided internal jugular central venous catheter, endotracheal tube, and enteric tubes are overall unchanged in posit ion given slight difference in the endotracheal tube position likely related to patient head position ing. Cardiac silhouette is mildly enlarged. IMPRESSION: 1. Persistent trace pleural effusions and bibasilar airspace disease that may represent atelectasis o r pneumonia in the retrocardiac airspace. 2. Satisfactory line and tube placement.
[2017-12-17] MEDS: CHLORHEXIDINE GLUCONATE 15 ML CUP MUCOUS MEM SCH (07:47)
[2017-12-17] MEDS: ENOXAPARIN 40 MG/0.4 ML SYRINGE SQ SCH (07:47)
[2017-12-17] MEDS: PANTOPRAZOLE 40 MG/10 ML VIAL IVP SCH ×2 (07:47→20:59)
[2017-12-17] MEDS: HYDROCORTISONE SUCCINATE 100 MG/2 ML VIAL IV SCH (07:47)
[2017-12-17] MEDS: ASPIRIN 81 MG PO SCH (07:47)
[2017-12-17] MEDS: IPRATROPIUM-ALBUTEROL 3 ML NEB INHALATION SCH ×4 (08:21→19:48)
[2017-12-17 08:30] LABS: ABG Base Excess 10.7 mmol/L; ABG HCO3 34 mmol/L (21-25); ABG Oxygen Saturation 99.5 % (94-97); ABG PCO2 47 mmHg (35-45); ABG PH 7.47 (7.35-7.45); ABG PO2 126 mmHg (83-108); ABG TCO2 36 mmol/L (19-24)
[2017-12-17 08:32] LABS: Glucose,Whole Blood 127 mg/dL (75-99)
[2017-12-17] MEDS: PIPERACILLIN-TAZOBACTAM 3.375 GM in DEXTROSE/WATER 1 50ML.BAG IVPB SCH ×2 (09:06→17:02)
--- NOTE | 2017-12-17 10:10 | P.PN ---
Subjective Progress Note Date: 12/17/17 Principal diagnosis: Respiratory failure secondary to elevated troponin and hyponatremia Progress note dated 12/17/2017 This is a 77-year-old female with acute hypoxemic and hypercapnic respiratory failure requiring intubation and mechanical ventilation, secondary to COPD respiratory muscle weakness general medical debility and possible left lower lobe pneumonia. She was initially admitted to the hospital on December 09. On December 14, an 18 was called because of mental status changes. She was transferred to the ICU on that day and placed on BiPAP. For progressive respiratory failure, she was intubated and placed on norepinephrine for blood pressure control. She also had significant issues with hypoglycemia. Yesterday , she underwent bronchoscopy because of possible left lower lobe collapse. The patient's on dextrose IV was saline at 70 mL an hour, propofol at 30 mics per kilogram per minute and norepinephrine is currently off. Her mechanical ventilation settings include the assist control mode rate of 20, tidal volume of 350, FiO2 40%, and a PEEP of 5. Her blood gases show a PaO2 of 126 a PaCO2 47 and a pH of 7.47. This is consistent with metabolic alkalosis and hyperoxemia. Microbiology is only positive for yeast. Meds labs and x-rays are all reviewed. In addition, she has a history of chronic medical debility, hypertension, CHF, multiple decubitus ulcers, urinary tract infection, left lower lobe consolidation, status post recent bronchoscopy. Objective - Vital Signs Vital signs: Vital Signs Temp 99.0 F 12/17/17 08:00 Pulse 62 12/17/17 09:00 Resp 20 12/17/17 09:00 BP 101/58 12/16/17 07:00 Pulse Ox 100 12/17/17 09:00 Intake & Output 12/16/17 12/17/17 12/17/17 18:59 06:59 18:59 Intake Total 7195.218 9860.1 449 Output Total 490 990 235 Balance 1332.558 839.1 214 Weight 57.3 kg 57.2 kg Intake: IV 1266.0 996 249 0.9 at 10 120 120 30 0.9 for pressure 36 36 9 Dextrose 5%-0.9% NaCl 1, 400 000 ml @ 100 mls/hr IV . [facility] Rx#:[id number] Dextrose 5%-0.9% NaCl 1, 560 840 210 000 ml @ 70 mls/hr IV . [id number] [facility] Rx#:[id number] Piperacillin-Tazobactam 3 50.0 .375 gm In Dextrose/Water 1 50ml.bag @ 12.5 mls/hr IVPB Q8HR [facility] Rx#: [id number] Potassium Chloride 10 meq 100 In Water For Injection 1 100ml.bag @ 100 mls/hr IVPB Q1H [facility] Rx#: [id number] Intake, IV Titration 186.558 73.1 Amount Potassium Chloride 10 meq 100 In Water For Injection 1 100ml.bag @ 100 mls/hr IVPB Q1H [facility] Rx#: [id number] Propofol 1,000 mg In 86.558 73.1 Empty Bag 1 bag @ Titrate IV .Q0M [facility] Rx#: [id number] Oral 40 Tube Feeding 370 670 160 Other 90 Output: Urine 490 990 235 Other: Voiding Method Indwelling Catheter Indwelling Catheter Indwelling Catheter ABP, PAP, CO, CI - Last Documented Arterial Blood Pressure 116/51 - Exam No acute distress, Patient is sedated, there is an orally placed endotracheal tube and NG tube. HEENT examination is grossly unremarkable. Mucous membranes are moist. No oral lesions. Neck supple. Full range of motion. No adenopathy thyromegaly or neck vein distention. Cardiovascular examination reveals regular rhythm rate. S1-S2 normal. No S3 or S4. No discernible murmur noted. Lungs reveal coarse expiratory rhonchi. Breath sounds are diminished. There are diffuse bibasilar crackles and a few scattered rhonchi. Abdomen soft bowel sounds are heard. No masses or tenderness. Extremities are intact. No cyanosis clubbing or edema. Skin is without rash or lesion. Neurologic examination could not be assessed this patient's currently sedated with propofol. - Labs CBC & Chem 7: 12/17/17 04:00 12/17/17 04:00 Labs: Abnormal Lab Results - Last 24 Hours (Table) 12/16/17 12/16/17 12/16/17 Range/Units 11:49 16:42 20:08 MCHC (31.0-37.0) g/dL Lymphocytes # (1.0-4.8) k/uL ABG pH (7.35-7.45) ABG pCO2 (35-45) mmHg ABG pO2 (83-108) mmHg ABG HCO3 (21-25) mmol/L ABG Total CO2 (19-24) mmol/L ABG O2 Saturation (94-97) % Carbon Dioxide (22-30) mmol/L BUN (7-17) mg/dL Creatinine (0.52-1.04) mg/dL Glucose (74-99) mg/dL POC Glucose (mg/dL) 133 H 133 H 146 H (75-99) mg/dL Calcium (8.4-10.2) mg/dL AST (14-36) U/L Total Protein (6.3-8.2) g/dL Albumin (3.5-5.0) g/dL 12/16/17 12/17/17 12/17/17 Range/Units 23:46 04:00 04:00 MCHC 30.0 L (31.0-37.0) g/dL Lymphocytes # 0.7 L (1.0-4.8) k/uL ABG pH (7.35-7.45) ABG pCO2 (35-45) mmHg ABG pO2 (83-108) mmHg ABG HCO3 (21-25) mmol/L ABG Total CO2 (19-24) mmol/L ABG O2 Saturation (94-97) % Carbon Dioxide 34 H (22-30) mmol/L BUN 20 H (7-17) mg/dL Creatinine 0.44 L (0.52-1.04) mg/dL Glucose 142 H (74-99) mg/dL POC Glucose (mg/dL) 158 H (75-99) mg/dL Calcium 7.8 L (8.4-10.2) mg/dL AST 8 L (14-36) U/L Total Protein 4.5 L (6.3-8.2) g/dL Albumin 2.0 L (3.5-5.0) g/dL 12/17/17 12/17/17 12/17/17 Range/Units 04:12 08:18 08:28 MCHC (31.0-37.0) g/dL Lymphocytes # (1.0-4.8) k/uL ABG pH 7.47 H (7.35-7.45) ABG pCO2 47 H (35-45) mmHg ABG pO2 126 H (83-108) mmHg ABG HCO3 34 H (21-25) mmol/L ABG Total CO2 36 H (19-24) mmol/L ABG O2 Saturation 99.5 H (94-97) % Carbon Dioxide (22-30) mmol/L BUN (7-17) mg/dL Creatinine (0.52-1.04) mg/dL Glucose (74-99) mg/dL POC Glucose (mg/dL) 132 H 127 H (75-99) mg/dL Calcium (8.4-10.2) mg/dL AST (14-36) U/L Total Protein (6.3-8.2) g/dL Albumin (3.5-5.0) g/dL Microbiology - Last 24 Hours (Table) 12/14/17 21:40 Gram Stain - Final Sputum Sputum Culture - Final Ernestina albicans 12/16/17 11:25 Gram Stain - Preliminary Bronchoalviolar Lavage - Left Bronchial Washings Culture - Preliminary 12/16/17 11:25 Fungal Culture - Preliminary Bronchoalviolar Lavage - Left 12/16/17 11:25 Acid Fast Bacilli Culture - Preliminary Bronchoalviolar Lavage - Left 12/14/17 14:03 Blood Culture - Preliminary Blood No Growth after 48 hours Assessment and Plan Assessment: Assessment Acute hypoxemic and hypercapnic respiratory failure, requiring intubation and mechanical ventilation Chronic medical debility History of COPD History of hypertension History of CHF Hypotension, resolved Multiple decubitus ulcers Possible UTI. Left lower lobe consolidation, status post bronchoscopy with BAL on 12/16 Plan: Plan dated 12/17/2017 We will do a daily eruption of sedation. FiO2 was dropped from 40 to 30%. Additional recommendations and suggestions are forthcoming. Prognosis is guarded. Continue to follow closely. Labs x-rays a medications are reviewed. Prognosis is guarded. We'll place the patient on CPAP and PSV and give the patient a spontaneous breathing trial. I'm not sure that she is ready for extubation. Critical care time 32 minutes Time with Patient: Greater than 30
--- NOTE | 2017-12-17 10:52 | P.PN ---
Subjective Patient is seen in follow-up for hyponatremia. Sodium level has come up gradually and is 143 today. Patient was noted to be in respiratory distress on December 14 and was subsequently transferred to the intensive care unit. She is currently intubated. She is currently off levofed. She is maintained on normal saline at 75 mL an hour. She did receive 1 dose of Lasix 20 mg IV yesterday due to decreased urine output. She is awake on the ventilator. Weaning trials to be done today. Vital signs are stable. General: The patient appeared well nourished and normally developed. HEENT: Head exam is unremarkable. Neck is without jugular venous distension. LUNGS: Lungs are clear to auscultation and percussion. Breath sounds decreased. HEART: Rate and Rhythm are regular. First and second heart sounds normal. No murmurs, rubs or gallops. ABDOMEN: Abdominal exam reveals normal bowel sounds. Non-tender and non- distended. No evidence of peritonitis. EXTREMITITES: No clubbing, cyanosis, or edema. Objective - Vital Signs Vital signs: Vital Signs Temp 99.0 F 12/17/17 08:00 Pulse 69 12/17/17 10:00 Resp 20 12/17/17 10:00 BP 101/58 12/16/17 07:00 Pulse Ox 98 12/17/17 10:00 Intake & Output 12/16/17 12/17/17 12/17/17 18:59 06:59 18:59 Intake Total 3621.583 2246.1 648.091 Output Total 490 990 270 Balance 1332.558 839.1 378.091 Weight 57.3 kg 57.2 kg Intake: IV 1266.0 996 332 0.9 at 10 120 120 40 0.9 for pressure 36 36 12 Dextrose 5%-0.9% NaCl 1, 400 000 ml @ 100 mls/hr IV . Q10H [facility] Rx#:[id number] Dextrose 5%-0.9% NaCl 1, 560 840 280 000 ml @ 70 mls/hr IV . [id number] [facility] Rx#:[id number] Piperacillin-Tazobactam 3 50.0 .375 gm In Dextrose/Water 1 50ml.bag @ 12.5 mls/hr IVPB Q8HR [facility] Rx#: [id number] Potassium Chloride 10 meq 100 In Water For Injection 1 100ml.bag @ 100 mls/hr IVPB Q1H [facility] Rx#: [id number] Intake, IV Titration 186.558 73.1 76.091 Amount Potassium Chloride 10 meq 100 In Water For Injection 1 100ml.bag @ 100 mls/hr IVPB Q1H [facility] Rx#: [id number] Propofol 1,000 mg In 86.558 73.1 76.091 Empty Bag 1 bag @ Titrate IV .Q0M [facility] Rx#: [id number] Oral 40 Tube Feeding 370 670 200 Other 90 Output: Urine 490 990 270 Other: Voiding Method Indwelling Catheter Indwelling Catheter Indwelling Catheter ABP, PAP, CO, CI - Last Documented Arterial Blood Pressure 123/53 - Labs CBC & Chem 7: 12/17/17 04:00 12/17/17 04:00 Labs: Abnormal Lab Results - Last 24 Hours (Table) 12/16/17 12/16/17 12/16/17 Range/Units 11:49 16:42 20:08 MCHC (31.0-37.0) g/dL Lymphocytes # (1.0-4.8) k/uL ABG pH (7.35-7.45) ABG pCO2 (35-45) mmHg ABG pO2 (83-108) mmHg ABG HCO3 (21-25) mmol/L ABG Total CO2 (19-24) mmol/L ABG O2 Saturation (94-97) % Carbon Dioxide (22-30) mmol/L BUN (7-17) mg/dL Creatinine (0.52-1.04) mg/dL Glucose (74-99) mg/dL POC Glucose (mg/dL) 133 H 133 H 146 H (75-99) mg/dL Calcium (8.4-10.2) mg/dL AST (14-36) U/L Total Protein (6.3-8.2) g/dL Albumin (3.5-5.0) g/dL 12/16/17 12/17/17 12/17/17 Range/Units 23:46 04:00 04:00 MCHC 30.0 L (31.0-37.0) g/dL Lymphocytes # 0.7 L (1.0-4.8) k/uL ABG pH (7.35-7.45) ABG pCO2 (35-45) mmHg ABG pO2 (83-108) mmHg ABG HCO3 (21-25) mmol/L ABG Total CO2 (19-24) mmol/L ABG O2 Saturation (94-97) % Carbon Dioxide 34 H (22-30) mmol/L BUN 20 H (7-17) mg/dL Creatinine 0.44 L (0.52-1.04) mg/dL Glucose 142 H (74-99) mg/dL POC Glucose (mg/dL) 158 H (75-99) mg/dL Calcium 7.8 L (8.4-10.2) mg/dL AST 8 L (14-36) U/L Total Protein 4.5 L (6.3-8.2) g/dL Albumin 2.0 L (3.5-5.0) g/dL 12/17/17 12/17/17 12/17/17 Range/Units 04:12 08:18 08:28 MCHC (31.0-37.0) g/dL Lymphocytes # (1.0-4.8) k/uL ABG pH 7.47 H (7.35-7.45) ABG pCO2 47 H (35-45) mmHg ABG pO2 126 H (83-108) mmHg ABG HCO3 34 H (21-25) mmol/L ABG Total CO2 36 H (19-24) mmol/L ABG O2 Saturation 99.5 H (94-97) % Carbon Dioxide (22-30) mmol/L BUN (7-17) mg/dL Creatinine (0.52-1.04) mg/dL Glucose (74-99) mg/dL POC Glucose (mg/dL) 132 H 127 H (75-99) mg/dL Calcium (8.4-10.2) mg/dL AST (14-36) U/L Total Protein (6.3-8.2) g/dL Albumin (3.5-5.0) g/dL Microbiology - Last 24 Hours (Table) 12/14/17 21:40 Gram Stain - Final Sputum Sputum Culture - Final Ernestina albicans 12/16/17 11:25 Gram Stain - Preliminary Bronchoalviolar Lavage - Left Bronchial Washings Culture - Preliminary 12/16/17 11:25 Fungal Culture - Preliminary Bronchoalviolar Lavage - Left 12/16/17 11:25 Acid Fast Bacilli Culture - Preliminary Bronchoalviolar Lavage - Left 12/14/17 14:03 Blood Culture - Preliminary Blood No Growth after 48 hours Assessment and Plan Plan: Assessment: #1. Hypovolemic hyponatremia improved with normal saline. Now appears euvolemic. Also component of tea and toast diet as a BUN is noted to be only 4 and urine osmolality 267 on admission. TSH and cortisol levels normal. Sodium level 143 today. #2. Pyuria. Urine culture negative so far. #3. Benign hypertension. Blood pressures were on the lower side due to sedation - now off levofed. #4. Diastolic CHF with moderate pulmonary hypertension. #5. Acute hypercapnic respiratory failure. Plan: I will decreased rate of normal saline to 50 mL an hour. Maintain tube feeds. Continue to monitor renal function and urine output. Wean FiO2. Avoid nephrotoxic agents and hypotensive episodes. May repeat Lasix 20 mg IV once if becomes oliguric.
[2017-12-17 12:12] LABS: Glucose,Whole Blood 121 mg/dL (75-99)
--- NOTE | 2017-12-17 18:04 | PN ---
PROGRESS NOTE DATE OF SERVICE: 12/17/2017 This 77-year-old woman who was admitted with change in mental status also had breathing difficulties and acute respiratory failure; extubated today. Patient also has CHF as well as hypoxic hypercarbic respiratory failure and possible pneumonia. Patient is much more alert but confused, monitored closely in ICU. Past medical history reviewed. Review of systems could not be taken because of the change in mental status. Current medications are reviewed and include: 1. DuoNeb q.i.d. and p.r.n. 2. Aspirin 81 mg p.o. daily. 3. Peridex 15 mL b.i.d. 4. Lovenox 40 mg subcutaneously daily. 5. KCl protocol. 6. Nitrostat 0.4 sublingually p.r.n. 7. Protonix 40 mg b.i.d. 8. Zosyn 3.375 IV q.8. On exam, patient is alert and oriented x3. Pulse 73, blood pressure 147/62, respiration 13, temperature 97.8, pulse ox 98% on 2 L. HEENT: Conjunctivae normal. Oral mucosa moist. NECK: No jugular venous distention. No carotid bruit. No lymph node enlargement. CARDIOVASCULAR SYSTEM: S1, S2 muffled. No S3. No S4. RESPIRATORY SYSTEM: Breath sounds diminished at the bases. Bilateral scattered rhonchi, expiratory wheezing and crackles. ABDOMEN: Soft, nontender. No mass palpable. LEGS: No edema. No swelling. NERVOUS SYSTEM: Higher functions as mentioned earlier. Moves all 4 limbs. No focal motor or sensory deficit. LYMPHATICS: No lymph node palpable in neck, axillae or groin. SKIN: No ulcer, rash, bleeding. LABS: CBC within normal limits. Creatinine 0.44. Albumin is 2. ASSESSMENT: 1. Change in mental status, acute metabolic encephalopathy, possibly secondary to severe hyponatremia, possibly hypovolemic hyponatremia. Rule out SIADH, present on admission. 2. Congestive heart failure, acute exacerbation, with acute on chronic systolic dysfunction, ejection fraction 30% to 35%. 3. Acute hypoxic hypercarbic respiratory failure, multifactorial, status post mechanical ventilation. 4. Hypoglycemia, multifactorial. 5. Atrial fibrillation with fast ventricular rate. 6. Troponin 0.17, indeterminate. 7. Bibasilar pneumonia, possibly Gram-negative. 8. History of recent urinary tract infection. 9. Moderate aortic regurgitation. 10.Severe tricuspid regurgitation. 11.Pulmonary hypertension. 12.History of degenerative joint disease. 13.History of hypertension. 14.History of left-sided pleural effusion. 15.Chronic obstructive pulmonary disease. 16.History of nicotine dependence. 17.FULL CODE. RECOMMENDATIONS AND DISCUSSION: In this 77-year-old woman who presented with multiple complex medical issues, we will monitor the patient closely, continue the current medications, continue with symptomatic treatment. Otherwise, at this time I would recommend continuing with empiric antibiotics, bronchodilators. Monitor fluid/electrolyte balance closely. Repeat labs. DVT prophylaxis. Dr. Sin is following the patient closely. Prognosis is guarded because of the multiple complex medical issues. Further recommendations to follow. MMODL / IJN: [id number] / [email or web address]
[2017-12-17 20:59] LABS: Glucose,Whole Blood 113 mg/dL (75-99)
--- NOTE | 2017-12-17 22:20 | P.PN ---
Subjective Progress Note Date: 12/17/17 Principal diagnosis: Weakness 77-year-old female who is cared for by her family in a family living situation apparently became unresponsive and was given some form of CPR by one of the bystanders. EMS was called and upon their arrival the patient had easily palpable pulses in was breathing spontaneously. She was brought to the emergency center where she was found evidence of significant altered status with sodium of 114. It is related over the last year the patient has just declined to the point tenderness she's no longer walking and they're trying to care for her while she is generally bedbound. The patient has obvious dementia and is not able to relate to any specific history. She is quite unaware where she is at, and does not understand my role as a physician. She is unable to assist in turning to have her ulcers evaluated. She is completely unaware of fecal soiling On 12/12/2017 the patient has little change of her status. The staff have put her in an upright position to have a meal and she appears to have great difficulty understanding what she is also due with her food tray. With direction she eventually is able to take a bite of her mash potato 12/14/2017 patient has developed respiratory failure and is now intubated sedated and mechanically ventilated. She developed significant hypercarbic respiratory failure with a CO2 of greater than 100. 12/15/2017 patient remains intubated sedated and mechanically ventilated but nursing staff relates when sedation is lightened she does follow commands such as squeezing hand. The patient is very comfortable and has had improvement of her blood gas with the current ventilation support. 12/16/2017 patient has had some difficulties today and that likely has mucus plugging with poor aeration to the left chest. We'll undergo bronchoscopy today and potential extubation after bronchoscopy if she has further improvement. She is without fever or chill and hemodynamically is stable no longer on vasopressor therapy. 12/17/2017 patient continues to have improvement. After bronchoscopy she's had improving lung function is now been extubated and is tolerating extubation well. Is on 2 L of nasal cannula and feels considerably better. Looking forward to ingesting some food and fluids she is still a poor historian per relates that she is more comfortable. Objective - Vital Signs Vital signs: Vital Signs Temp 97.7 F 12/17/17 20:00 Pulse 72 12/17/17 20:00 Resp 20 12/17/17 20:00 BP 103/59 12/17/17 20:00 Pulse Ox 98 12/17/17 20:00 Intake & Output 12/17/17 12/17/17 12/18/17 06:59 18:59 06:59 Intake Total 1829.1 2212.091 249 Output Total 990 600 200 Balance 839.1 1612.091 49 Weight 57.2 kg 58.6 kg Intake: IV 996 1096 249 0.9 at 10 120 120 30 0.9 for pressure 36 36 9 Dextrose 5%-0.9% NaCl 1, 840 840 210 000 ml @ 70 mls/hr IV . [id number] EDUIN Rx#:[id number] Piperacillin-Tazobactam 3 100 .375 gm In Dextrose/Water 1 50ml.bag @ 12.5 mls/hr IVPB Q8HR EDUIN Rx#: [id number] Intake, IV Titration 73.1 76.091 Amount Propofol 1,000 mg In 73.1 76.091 Empty Bag 1 bag @ Titrate IV .Q0M EDUIN Rx#: [id number] Oral 840 Tube Feeding 670 200 Other 90 Output: Urine 990 600 200 Other: Voiding Method Indwelling Catheter Indwelling Catheter ABP, PAP, CO, CI - Last Documented Arterial Blood Pressure 129/59 - Exam 77-year-old female who has now been extubated. And is comfortable. Off of vasopressor therapy HEENT: Anicteric conjunctiva are pink and moist nasal mucosa grossly intact without significant lesions, there is no thrush. Edentulous Neck: The neck is supple without significant lymphadenopathy or thyromegaly. Lungs: Symmetrical air entry is noted however expiratory wheezes are scattered but no donovan bronchial sounds Heart: Irregular with an audible S1 and S2 without S4 no distinct murmur click or rub is noted Abdomen: Positive bowel sounds soft and nontender without palpable masses or organomegaly. There was no guarding or rebound. Extremities: Upper extremity has a IV site that is intact. No lesions in the upper extremities are noted. Lower extremities have evidence of is noted some early contractures. Is evidence of distinct wasting of the musculature of the upper and lower extremities. Please see the nursing photography for the pressure ulcerations noted to the coccyx as well as to the left and right trochanteric areas. Neuro: Extubated no longer sedated able to follow some simple commands - Labs CBC & Chem 7: 12/17/17 04:00 12/17/17 04:00 Labs: Abnormal Lab Results - Last 24 Hours (Table) 12/16/17 12/17/17 12/17/17 Range/Units 23:46 04:00 04:00 MCHC 30.0 L (31.0-37.0) g/dL Lymphocytes # 0.7 L (1.0-4.8) k/uL ABG pH (7.35-7.45) ABG pCO2 (35-45) mmHg ABG pO2 (83-108) mmHg ABG HCO3 (21-25) mmol/L ABG Total CO2 (19-24) mmol/L ABG O2 Saturation (94-97) % Carbon Dioxide 34 H (22-30) mmol/L BUN 20 H (7-17) mg/dL Creatinine 0.44 L (0.52-1.04) mg/dL Glucose 142 H (74-99) mg/dL POC Glucose (mg/dL) 158 H (75-99) mg/dL Calcium 7.8 L (8.4-10.2) mg/dL AST 8 L (14-36) U/L Total Protein 4.5 L (6.3-8.2) g/dL Albumin 2.0 L (3.5-5.0) g/dL 12/17/17 12/17/17 12/17/17 Range/Units 04:12 08:18 08:28 MCHC (31.0-37.0) g/dL Lymphocytes # (1.0-4.8) k/uL ABG pH 7.47 H (7.35-7.45) ABG pCO2 47 H (35-45) mmHg ABG pO2 126 H (83-108) mmHg ABG HCO3 34 H (21-25) mmol/L ABG Total CO2 36 H (19-24) mmol/L ABG O2 Saturation 99.5 H (94-97) % Carbon Dioxide (22-30) mmol/L BUN (7-17) mg/dL Creatinine (0.52-1.04) mg/dL Glucose (74-99) mg/dL POC Glucose (mg/dL) 132 H 127 H (75-99) mg/dL Calcium (8.4-10.2) mg/dL AST (14-36) U/L Total Protein (6.3-8.2) g/dL Albumin (3.5-5.0) g/dL 12/17/17 12/17/17 Range/Units 12:08 20:55 MCHC (31.0-37.0) g/dL Lymphocytes # (1.0-4.8) k/uL ABG pH (7.35-7.45) ABG pCO2 (35-45) mmHg ABG pO2 (83-108) mmHg ABG HCO3 (21-25) mmol/L ABG Total CO2 (19-24) mmol/L ABG O2 Saturation (94-97) % Carbon Dioxide (22-30) mmol/L BUN (7-17) mg/dL Creatinine (0.52-1.04) mg/dL Glucose (74-99) mg/dL POC Glucose (mg/dL) 121 H 113 H (75-99) mg/dL Calcium (8.4-10.2) mg/dL AST (14-36) U/L Total Protein (6.3-8.2) g/dL Albumin (3.5-5.0) g/dL Microbiology - Last 24 Hours (Table) 12/16/17 11:25 Acid Fast Bacilli Smear - Final Bronchoalviolar Lavage - Left Acid Fast Bacilli Culture - Preliminary 12/14/17 14:03 Blood Culture - Preliminary Blood No Growth after 72 hours 12/14/17 21:40 Gram Stain - Final Sputum Sputum Culture - Final Ernestina albicans 12/16/17 11:25 Gram Stain - Preliminary Bronchoalviolar Lavage - Left Bronchial Washings Culture - Preliminary Laboratory Results WBC 7.9 k/uL (3.8-10.6) 12/17/17 04:00 RBC 4.48 m/uL (3.80-5.40) 12/17/17 04:00 Hgb 12.3 gm/dL (11.4-16.0) 12/17/17 04:00 Hct 41.1 % (34.0-46.0) 12/17/17 04:00 MCV 91.8 fL (80.0-100.0) 12/17/17 04:00 MCH 27.6 pg (25.0-35.0) 12/17/17 04:00 MCHC 30.0 g/dL (31.0-37.0) L 12/17/17 04:00 RDW 14.1 % (11.5-15.5) 12/17/17 04:00 Plt Count 173 k/uL (150-450) 12/17/17 04:00 Neutrophils % 85 % 12/17/17 04:00 Lymphocytes % 8 % 12/17/17 04:00 Monocytes % 5 % 12/17/17 04:00 Eosinophils % 0 % 12/17/17 04:00 Basophils % 0 % 12/17/17 04:00 Neutrophils # 6.7 k/uL (1.3-7.7) 12/17/17 04:00 Lymphocytes # 0.7 k/uL (1.0-4.8) L 12/17/17 04:00 Monocytes # 0.4 k/uL (0-1.0) 12/17/17 04:00 Eosinophils # 0.0 k/uL (0-0.7) 12/17/17 04:00 Basophils # 0.0 k/uL (0-0.2) 12/17/17 04:00 Hypochromasia Slight 12/16/17 04:05 PT 12.2 sec (9.0-12.0) H 12/09/17 06:10 INR 1.3 (<1.2) H 12/09/17 06:10 APTT 28.9 sec (22.0-30.0) 12/09/17 06:10 D-Dimer 20.61 mg/L FEU (<0.60) H 12/09/17 06:10 Sample Site [facility] 12/17/17 08:28 ABG pH 7.47 (7.35-7.45) H 12/17/17 08:28 ABG pCO2 47 mmHg (35-45) H 12/17/17 08:28 ABG pO2 126 mmHg (83-108) H 12/17/17 08:28 ABG HCO3 34 mmol/L (21-25) H 12/17/17 08:28 ABG Total CO2 36 mmol/L (19-24) H 12/17/17 08:28 ABG O2 Saturation 99.5 % (94-97) H 12/17/17 08:28 ABG Base Excess 10.7 mmol/L 12/17/17 08:28 Rigoberto Test Yes 12/17/17 08:28 FiO2 40 % 12/17/17 08:28 Sodium 143 mmol/L (137-145) 12/17/17 04:00 Potassium 3.7 mmol/L (3.5-5.1) 12/17/17 04:00 Chloride 107 mmol/L (98-107) 12/17/17 04:00 Carbon Dioxide 34 mmol/L (22-30) H 12/17/17 04:00 Anion Gap 2 mmol/L 12/17/17 04:00 BUN 20 mg/dL (7-17) H 12/17/17 04:00 Creatinine 0.44 mg/dL (0.52-1.04) L 12/17/17 04:00 Est GFR (MDRD) Af Amer >60 (>60 ml/min/1.73 sqM) 12/17/17 04:00 Est GFR (MDRD) Non-Af >60 (>60 ml/min/1.73 sqM) 12/17/17 04:00 Glucose 142 mg/dL (74-99) H 12/17/17 04:00 POC Glucose (mg/dL) 113 mg/dL (75-99) H 12/17/17 20:55 POC Glu Fur Blender JACE Dary Mccormick 12/17/17 20:[address] Glu mg/dL 100 12/12/17 10:04 Hemoglobin A1c 5.1 % (4.0-6.0) 12/12/17 10:04 Osmolality 237 mosm/kg (280-301) L* 12/09/17 06:50 Plasma Lactic Acid Jase 1.5 mmol/L (0.7-2.0) 12/14/17 14:25 Uric Acid 2.2 mg/dL (3.7-7.4) L 12/10/17 06:50 Calcium 7.8 mg/dL (8.4-10.2) L 12/17/17 04:00 Ionized Calcium Tania 5.1 mg/dL (4.5-5.3) 12/14/17 23:00 Phosphorus 3.1 mg/dL (2.5-4.5) 12/16/17 04:05 Magnesium 2.1 mg/dL (1.6-2.3) 12/17/17 04:00 Total Bilirubin 0.2 mg/dL (0.2-1.3) 12/17/17 04:00 AST 8 U/L (14-36) L 12/17/17 04:00 ALT 20 U/L (9-52) 12/17/17 04:00 Alkaline Phosphatase 70 U/L (38-126) 12/17/17 04:00 Total Creatine Kinase 128 U/L (30-135) 12/09/17 20:28 CK-MB (CK-2) 6.5 ng/mL (0.0-2.4) H* 12/09/17 20:28 CK-MB (CK-2) Rel Index 5.1 12/09/17 20:28 Troponin I 0.251 ng/mL (0.000-0.034) H* 12/10/17 12:07 NT-Pro-B Natriuret Pep 2590 pg/mL 12/09/17 06:50 Total Protein 4.5 g/dL (6.3-8.2) L 12/17/17 04:00 Albumin 2.0 g/dL (3.5-5.0) L 12/17/17 04:00 Triglycerides 43 mg/dL (<150) 12/10/17 02:32 Cholesterol 79 mg/dL (<200) 12/10/17 02:32 LDL Cholesterol, Calc 25 mg/dL (0-99) 12/10/17 02:32 HDL Cholesterol 45 mg/dL (40-60) 12/10/17 02:32 TSH 4.130 mIU/L (0.465-4.680) 12/15/17 04:30 Cortisol 114 ug/dL 12/10/17 12:07 Urine Color Yellow 12/09/17 08:42 Urine Appearance Clear (Clear) 12/09/17 08:42 Urine pH 6.5 (5.0-8.0) 12/09/17 08:42 Ur Specific [place] 1.006 (1.001-1.035) 12/09/17 08:42 Urine Protein Trace (Negative) H 12/09/17 08:42 Urine Glucose (UA) 2+ (Negative) H 12/09/17 08:42 Urine Ketones Negative (Negative) 12/09/17 08:42 Urine Blood Trace (Negative) H 12/09/17 08:42 Urine Nitrite Negative (Negative) 12/09/17 08:42 Urine Bilirubin Negative (Negative) 12/09/17 08:42 Urine Urobilinogen 2.0 mg/dL (<2.0) 12/09/17 08:42 Ur Leukocyte Esterase Moderate (Negative) H 12/09/17 08:42 Urine RBC 11 /hpf (0-5) H 12/09/17 08:42 Urine WBC 11 /hpf (0-5) H 12/09/17 08:42 Urine Bacteria Rare /hpf (None) H 12/09/17 08:42 Urine Osmolality 267 mosm/kg (50-1400) 12/09/17 08:42 Ur Random Sodium 29 mmol/L (30-90) L 12/10/17 08:30 Vancomycin Trough 9.2 ug/mL 12/12/17 01:19 Influenza Type A RNA Not Detected (Not Detectd) 12/09/17 22:00 Influenza Type B (PCR) Not Detected (Not Detectd) 12/09/17 22:00 Microbiology 12/16/17 11:25 Bronchoalviolar Lavage - Left Acid Fast Bacilli Smear - Final 12/16/17 11:25 Bronchoalviolar Lavage - Left Acid Fast Bacilli Culture - Preliminary 12/14/17 14:03 Blood Blood Culture - Preliminary No Growth after 72 hours 12/14/17 21:40 Sputum Gram Stain - Final 12/14/17 21:40 Sputum Sputum Culture - Final Ernestina albicans 12/16/17 11:25 Bronchoalviolar Lavage - Left Gram Stain - Preliminary 12/16/17 11:25 Bronchoalviolar Lavage - Left Bronchial Washings Culture - Preliminary 12/16/17 11:25 Bronchoalviolar Lavage - Left Fungal Culture - Preliminary 12/09/17 20:28 Blood Blood Culture - Final No Growth after 144 hours 12/14/17 14:00 Urine,Catheterized Urine Culture - Final 12/09/17 08:42 Urine,Catheterized Urine Culture - Final Assessment and Plan (1) Hyponatremia Current Visit: Yes Status: Acute Code(s): E87.1 - HYPO-OSMOLALITY AND HYPONATREMIA SNOMED Code(s): 68782295 (2) Pressure ulcer of coccygeal region, stage 3 Narrative/Plan: 77-year-old female is transported to hospital after she became unresponsive. The patient was found evidence of significant hyponatremia which is noted to be hypovolemic in nature. With rehydration sodium solution she is not having improvement. There was concern as urinary tract infection however urine culture is negative for blood cultures are pending. She does not have a history of MRSA but does have significant pressure ulcerations and concerns to underlying sepsis. Will continue Zosyn for now however will discontinue vancomycin. Local wound care with hydrocolloid dressings will be utilized to pressure ulcerations. The stage III pressure ulceration of the coccyx is present at admission, is due to pressure and does not appear to be grossly infected at this time. Cultures are pending. We'll monitor cultures and further alter antibiotic therapy as possible. On 12/14/2017 the patient has had a major decline of her status with respiratory failure hypercapnic in nature requiring intubation with sedation and mechanical ventilation. Her prognosis is very poor. Continue local wound care and antibiotic therapy. 12/15/2017 patient has had some improvement in that her ventilator settings have improved she is on less PEEP and FiO2. Pulmonary critical care was following and we'll work toward potential extubation the next several days. Her most recent ABG shows evidence of improvement of her markedly elevated CO2. Her leukocytosis is improving. Sputum culture is in process. Pressure ulcer is being treated and is showing some mild improvement with the current treatment. Continue to offload and will do well to have a specialty mattress when she is out of ICU. 12/16/2017 for bronchoscopy today and potential extubation if possible. Continue Zosyn at this time and monitor for any other resistant pathogens. Continue ongoing supportive care. 12/16/2017 the patient did well with her bronchoscopy and is now had extubation. She is doing well with current supportive care and is only on 2 L nasal cannula. Tolerating current antibiotic therapy well. Cultures from her bronchoscopy in process and will further help direct antibiotic therapy. Patient certainly is having a significant improvement and case management is working with her discharge plan and it does not appear that her family can care for her in the home setting. Continue local wound care to her multiple pressure ulcers. The Ernestina that is found Current Visit: Yes Status: Acute Code(s): L89.153 - PRESSURE ULCER OF SACRAL REGION, STAGE 3 SNOMED Code(s): 793480383
[2017-12-18] MEDS ORDERED: FUROSEMIDE 10 MG/ML 2 ML VIAL IV ONE (00:12)
[2017-12-18] MEDS: PIPERACILLIN-TAZOBACTAM 3.375 GM in DEXTROSE/WATER 1 50ML.BAG IVPB SCH ×3 (00:14→15:33)
[2017-12-18 02:36] LABS: Glucose,Whole Blood 88 mg/dL (75-99)
[2017-12-18 04:30] LABS: Basophils % (A) 0 %; Eosinophils # (A) 0.1 k/uL (0-0.7); Eosinophils % (A) 2 %; HCT 41.8 % (34.0-46.0); HGB 12.6 gm/dL (11.4-16.0); Hypochromasia Slight; Lymphocytes # (A) 1.1 k/uL (1.0-4.8); Lymphocytes % (A) 14 %; MCH 27.9 pg (25.0-35.0); MCHC 30.1 g/dL (31.0-37.0); MCV 92.4 fL (80.0-100.0); Mean Platelet Volume 7.4; Monocytes # (A) 0.4 k/uL (0-1.0); Monocytes % (A) 5 %; Neutrophils # (A) 6.1 k/uL (1.3-7.7); Neutrophils % (A) 77 %; Platelet Count 166 k/uL (150-450); RBC 4.52 m/uL (3.80-5.40); RDW 14.3 % (11.5-15.5)
[2017-12-18 04:33] LABS: ALT 23 U/L (9-52); AST 14 U/L (14-36); Alkaline Phosphatase 65 U/L (38-126); Anion Gap 3 mmol/L; Blood Urea Nitrogen 21 mg/dL (7-17); Calcium 7.8 mg/dL (8.4-10.2); Carbon Dioxide 37 mmol/L (22-30); Chloride 103 mmol/L (98-107); Glucose 89 mg/dL (74-99); Potassium 3.4 mmol/L (3.5-5.1); Sodium 143 mmol/L (137-145); Total Bilirubin 0.4 mg/dL (0.2-1.3); Total Protein 4.4 g/dL (6.3-8.2)
[2017-12-18] MEDS: DEXTROSE 5%-0.9% NACL 1,000 ML IV SCH ×2 (06:44→19:58)
[2017-12-18] MEDS: POTASSIUM BICARBONATE/CIT AC 20 MEQ TABLET.EFF NG-TUBE SCH ×2 (06:44→09:43)
[2017-12-18] MEDS: IPRATROPIUM-ALBUTEROL 3 ML NEB INHALATION SCH ×4 (07:06→19:34)
--- NOTE | 2017-12-18 08:34 | XR ---
EXAMINATION TYPE: XR chest 1V portable DATE OF EXAM: 12/18/2017 COMPARISON: 12/17/2018 HISTORY: Extubation. Shortness of breath. TECHNIQUE: Single frontal view of the chest is obtained. FINDINGS: Endotracheal tube and enteric tube have been removed in the interim. There is background p ulmonary hyperinflation. Retrocardiac airspace disease and blunting of the costophrenic angles as wel l as linear right basilar airspace disease are unchanged. Right-sided central venous catheter termina ade in the deep right atrium. Osseous structures are generally demineralized. IMPRESSION: 1. Interval removal of the enteric and endotracheal tubes. 2. Persistent retrocardiac opacity that may represent atelectasis or pneumonia, trace pleural effusio ns, and right basilar atelectasis.
[2017-12-18] MEDS: ENOXAPARIN 40 MG/0.4 ML SYRINGE SQ SCH (09:43)
[2017-12-18] MEDS: ASPIRIN 81 MG PO SCH (09:43)
[2017-12-18] MEDS: PANTOPRAZOLE 40 MG/10 ML VIAL IVP SCH ×2 (09:44→19:58)
--- NOTE | 2017-12-18 09:48 | P.PN ---
Subjective Progress Note Date: 12/18/17 Principal diagnosis: Respiratory failure secondary to elevated troponin and hyponatremia Progress note dated 12/17/2017 This is a 77-year-old female with acute hypoxemic and hypercapnic respiratory failure requiring intubation and mechanical ventilation, secondary to COPD respiratory muscle weakness general medical debility and possible left lower lobe pneumonia. She was initially admitted to the hospital on December 09. On December 14, an 18 was called because of mental status changes. She was transferred to the ICU on that day and placed on BiPAP. For progressive respiratory failure, she was intubated and placed on norepinephrine for blood pressure control. She also had significant issues with hypoglycemia. Yesterday , she underwent bronchoscopy because of possible left lower lobe collapse. The patient's on dextrose IV was saline at 70 mL an hour, propofol at 30 mics per kilogram per minute and norepinephrine is currently off. Her mechanical ventilation settings include the assist control mode rate of 20, tidal volume of 350, FiO2 40%, and a PEEP of 5. Her blood gases show a PaO2 of 126 a PaCO2 47 and a pH of 7.47. This is consistent with metabolic alkalosis and hyperoxemia. Microbiology is only positive for yeast. Meds labs and x-rays are all reviewed. In addition, she has a history of chronic medical debility, hypertension, CHF, multiple decubitus ulcers, urinary tract infection, left lower lobe consolidation, status post recent bronchoscopy. Progress note dated 12/11/2016 77-year-old female with history of acute hypoxemic and hypercapnic respiratory failure, requiring intubation and mechanical ventilation secondary to COPD respiratory muscle weakness in general medical debility. She may have also had a left lower lobe pneumonia. There is persistent opacity in the retrocardiac region. The patient was admitted to the hospital on December 09. On the , a rapid response team was called because of mental status changes. She was transferred to the ICU on that day and placed on BiPAP because of progressive respiratory failure was intubated. Initially she required norepinephrine for blood pressure control. She also had significant issue with hypoglycemia. On Sunday, my partner did a bronchoscopy for left lower lobe collapse. Yesterday, her sedation was held she had a spontaneous breathing trial and she was extubated. She currently remains extubated and seemed be doing relatively well. She has history of general medical debility, hypertension, heart failure , multiple decubitus ulcers, urinary tract infection, left lower lobe consolidation and status post recent bronchoscopy. Objective - Vital Signs Vital signs: Vital Signs Temp 97.4 F L 12/18/17 04:00 Pulse 69 12/18/17 09:00 Resp 14 12/18/17 09:00 BP 121/74 12/18/17 02:00 Pulse Ox 99 12/18/17 09:00 Intake & Output 12/17/17 12/18/17 12/18/17 18:59 06:59 18:59 Intake Total 2212.091 1476 249 Output Total 600 1145 220 Balance 1612.091 331 29 Weight 58.6 kg 58.9 kg Intake: IV 1096 996 249 0.9 at 10 120 120 30 0.9 for pressure 36 36 9 Dextrose 5%-0.9% NaCl 1, 840 840 210 000 ml @ 70 mls/hr IV . [id number] EDUIN Rx#:[id number] Piperacillin-Tazobactam 3 100 .375 gm In Dextrose/Water 1 50ml.bag @ 12.5 mls/hr IVPB Q8HR EDUIN Rx#: [id number] Intake, IV Titration 76.091 Amount Propofol 1,000 mg In 76.091 Empty Bag 1 bag @ Titrate IV .Q0M EDUIN Rx#: [id number] Oral 840 480 Tube Feeding 200 Output: Urine 600 1145 220 Other: Voiding Method Indwelling Catheter Indwelling Catheter Indwelling Catheter ABP, PAP, CO, CI - Last Documented Arterial Blood Pressure 140/61 - Exam No acute distress, The patient's extubated and on nasal O2 at 2 L.. HEENT examination is grossly unremarkable. Mucous membranes are moist. No oral lesions. Neck supple. Full range of motion. No adenopathy thyromegaly or neck vein distention. Cardiovascular examination reveals regular rhythm rate. S1-S2 normal. No S3 or S4. No discernible murmur noted. Lungs reveal coarse expiratory rhonchi. Breath sounds are diminished. There are diffuse bibasilar crackles and a few scattered rhonchi. Abdomen soft bowel sounds are heard. No masses or tenderness. Extremities are intact. No cyanosis clubbing or edema. Skin is without rash or lesion. Neurologic examination is brief but nonfocal. - Labs CBC & Chem 7: 12/18/17 04:04 12/18/17 04:04 Labs: Abnormal Lab Results - Last 24 Hours (Table) 12/17/17 12/17/17 12/18/17 Range/Units 12:08 20:55 04:04 MCHC (31.0-37.0) g/dL Potassium 3.4 L (3.5-5.1) mmol/L Carbon Dioxide 37 H (22-30) mmol/L BUN 21 H (7-17) mg/dL Creatinine 0.40 L (0.52-1.04) mg/dL POC Glucose (mg/dL) 121 H 113 H (75-99) mg/dL Calcium 7.8 L (8.4-10.2) mg/dL Total Protein 4.4 L (6.3-8.2) g/dL Albumin 2.0 L (3.5-5.0) g/dL 12/18/17 Range/Units 04:04 MCHC 30.1 L (31.0-37.0) g/dL Potassium (3.5-5.1) mmol/L Carbon Dioxide (22-30) mmol/L BUN (7-17) mg/dL Creatinine (0.52-1.04) mg/dL POC Glucose (mg/dL) (75-99) mg/dL Calcium (8.4-10.2) mg/dL Total Protein (6.3-8.2) g/dL Albumin (3.5-5.0) g/dL Microbiology - Last 24 Hours (Table) 12/16/17 11:25 Gram Stain - Final Bronchoalviolar Lavage - Left Bronchial Washings Culture - Final Ernestina albicans 12/16/17 11:25 Acid Fast Bacilli Smear - Final Bronchoalviolar Lavage - Left Acid Fast Bacilli Culture - Preliminary 12/14/17 14:03 Blood Culture - Preliminary Blood No Growth after 72 hours 12/14/17 21:40 Gram Stain - Final Sputum Sputum Culture - Final Ernestina albicans Assessment and Plan Assessment: Assessment Acute hypoxemic and hypercapnic respiratory failure, requiring intubation and mechanical ventilation, with extubation on 12/17/2017 Chronic medical debility History of COPD History of hypertension History of CHF Hypotension, resolved Multiple decubitus ulcers Possible UTI. Left lower lobe consolidation, status post bronchoscopy with BAL on 12/16 Plan: Plan dated 12/17/2017 We will do a daily eruption of sedation. FiO2 was dropped from 40 to 30%. Additional recommendations and suggestions are forthcoming. Prognosis is guarded. Continue to follow closely. Labs x-rays a medications are reviewed. Prognosis is guarded. We'll place the patient on CPAP and PSV and give the patient a spontaneous breathing trial. I'm not sure that she is ready for extubation. Critical care time 32 minutes Plan dated 12/18/2017 The patient was extubated on 12/17/2017. She remains on O2 at 2 L by nasal cannula. The patient's getting an IV of dextrose and saline at 70 mL an hour and a saline IV at 10 mL an hour. She seems be relatively stable. Labs x-rays a medications are reviewed. Chest x-ray does show a retrocardiac density silhouetting the left hemidiaphragm. Additional recommendations and suggestions are forthcoming. Prognosis is guarded. Meds labs and x-rays were all be reviewed. Critical care time 34 minutes Time with Patient: Greater than 30
[2017-12-18 10:09] LABS: Glucose,Whole Blood 70 mg/dL (75-99)
--- NOTE | 2017-12-18 10:48 | P.PN ---
Subjective Patient is seen in follow-up for hyponatremia. Sodium level has come up gradually and is 143 today. Patient was noted to be in respiratory distress on December 14 and was subsequently transferred to the intensive care unit. She is now extubated. She is currently off levofed. She is maintained on normal saline at 70 mL an hour. She did receive 1 dose of Lasix 20 mg IV overnight due to decreased urine output. She is currently having a muffin. She is awake and alert. Denies chest pain or shortness of breath. Vital signs are stable. General: The patient appeared well nourished and normally developed. HEENT: Head exam is unremarkable. Neck is without jugular venous distension. LUNGS: Lungs are clear to auscultation and percussion. Breath sounds decreased. HEART: Rate and Rhythm are regular. First and second heart sounds normal. No murmurs, rubs or gallops. ABDOMEN: Abdominal exam reveals normal bowel sounds. Non-tender and non- distended. No evidence of peritonitis. EXTREMITITES: No clubbing, cyanosis, or edema. Objective - Vital Signs Vital signs: Vital Signs Temp 97.9 F 12/18/17 08:00 Pulse 69 12/18/17 10:00 Resp 14 12/18/17 10:00 BP 121/74 12/18/17 02:00 Pulse Ox 99 12/18/17 10:00 Intake & Output 12/17/17 12/18/17 12/18/17 18:59 06:59 18:59 Intake Total 2212.091 1476 412 Output Total 600 1145 275 Balance 1612.091 331 137 Weight 58.6 kg 58.9 kg Intake: IV 1096 996 382 0.9 at 10 120 120 40 0.9 for pressure 36 36 12 Dextrose 5%-0.9% NaCl 1, 840 840 280 000 ml @ 70 mls/hr IV . [id number] EDUIN Rx#:[id number] Piperacillin-Tazobactam 3 100 50 .375 gm In Dextrose/Water 1 50ml.bag @ 12.5 mls/hr IVPB Q8HR EDUIN Rx#: [id number] Intake, IV Titration 76.091 Amount Propofol 1,000 mg In 76.091 Empty Bag 1 bag @ Titrate IV .Q0M EDUIN Rx#: [id number] Oral 840 480 30 Tube Feeding 200 Output: Urine 600 1145 275 Other: Voiding Method Indwelling Catheter Indwelling Catheter Indwelling Catheter ABP, PAP, CO, CI - Last Documented Arterial Blood Pressure 138/59 - Labs CBC & Chem 7: 12/18/17 04:04 12/18/17 04:04 Labs: Abnormal Lab Results - Last 24 Hours (Table) 12/17/17 12/17/17 12/18/17 Range/Units 12:08 20:55 04:04 MCHC (31.0-37.0) g/dL Potassium 3.4 L (3.5-5.1) mmol/L Carbon Dioxide 37 H (22-30) mmol/L BUN 21 H (7-17) mg/dL Creatinine 0.40 L (0.52-1.04) mg/dL POC Glucose (mg/dL) 121 H 113 H (75-99) mg/dL Calcium 7.8 L (8.4-10.2) mg/dL Total Protein 4.4 L (6.3-8.2) g/dL Albumin 2.0 L (3.5-5.0) g/dL 12/18/17 12/18/17 Range/Units 04:04 10:07 MCHC 30.1 L (31.0-37.0) g/dL Potassium (3.5-5.1) mmol/L Carbon Dioxide (22-30) mmol/L BUN (7-17) mg/dL Creatinine (0.52-1.04) mg/dL POC Glucose (mg/dL) 70 L (75-99) mg/dL Calcium (8.4-10.2) mg/dL Total Protein (6.3-8.2) g/dL Albumin (3.5-5.0) g/dL Microbiology - Last 24 Hours (Table) 12/16/17 11:25 Gram Stain - Final Bronchoalviolar Lavage - Left Bronchial Washings Culture - Final Ernestina albicans 12/16/17 11:25 Acid Fast Bacilli Smear - Final Bronchoalviolar Lavage - Left Acid Fast Bacilli Culture - Preliminary 12/14/17 14:03 Blood Culture - Preliminary Blood No Growth after 72 hours 12/14/17 21:40 Gram Stain - Final Sputum Sputum Culture - Final Ernestina albicans Assessment and Plan Plan: Assessment: #1. Hypovolemic hyponatremia improved with normal saline. Now appears euvolemic. Also component of tea and toast diet as a BUN is noted to be only 4 and urine osmolality 267 on admission. TSH and cortisol levels normal. Sodium level 143 today. #2. Pyuria. Urine culture negative so far. #3. Benign hypertension. Controlled. #4. Diastolic CHF with moderate pulmonary hypertension. #5. Acute hypercapnic respiratory failure. #6. Hypokalemia secondary to diuresis. Magnesium.. Plan: Continue D5 normal saline at 70 mL an hour. Encouraged oral intake. Continue to monitor renal function and urine output. Avoid nephrotoxic agents and hypotensive episodes. May repeat Lasix 20 mg IV once if becomes oliguric. Replace potassium. 40 mEq today.
[2017-12-18 11:43] LABS: Glucose,Whole Blood 104 mg/dL (75-99)
--- NOTE | 2017-12-18 12:51 | CDI ---
Last Revision, September 2017 Documentation Clarification Form Date: 12/18/2017 12:37:00 PM From: Marlene Wyatt RN, CCDS Admit Date: 12/09/2017 7:25:00 AM Patient Name: Anika Mcclellan Visit Number: [id number] ATTENTION: The Clinical Documentation Specialists (CDI) and [facility] Coding Staff appreciate your assistance in clarifying documentation. Please respond to the clarification below the line at the bottom and electronically sign. The CDI & [facility] Coding staff will review the response and follow-up if needed. Please note: Queries are made part of the Legal Health Record. If you have any questions, please contact the author of this message via ITS. Dr. Trotter Atrial fibrillation with fast ventricular rate is documented is documented in your progress notes starting 12/14 History/Risk Factors: CHF, COPD, HTN, found unresponsive s/p bystander CPR at home Clinical Indicators: EKG/telemetry: pt is documented as being in sinus rhythm to sinus cristian Treatment: 12/14 Jhoan zapata Consults: cardiology consult ordered and have since signed off. In your professional opinion, can you please clarify the type of atrial fibrillation, if known? Chronic/Permanent Paroxysmal Persistent Other, please specify Unable to determine Please continue to document in your progress notes and discharge summary in order to capture severity of illness and risk of mortality. Include clinical findings that support your diagnosis. MTDD
[2017-12-18 18:22] LABS: Glucose,Whole Blood 111 mg/dL (75-99)
--- NOTE | 2017-12-18 20:14 | PN ---
PROGRESS NOTE DATE OF SERVICE: 12/18/2017 This 77-year-old woman who was admitted with change in mental status, acute metabolic encephalopathy, also SIADH. The patient also had a bout of acute respiratory failure. Patient just extubated, confused. P.o. intake appears to be poor at this time. The patient also had paroxysmal atrial fibrillation. PAST MEDICAL HISTORY: Reviewed. REVIEW OF SYSTEMS: Could not be taken, as the patient is still confused. CURRENT MEDICATIONS: Reviewed and include: 1. DuoNeb q.i.d. and p.r.n. 2. Aspirin 81 mg p.o. daily. 3. Lovenox 40 mg subcu daily. 4. Nitrostat 0.4 sublingual p.r.n. 5. Protonix 40 mg IV daily. 6. Zosyn 3.375 IV q.8h. PHYSICAL EXAM: Patient is alert, oriented x3. Pulse is 77, blood pressure 140/69, respirations 14, temperature normal, pulse ox normal. HEENT: Conjunctivae normal. Oral mucosa moist. NECK: No jugular venous distention. No carotid bruits. No lymph node enlargement. CARDIOVASCULAR: S1, S2 muffled. RESPIRATORY: Breath sounds diminished in the bases. A few scattered rhonchi and crackles. Expiratory wheezing also present. ABDOMEN: Soft, nontender. LEGS: No edema. NERVOUS SYSTEM: No focal deficits. LABS: CBC within normal limits. Sodium 143, potassium 3.4. Other labs are noted. ASSESSMENT: 1. Change in mental status, acute metabolic encephalopathy, possibly secondary to severe hyponatremia, possibly hypovolemic hyponatremia. Rule out syndrome of inappropriate diuretic hormone secretion, present on admission. 2. Congestive heart failure acute exacerbation with acute on chronic systolic dysfunction, ejection fraction 30%-35%. 3. Acute hypoxic hypercarbic respiratory failure, multifactorial, status post mechanical ventilation. 4. Paroxysmal atrial fibrillation history. 5. Hypoglycemia, multifactorial. 6. Troponin 0.17, indeterminate. 7. Bibasilar pneumonia, possibly gram-negative. 8. History of recent urinary tract infection. 9. Moderate aortic regurgitation. 10.Severe tricuspid regurgitation. 11.Pulmonary hypertension. 12.History of degenerative joint disease. 13.History of hypertension. 14.History of left-sided pleural effusion. 15.Chronic obstructive pulmonary disease. 16.History of nicotine dependence. 17.FULL CODE. RECOMMENDATIONS AND DISCUSSION: In this 77-year-old woman who presented with multiple complex medical issues, will monitor the patient closely, continue the current medical management and symptomatic treatment. At this time, I would recommend monitor closely, repeat labs. Monitor blood sugars closely. Continue with the 1 dose of diuretic. DVT prophylaxis. Otherwise, broad-spectrum IV antibiotics. Repeat labs. Guarded prognosis at this time. Discussed with multiple members of the family. Further recommendations to follow. MMODL / IJN: [id number] /
[2017-12-18 21:39] LABS: Glucose,Whole Blood 161 mg/dL (75-99)
--- NOTE | 2017-12-18 22:58 | P.PN ---
Subjective Progress Note Date: 12/18/17 Principal diagnosis: Weakness 77-year-old female who is cared for by her family in a family living situation apparently became unresponsive and was given some form of CPR by one of the bystanders. EMS was called and upon their arrival the patient had easily palpable pulses in was breathing spontaneously. She was brought to the emergency center where she was found evidence of significant altered status with sodium of 114. It is related over the last year the patient has just declined to the point tenderness she's no longer walking and they're trying to care for her while she is generally bedbound. The patient has obvious dementia and is not able to relate to any specific history. She is quite unaware where she is at, and does not understand my role as a physician. She is unable to assist in turning to have her ulcers evaluated. She is completely unaware of fecal soiling On 12/12/2017 the patient has little change of her status. The staff have put her in an upright position to have a meal and she appears to have great difficulty understanding what she is also due with her food tray. With direction she eventually is able to take a bite of her mash potato 12/14/2017 patient has developed respiratory failure and is now intubated sedated and mechanically ventilated. She developed significant hypercarbic respiratory failure with a CO2 of greater than 100. 12/15/2017 patient remains intubated sedated and mechanically ventilated but nursing staff relates when sedation is lightened she does follow commands such as squeezing hand. The patient is very comfortable and has had improvement of her blood gas with the current ventilation support. 12/16/2017 patient has had some difficulties today and that likely has mucus plugging with poor aeration to the left chest. We'll undergo bronchoscopy today and potential extubation after bronchoscopy if she has further improvement. She is without fever or chill and hemodynamically is stable no longer on vasopressor therapy. 12/17/2017 patient continues to have improvement. After bronchoscopy she's had improving lung function is now been extubated and is tolerating extubation well. Is on 2 L of nasal cannula and feels considerably better. Looking forward to ingesting some food and fluids she is still a poor historian per relates that she is more comfortable. 12/18/2017 patient has ongoing improvement. She is being moved out to the general medical floor given her improvement of her pulmonary status. Status post extubation she has maintained a good saturation and good pulmonary toileting. Although she is not eating well she is certainly doing better. Plans are being made for her to transition to rehab. Objective - Vital Signs Vital signs: Vital Signs Temp 98.0 F 12/18/17 19:56 Pulse 68 12/18/17 19:56 Resp 22 12/18/17 19:56 BP 117/63 12/18/17 19:56 Pulse Ox 98 12/18/17 19:56 Intake & Output 12/18/17 12/18/17 12/19/17 06:59 18:59 06:59 Intake Total 1476 942 Output Total 1145 475 Balance 331 467 Weight 58.9 kg 58.9 kg Intake: IV 996 912 0.9 at 10 120 100 0.9 for pressure 36 12 Dextrose 5%-0.9% NaCl 1, 840 700 000 ml @ 70 mls/hr IV . [id number] EDUIN Rx#:[id number] Piperacillin-Tazobactam 3 100 .375 gm In Dextrose/Water 1 50ml.bag @ 12.5 mls/hr IVPB Q8HR EDUIN Rx#: [id number] Oral 480 30 Output: Urine 1145 475 Other: Voiding Method Indwelling Catheter Indwelling Catheter ABP, PAP, CO, CI - Last Documented Arterial Blood Pressure 140/67 - Exam 77-year-old female remains comfortable status post her extubation no vasopressor therapy will be moved out of the ICU HEENT: Anicteric conjunctiva are pink and moist nasal mucosa grossly intact without significant lesions, there is no thrush. Edentulous Neck: The neck is supple without significant lymphadenopathy or thyromegaly. Lungs: Symmetrical air entry is noted however expiratory wheezes are scattered but no donovan bronchial sounds Heart: Irregular with an audible S1 and S2 without S4 no distinct murmur click or rub is noted Abdomen: Positive bowel sounds soft and nontender without palpable masses or organomegaly. There was no guarding or rebound. Extremities: Upper extremity has a IV site that is intact. No lesions in the upper extremities are noted. Lower extremities have evidence of is noted some early contractures. Is evidence of distinct wasting of the musculature of the upper and lower extremities. Please see the nursing photography for the pressure ulcerations noted to the coccyx as well as to the left and right trochanteric areas. Neuro: Awake alert with some ability to be interactive - Labs CBC & Chem 7: 12/18/17 04:04 12/18/17 04:04 Labs: Abnormal Lab Results - Last 24 Hours (Table) 12/18/17 12/18/17 12/18/17 Range/Units 04:04 04:04 10:07 MCHC 30.1 L (31.0-37.0) g/dL Potassium 3.4 L (3.5-5.1) mmol/L Carbon Dioxide 37 H (22-30) mmol/L BUN 21 H (7-17) mg/dL Creatinine 0.40 L (0.52-1.04) mg/dL POC Glucose (mg/dL) 70 L (75-99) mg/dL Calcium 7.8 L (8.4-10.2) mg/dL Total Protein 4.4 L (6.3-8.2) g/dL Albumin 2.0 L (3.5-5.0) g/dL 12/18/17 12/18/17 12/18/17 Range/Units 11:41 18:19 21:18 MCHC (31.0-37.0) g/dL Potassium (3.5-5.1) mmol/L Carbon Dioxide (22-30) mmol/L BUN (7-17) mg/dL Creatinine (0.52-1.04) mg/dL POC Glucose (mg/dL) 104 H 111 H 161 H (75-99) mg/dL Calcium (8.4-10.2) mg/dL Total Protein (6.3-8.2) g/dL Albumin (3.5-5.0) g/dL Microbiology - Last 24 Hours (Table) 12/14/17 14:03 Blood Culture - Preliminary Blood No Growth after 96 hours 12/16/17 11:25 Gram Stain - Final Bronchoalviolar Lavage - Left Bronchial Washings Culture - Final Ernestina albicans 12/16/17 11:25 Acid Fast Bacilli Smear - Final Bronchoalviolar Lavage - Left Acid Fast Bacilli Culture - Preliminary Laboratory Results WBC 8.0 k/uL (3.8-10.6) 12/18/17 04:04 RBC 4.52 m/uL (3.80-5.40) 12/18/17 04:04 Hgb 12.6 gm/dL (11.4-16.0) 12/18/17 04:04 Hct 41.8 % (34.0-46.0) 12/18/17 04:04 MCV 92.4 fL (80.0-100.0) 12/18/17 04:04 MCH 27.9 pg (25.0-35.0) 12/18/17 04:04 MCHC 30.1 g/dL (31.0-37.0) L 12/18/17 04:04 RDW 14.3 % (11.5-15.5) 12/18/17 04:04 Plt Count 166 k/uL (150-450) 12/18/17 04:04 Neutrophils % 77 % 12/18/17 04:04 Lymphocytes % 14 % 12/18/17 04:04 Monocytes % 5 % 12/18/17 04:04 Eosinophils % 2 % 12/18/17 04:04 Basophils % 0 % 12/18/17 04:04 Neutrophils # 6.1 k/uL (1.3-7.7) 12/18/17 04:04 Lymphocytes # 1.1 k/uL (1.0-4.8) 12/18/17 04:04 Monocytes # 0.4 k/uL (0-1.0) 12/18/17 04:04 Eosinophils # 0.1 k/uL (0-0.7) 12/18/17 04:04 Basophils # 0.0 k/uL (0-0.2) 12/18/17 04:04 Hypochromasia Slight 12/18/17 04:04 PT 12.2 sec (9.0-12.0) H 12/09/17 06:10 INR 1.3 (<1.2) H 12/09/17 06:10 APTT 28.9 sec (22.0-30.0) 12/09/17 06:10 D-Dimer 20.61 mg/L FEU (<0.60) H 12/09/17 06:10 Sample Site [place] 12/17/17 08:28 ABG pH 7.47 (7.35-7.45) H 12/17/17 08:28 ABG pCO2 47 mmHg (35-45) H 12/17/17 08:28 ABG pO2 126 mmHg (83-108) H 12/17/17 08:28 ABG HCO3 34 mmol/L (21-25) H 12/17/17 08:28 ABG Total CO2 36 mmol/L (19-24) H 12/17/17 08:28 ABG O2 Saturation 99.5 % (94-97) H 12/17/17 08:28 ABG Base Excess 10.7 mmol/L 12/17/17 08:28 Rigoberto Test Yes 12/17/17 08:28 FiO2 40 % 12/17/17 08:28 Sodium 143 mmol/L (137-145) 12/18/17 04:04 Potassium 3.4 mmol/L (3.5-5.1) L 12/18/17 04:04 Chloride 103 mmol/L (98-107) 12/18/17 04:04 Carbon Dioxide 37 mmol/L (22-30) H 12/18/17 04:04 Anion Gap 3 mmol/L 12/18/17 04:04 BUN 21 mg/dL (7-17) H 12/18/17 04:04 Creatinine 0.40 mg/dL (0.52-1.04) L 12/18/17 04:04 Est GFR (MDRD) Af Amer >60 (>60 ml/min/1.73 sqM) 12/18/17 04:04 Est GFR (MDRD) Non-Af >60 (>60 ml/min/1.73 sqM) 12/18/17 04:04 Glucose 89 mg/dL (74-99) 12/18/17 04:04 POC Glucose (mg/dL) 161 mg/dL (75-99) H 12/18/17 21:18 POC Glu [employer] Apprentice ID Meli Merritt 12/18/17 21:[address] Glu mg/dL 100 12/12/17 10:04 Hemoglobin A1c 5.1 % (4.0-6.0) 12/12/17 10:04 Osmolality 237 mosm/kg (280-301) L* 12/09/17 06:50 Plasma Lactic Acid Jase 1.5 mmol/L (0.7-2.0) 12/14/17 14:25 Uric Acid 2.2 mg/dL (3.7-7.4) L 12/10/17 06:50 Calcium 7.8 mg/dL (8.4-10.2) L 12/18/17 04:04 Ionized Calcium Tania 5.1 mg/dL (4.5-5.3) 12/14/17 23:00 Phosphorus 3.1 mg/dL (2.5-4.5) 12/16/17 04:05 Magnesium 2.0 mg/dL (1.6-2.3) 12/18/17 04:04 Total Bilirubin 0.4 mg/dL (0.2-1.3) 12/18/17 04:04 AST 14 U/L (14-36) 12/18/17 04:04 ALT 23 U/L (9-52) 12/18/17 04:04 Alkaline Phosphatase 65 U/L (38-126) 12/18/17 04:04 Total Creatine Kinase 128 U/L (30-135) 12/09/17 20:28 CK-MB (CK-2) 6.5 ng/mL (0.0-2.4) H* 12/09/17 20:28 CK-MB (CK-2) Rel Index 5.1 12/09/17 20:28 Troponin I 0.251 ng/mL (0.000-0.034) H* 12/10/17 12:07 NT-Pro-B Natriuret Pep 2590 pg/mL 12/09/17 06:50 Total Protein 4.4 g/dL (6.3-8.2) L 12/18/17 04:04 Albumin 2.0 g/dL (3.5-5.0) L 12/18/17 04:04 Triglycerides 43 mg/dL (<150) 12/10/17 02:32 Cholesterol 79 mg/dL (<200) 12/10/17 02:32 LDL Cholesterol, Calc 25 mg/dL (0-99) 12/10/17 02:32 HDL Cholesterol 45 mg/dL (40-60) 12/10/17 02:32 TSH 4.130 mIU/L (0.465-4.680) 12/15/17 04:30 Cortisol 114 ug/dL 12/10/17 12:07 Urine Color Yellow 12/09/17 08:42 Urine Appearance Clear (Clear) 12/09/17 08:42 Urine pH 6.5 (5.0-8.0) 12/09/17 08:42 Ur Specific [place] 1.006 (1.001-1.035) 12/09/17 08:42 Urine Protein Trace (Negative) H 12/09/17 08:42 Urine Glucose (UA) 2+ (Negative) H 12/09/17 08:42 Urine Ketones Negative (Negative) 12/09/17 08:42 Urine Blood Trace (Negative) H 12/09/17 08:42 Urine Nitrite Negative (Negative) 12/09/17 08:42 Urine Bilirubin Negative (Negative) 12/09/17 08:42 Urine Urobilinogen 2.0 mg/dL (<2.0) 12/09/17 08:42 Ur Leukocyte Esterase Moderate (Negative) H 12/09/17 08:42 Urine RBC 11 /hpf (0-5) H 12/09/17 08:42 Urine WBC 11 /hpf (0-5) H 12/09/17 08:42 Urine Bacteria Rare /hpf (None) H 12/09/17 08:42 Urine Osmolality 267 mosm/kg (50-1400) 12/09/17 08:42 Ur Random Sodium 29 mmol/L (30-90) L 12/10/17 08:30 Vancomycin Trough 9.2 ug/mL 12/12/17 01:19 Influenza Type A RNA Not Detected (Not Detectd) 12/09/17 22:00 Influenza Type B (PCR) Not Detected (Not Detectd) 12/09/17 22:00 Virus Source See Below 12/16/17 11:25 Viral Test See Below 12/16/17 11:25 Virus Analysis Interp See Below 12/16/17 11:25 Microbiology 12/14/17 14:03 Blood Blood Culture - Preliminary No Growth after 96 hours 12/16/17 11:25 Bronchoalviolar Lavage - Left Gram Stain - Final 12/16/17 11:25 Bronchoalviolar Lavage - Left Bronchial Washings Culture - Final Ernestina albicans 12/16/17 11:25 Bronchoalviolar Lavage - Left Acid Fast Bacilli Smear - Final 12/16/17 11:25 Bronchoalviolar Lavage - Left Acid Fast Bacilli Culture - Preliminary 12/14/17 21:40 Sputum Gram Stain - Final 12/14/17 21:40 Sputum Sputum Culture - Final Ernestina albicans 12/16/17 11:25 Bronchoalviolar Lavage - Left Fungal Culture - Preliminary 12/09/17 20:28 Blood Blood Culture - Final No Growth after 144 hours 12/14/17 14:00 Urine,Catheterized Urine Culture - Final 12/09/17 08:42 Urine,Catheterized Urine Culture - Final Assessment and Plan (1) Hyponatremia Current Visit: Yes Status: Acute Code(s): E87.1 - HYPO-OSMOLALITY AND HYPONATREMIA SNOMED Code(s): 07925553 (2) Pressure ulcer of coccygeal region, stage 3 Narrative/Plan: 77-year-old female is transported to hospital after she became unresponsive. The patient was found evidence of significant hyponatremia which is noted to be hypovolemic in nature. With rehydration sodium solution she is not having improvement. There was concern as urinary tract infection however urine culture is negative for blood cultures are pending. She does not have a history of MRSA but does have significant pressure ulcerations and concerns to underlying sepsis. Will continue Zosyn for now however will discontinue vancomycin. Local wound care with hydrocolloid dressings will be utilized to pressure ulcerations. The stage III pressure ulceration of the coccyx is present at admission, is due to pressure and does not appear to be grossly infected at this time. Cultures are pending. We'll monitor cultures and further alter antibiotic therapy as possible. On 12/14/2017 the patient has had a major decline of her status with respiratory failure hypercapnic in nature requiring intubation with sedation and mechanical ventilation. Her prognosis is very poor. Continue local wound care and antibiotic therapy. 12/15/2017 patient has had some improvement in that her ventilator settings have improved she is on less PEEP and FiO2. Pulmonary critical care was following and we'll work toward potential extubation the next several days. Her most recent ABG shows evidence of improvement of her markedly elevated CO2. Her leukocytosis is improving. Sputum culture is in process. Pressure ulcer is being treated and is showing some mild improvement with the current treatment. Continue to offload and will do well to have a specialty mattress when she is out of ICU. 12/16/2017 for bronchoscopy today and potential extubation if possible. Continue Zosyn at this time and monitor for any other resistant pathogens. Continue ongoing supportive care. 12/17/2017 the patient did well with her bronchoscopy and is now had extubation. She is doing well with current supportive care and is only on 2 L nasal cannula. Tolerating current antibiotic therapy well. Cultures from her bronchoscopy in process and will further help direct antibiotic therapy. Patient certainly is having a significant improvement and case management is working with her discharge plan and it does not appear that her family can care for her in the home setting. Continue local wound care to her multiple pressure ulcers. The Ernestina that is found does not require any intervention. 12/18/2017 patient has further improvement will be moved out of the ICU to the general medical floor today. She is denying other new interventions. Her oral intake is improved. Tolerating current antibiotic therapy well. Cultures have not revealed any new pathogens. Ernestina from the oral cavity was noted. Tolerating 2 L nasal cannula without any new pulmonary difficulties. Aggressive pulmonary toileting continues. We'll transition to extended care. Will not need intravenous antibiotic therapy at that time. Current Visit: Yes Status: Acute Code(s): L89.153 - PRESSURE ULCER OF [place]CR[place] REG[place], STAGE 3 SNOMED Code(s): 443708969
[2017-12-19] MEDS: PIPERACILLIN-TAZOBACTAM 3.375 GM in DEXTROSE/WATER 1 50ML.BAG IVPB SCH ×4 (01:09→23:29)
[2017-12-19 02:20] LABS: Glucose,Whole Blood 100 mg/dL (75-99)
[2017-12-19 06:33] LABS: Glucose,Whole Blood 104 mg/dL (75-99)
[2017-12-19 07:28] LABS: Basophils % (A) 0 %; Eosinophils # (A) 0.3 k/uL (0-0.7); Eosinophils % (A) 4 %; HCT 39.8 % (34.0-46.0); HGB 11.9 gm/dL (11.4-16.0); Hypochromasia Moderate; Lymphocytes # (A) 0.9 k/uL (1.0-4.8); Lymphocytes % (A) 11 %; MCH 27.9 pg (25.0-35.0); MCHC 29.8 g/dL (31.0-37.0); MCV 93.6 fL (80.0-100.0); Mean Platelet Volume 7.1; Monocytes # (A) 0.4 k/uL (0-1.0); Monocytes % (A) 5 %; Neutrophils # (A) 5.9 k/uL (1.3-7.7); Neutrophils % (A) 77 %; Platelet Count 146 k/uL (150-450); RBC 4.25 m/uL (3.80-5.40); RDW 14.3 % (11.5-15.5); WBC 7.6 k/uL (3.8-10.6)
[2017-12-19 07:58] LABS: ALT 23 U/L (9-52); AST 15 U/L (14-36); Albumin 1.8 g/dL (3.5-5.0); Alkaline Phosphatase 63 U/L (38-126); Anion Gap 4 mmol/L; Blood Urea Nitrogen 22 mg/dL (7-17); Calcium 7.8 mg/dL (8.4-10.2); Carbon Dioxide 32 mmol/L (22-30); Chloride 107 mmol/L (98-107); Glucose 100 mg/dL (74-99); Potassium 3.7 mmol/L (3.5-5.1); Sodium 143 mmol/L (137-145); Total Bilirubin 0.4 mg/dL (0.2-1.3)
[2017-12-19] MEDS: IPRATROPIUM-ALBUTEROL 3 ML NEB INHALATION SCH ×4 (08:14→20:16)
[2017-12-19] MEDS: ENOXAPARIN 40 MG/0.4 ML SYRINGE SQ SCH (08:24)
[2017-12-19] MEDS: PANTOPRAZOLE 40 MG/10 ML VIAL IVP SCH ×2 (08:24→20:01)
[2017-12-19] MEDS: ASPIRIN 81 MG PO SCH (08:25)
--- NOTE | 2017-12-19 10:26 | P.PN ---
Subjective Patient is seen in follow-up for hyponatremia. Sodium level has come up gradually and is stable at 143 today. Patient was noted to be in respiratory distress on December 14 and was subsequently transferred to the intensive care unit. She is now extubated. She is currently off levofed. She is maintained on normal saline at 70 mL an hour. Oral intake is fair. Denies chest pain or shortness of breath. Vital signs are stable. General: The patient appeared well nourished and normally developed. HEENT: Head exam is unremarkable. Neck is without jugular venous distension. LUNGS: Lungs are clear to auscultation and percussion. Breath sounds decreased. HEART: Rate and Rhythm are regular. First and second heart sounds normal. No murmurs, rubs or gallops. ABDOMEN: Abdominal exam reveals normal bowel sounds. Non-tender and non- distended. No evidence of peritonitis. EXTREMITITES: No clubbing, cyanosis, or edema. Objective - Vital Signs Vital signs: Vital Signs Temp 97.5 F L 12/19/17 07:19 Pulse 80 12/19/17 08:25 Resp 16 12/19/17 07:19 BP 118/62 12/19/17 07:19 Pulse Ox 100 12/19/17 07:19 Intake & Output 12/18/17 12/19/17 12/19/17 18:59 06:59 18:59 Intake Total 942 160 Output Total 475 Balance 467 160 Weight 58.9 kg 51 kg Intake: IV 912 160 0.9 at 10 100 20 0.9 for pressure 12 Dextrose 5%-0.9% NaCl 1, 700 140 000 ml @ 70 mls/hr IV . [id number] [facility] Rx#:[id number] Piperacillin-Tazobactam 3 100 .375 gm In Dextrose/Water 1 50ml.bag @ 12.5 mls/hr IVPB Q8HR [facility] Rx#: [id number] Oral 30 Output: Urine 475 Other: Voiding Method Indwelling Catheter Diaper # Voids 2 ABP, PAP, CO, CI - Last Documented Arterial Blood Pressure 140/67 - Labs CBC & Chem 7: 12/19/17 07:07 12/19/17 07:07 Labs: Abnormal Lab Results - Last 24 Hours (Table) 12/18/17 12/18/17 12/18/17 Range/Units 11:41 18:19 21:18 MCHC (31.0-37.0) g/dL Plt Count (150-450) k/uL Lymphocytes # (1.0-4.8) k/uL Carbon Dioxide (22-30) mmol/L BUN (7-17) mg/dL Creatinine (0.52-1.04) mg/dL Glucose (74-99) mg/dL POC Glucose (mg/dL) 104 H 111 H 161 H (75-99) mg/dL Calcium (8.4-10.2) mg/dL Total Protein (6.3-8.2) g/dL Albumin (3.5-5.0) g/dL 12/19/17 12/19/17 12/19/17 Range/Units 01:59 06:29 07:07 MCHC (31.0-37.0) g/dL Plt Count (150-450) k/uL Lymphocytes # (1.0-4.8) k/uL Carbon Dioxide 32 H (22-30) mmol/L BUN 22 H (7-17) mg/dL Creatinine 0.33 L (0.52-1.04) mg/dL Glucose 100 H (74-99) mg/dL POC Glucose (mg/dL) 100 H 104 H (75-99) mg/dL Calcium 7.8 L (8.4-10.2) mg/dL Total Protein 4.0 L (6.3-8.2) g/dL Albumin 1.8 L (3.5-5.0) g/dL 12/19/17 Range/Units 07:07 MCHC 29.8 L (31.0-37.0) g/dL Plt Count 146 L (150-450) k/uL Lymphocytes # 0.9 L (1.0-4.8) k/uL Carbon Dioxide (22-30) mmol/L BUN (7-17) mg/dL Creatinine (0.52-1.04) mg/dL Glucose (74-99) mg/dL POC Glucose (mg/dL) (75-99) mg/dL Calcium (8.4-10.2) mg/dL Total Protein (6.3-8.2) g/dL Albumin (3.5-5.0) g/dL Microbiology - Last 24 Hours (Table) 12/14/17 14:03 Blood Culture - Preliminary Blood No Growth after 96 hours 12/16/17 11:25 Gram Stain - Final Bronchoalviolar Lavage - Left Bronchial Washings Culture - Final Ernestina albicans Assessment and Plan Plan: Assessment: #1. Hypovolemic hyponatremia improved with normal saline. Now appears euvolemic. Also component of tea and toast diet as a BUN is noted to be only 4 and urine osmolality 267 on admission. TSH and cortisol levels normal. Sodium level 143 today. #2. Pyuria. Urine culture negative so far. #3. Benign hypertension. Controlled. #4. Diastolic CHF with moderate pulmonary hypertension. #5. Acute hypercapnic respiratory failure. #6. Hypokalemia secondary to diuresis. Magnesium.. Plan: I will decrease the rate of normal saline to 40 mL an hour. Lasix 20 mg orally once daily. Encouraged oral intake. Continue to monitor renal function and urine output. Avoid nephrotoxic agents and hypotensive episodes. Repeat electrolytes in the morning.
[2017-12-19] MEDS: DEXTROSE 5%-0.9% NACL 1,000 ML IV SCH ×3 (11:21→16:28)
[2017-12-19 11:25] LABS: Glucose,Whole Blood 110 mg/dL (75-99)
[2017-12-19] MEDS: FUROSEMIDE 20 MG TAB PO SCH (12:11)
--- NOTE | 2017-12-19 12:52 | P.PN ---
Subjective Progress Note Date: 12/19/17 Principal diagnosis: Acute hypoxic and hypercapnic respiratory failure secondary to acute diastolic congestive heart failure and COPD exacerbation This is a 77-year-old female with history of hypertension, congestive heart failure, COPD, patient is mostly bedridden according to her children for the last 1 year. No clear cut reason or etiology for her medical debility. But according to her son, patient has been gradually going downhill for the last one year at least. And she is at a point where she is either in bed or in a wheelchair. Family found patient in bed unresponsive, questionable CPR performed by a bystander, however when EMS arrived the patient had a good pulse. She was resting in bed, placed on a nonrebreather mask, and brought into the hospital. Workup revealed a low sodium of 114. Patient was given 0.9 normal saline, and at one point she was hypotensive requiring fluid boluses with 0.9 normal saline. A 12 point last night the patient became more hypotensive hence she was wasted briefly on norepinephrine. But it is discontinued this morning. CT of the chest showed atelectasis at the right lung base, small tiny right pleural effusion, there was evidence of cardiomegaly , chest x-ray is basically the same. CT of the brain was nondiagnostic. Her CBC was normal. D-dimer was elevated at 20.61, BNP level was 2590, serum osmolality was 23 7 repeat sodium this morning is up to 122. Urine osmolality was 267. Urine sodium was 29. Influenza screen was negative. Considering the profound hyponatremia, and considering the patient may have required 3% saline infusion, patient was admitted to the ICU, did not require any 3% infusion, but she did require a brief infusion of norepinephrine for low blood pressure. The patient herself is a poor historian, nonverbal, does not follow any instructions. Eyes remain closed all the time. Patient was reevaluated today on 12/11/2017, patient is a bit more awake, however unable to follow any instructions, pulled her nasogastric tube out yesterday, and refused having another one to be placed. Hence the patient is taking meds by mouth, and her nutrition seems to be very poor since she doesn't eat much. And she keeps saying that she is not hungry and she has no appetite. Hence I recommended a dietitian consult for caloric count, and recommendation regarding nutritional status. Labs were reviewed sodium is up to 127. The rest of the labs were unremarkable including basic metabolic profile and CBC. Cultures of urine and blood are negative so far. On 12/14/2017 we were reconsulted regarding patient's deteriorating mental status, patient was noted to be hypoxic this morning with a pulse ox around 69% on 1-1/2 L. Her FiO2 was then increased to 5 L per nasal cannula, patient was noted to be increasingly lethargic, barely responsive at the time of our evaluation. Blood gas was obtained on FiO2 of 32%, and it showed primary respiratory acidosis, with acute on chronic hypercapnic respiratory failure, pH was 7.22, pCO2 is 103, pO2 was 70, bicarb was 42, and O2 sat was 91.2 on FiO2 32 %. Patient's lung sounds are positive for coarse rhonchi throughout the lung foss. Patient is tachypnec and tachycardic with a heart rate at 110 BPM. She remained afebrile. She was then placed on BiPAP support with pressures of 12 and 4 and FiO2 of 100%. Stat chest x-ray was obtained and it showed left lower lobe atelectasis versus pneumonia or a small pleural effusion. She was given one-time dose of Lasix 40 mg IV push. Today's labs show sodium is 143, potassium is 5.5, CO2 is 40, BUN was 26, and creatinine was 0.55. Nephrology has ordered 50% dextrose, and 10 units of regular insulin IV push for the treatment of hyperkalemia of 5.5. Patient is starting to diurese. Patient was transferred to the intensive care to the treatment room. The BiPAP treatment did not improve patient's mentation, and decision was made to proceed with intubation and placement on mechanical ventilation. Patient was successfully intubated, and placed on mechanical ventilator with settings of assist control mode with a rate of 16, tidal vital 300, FiO2 of 100% and a PEEP of 5. Repeat blood gases were obtained and reviewed, and showed pH of 7.21, pCO2 of 93, pO2 of 270, and bicarb of 37, this is done on FiO2 of 100%. The settings were adjusted to assist control mode with a rate of 22, tidal volume 300, FiO2 was dropped down to 60%, and PEEP at 5. Patient became very hypotensive with the blood pressure in the 60s over 50s, she was given 2 L bolus of IV 0.9 normal saline. Diprivan is infusing at 10 mics per kilo per minute, and norepinephrine drip is infusing at the rate of 40 mics per minute. Blood pressure has improved, and currently running in the 100s over 50s. OG tube was placed, and connected to low intermittent suction. Right IJ triple lumen central line was placed, right radial arterial line was placed for hemodynamic monitoring. Blood gases will be repeated in half an hour. On 12/19/2017 patient seen in follow-up on regular medical surgical floor. She was extubated 2 days ago, so far tolerating extubation very well, she was transferred out of ICU yesterday. Vital signs are stable, she is afebrile, currently on 2 L per nasal cannula with O2 sat in the 100%. Lung sounds are positive for scattered rhonchi throughout the lung foss, patient has a very poor inspiratory effort. She is mostly bedbound, she has chronic pressure ulcers on her sacrum. She denies any acute distress. Her bronchial wash cultures are negative so far except for Ernestina albicans, blood cultures and urine cultures are negative. Patient is currently on Zosyn. She continues on nebulized treatments, she received one-time dose of IV Lasix today per nephrology, patient has bilateral lower extremity edema. She remains on D5 0.9 normal saline at 40 ML per hour per nephrology recommendations. Objective - Vital Signs Vital signs: Vital Signs Temp 97.5 F L 12/19/17 07:19 Pulse 73 12/19/17 11:42 Resp 16 12/19/17 07:19 BP 118/62 12/19/17 07:19 Pulse Ox 100 12/19/17 07:19 Intake & Output 12/18/17 12/19/17 12/19/17 18:59 06:59 18:59 Intake Total 942 160 80 Output Total 475 Balance 467 160 80 Weight 58.9 kg 51 kg Intake: IV 912 160 80 0.9 at 10 100 20 0.9 for pressure 12 Dextrose 5%-0.9% NaCl 1, 700 140 80 000 ml @ 40 mls/hr IV . Q24H [facility] Rx#:[id number] Piperacillin-Tazobactam 3 100 .375 gm In Dextrose/Water 1 50ml.bag @ 12.5 mls/hr IVPB Q8HR [facility] Rx#: [id number] Oral 30 Output: Urine 475 Other: Voiding Method Indwelling Catheter Diaper Diaper # Voids 2 1 ABP, PAP, CO, CI - Last Documented Arterial Blood Pressure 140/67 - Exam GENERAL EXAM: Awake, frail looking, chronically ill looking 77-year-old female HEAD: Normocephalic/atraumatic. EYES: Normal reaction of pupils, equal size. Conjunctiva pink, sclera white. NOSE: Clear with pink turbinates. MOUTH: Moist mucous membranes, patient has upper dentures THROAT: No erythema or exudates. NECK: No masses, no JVD, no thyroid enlargement, no adenopathy. Right J triple- lumen central venous catheter is present CHEST: No chest wall deformity. Symmetrical expansion. LUNGS: Equal air entry with scattered rhonchi bilaterally. CVS: Regular rate and rhythm, normal S1 and S2, no gallops, no murmurs, no rubs ABDOMEN: Soft, nontender. No hepatosplenomegaly, normal bowel sounds, no guarding or rigidity. EXTREMITIES: No clubbing, no cyanosis, 2+ pulses and upper and lower extremities. Patient has contractures of upper and lower extremities. 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 There are scattered bruises on bilateral arms and wrists. There is 1+ pedal and ankle edema MUSCULOSKELETAL: Muscle strength and tone normal. SPINE: No scoliosis or deformity SKIN: No rashes CENTRAL NERVOUS SYSTEM: Awake alert, oriented 2, tone is normal in all 4 extremities. PSYCHIATRIC: Intact judgment and insight - Labs CBC & Chem 7: 12/19/17 07:07 12/19/17 07:07 Labs: Abnormal Lab Results - Last 24 Hours (Table) 12/18/17 12/18/17 12/19/17 Range/Units 18:19 21:18 01:59 MCHC (31.0-37.0) g/dL Plt Count (150-450) k/uL Lymphocytes # (1.0-4.8) k/uL Carbon Dioxide (22-30) mmol/L BUN (7-17) mg/dL Creatinine (0.52-1.04) mg/dL Glucose (74-99) mg/dL POC Glucose (mg/dL) 111 H 161 H 100 H (75-99) mg/dL Calcium (8.4-10.2) mg/dL Total Protein (6.3-8.2) g/dL Albumin (3.5-5.0) g/dL 12/19/17 12/19/17 12/19/17 Range/Units 06:29 07:07 07:07 MCHC 29.8 L (31.0-37.0) g/dL Plt Count 146 L (150-450) k/uL Lymphocytes # 0.9 L (1.0-4.8) k/uL Carbon Dioxide 32 H (22-30) mmol/L BUN 22 H (7-17) mg/dL Creatinine 0.33 L (0.52-1.04) mg/dL Glucose 100 H (74-99) mg/dL POC Glucose (mg/dL) 104 H (75-99) mg/dL Calcium 7.8 L (8.4-10.2) mg/dL Total Protein 4.0 L (6.3-8.2) g/dL Albumin 1.8 L (3.5-5.0) g/dL 12/19/17 Range/Units 11:22 MCHC (31.0-37.0) g/dL Plt Count (150-450) k/uL Lymphocytes # (1.0-4.8) k/uL Carbon Dioxide (22-30) mmol/L BUN (7-17) mg/dL Creatinine (0.52-1.04) mg/dL Glucose (74-99) mg/dL POC Glucose (mg/dL) 110 H (75-99) mg/dL Calcium (8.4-10.2) mg/dL Total Protein (6.3-8.2) g/dL Albumin (3.5-5.0) g/dL Microbiology - Last 24 Hours (Table) 12/14/17 14:03 Blood Culture - Preliminary Blood No Growth after 96 hours 12/16/17 11:25 Gram Stain - Final Bronchoalviolar Lavage - Left Bronchial Washings Culture - Final Ernestina albicans Assessment and Plan Plan: Assessment: #1. Acute hypoxic and hypercapnic respiratory failure secondary to diastolic congestive heart failure, and COPD exacerbation. Patient was intubated, and extubated on 12/17/2017. Tolerating extubation well, currently on 2 L per nasal cannula. #2. Acute hyperkalemia, most likely secondary to severe respiratory acidosis, resolved #3. Acute hypotension secondary to severe respiratory acidosis, resolved #4. acute hypovolemic hyponatremia, improved, today's sodium is 143 #5. chronic medical debility, patient has been bedridden and wheelchair ridden for quite some time. #6. history of benign essential hypertension. #7. history of congestive heart failure, diastolic #8. hypotension secondary to hypovolemic shock, resolved #9. multiple decubitus ulcers secondary to medical debility and considering the patient is bed and wheelchair ridden. #10. pyuria as noted on the urinalysis, however urine cultures are negative so far, patient has been afebrile, and has been on Zosyn #11. abnormal CT of the chest showing mostly atelectasis and small right pleural effusion, doubt clinical significance. Recommendation: Patient remains stable from pulmonary standpoint, although her inspiratory effort is very poor, incentive spirometry to the bedside, encourage use. Patient remains mostly bedridden, she has severe generalized weakness. Continues on Zosyn for antibiotic coverage, all of the cultures have remained negative so far. Continue nebulized treatments, we'll continue to follow with you. I performed a history & physical examination of the patient and discussed their management with my nurse practitioner, Tiffany Juan. I reviewed the nurse practitioner's note and agree with the documented findings and plan of care. Lung sounds are positive for coarse rhonchi bilaterally. The findings and the impression was discussed with the patient. I attest to the documentation by the nurse practitioner. Critical care time is 45 minutes not including the time for procedures Time with Patient: Less than 30
[2017-12-19 16:41] LABS: Glucose,Whole Blood 106 mg/dL (75-99)
--- NOTE | 2017-12-19 18:21 | PN ---
PROGRESS NOTE DATE OF SERVICE: 12/19/17 INTERVAL HISTORY: This 77-year-old woman was admitted with change in mental status, acute metabolic encephalopathy also had possibly hypovolemic hyponatremia. The patient sensorium improved significantly. The patient also has multiple other complications. Also, PT/OT evaluating the patient closely. No chest pain. No palpitations. No fever. EXAM: Alert and oriented times two. The patient is confused, alert, oriented x2. Pulse 74, blood pressure 98/50, respiration 16, temperature 98.2, pulse ox 98% on 2 L. HEENT: Conjunctivae normal. Oral mucosa moist. Neck is no jugular venous distention. No carotid bruit. No lymph node enlargement. Cardiovascular System: S1, S2 muffled. Respirations: Breath sounds diminished in the bases. A few scattered rhonchi and crackles. ABDOMEN: Soft. Legs: No edema. No swelling. Central nervous system: No focal deficits. LAB: CBC within normal limits. Accu-Cheks noted. Albumin 1.8. ASSESSMENT: 1. Change in mental status, acute metabolic encephalopathy, possibly secondary to severe hyponatremia, possibly hypovolemic hyponatremia. Rule out syndrome of inappropriate antidiuretic hormone present on admission. 2. Congestive heart failure acute exacerbation with acute on chronic systolic dysfunction ejection fraction 30-35%. 3. Acute hypoxic hypercarbic respiratory failure, multifactorial, status post mechanical ventilation. 4. Paroxysmal atrial fibrillation history. 5. Hypoglycemia, multifactorial. 6. Troponin 0.16, indeterminate. 7. Bibasilar pneumonia possibly gram-negative. 8. History of recent urinary tract infection. 9. Moderate aortic regurgitation. 10.Severe tricuspid regurgitation. 11.Pulmonary hypertension. 12.History of degenerative joint disease. 13.History of hypertension. 14.History of left-sided pleural effusion. 15.Chronic obstructive pulmonary disease. 16.History of nicotine dependence. 17.FULL CODE. RECOMMENDATIONS AND DISCUSSION: Recommend to continue current medications, continue to monitoring, symptomatic treatment. Otherwise, at this time, I recommend to monitor the patient closely. PT/OT evaluation. Possible ECF rehab. Further recommendations to follow. MMABEBEL / KRYSTIANN: [id number] /
[2017-12-19 20:03] LABS: Glucose,Whole Blood 145 mg/dL (75-99)
[2017-12-20 01:44] LABS: Glucose,Whole Blood 124 mg/dL (75-99)
[2017-12-20] MEDS: IPRATROPIUM-ALBUTEROL 3 ML NEB INHALATION SCH ×4 (07:18→18:51)
[2017-12-20 07:34] LABS: Glucose,Whole Blood 90 mg/dL (75-99)
[2017-12-20 07:36] LABS: Anion Gap 0 mmol/L; Blood Urea Nitrogen 16 mg/dL (7-17); Calcium 7.7 mg/dL (8.4-10.2); Carbon Dioxide 36 mmol/L (22-30); Chloride 103 mmol/L (98-107); Glucose 82 mg/dL (74-99); Potassium 3.5 mmol/L (3.5-5.1); Sodium 139 mmol/L (137-145)
[2017-12-20] MEDS: PIPERACILLIN-TAZOBACTAM 3.375 GM in DEXTROSE/WATER 1 50ML.BAG IVPB SCH ×3 (07:53→23:03)
[2017-12-20] MEDS: FUROSEMIDE 20 MG TAB PO SCH ×2 (07:55→16:28)
[2017-12-20] MEDS: PANTOPRAZOLE 40 MG TABLET PO SCH ×2 (07:55→20:04)
[2017-12-20] MEDS: ENOXAPARIN 40 MG/0.4 ML SYRINGE SQ SCH (07:55)
[2017-12-20] MEDS: ASPIRIN 81 MG PO SCH (07:55)
[2017-12-20] MEDS: POTASSIUM CHLORIDE ER 20 MEQ TAB.ER PO SCH (09:33)
--- NOTE | 2017-12-20 10:08 | P.PN ---
Subjective Patient is seen in follow-up for hyponatremia, which has resolved. Patient was noted to be in respiratory distress on December 14 and was subsequently transferred to the intensive care unit. She is now extubated. She is currently off levofed. She is maintained on normal saline at 40 mL an hour. Oral intake is fair. Denies chest pain or shortness of breath. Vital signs are stable. General: The patient appeared well nourished and normally developed. HEENT: Head exam is unremarkable. Neck is without jugular venous distension. LUNGS: Lungs are clear to auscultation and percussion. Breath sounds decreased. HEART: Rate and Rhythm are regular. First and second heart sounds normal. No murmurs, rubs or gallops. ABDOMEN: Abdominal exam reveals normal bowel sounds. Non-tender and non- distended. No evidence of peritonitis. EXTREMITITES: No clubbing, cyanosis, or edema. Objective - Vital Signs Vital signs: Vital Signs Temp 97.4 F L 12/20/17 07:00 Pulse 72 12/20/17 08:00 Resp 16 12/20/17 08:00 BP 128/64 12/20/17 07:00 Pulse Ox 100 12/20/17 07:00 Intake & Output 12/19/17 12/20/17 12/20/17 18:59 06:59 18:59 Intake Total 340 480 Balance 340 480 Weight 54 kg Intake: IV 340 0.9 at 10 20 Dextrose 5%-0.9% NaCl 1, 320 000 ml @ 40 mls/hr IV . Q24H [facility] Rx#:[id number] Oral 480 Other: Voiding Method Diaper Diaper Diaper # Voids 1 1 # Bowel Movements 1 ABP, PAP, CO, CI - Last Documented Arterial Blood Pressure 140/67 - Labs CBC & Chem 7: 12/19/17 07:07 12/20/17 06:49 Labs: Abnormal Lab Results - Last 24 Hours (Table) 12/19/17 12/19/17 12/19/17 Range/Units 11:22 16:35 19:58 Carbon Dioxide (22-30) mmol/L Creatinine (0.52-1.04) mg/dL POC Glucose (mg/dL) 110 H 106 H 145 H (75-99) mg/dL Calcium (8.4-10.2) mg/dL 12/20/17 12/20/17 Range/Units 01:42 06:49 Carbon Dioxide 36 H (22-30) mmol/L Creatinine 0.33 L (0.52-1.04) mg/dL POC Glucose (mg/dL) 124 H (75-99) mg/dL Calcium 7.7 L (8.4-10.2) mg/dL Microbiology - Last 24 Hours (Table) 12/14/17 14:03 Blood Culture - Preliminary Blood No Growth after 120 hours Assessment and Plan Plan: Assessment: #1. Hypovolemic hyponatremia improved with normal saline. Now appears euvolemic. Also component of tea and toast diet as a BUN is noted to be only 4 and urine osmolality 267 on admission. TSH and cortisol levels normal. Sodium level 139 today. #2. Pyuria. Urine culture negative so far. #3. Benign hypertension. Controlled. #4. Diastolic CHF with moderate pulmonary hypertension. #5. Acute hypercapnic respiratory failure. #6. Hypokalemia secondary to diuresis. Magnesium replete. Plan: Heplock IVFs. Increase lasix to 20 mg po bid. Add K-dur 20 meq daily. Encouraged oral intake. Continue to monitor renal function and urine output. Avoid nephrotoxic agents and hypotensive episodes. Repeat electrolytes in the morning.
[2017-12-20 11:02] LABS: Glucose,Whole Blood 140 mg/dL (75-99)
--- NOTE | 2017-12-20 11:40 | P.PN ---
Subjective Progress Note Date: 12/20/17 Principal diagnosis: Acute hypoxic and hypercapnic respiratory failure secondary to acute diastolic congestive heart failure and COPD exacerbation This is a 77-year-old female with history of hypertension, congestive heart failure, COPD, patient is mostly bedridden according to her children for the last 1 year. No clear cut reason or etiology for her medical debility. But according to her son, patient has been gradually going downhill for the last one year at least. And she is at a point where she is either in bed or in a wheelchair. Family found patient in bed unresponsive, questionable CPR performed by a bystander, however when EMS arrived the patient had a good pulse. She was resting in bed, placed on a nonrebreather mask, and brought into the hospital. Workup revealed a low sodium of 114. Patient was given 0.9 normal saline, and at one point she was hypotensive requiring fluid boluses with 0.9 normal saline. A 12 point last night the patient became more hypotensive hence she was wasted briefly on norepinephrine. But it is discontinued this morning. CT of the chest showed atelectasis at the right lung base, small tiny right pleural effusion, there was evidence of cardiomegaly , chest x-ray is basically the same. CT of the brain was nondiagnostic. Her CBC was normal. D-dimer was elevated at 20.61, BNP level was 2590, serum osmolality was 23 7 repeat sodium this morning is up to 122. Urine osmolality was 267. Urine sodium was 29. Influenza screen was negative. Considering the profound hyponatremia, and considering the patient may have required 3% saline infusion, patient was admitted to the ICU, did not require any 3% infusion, but she did require a brief infusion of norepinephrine for low blood pressure. The patient herself is a poor historian, nonverbal, does not follow any instructions. Eyes remain closed all the time. Patient was reevaluated today on 12/11/2017, patient is a bit more awake, however unable to follow any instructions, pulled her nasogastric tube out yesterday, and refused having another one to be placed. Hence the patient is taking meds by mouth, and her nutrition seems to be very poor since she doesn't eat much. And she keeps saying that she is not hungry and she has no appetite. Hence I recommended a dietitian consult for caloric count, and recommendation regarding nutritional status. Labs were reviewed sodium is up to 127. The rest of the labs were unremarkable including basic metabolic profile and CBC. Cultures of urine and blood are negative so far. On 12/14/2017 we were reconsulted regarding patient's deteriorating mental status, patient was noted to be hypoxic this morning with a pulse ox around 69% on 1-1/2 L. Her FiO2 was then increased to 5 L per nasal cannula, patient was noted to be increasingly lethargic, barely responsive at the time of our evaluation. Blood gas was obtained on FiO2 of 32%, and it showed primary respiratory acidosis, with acute on chronic hypercapnic respiratory failure, pH was 7.22, pCO2 is 103, pO2 was 70, bicarb was 42, and O2 sat was 91.2 on FiO2 32 %. Patient's lung sounds are positive for coarse rhonchi throughout the lung foss. Patient is tachypnec and tachycardic with a heart rate at 110 BPM. She remained afebrile. She was then placed on BiPAP support with pressures of 12 and 4 and FiO2 of 100%. Stat chest x-ray was obtained and it showed left lower lobe atelectasis versus pneumonia or a small pleural effusion. She was given one-time dose of Lasix 40 mg IV push. Today's labs show sodium is 143, potassium is 5.5, CO2 is 40, BUN was 26, and creatinine was 0.55. Nephrology has ordered 50% dextrose, and 10 units of regular insulin IV push for the treatment of hyperkalemia of 5.5. Patient is starting to diurese. Patient was transferred to the intensive care to the treatment room. The BiPAP treatment did not improve patient's mentation, and decision was made to proceed with intubation and placement on mechanical ventilation. Patient was successfully intubated, and placed on mechanical ventilator with settings of assist control mode with a rate of 16, tidal vital 300, FiO2 of 100% and a PEEP of 5. Repeat blood gases were obtained and reviewed, and showed pH of 7.21, pCO2 of 93, pO2 of 270, and bicarb of 37, this is done on FiO2 of 100%. The settings were adjusted to assist control mode with a rate of 22, tidal volume 300, FiO2 was dropped down to 60%, and PEEP at 5. Patient became very hypotensive with the blood pressure in the 60s over 50s, she was given 2 L bolus of IV 0.9 normal saline. Diprivan is infusing at 10 mics per kilo per minute, and norepinephrine drip is infusing at the rate of 40 mics per minute. Blood pressure has improved, and currently running in the 100s over 50s. OG tube was placed, and connected to low intermittent suction. Right IJ triple lumen central line was placed, right radial arterial line was placed for hemodynamic monitoring. Blood gases will be repeated in half an hour. On 12/19/2017 patient seen in follow-up on regular medical surgical floor. She was extubated 2 days ago, so far tolerating extubation very well, she was transferred out of ICU yesterday. Vital signs are stable, she is afebrile, currently on 2 L per nasal cannula with O2 sat in the 100%. Lung sounds are positive for scattered rhonchi throughout the lung foss, patient has a very poor inspiratory effort. She is mostly bedbound, she has chronic pressure ulcers on her sacrum. She denies any acute distress. Her bronchial wash cultures are negative so far except for Ernestina albicans, blood cultures and urine cultures are negative. Patient is currently on Zosyn. She continues on nebulized treatments, she received one-time dose of IV Lasix today per nephrology, patient has bilateral lower extremity edema. She remains on D5 0.9 normal saline at 40 ML per hour per nephrology recommendations. On 12/20/2017 patient is seen in follow-up on medical surgical floor. She is sitting up in bed, awake, alert, responding appropriately. Denies any acute distress, respirations are even and nonlabored, her incentive spirometry is in front of her, patient needs frequent reminding and encouragement to continue with the IS. She is able to achieve only 250 on it today, her inspiratory effort remains very poor, lung sounds are positive for coarse rhonchi, especially in the upper airways, not able to expectorate any sputum. Contains on 3 L per nasal cannula with O2 sat are 100%. She is afebrile, vital signs are stable. Microbiology results have been reviewed, blood and urine cultures remain negative, bronchial washing culture is only positive for Ernestina albicans. Overall patient is doing much better, appears to be less fatigued. Objective - Vital Signs Vital signs: Vital Signs Temp 97.4 F L 12/20/17 07:00 Pulse 75 12/20/17 11:05 Resp 16 12/20/17 08:00 BP 128/64 12/20/17 07:00 Pulse Ox 100 12/20/17 07:00 Intake & Output 12/19/17 12/20/17 12/20/17 18:59 06:59 18:59 Intake Total 340 480 Balance 340 480 Weight 54 kg Intake: IV 340 0.9 at 10 20 Dextrose 5%-0.9% NaCl 1, 320 000 ml @ 40 mls/hr IV . Q24H [facility] Rx#:[id number] Oral 480 Other: Voiding Method Diaper Diaper Diaper # Voids 1 1 # Bowel Movements 1 ABP, PAP, CO, CI - Last Documented Arterial Blood Pressure 140/67 - Exam GENERAL EXAM: Awake, frail looking, chronically ill looking 77-year-old female, sitting up in bed, denies any acute distress. HEAD: Normocephalic/atraumatic. EYES: Normal reaction of pupils, equal size. Conjunctiva pink, sclera white. NOSE: Clear with pink turbinates. MOUTH: Moist mucous membranes, patient has upper dentures THROAT: No erythema or exudates. NECK: No masses, no JVD, no thyroid enlargement, no adenopathy. Right J triple- lumen central venous catheter is present CHEST: No chest wall deformity. Symmetrical expansion. LUNGS: Equal air entry with scattered rhonchi bilaterally. CVS: Regular rate and rhythm, normal S1 and S2, no gallops, no murmurs, no rubs ABDOMEN: Soft, nontender. No hepatosplenomegaly, normal bowel sounds, no guarding or rigidity. EXTREMITIES: No clubbing, no cyanosis, 2+ pulses and upper and lower extremities. Patient has contractures of upper and lower extremities. 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 There are scattered bruises on bilateral arms and wrists. There is 1+ pedal and ankle edema MUSCULOSKELETAL: Muscle strength and tone normal. SPINE: No scoliosis or deformity SKIN: No rashes CENTRAL NERVOUS SYSTEM: Awake alert, oriented 2, tone is normal in all 4 extremities. PSYCHIATRIC: Intact judgment and insight - Labs CBC & Chem 7: 12/19/17 07:07 12/20/17 06:49 Labs: Abnormal Lab Results - Last 24 Hours (Table) 12/19/17 12/19/17 12/20/17 Range/Units 16:35 19:58 01:42 Carbon Dioxide (22-30) mmol/L Creatinine (0.52-1.04) mg/dL POC Glucose (mg/dL) 106 H 145 H 124 H (75-99) mg/dL Calcium (8.4-10.2) mg/dL 12/20/17 12/20/17 Range/Units 06:49 10:59 Carbon Dioxide 36 H (22-30) mmol/L Creatinine 0.33 L (0.52-1.04) mg/dL POC Glucose (mg/dL) 140 H (75-99) mg/dL Calcium 7.7 L (8.4-10.2) mg/dL Microbiology - Last 24 Hours (Table) 12/14/17 14:03 Blood Culture - Preliminary Blood No Growth after 120 hours Assessment and Plan Plan: Assessment: #1. Acute hypoxic and hypercapnic respiratory failure secondary to diastolic congestive heart failure, and COPD exacerbation. Patient was intubated, and extubated on 12/17/2017. Tolerating extubation well, currently on 3 L per nasal cannula. #2. Acute hyperkalemia, most likely secondary to severe respiratory acidosis, resolved #3. Acute hypotension secondary to severe respiratory acidosis, resolved #4. acute hypovolemic hyponatremia, improved, today's sodium is 143 #5. chronic medical debility, patient has been bedridden and wheelchair ridden for quite some time. #6. history of benign essential hypertension. #7. history of congestive heart failure, diastolic #8. hypotension secondary to hypovolemic shock, resolved #9. multiple decubitus ulcers secondary to medical debility and considering the patient is bed and wheelchair ridden. #10. pyuria as noted on the urinalysis, however urine cultures are negative so far, patient has been afebrile, and has been on Zosyn #11. abnormal CT of the chest showing mostly atelectasis and small right pleural effusion, doubt clinical significance. Recommendation: Patient is more awake, alert, and interacts more today, appears to be a little less fatigued. Encourage incentive spirometry use, encourage deep breathing and coughing. Her inspiratory effort remains very poor, but overall she has made significant improvement. Continues on Zosyn, microbiology remains negative thus far, including the bronchus wash cultures. Ernestina albicans in the bronchus wash cultures are likely contamination from the oral cavity. From pulmonary standpoint patient remains stable, we will sign off, and follow with the patient on as-needed basis. Thank you for this consultation I performed a history & physical examination of the patient and discussed their management with my nurse practitioner, Tiffany Juan. I reviewed the nurse practitioner's note and agree with the documented findings and plan of care. Lung sounds are positive for coarse rhonchi bilaterally. The findings and the impression was discussed with the patient. I attest to the documentation by the nurse practitioner. Critical care time is 45 minutes not including the time for procedures Time with Patient: Less than 30
[2017-12-20 11:47] VITALS: BMI 23.2
[2017-12-20 17:18] LABS: Glucose,Whole Blood 116 mg/dL (75-99)
--- NOTE | 2017-12-20 21:40 | PN ---
PROGRESS NOTE DATE OF SERVICE: 12/20/2017 This 77-year-old woman who was admitted with change in mental status, also had CHF and multiple other medical problems including pneumonia also. The patient is being transferred to medical floor. No chest pain. No palpitations. No fever. The patient continues to be mildly confused. EXAM: Pulse is 80. The blood pressure is 113/58, respiration 20, temp is normal. Pulse ox 98% on 3 L. HEENT conjunctivae normal. Oral mucosa moist. Neck is no jugular venous distention. No carotid bruit. No lymph node enlargement. Cardiovascular S1, S2 muffled. No S3, no S4. Respiratory: Breath sounds diminished in the bases. A few scattered rhonchi. No crackles. ABDOMEN: Soft, nontender. Legs are no edema. No swelling. Central nervous system: Diffusely weak. LABS: Creatinine 0.38, other labs are noted. ASSESSMENT: 1. Change in mental status, acute metabolic encephalopathy possibly secondary to severe hyponatremia, possibly hypovolemic hyponatremia. Rule out Syndrome of inappropriate antidiuretic hormone. 2. Congestive heart failure acute exacerbation with acute on chronic systolic dysfunction, ejection fraction 30-35%. 3. Acute hypoxic hypercarbic respiratory failure, multifactorial, status post mechanical ventilation. 4. Paroxysmal atrial fibrillation history. 5. Hypoglycemia, multifactorial. 6. Troponin 0.16, indeterminate. 7. Bibasilar pneumonia possibly gram-negative. 8. History of recent urinary tract infection. 9. Moderate aortic regurgitation. 10.Severe tricuspid regurgitation. 11.Pulmonary hypertension. 12.History of degenerative joint disease. 13.History of hypertension. 14.History of left-sided pleural effusion. 15.Chronic obstructive pulmonary disease. 16.Remote history of nicotine dependence. 17.FULL CODE. RECOMMENDATIONS AND DISCUSSION: To continue current medications, continue symptomatic treatment. Otherwise at this time I recommend monitor closely. PT/OT evaluation, possible ECF rehab. Further recommendations to follow. MMODL / IJN: [id number] /
--- NOTE | 2017-12-20 23:19 | P.PN ---
Subjective Progress Note Date: 12/20/17 Principal diagnosis: Weakness 77-year-old female who is cared for by her family in a family living situation apparently became unresponsive and was given some form of CPR by one of the bystanders. EMS was called and upon their arrival the patient had easily palpable pulses in was breathing spontaneously. She was brought to the emergency center where she was found evidence of significant altered status with sodium of 114. It is related over the last year the patient has just declined to the point tenderness she's no longer walking and they're trying to care for her while she is generally bedbound. The patient has obvious dementia and is not able to relate to any specific history. She is quite unaware where she is at, and does not understand my role as a physician. She is unable to assist in turning to have her ulcers evaluated. She is completely unaware of fecal soiling On 12/12/2017 the patient has little change of her status. The staff have put her in an upright position to have a meal and she appears to have great difficulty understanding what she is also due with her food tray. With direction she eventually is able to take a bite of her mash potato 12/14/2017 patient has developed respiratory failure and is now intubated sedated and mechanically ventilated. She developed significant hypercarbic respiratory failure with a CO2 of greater than 100. 12/15/2017 patient remains intubated sedated and mechanically ventilated but nursing staff relates when sedation is lightened she does follow commands such as squeezing hand. The patient is very comfortable and has had improvement of her blood gas with the current ventilation support. 12/16/2017 patient has had some difficulties today and that likely has mucus plugging with poor aeration to the left chest. We'll undergo bronchoscopy today and potential extubation after bronchoscopy if she has further improvement. She is without fever or chill and hemodynamically is stable no longer on vasopressor therapy. 12/17/2017 patient continues to have improvement. After bronchoscopy she's had improving lung function is now been extubated and is tolerating extubation well. Is on 2 L of nasal cannula and feels considerably better. Looking forward to ingesting some food and fluids she is still a poor historian per relates that she is more comfortable. 12/18/2017 patient has ongoing improvement. She is being moved out to the general medical floor given her improvement of her pulmonary status. Status post extubation she has maintained a good saturation and good pulmonary toileting. Although she is not eating well she is certainly doing better. Plans are being made for her to transition to rehab. 12/20/2017 patient has had some further improvement. Slightly increased strength. Still has shortness of breath and only 750 mL on her incentive spirometer. Continue to work toward rehab. Objective - Vital Signs Vital signs: Vital Signs Temp 97.7 F 12/20/17 21:20 Pulse 85 12/20/17 21:20 Resp 18 12/20/17 21:20 BP 115/59 12/20/17 21:20 Pulse Ox 93 L 12/20/17 21:20 Intake & Output 12/20/17 12/20/17 12/21/17 06:59 18:59 06:59 Intake Total 1780 Balance 1780 Weight 54 kg 54 kg Intake: Oral 1780 Other: Voiding Method Diaper Diaper # Voids 1 1 1 # Bowel Movements 1 ABP, PAP, CO, CI - Last Documented Arterial Blood Pressure 140/67 - Exam 77-year-old female remains comfortable status post her extubation no vasopressor therapy will be moved out of the ICU HEENT: Anicteric conjunctiva are pink and moist nasal mucosa grossly intact without significant lesions, there is no thrush. Edentulous Neck: The neck is supple without significant lymphadenopathy or thyromegaly. Lungs: Symmetrical air entry is noted however expiratory wheezes are scattered but no donovan bronchial sounds Heart: Irregular with an audible S1 and S2 without S4 no distinct murmur click or rub is noted Abdomen: Positive bowel sounds soft and nontender without palpable masses or organomegaly. There was no guarding or rebound. Extremities: Upper extremity has a IV site that is intact. No lesions in the upper extremities are noted. Lower extremities have evidence of is noted some early contractures. Is evidence of distinct wasting of the musculature of the upper and lower extremities. Please see the nursing photography for the pressure ulcerations noted to the coccyx as well as to the left and right trochanteric areas. Neuro: Awake alert with some ability to be interactive - Labs CBC & Chem 7: 12/19/17 07:07 12/20/17 06:49 Labs: Abnormal Lab Results - Last 24 Hours (Table) 12/20/17 12/20/17 12/20/17 Range/Units 01:42 06:49 10:59 Carbon Dioxide 36 H (22-30) mmol/L Creatinine 0.33 L (0.52-1.04) mg/dL POC Glucose (mg/dL) 124 H 140 H (75-99) mg/dL Calcium 7.7 L (8.4-10.2) mg/dL 12/20/17 Range/Units 17:15 Carbon Dioxide (22-30) mmol/L Creatinine (0.52-1.04) mg/dL POC Glucose (mg/dL) 116 H (75-99) mg/dL Calcium (8.4-10.2) mg/dL Microbiology - Last 24 Hours (Table) 12/14/17 14:03 Blood Culture - Final Blood No Growth after 144 hours Laboratory Results WBC 7.6 k/uL (3.8-10.6) 12/19/17 07:07 RBC 4.25 m/uL (3.80-5.40) 12/19/17 07:07 Hgb 11.9 gm/dL (11.4-16.0) 12/19/17 07:07 Hct 39.8 % (34.0-46.0) 12/19/17 07:07 MCV 93.6 fL (80.0-100.0) 12/19/17 07:07 MCH 27.9 pg (25.0-35.0) 12/19/17 07:07 MCHC 29.8 g/dL (31.0-37.0) L 12/19/17 07:07 RDW 14.3 % (11.5-15.5) 12/19/17 07:07 Plt Count 146 k/uL (150-450) L 12/19/17 07:07 Neutrophils % 77 % 12/19/17 07:07 Lymphocytes % 11 % 12/19/17 07:07 Monocytes % 5 % 12/19/17 07:07 Eosinophils % 4 % 12/19/17 07:07 Basophils % 0 % 12/19/17 07:07 Neutrophils # 5.9 k/uL (1.3-7.7) 12/19/17 07:07 Lymphocytes # 0.9 k/uL (1.0-4.8) L 12/19/17 07:07 Monocytes # 0.4 k/uL (0-1.0) 12/19/17 07:07 Eosinophils # 0.3 k/uL (0-0.7) 12/19/17 07:07 Basophils # 0.0 k/uL (0-0.2) 12/19/17 07:07 Hypochromasia Moderate 12/19/17 07:07 PT 12.2 sec (9.0-12.0) H 12/09/17 06:10 INR 1.3 (<1.2) H 12/09/17 06:10 APTT 28.9 sec (22.0-30.0) 12/09/17 06:10 D-Dimer 20.61 mg/L FEU (<0.60) H 12/09/17 06:10 Sample Site PORFIRIO 12/17/17 08:28 ABG pH 7.47 (7.35-7.45) H 12/17/17 08:28 ABG pCO2 47 mmHg (35-45) H 12/17/17 08:28 ABG pO2 126 mmHg (83-108) H 12/17/17 08:28 ABG HCO3 34 mmol/L (21-25) H 12/17/17 08:28 ABG Total CO2 36 mmol/L (19-24) H 12/17/17 08:28 ABG O2 Saturation 99.5 % (94-97) H 12/17/17 08:28 ABG Base Excess 10.7 mmol/L 12/17/17 08:28 Rigoberto Test Yes 12/17/17 08:28 FiO2 40 % 12/17/17 08:28 Sodium 139 mmol/L (137-145) 12/20/17 06:49 Potassium 3.5 mmol/L (3.5-5.1) 12/20/17 06:49 Chloride 103 mmol/L (98-107) 12/20/17 06:49 Carbon Dioxide 36 mmol/L (22-30) H 12/20/17 06:49 Anion Gap 0 mmol/L 12/20/17 06:49 BUN 16 mg/dL (7-17) 12/20/17 06:49 Creatinine 0.33 mg/dL (0.52-1.04) L 12/20/17 06:49 Est GFR (MDRD) Af Amer >60 (>60 ml/min/1.73 sqM) 12/20/17 06:49 Est GFR (MDRD) Non-Af >60 (>60 ml/min/1.73 sqM) 12/20/17 06:49 Glucose 82 mg/dL (74-99) 12/20/17 06:49 POC Glucose (mg/dL) 116 mg/dL (75-99) H 12/20/17 17:15 POC Glu Construction Iron[employer] ID Kate Zamorano 12/20/17 17:[address] Glu mg/dL 100 12/12/17 10:04 Hemoglobin A1c 5.1 % (4.0-6.0) 12/12/17 10:04 Osmolality 237 mosm/kg (280-301) L* 12/09/17 06:50 Plasma Lactic Acid Jase 1.5 mmol/L (0.7-2.0) 12/14/17 14:25 Uric Acid 2.2 mg/dL (3.7-7.4) L 12/10/17 06:50 Calcium 7.7 mg/dL (8.4-10.2) L 12/20/17 06:49 Ionized Calcium Atnia 5.1 mg/dL (4.5-5.3) 12/14/17 23:00 Phosphorus 3.1 mg/dL (2.5-4.5) 12/16/17 04:05 Magnesium 1.8 mg/dL (1.6-2.3) 12/20/17 06:49 Total Bilirubin 0.4 mg/dL (0.2-1.3) 12/19/17 07:07 AST 15 U/L (14-36) 12/19/17 07:07 ALT 23 U/L (9-52) 12/19/17 07:07 Alkaline Phosphatase 63 U/L (38-126) 12/19/17 07:07 Total Creatine Kinase 128 U/L (30-135) 12/09/17 20:28 CK-MB (CK-2) 6.5 ng/mL (0.0-2.4) H* 12/09/17 20:28 CK-MB (CK-2) Rel Index 5.1 12/09/17 20:28 Troponin I 0.251 ng/mL (0.000-0.034) H* 12/10/17 12:07 NT-Pro-B Natriuret Pep 2590 pg/mL 12/09/17 06:50 Total Protein 4.0 g/dL (6.3-8.2) L 12/19/17 07:07 Albumin 1.8 g/dL (3.5-5.0) L 12/19/17 07:07 Triglycerides 43 mg/dL (<150) 12/10/17 02:32 Cholesterol 79 mg/dL (<200) 12/10/17 02:32 LDL Cholesterol, Calc 25 mg/dL (0-99) 12/10/17 02:32 HDL Cholesterol 45 mg/dL (40-60) 12/10/17 02:32 TSH 4.130 mIU/L (0.465-4.680) 12/15/17 04:30 Cortisol 114 ug/dL 12/10/17 12:07 Urine Color Yellow 12/09/17 08:42 Urine Appearance Clear (Clear) 12/09/17 08:42 Urine pH 6.5 (5.0-8.0) 12/09/17 08:42 Ur Specific [place] 1.006 (1.001-1.035) 12/09/17 08:42 Urine Protein Trace (Negative) H 12/09/17 08:42 Urine Glucose (UA) 2+ (Negative) H 12/09/17 08:42 Urine Ketones Negative (Negative) 12/09/17 08:42 Urine Blood Trace (Negative) H 12/09/17 08:42 Urine Nitrite Negative (Negative) 12/09/17 08:42 Urine Bilirubin Negative (Negative) 12/09/17 08:42 Urine Urobilinogen 2.0 mg/dL (<2.0) 12/09/17 08:42 Ur Leukocyte Esterase Moderate (Negative) H 12/09/17 08:42 Urine RBC 11 /hpf (0-5) H 12/09/17 08:42 Urine WBC 11 /hpf (0-5) H 12/09/17 08:42 Urine Bacteria Rare /hpf (None) H 12/09/17 08:42 Urine Osmolality 267 mosm/kg (50-1400) 12/09/17 08:42 Ur Random Sodium 29 mmol/L (30-90) L 12/10/17 08:30 Vancomycin Trough 9.2 ug/mL 12/12/17 01:19 Influenza Type A RNA Not Detected (Not Detectd) 12/09/17 22:00 Influenza Type B (PCR) Not Detected (Not Detectd) 12/09/17 22:00 Virus Source See Below 12/16/17 11:25 Viral Test See Below 12/16/17 11:25 Virus Analysis Interp See Below 12/16/17 11:25 Miscellaneous Test Legionella sp. PCR 12/16/17 11:25 Misc Test Result See comment 12/16/17 11:25 Microbiology 12/14/17 14:03 Blood Blood Culture - Final No Growth after 144 hours 12/16/17 11:25 Bronchoalviolar Lavage - Left Gram Stain - Final 12/16/17 11:25 Bronchoalviolar Lavage - Left Bronchial Washings Culture - Final Ernestina albicans 12/16/17 11:25 Bronchoalviolar Lavage - Left Acid Fast Bacilli Smear - Final 12/16/17 11:25 Bronchoalviolar Lavage - Left Acid Fast Bacilli Culture - Preliminary 12/14/17 21:40 Sputum Gram Stain - Final 12/14/17 21:40 Sputum Sputum Culture - Final Ernestina albicans 12/16/17 11:25 Bronchoalviolar Lavage - Left Fungal Culture - Preliminary 12/09/17 20:28 Blood Blood Culture - Final No Growth after 144 hours 12/14/17 14:00 Urine,Catheterized Urine Culture - Final 12/09/17 08:42 Urine,Catheterized Urine Culture - Final - Imaging and Cardiology Chest x-ray: report reviewed Assessment and Plan (1) Hyponatremia Current Visit: Yes Status: Acute Code(s): E87.1 - HYPO-OSMOLALITY AND HYPONATREMIA SNOMED Code(s): 84948006 (2) Pressure ulcer of coccygeal region, stage 3 Narrative/Plan: 77-year-old female is transported to hospital after she became unresponsive. The patient was found evidence of significant hyponatremia which is noted to be hypovolemic in nature. With rehydration sodium solution she is not having improvement. There was concern as urinary tract infection however urine culture is negative for blood cultures are pending. She does not have a history of MRSA but does have significant pressure ulcerations and concerns to underlying sepsis. Will continue Zosyn for now however will discontinue vancomycin. Local wound care with hydrocolloid dressings will be utilized to pressure ulcerations. The stage III pressure ulceration of the coccyx is present at admission, is due to pressure and does not appear to be grossly infected at this time. Cultures are pending. We'll monitor cultures and further alter antibiotic therapy as possible. On 12/14/2017 the patient has had a major decline of her status with respiratory failure hypercapnic in nature requiring intubation with sedation and mechanical ventilation. Her prognosis is very poor. Continue local wound care and antibiotic therapy. 12/15/2017 patient has had some improvement in that her ventilator settings have improved she is on less PEEP and FiO2. Pulmonary critical care was following and we'll work toward potential extubation the next several days. Her most recent ABG shows evidence of improvement of her markedly elevated CO2. Her leukocytosis is improving. Sputum culture is in process. Pressure ulcer is being treated and is showing some mild improvement with the current treatment. Continue to offload and will do well to have a specialty mattress when she is out of ICU. 12/16/2017 for bronchoscopy today and potential extubation if possible. Continue Zosyn at this time and monitor for any other resistant pathogens. Continue ongoing supportive care. 12/17/2017 the patient did well with her bronchoscopy and is now had extubation. She is doing well with current supportive care and is only on 2 L nasal cannula. Tolerating current antibiotic therapy well. Cultures from her bronchoscopy in process and will further help direct antibiotic therapy. Patient certainly is having a significant improvement and case management is working with her discharge plan and it does not appear that her family can care for her in the home setting. Continue local wound care to her multiple pressure ulcers. The Ernestina that is found does not require any intervention. 12/18/2017 patient has further improvement will be moved out of the ICU to the general medical floor today. She is denying other new interventions. Her oral intake is improved. Tolerating current antibiotic therapy well. Cultures have not revealed any new pathogens. Ernestina from the oral cavity was noted. Tolerating 2 L nasal cannula without any new pulmonary difficulties. Aggressive pulmonary toileting continues. We'll transition to extended care. Will not need intravenous antibiotic therapy at that time. 12/20/2017 reveals a patient of some ongoing improvement. There are plans for her to transition to extended care in the near future. Will not need intravenous antibiotic therapy with complete 5 days of oral Augmentin for her complicated aspiration pneumonia Current Visit: Yes Status: Acute Code(s): L89.153 - PRESSURE ULCER OF SACRAL REGION, STAGE 3 SNOMED Code(s): 241215763
[2017-12-21] MEDS: PIPERACILLIN-TAZOBACTAM 3.375 GM in DEXTROSE/WATER 1 50ML.BAG IVPB SCH ×2 (07:14→15:56)
[2017-12-21] MEDS: POTASSIUM CHLORIDE ER 20 MEQ TAB.ER PO SCH (08:18)
[2017-12-21] MEDS: ASPIRIN 81 MG PO SCH (08:18)
[2017-12-21] MEDS: PANTOPRAZOLE 40 MG TABLET PO SCH (08:18)
[2017-12-21] MEDS: ENOXAPARIN 40 MG/0.4 ML SYRINGE SQ SCH (08:18)
[2017-12-21] MEDS: FUROSEMIDE 20 MG TAB PO SCH (08:56)
--- NOTE | 2017-12-21 09:35 | P.PN ---
Subjective Patient is seen in follow-up for hyponatremia, which has resolved. Patient was noted to be in respiratory distress on December 14 and was subsequently transferred to the intensive care unit. She is now extubated. She is off levofed. Oral intake is fair. Denies chest pain. She appears more dyspneic today. She is also noted to have lower extremity edema. Vital signs are stable. General: The patient appeared well nourished and normally developed. HEENT: Head exam is unremarkable. Neck is without jugular venous distension. LUNGS: Lungs are clear to auscultation and percussion. Breath sounds decreased. HEART: Rate and Rhythm are regular. First and second heart sounds normal. No murmurs, rubs or gallops. ABDOMEN: Abdominal exam reveals normal bowel sounds. Non-tender and non- distended. No evidence of peritonitis. EXTREMITITES: 2+ edema. Objective - Vital Signs Vital signs: Vital Signs Temp 97.5 F L 12/21/17 07:00 Pulse 78 12/21/17 08:00 Resp 18 12/21/17 08:00 BP 114/55 12/21/17 07:00 Pulse Ox 95 12/21/17 07:00 Intake & Output 12/20/17 12/21/17 12/21/17 18:59 06:59 18:59 Intake Total 1780 Balance 1780 Weight 54 kg 94.1 kg Intake: Oral 1780 Other: Voiding Method Diaper Diaper Diaper # Voids 1 1 # Bowel Movements 1 ABP, PAP, CO, CI - Last Documented Arterial Blood Pressure 140/67 - Labs CBC & Chem 7: 12/19/17 07:07 12/20/17 06:49 Labs: Abnormal Lab Results - Last 24 Hours (Table) 12/20/17 12/20/17 Range/Units 10:59 17:15 POC Glucose (mg/dL) 140 H 116 H (75-99) mg/dL Microbiology - Last 24 Hours (Table) 12/14/17 14:03 Blood Culture - Final Blood No Growth after 144 hours Assessment and Plan Plan: Assessment: #1. Hypovolemic hyponatremia improved with normal saline. Now appears hypervolemic. Also component of tea and toast diet as a BUN is noted to be only 4 and urine osmolality 267 on admission. TSH and cortisol levels normal. Sodium level 139 as of yesterday. Labs from today are pending at this time. #2. Pyuria. Urine culture negative so far. #3. Benign hypertension. Controlled. #4. Diastolic CHF with moderate pulmonary hypertension. #5. Acute hypercapnic respiratory failure. #6. Hypokalemia secondary to diuresis. Magnesium replete. Plan: Remains off all IV fluids. Increase lasix to 40 mg IV twice daily. Maintain K-dur 20 meq daily. Encouraged oral intake. Continue to monitor renal function and urine output. Avoid nephrotoxic agents and hypotensive episodes. Repeat electrolytes in the morning.
[2017-12-21 09:49] LABS: Blood Urea Nitrogen 18 mg/dL (7-17); Calcium 8.3 mg/dL (8.4-10.2); Chloride 98 mmol/L (98-107); Glucose 101 mg/dL (74-99); Potassium 4.1 mmol/L (3.5-5.1); Sodium 138 mmol/L (137-145)
[2017-12-21 09:57] LABS: Anion Gap 0 mmol/L
[2017-12-21 10:10] LABS: Carbon Dioxide 40 mmol/L (22-30)
[2017-12-21] MEDS: IPRATROPIUM-ALBUTEROL 3 ML NEB INHALATION SCH ×4 (10:33→23:01)
[2017-12-21 13:53] LABS: ABG Base Excess 13.7 mmol/L; ABG Oxygen Saturation 95.1 % (94-97); ABG PH 7.27 (7.35-7.45); ABG PO2 76 mmHg (83-108); ABG TCO2 43 mmol/L (19-24)
[2017-12-21 13:57] VITALS: BP 138/77; RESP 20; TEMP 97.6
[2017-12-21 13:57] LABS: ABG HCO3 41 mmol/L (21-25); ABG PCO2 88 mmHg (35-45)
--- NOTE | 2017-12-21 14:37 | P.PN ---
Subjective Progress Note Date: 12/21/17 Principal diagnosis: Respiratory failure secondary to elevated troponin and hyponatremia Progress note dated 12/17/2017 This is a 77-year-old female with acute hypoxemic and hypercapnic respiratory failure requiring intubation and mechanical ventilation, secondary to COPD respiratory muscle weakness general medical debility and possible left lower lobe pneumonia. She was initially admitted to the hospital on December 09. On December 14, an 18 was called because of mental status changes. She was transferred to the ICU on that day and placed on BiPAP. For progressive respiratory failure, she was intubated and placed on norepinephrine for blood pressure control. She also had significant issues with hypoglycemia. Yesterday , she underwent bronchoscopy because of possible left lower lobe collapse. The patient's on dextrose IV was saline at 70 mL an hour, propofol at 30 mics per kilogram per minute and norepinephrine is currently off. Her mechanical ventilation settings include the assist control mode rate of 20, tidal volume of 350, FiO2 40%, and a PEEP of 5. Her blood gases show a PaO2 of 126 a PaCO2 47 and a pH of 7.47. This is consistent with metabolic alkalosis and hyperoxemia. Microbiology is only positive for yeast. Meds labs and x-rays are all reviewed. In addition, she has a history of chronic medical debility, hypertension, CHF, multiple decubitus ulcers, urinary tract infection, left lower lobe consolidation, status post recent bronchoscopy. Progress note dated 12/18/2017 77-year-old female with history of acute hypoxemic and hypercapnic respiratory failure, requiring intubation and mechanical ventilation secondary to COPD respiratory muscle weakness in general medical debility. She may have also had a left lower lobe pneumonia. There is persistent opacity in the retrocardiac region. The patient was admitted to the hospital on December 09. On the , a rapid response team was called because of mental status changes. She was transferred to the ICU on that day and placed on BiPAP because of progressive respiratory failure was intubated. Initially she required norepinephrine for blood pressure control. She also had significant issue with hypoglycemia. On Sunday, my partner did a bronchoscopy for left lower lobe collapse. Yesterday, her sedation was held she had a spontaneous breathing trial and she was extubated. She currently remains extubated and seemed be doing relatively well. She has history of general medical debility, hypertension, heart failure , multiple decubitus ulcers, urinary tract infection, left lower lobe consolidation and status post recent bronchoscopy. Progress note dated 12/21/2017 77-year-old female with a history of acute hypoxemic and hypercapnic respiratory failure which required intubation and mechanical ventilation secondary to COPD exacerbation respiratory muscle weakness and general medical debility. She also was thought to have a left lower lobe pneumonia. The patient was extubated and was transferred out to the floor. I saw her yesterday she was doing well. Apparently today some time, she became very lethargic and somnolent. A blood gas revealed both hypoxemic and hypercapnic respiratory failure. A chest x-ray was ordered stat. It's not been done as yet. The patient apparently was doing well prior to this. The patient is not on any sedatives hypnotics or tranquilizers. The patient has a history of general medical debility hypertension and heart failure multiple decubitus ulcers urinary tract infection left lower lobe consolidation and status post recent bronchoscopy for airway secretion control. This was done by my partner a week ago Sunday. She was placed on BiPAP at 10 and 5 and 40%. I told her respiratory therapist to maintain saturations in mid to high 80s. Also she could be in the low 90s. We will talk to the family about CODE STATUS. Overall prognosis is very poor. Objective - Vital Signs Vital signs: Vital Signs Temp 97.6 F 12/21/17 13:56 Pulse 84 12/21/17 13:56 Resp 20 12/21/17 13:56 BP 138/77 12/21/17 13:56 Pulse Ox 96 12/21/17 13:56 Intake & Output 12/20/17 12/21/17 12/21/17 18:59 06:59 18:59 Intake Total 1780 480 Balance 1780 480 Weight 54 kg 94.1 kg Intake: Oral 1780 480 Other: Voiding Method Diaper Diaper Diaper # Voids 1 1 # Bowel Movements 1 ABP, PAP, CO, CI - Last Documented Arterial Blood Pressure 140/67 - Exam The patient seems very somnolent and lethargic. She does arouse. The patient' s is on BiPAP at 10 and 5 and 40%. HEENT examination is grossly unremarkable. Mucous membranes are moist. No oral lesions. Neck supple. Full range of motion. No adenopathy thyromegaly or neck vein distention. Cardiovascular examination reveals regular rhythm rate. S1-S2 normal. No S3 or S4. No discernible murmur noted. Lungs reveal coarse expiratory rhonchi. Breath sounds are diminished. There are diffuse bibasilar crackles and a few scattered rhonchi. Abdomen soft bowel sounds are heard. No masses or tenderness. Extremities are intact. No cyanosis clubbing or edema. Skin is without rash or lesion. Neurologic examination could not be adequately assessed. - Labs CBC & Chem 7: 12/19/17 07:07 12/21/17 09:14 Labs: Abnormal Lab Results - Last 24 Hours (Table) 12/20/17 12/21/17 12/21/17 Range/Units 17:15 09:14 13:50 ABG pH 7.27 L (7.35-7.45) ABG pCO2 88 H* (35-45) mmHg ABG pO2 76 L (83-108) mmHg ABG HCO3 41 H* (21-25) mmol/L ABG Total CO2 43 H (19-24) mmol/L Carbon Dioxide 40 H* (22-30) mmol/L BUN 18 H (7-17) mg/dL Creatinine 0.40 L (0.52-1.04) mg/dL Glucose 101 H (74-99) mg/dL POC Glucose (mg/dL) 116 H (75-99) mg/dL Calcium 8.3 L (8.4-10.2) mg/dL Microbiology - Last 24 Hours (Table) 12/16/17 11:25 Fungal Culture - Preliminary Bronchoalviolar Lavage - Left Ernestina albicans 12/14/17 14:03 Blood Culture - Final Blood No Growth after 144 hours Assessment and Plan Assessment: Assessment Acute hypoxemic and hypercapnic respiratory failure, requiring intubation and mechanical ventilation, with extubation on 12/17/2017, now on BiPAP for hypoxemic and hypercapnic respiratory failure for second time. Chronic medical debility History of COPD History of hypertension History of CHF Hypotension, resolved Multiple decubitus ulcers Possible UTI. Left lower lobe consolidation, status post bronchoscopy with BAL on 12/16 Plan: Plan dated 12/17/2017 We will do a daily eruption of sedation. FiO2 was dropped from 40 to 30%. Additional recommendations and suggestions are forthcoming. Prognosis is guarded. Continue to follow closely. Labs x-rays a medications are reviewed. Prognosis is guarded. We'll place the patient on CPAP and PSV and give the patient a spontaneous breathing trial. I'm not sure that she is ready for extubation. Critical care time 32 minutes Plan dated 12/18/2017 The patient was extubated on 12/17/2017. She remains on O2 at 2 L by nasal cannula. The patient's getting an IV of dextrose and saline at 70 mL an hour and a saline IV at 10 mL an hour. She seems be relatively stable. Labs x-rays a medications are reviewed. Chest x-ray does show a retrocardiac density silhouetting the left hemidiaphragm. Additional recommendations and suggestions are forthcoming. Prognosis is guarded. Meds labs and x-rays were all be reviewed. Critical care time 34 minutes Plan dated 12/21/2017 The patient was extubated on December 17. She was doing well up until today. She was very lethargic and somnolent. An arterial blood gas revealed both hypoxemia and hypercapnia. She was placed on BiPAP. Sedatives hypnotics and tranquilizers were discontinued. A chest x-ray was ordered stat. Medications labs are reviewed. The nurse we'll talk to the family about CODE STATUS. Prognosis is guarded. I did tell the respiratory therapist to hopefully maintain saturation just in the range of 85-90%. Time with Patient: Less than 30
--- NOTE | 2017-12-21 15:02 | XR ---
EXAMINATION TYPE: XR chest 1V portable DATE OF EXAM: 12/21/2017 COMPARISON: 12/18/2017 INDICATION: Shortness of breath TECHNIQUE: Single frontal view of the chest is obtained. FINDINGS: The heart size is normal. The pulmonary vasculature is normal. There is opacification of the left lung. The mediastinum is shifted to the left. Port is present on t he right with the tip within the deep atrium unchanged from prior examination. There is a small amount of linear opacity at the right base can be related to some plate atelectasis. There is blunting the right costophrenic angle compatible with small effusion. IMPRESSION: 1. Opacification of the left lung. Correlate for atelectasis. A large pleural fluid collection could have this appearance. 2. Minimal fluid in atelectasis at the right base, stable from prior study.
[2017-12-21] MEDS ORDERED: FUROSEMIDE 10 MG/ML 4 ML VIAL IV SCH (16:00)
[2017-12-21 16:17] VITALS: PULSE 84
[2017-12-21] MEDS ORDERED: MIDAZOLAM (PF) 1 MG/ML 5 ML VIAL IV STA (17:01)
[2017-12-21 17:09] LABS: Glucose,Whole Blood 120 mg/dL (75-99)
[2017-12-21 17:22] LABS: Glucose,Whole Blood 84 mg/dL (75-99)
[2017-12-21] MEDS ORDERED: EPINEPHrine 10 ML SYRINGE (0.1 MG/ML) ONE (17:30)
[2017-12-21] MEDS ORDERED: DEXTROSE 50%-WATER 50 ML SYRINGE IVP ONE (17:30)
[2017-12-21] MEDS ORDERED: SODIUM BICARB 8.4% 50 ML SYR (1 MEQ/ML) ONE (17:30)
--- NOTE | 2017-12-21 20:36 | ED ---
CPR HPI - General Chief Complaint: Shortness of Breath Stated Complaint: FÉLIX Time Seen by Provider: 12/09/17 05:59 Source: family, EMS Mode of arrival: EMS Limitations: no limitations - History of Present Illness Initial Comments: Responded to CODE BLUE call, at that time she was on a floor on arrival chest compressions were being done and she had her first dose of epinephrine, advised the nursing staff to continue the chest compressions, Contreras Bazzi patient was done side 7 tube was used and a Karma size 3 blade was used, intubation was confirmed by visualizing the vocal cords and bilateral auscultation. [facility] she had a return of spontaneous circulation and then about 15 minutes later she again recorded in the ICU, second time cord was running for about 12/16/1929 minutes now second time she remained in asystole meds were done according to ACLS protocols fluid bolus was done and bicarb ampules were introduced considering metabolic acidosis possibility labs are reviewed from the morning to check on 20 possible electrolyte imbalance. Using the ultrasound subxiphoid cardiac asystole was confirmed in the in code was terminated - Related Data Home Medications Medication Instructions Recorded Confirmed Furosemide [Lasix] 20 mg PO DAILY 12/09/17 12/09/17 Previous Rx's Medication Instructions Recorded Albuterol Nebulized [Ventolin 2.5 mg INHALATION RT-Q4H PRN nebu 12/13/17 Nebulized] Ipratropium-Albuterol Nebulize 3 ml INHALATION RT-QID ampul.neb 12/13/17 [Duoneb 0.5 mg-3 mg/3 ml Soln] Metoprolol Tartrate [Lopressor] 12.5 mg PO DAILY tab 12/13/17 Pantoprazole [Protonix] 40 mg PO [id number] tablet. 12/13/17 Levofloxacin [Levaquin] 500 mg PO DAILY #7 tab 12/20/17 Allergies Allergy/AdvReac Type Severity Reaction Status Date / Time No Known Allergies Allergy Verified 12/09/17 07:21 Review of Systems ROS Statement: Those systems with pertinent positive or pertinent negative responses have been documented in the HPI. ROS Other: All systems not noted in ROS Statement are negative. Constitutional: Denies: fever, chills Respiratory: Denies: cough, dyspnea Cardiovascular: Denies: chest pain, edema Gastrointestinal: Denies: abdominal pain, vomiting, diarrhea Genitourinary: Denies: dysuria Musculoskeletal: Denies: back pain Neurological: Denies: headache, weakness, numbness Past Medical History Past Medical History: Heart Failure, COPD, Hypertension History of Any Multi-Drug Resistant Organisms: None Reported Additional Past Surgical History / Comment(s): bilateral cataracts surgery Past Anesthesia/Blood Transfusion Reactions: No Reported Reaction Past Psychological History: No Psychological Hx Reported Additional Psychological History / Comment(s): Cared for at family setting with significant decline over the last year Smoking Status: Former smoker Past Alcohol Use History: None Reported Past Drug Use History: None Reported - Past Family History Father Family Medical History: Cancer General Exam - General Exam Comments Initial Comments: On arrival patient had no pulse and CPR was done later with spontaneous return of circulation was noticed patient was giving IV fluids, patient was already intubated and patient was transferred to ICU then about to 15 minutes later she coded in ICU this time she had no pulse head normocephalic no acute atraumatic, pupils were nonreactive to light heart asystole lungs but no respiratory activity was noticed abdomen was bit distended probably secondary to breaking the patient Lower extremity was unremarkable Limitations: no limitations General appearance: alert, cachectic Course Vital Signs 12/09/17 12/09/17 12/09/17 05:55 06:31 07:33 Temperature 97.3 F L Pulse Rate 106 H 71 Respiratory 20 20 16 Rate Blood Pressure 144/107 156/72 O2 Sat by Pulse 98 94 L Oximetry 12/09/17 12/09/17 12/09/17 09:14 09:29 13:00 Temperature Pulse Rate 80 74 94 Respiratory 16 16 22 Rate Blood Pressure 141/77 137/75 173/81 O2 Sat by Pulse 100 100 91 L Oximetry 12/09/17 12/09/17 12/09/17 14:00 15:11 16:03 Temperature 97.8 F Pulse Rate 77 81 71 Respiratory 18 16 16 Rate Blood Pressure 105/58 112/59 112/57 O2 Sat by Pulse 96 95 95 Oximetry 12/09/17 12/09/17 12/09/17 16:55 18:46 19:22 Temperature 97.8 F Pulse Rate 70 62 62 Respiratory 16 16 20 Rate Blood Pressure 112/57 116/62 120/64 O2 Sat by Pulse 96 100 100 Oximetry 12/09/17 12/09/17 20:54 22:03 Temperature Pulse Rate 64 66 Respiratory 18 16 Rate Blood Pressure 102/56 117/56 O2 Sat by Pulse 100 100 Oximetry Patient was pronounced once asystole was confirmed with the ultrasound with the consent of code team, please refer to code sheet for the exact time of code termination. Medical Decision Making - Lab Data Result diagrams: 12/19/17 07:07 12/21/17 09:14 Lab Results 12/09/17 12/09/17 12/09/17 Range/Units 06:04 06:10 06:10 WBC 9.2 (3.8-10.6) k/uL RBC 4.54 (3.80-5.40) m/uL Hgb 12.7 (11.4-16.0) gm/dL Hct 38.8 (34.0-46.0) % MCV 85.5 (80.0-100.0) fL MCH 27.9 (25.0-35.0) pg MCHC 32.7 (31.0-37.0) g/dL RDW 13.3 (11.5-15.5) % Plt Count 173 (150-450) k/uL Neutrophils % 84 % Lymphocytes % 9 % Monocytes % 5 % Eosinophils % 1 % Basophils % 0 % Neutrophils # 7.7 (1.3-7.7) k/uL Lymphocytes # 0.8 L (1.0-4.8) k/uL Monocytes # 0.4 (0-1.0) k/uL Eosinophils # 0.1 (0-0.7) k/uL Basophils # 0.0 (0-0.2) k/uL PT 12.2 H (9.0-12.0) sec INR 1.3 H (<1.2) APTT 28.9 (22.0-30.0) sec D-Dimer 20.61 H (<0.60) mg/L FEU Sodium (137-145) mmol/L Potassium (3.5-5.1) mmol/L Chloride (98-107) mmol/L Carbon Dioxide (22-30) mmol/L Anion Gap mmol/L BUN (7-17) mg/dL Creatinine (0.52-1.04) mg/dL Est GFR (MDRD) Af Amer (>60 ml/min/1.73 sqM) Est GFR (MDRD) Non-Af (>60 ml/min/1.73 sqM) Glucose (74-99) mg/dL POC Glucose (mg/dL) 53 L (75-99) mg/dL POC Glu Engineering Faculty Member ID Trinidad Juan Osmolality ([phone]) mosm/kg Calcium (8.4-10.2) mg/dL Magnesium (1.6-2.3) mg/dL Total Bilirubin (0.2-1.3) mg/dL AST (14-36) U/L ALT (9-52) U/L Alkaline Phosphatase (38-126) U/L Total Creatine Kinase (30-135) U/L CK-MB (CK-2) (0.0-2.4) ng/mL CK-MB (CK-2) Rel Index Troponin I (0.000-0.034) ng/mL NT-Pro-B Natriuret Pep pg/mL Total Protein (6.3-8.2) g/dL Albumin (3.5-5.0) g/dL 12/09/17 12/09/17 12/09/17 Range/Units 06:50 06:50 06:50 WBC (3.8-10.6) k/uL RBC (3.80-5.40) m/uL Hgb (11.4-16.0) gm/dL Hct (34.0-46.0) % MCV (80.0-100.0) fL MCH (25.0-35.0) pg MCHC (31.0-37.0) g/dL RDW (11.5-15.5) % Plt Count (150-450) k/uL Neutrophils % % Lymphocytes % % Monocytes % % Eosinophils % % Basophils % % Neutrophils # (1.3-7.7) k/uL Lymphocytes # (1.0-4.8) k/uL Monocytes # (0-1.0) k/uL Eosinophils # (0-0.7) k/uL Basophils # (0-0.2) k/uL PT (9.0-12.0) sec INR (<1.2) APTT (22.0-30.0) sec D-Dimer (<0.60) mg/L FEU Sodium 114 L* (137-145) mmol/L Potassium 4.3 (3.5-5.1) mmol/L Chloride 82 L (98-107) mmol/L Carbon Dioxide 25 (22-30) mmol/L Anion Gap 7 mmol/L BUN 8 (7-17) mg/dL Creatinine 0.33 L (0.52-1.04) mg/dL Est GFR (MDRD) Af Amer >60 (>60 ml/min/1.73 sqM) Est GFR (MDRD) Non-Af >60 (>60 ml/min/1.73 sqM) Glucose 152 H (74-99) mg/dL POC Glucose (mg/dL) (75-99) mg/dL POC Glu Engineering Faculty Member ID Osmolality ([phone]) mosm/kg Calcium 8.1 L (8.4-10.2) mg/dL Magnesium 1.5 L (1.6-2.3) mg/dL Total Bilirubin 0.7 (0.2-1.3) mg/dL AST 23 (14-36) U/L ALT 26 (9-52) U/L Alkaline Phosphatase 103 (38-126) U/L Total Creatine Kinase 102 (30-135) U/L CK-MB (CK-2) 3.7 H* (0.0-2.4) ng/mL CK-MB (CK-2) Rel Index 3.6 Troponin I <0.012 (0.000-0.034) ng/mL NT-Pro-B Natriuret Pep 2590 pg/mL Total Protein 5.6 L (6.3-8.2) g/dL Albumin 2.4 L (3.5-5.0) g/dL 12/09/17 Range/Units 06:50 WBC (3.8-10.6) k/uL RBC (3.80-5.40) m/uL Hgb (11.4-16.0) gm/dL Hct (34.0-46.0) % MCV (80.0-100.0) fL MCH (25.0-35.0) pg MCHC (31.0-37.0) g/dL RDW (11.5-15.5) % Plt Count (150-450) k/uL Neutrophils % % Lymphocytes % % Monocytes % % Eosinophils % % Basophils % % Neutrophils # (1.3-7.7) k/uL Lymphocytes # (1.0-4.8) k/uL Monocytes # (0-1.0) k/uL Eosinophils # (0-0.7) k/uL Basophils # (0-0.2) k/uL PT (9.0-12.0) sec INR (<1.2) APTT (22.0-30.0) sec D-Dimer (<0.60) mg/L FEU Sodium (137-145) mmol/L Potassium (3.5-5.1) mmol/L Chloride (98-107) mmol/L Carbon Dioxide (22-30) mmol/L Anion Gap mmol/L BUN (7-17) mg/dL Creatinine (0.52-1.04) mg/dL Est GFR (MDRD) Af Amer (>60 ml/min/1.73 sqM) Est GFR (MDRD) Non-Af (>60 ml/min/1.73 sqM) Glucose (74-99) mg/dL POC Glucose (mg/dL) (75-99) mg/dL POC Glu Engineering Faculty Member ID Osmolality [id number] L* ([phone]) mosm/kg Calcium (8.4-10.2) mg/dL Magnesium (1.6-2.3) mg/dL Total Bilirubin (0.2-1.3) mg/dL AST (14-36) U/L ALT (9-52) U/L Alkaline Phosphatase (38-126) U/L Total Creatine Kinase (30-135) U/L CK-MB (CK-2) (0.0-2.4) ng/mL CK-MB (CK-2) Rel Index Troponin I (0.000-0.034) ng/mL NT-Pro-B Natriuret Pep pg/mL Total Protein (6.3-8.2) g/dL Albumin (3.5-5.0) g/dL Disposition Clinical Impression: Hyponatremia, Hyperkalemia, UTI (urinary tract infection), Asystole Disposition: ADMITTED IP TO THIS HOSP Condition: Serious
--- NOTE | 2017-12-21 21:44 | P.PN ---
Subjective Progress Note Date: 12/21/17 Principal diagnosis: Weakness 77-year-old female who is cared for by her family in a family living situation apparently became unresponsive and was given some form of CPR by one of the bystanders. EMS was called and upon their arrival the patient had easily palpable pulses in was breathing spontaneously. She was brought to the emergency center where she was found evidence of significant altered status with sodium of 114. It is related over the last year the patient has just declined to the point tenderness she's no longer walking and they're trying to care for her while she is generally bedbound. The patient has obvious dementia and is not able to relate to any specific history. She is quite unaware where she is at, and does not understand my role as a physician. She is unable to assist in turning to have her ulcers evaluated. She is completely unaware of fecal soiling On 12/12/2017 the patient has little change of her status. The staff have put her in an upright position to have a meal and she appears to have great difficulty understanding what she is also due with her food tray. With direction she eventually is able to take a bite of her mash potato 12/14/2017 patient has developed respiratory failure and is now intubated sedated and mechanically ventilated. She developed significant hypercarbic respiratory failure with a CO2 of greater than 100. 12/15/2017 patient remains intubated sedated and mechanically ventilated but nursing staff relates when sedation is lightened she does follow commands such as squeezing hand. The patient is very comfortable and has had improvement of her blood gas with the current ventilation support. 12/16/2017 patient has had some difficulties today and that likely has mucus plugging with poor aeration to the left chest. We'll undergo bronchoscopy today and potential extubation after bronchoscopy if she has further improvement. She is without fever or chill and hemodynamically is stable no longer on vasopressor therapy. 12/17/2017 patient continues to have improvement. After bronchoscopy she's had improving lung function is now been extubated and is tolerating extubation well. Is on 2 L of nasal cannula and feels considerably better. Looking forward to ingesting some food and fluids she is still a poor historian per relates that she is more comfortable. 12/18/2017 patient has ongoing improvement. She is being moved out to the general medical floor given her improvement of her pulmonary status. Status post extubation she has maintained a good saturation and good pulmonary toileting. Although she is not eating well she is certainly doing better. Plans are being made for her to transition to rehab. 12/20/2017 patient has had some further improvement. Slightly increased strength. Still has shortness of breath and only 750 mL on her incentive spirometer. Continue to work toward rehab. 12/21/2017 the patient has had worsening of her respiratory failure and is now on BiPAP after she been seen by pulmonary critical care because of her worsening respiratory failure. The patient currently is still a full code although with her very progressive pulmonary status would hopefully be addressed again with the family in the near future. Objective - Vital Signs Vital signs: Vital Signs Temp 97.6 F 12/21/17 13:56 Pulse 84 12/21/17 16:00 Resp 20 12/21/17 16:00 BP 138/77 12/21/17 13:56 Pulse Ox 96 12/21/17 13:56 Intake & Output 12/21/17 12/21/17 12/22/17 06:59 18:59 06:59 Intake Total 510 Balance 510 Weight 94.1 kg Intake: IV 30 0.9 at 10 30 Dextrose 5%-0.9% NaCl 1, 0 000 ml @ 40 mls/hr IV . Q24H EDUIN Rx#:[id number] Oral 480 Other: Voiding Method Diaper Diaper # Voids 1 ABP, PAP, CO, CI - Last Documented Arterial Blood Pressure 140/67 - Exam 77-year-old female developed some worsening respiratory failure and is now on BiPAP therapy but she does seem to be comfortable HEENT: Anicteric conjunctiva are pink and moist nasal mucosa grossly intact without significant lesions, there is no thrush. Edentulous Neck: The neck is supple without significant lymphadenopathy or thyromegaly. Lungs: Symmetrical air entry is noted however expiratory wheezes are scattered but no donovan bronchial sounds Heart: Irregular with an audible S1 and S2 without S4 no distinct murmur click or rub is noted Abdomen: Positive bowel sounds soft and nontender without palpable masses or organomegaly. There was no guarding or rebound. Extremities: Upper extremity has a IV site that is intact. No lesions in the upper extremities are noted. Lower extremities have evidence of is noted some early contractures. Is evidence of distinct wasting of the musculature of the upper and lower extremities. Please see the nursing photography for the pressure ulcerations noted to the coccyx as well as to the left and right trochanteric areas. Neuro: Awake alert BiPAP in place not able to speak - Labs CBC & Chem 7: 12/19/17 07:07 12/21/17 09:14 Labs: Abnormal Lab Results - Last 24 Hours (Table) 12/21/17 12/21/17 12/21/17 Range/Units 09:14 13:50 16:56 ABG pH 7.27 L (7.35-7.45) ABG pCO2 88 H* (35-45) mmHg ABG pO2 76 L (83-108) mmHg ABG HCO3 41 H* (21-25) mmol/L ABG Total CO2 43 H (19-24) mmol/L Carbon Dioxide 40 H* (22-30) mmol/L BUN 18 H (7-17) mg/dL Creatinine 0.40 L (0.52-1.04) mg/dL Glucose 101 H (74-99) mg/dL POC Glucose (mg/dL) 120 H (75-99) mg/dL Calcium 8.3 L (8.4-10.2) mg/dL Microbiology - Last 24 Hours (Table) 12/16/17 11:25 Fungal Culture - Preliminary Bronchoalviolar Lavage - Left Ernestina albicans Laboratory Results WBC 7.6 k/uL (3.8-10.6) 12/19/17 07:07 RBC 4.25 m/uL (3.80-5.40) 12/19/17 07:07 Hgb 11.9 gm/dL (11.4-16.0) 12/19/17 07:07 Hct 39.8 % (34.0-46.0) 12/19/17 07:07 MCV 93.6 fL (80.0-100.0) 12/19/17 07:07 MCH 27.9 pg (25.0-35.0) 12/19/17 07:07 MCHC 29.8 g/dL (31.0-37.0) L 12/19/17 07:07 RDW 14.3 % (11.5-15.5) 12/19/17 07:07 Plt Count 146 k/uL (150-450) L 12/19/17 07:07 Neutrophils % 77 % 12/19/17 07:07 Lymphocytes % 11 % 12/19/17 07:07 Monocytes % 5 % 12/19/17 07:07 Eosinophils % 4 % 12/19/17 07:07 Basophils % 0 % 12/19/17 07:07 Neutrophils # 5.9 k/uL (1.3-7.7) 12/19/17 07:07 Lymphocytes # 0.9 k/uL (1.0-4.8) L 12/19/17 07:07 Monocytes # 0.4 k/uL (0-1.0) 12/19/17 07:07 Eosinophils # 0.3 k/uL (0-0.7) 12/19/17 07:07 Basophils # 0.0 k/uL (0-0.2) 12/19/17 07:07 Hypochromasia Moderate 12/19/17 07:07 PT 12.2 sec (9.0-12.0) H 12/09/17 06:10 INR 1.3 (<1.2) H 12/09/17 06:10 APTT 28.9 sec (22.0-30.0) 12/09/17 06:10 D-Dimer 20.61 mg/L FEU (<0.60) H 12/09/17 06:10 Sample Site LRAD 12/21/17 13:50 ABG pH 7.27 (7.35-7.45) L 12/21/17 13:50 ABG pCO2 88 mmHg (35-45) H* 12/21/17 13:50 ABG pO2 76 mmHg (83-108) L 12/21/17 13:50 ABG HCO3 41 mmol/L (21-25) H* 12/21/17 13:50 ABG Total CO2 43 mmol/L (19-24) H 12/21/17 13:50 ABG O2 Saturation 95.1 % (94-97) 12/21/17 13:50 ABG Base Excess 13.7 mmol/L 12/21/17 13:50 Rigoberto Test Yes 12/21/17 13:50 FiO2 32 % 12/21/17 13:50 Sodium 138 mmol/L (137-145) 12/21/17 09:14 Potassium 4.1 mmol/L (3.5-5.1) 12/21/17 09:14 Chloride 98 mmol/L (98-107) 12/21/17 09:14 Carbon Dioxide 40 mmol/L (22-30) H* 12/21/17 09:14 Anion Gap 0 mmol/L 12/21/17 09:14 BUN 18 mg/dL (7-17) H 12/21/17 09:14 Creatinine 0.40 mg/dL (0.52-1.04) L 12/21/17 09:14 Est GFR (MDRD) Af Amer >60 (>60 ml/min/1.73 sqM) 12/21/17 09:14 Est GFR (MDRD) Non-Af >60 (>60 ml/min/1.73 sqM) 12/21/17 09:14 Glucose 101 mg/dL (74-99) H 12/21/17 09:14 POC Glucose (mg/dL) 84 mg/dL (75-99) 12/21/17 17:16 POC Glu Manager Intern ID Estelle Abad 12/21/17 17:[address] Glu mg/dL 100 12/12/17 10:04 Hemoglobin A1c 5.1 % (4.0-6.0) 12/12/17 10:04 Osmolality 237 mosm/kg (280-301) L* 12/09/17 06:50 Plasma Lactic Acid Jase 1.5 mmol/L (0.7-2.0) 12/14/17 14:25 Uric Acid 2.2 mg/dL (3.7-7.4) L 12/10/17 06:50 Calcium 8.3 mg/dL (8.4-10.2) L 12/21/17 09:14 Ionized Calcium Tania 5.1 mg/dL (4.5-5.3) 12/14/17 23:00 Phosphorus 3.1 mg/dL (2.5-4.5) 12/16/17 04:05 Magnesium 1.8 mg/dL (1.6-2.3) 12/20/17 06:49 Total Bilirubin 0.4 mg/dL (0.2-1.3) 12/19/17 07:07 AST 15 U/L (14-36) 12/19/17 07:07 ALT 23 U/L (9-52) 12/19/17 07:07 Alkaline Phosphatase 63 U/L (38-126) 12/19/17 07:07 Total Creatine Kinase 128 U/L (30-135) 12/09/17 20:28 CK-MB (CK-2) 6.5 ng/mL (0.0-2.4) H* 12/09/17 20:28 CK-MB (CK-2) Rel Index 5.1 12/09/17 20:28 Troponin I 0.251 ng/mL (0.000-0.034) H* 12/10/17 12:07 NT-Pro-B Natriuret Pep 2590 pg/mL 12/09/17 06:50 Total Protein 4.0 g/dL (6.3-8.2) L 12/19/17 07:07 Albumin 1.8 g/dL (3.5-5.0) L 12/19/17 07:07 Triglycerides 43 mg/dL (<150) 12/10/17 02:32 Cholesterol 79 mg/dL (<200) 12/10/17 02:32 LDL Cholesterol, Calc 25 mg/dL (0-99) 12/10/17 02:32 HDL Cholesterol 45 mg/dL (40-60) 12/10/17 02:32 TSH 4.130 mIU/L (0.465-4.680) 12/15/17 04:30 Cortisol 114 ug/dL 12/10/17 12:07 Urine Color Yellow 12/09/17 08:42 Urine Appearance Clear (Clear) 12/09/17 08:42 Urine pH 6.5 (5.0-8.0) 12/09/17 08:42 Ur Specific Vista 1.006 (1.001-1.035) 12/09/17 08:42 Urine Protein Trace (Negative) H 12/09/17 08:42 Urine Glucose (UA) 2+ (Negative) H 12/09/17 08:42 Urine Ketones Negative (Negative) 12/09/17 08:42 Urine Blood Trace (Negative) H 12/09/17 08:42 Urine Nitrite Negative (Negative) 12/09/17 08:42 Urine Bilirubin Negative (Negative) 12/09/17 08:42 Urine Urobilinogen 2.0 mg/dL (<2.0) 12/09/17 08:42 Ur Leukocyte Esterase Moderate (Negative) H 12/09/17 08:42 Urine RBC 11 /hpf (0-5) H 12/09/17 08:42 Urine WBC 11 /hpf (0-5) H 12/09/17 08:42 Urine Bacteria Rare /hpf (None) H 12/09/17 08:42 Urine Osmolality 267 mosm/kg (50-1400) 12/09/17 08:42 Ur Random Sodium 29 mmol/L (30-90) L 12/10/17 08:30 Vancomycin Trough 9.2 ug/mL 12/12/17 01:19 Influenza Type A RNA Not Detected (Not Detectd) 12/09/17 22:00 Influenza Type B (PCR) Not Detected (Not Detectd) 12/09/17 22:00 Virus Source See Below 12/16/17 11:25 Viral Test See Below 12/16/17 11:25 Virus Analysis Interp See Below 12/16/17 11:25 Miscellaneous Test Legionella sp. PCR 12/16/17 11:25 Misc Test Result See comment 12/16/17 11:25 Microbiology 12/16/17 11:25 Bronchoalviolar Lavage - Left Fungal Culture - Preliminary Ernestina albicans 12/14/17 14:03 Blood Blood Culture - Final No Growth after 144 hours 12/16/17 11:25 Bronchoalviolar Lavage - Left Gram Stain - Final 12/16/17 11:25 Bronchoalviolar Lavage - Left Bronchial Washings Culture - Final Ernestina albicans 12/16/17 11:25 Bronchoalviolar Lavage - Left Acid Fast Bacilli Smear - Final 12/16/17 11:25 Bronchoalviolar Lavage - Left Acid Fast Bacilli Culture - Preliminary 12/14/17 21:40 Sputum Gram Stain - Final 12/14/17 21:40 Sputum Sputum Culture - Final Ernestina albicans 12/09/17 20:28 Blood Blood Culture - Final No Growth after 144 hours 12/14/17 14:00 Urine,Catheterized Urine Culture - Final 12/09/17 08:42 Urine,Catheterized Urine Culture - Final Assessment and Plan (1) Hyponatremia Current Visit: Yes Status: Acute Code(s): E87.1 - HYPO-OSMOLALITY AND HYPONATREMIA SNOMED Code(s): 08320406 (2) Pressure ulcer of coccygeal region, stage 3 Narrative/Plan: 77-year-old female is transported to hospital after she became unresponsive. The patient was found evidence of significant hyponatremia which is noted to be hypovolemic in nature. With rehydration sodium solution she is not having improvement. There was concern as urinary tract infection however urine culture is negative for blood cultures are pending. She does not have a history of MRSA but does have significant pressure ulcerations and concerns to underlying sepsis. Will continue Zosyn for now however will discontinue vancomycin. Local wound care with hydrocolloid dressings will be utilized to pressure ulcerations. The stage III pressure ulceration of the coccyx is present at admission, is due to pressure and does not appear to be grossly infected at this time. Cultures are pending. We'll monitor cultures and further alter antibiotic therapy as possible. On 12/14/2017 the patient has had a major decline of her status with respiratory failure hypercapnic in nature requiring intubation with sedation and mechanical ventilation. Her prognosis is very poor. Continue local wound care and antibiotic therapy. 12/15/2017 patient has had some improvement in that her ventilator settings have improved she is on less PEEP and FiO2. Pulmonary critical care was following and we'll work toward potential extubation the next several days. Her most recent ABG shows evidence of improvement of her markedly elevated CO2. Her leukocytosis is improving. Sputum culture is in process. Pressure ulcer is being treated and is showing some mild improvement with the current treatment. Continue to offload and will do well to have a specialty mattress when she is out of ICU. 12/16/2017 for bronchoscopy today and potential extubation if possible. Continue Zosyn at this time and monitor for any other resistant pathogens. Continue ongoing supportive care. 12/17/2017 the patient did well with her bronchoscopy and is now had extubation. She is doing well with current supportive care and is only on 2 L nasal cannula. Tolerating current antibiotic therapy well. Cultures from her bronchoscopy in process and will further help direct antibiotic therapy. Patient certainly is having a significant improvement and case management is working with her discharge plan and it does not appear that her family can care for her in the home setting. Continue local wound care to her multiple pressure ulcers. The Ernestina that is found does not require any intervention. 12/18/2017 patient has further improvement will be moved out of the ICU to the general medical floor today. She is denying other new interventions. Her oral intake is improved. Tolerating current antibiotic therapy well. Cultures have not revealed any new pathogens. Ernestina from the oral cavity was noted. Tolerating 2 L nasal cannula without any new pulmonary difficulties. Aggressive pulmonary toileting continues. We'll transition to extended care. Will not need intravenous antibiotic therapy at that time. 12/20/2017 reveals a patient of some ongoing improvement. There are plans for her to transition to extended care in the near future. Will not need intravenous antibiotic therapy with complete 5 days of oral Augmentin for her complicated aspiration pneumonia 12/21/2017 the patient is now had worsening of her respiratory status. BiPAP has been applied. She's been on antibiotic therapy now with Augmentin which will be continued. The Ernestina does not need to be treated and that it's an oral contamination. The patient's respiratory status is very poor, she has required recent intubation and now BiPAP. Further intervention with the family is being requested in that she would be well served to be a DO NOT RESUSCITATE Current Visit: Yes Status: Acute Code(s): L89.153 - PRESSURE ULCER OF SACRAL REGION, STAGE 3 SNOMED Code(s): 443999014
--- NOTE | 2017-12-21 23:19 | DS ---
DISCHARGE SUMMARY PRELIMINARY CAUSE OF : Congestive heart failure with possibly acute on chronic systolic dysfunction, ejection fraction 30%-35%. OTHER MAJOR DIAGNOSES: 1. Severe hyponatremia, change in mental status, acute metabolic encephalopathy, possible hypovolemic hyponatremia. 2. Acute hypoxic hypercarbic respiratory failure, multifactorial, status post mechanical ventilation. 3. Paroxysmal atrial fibrillation history. 4. Hypoglycemia, multifactorial. 5. Troponin 0.16, indeterminate. 6. Bibasilar pneumonia, possibly gram-negative. 7. History of recent urinary tract infection. 8. Moderate aortic regurgitation. 9. Severe tricuspid regurgitation. 10.Pulmonary hypertension. 11.History of degenerative joint disease. 12.History hypertension. 13.History of left-sided pleural effusion. 14.Chronic obstructive pulmonary disease. 15.Remote history of nicotine dependence. HISTORY OF PRESENT ILLNESS: This 77-year-old woman with past medical history of multiple medical problems was admitted initially with severe hyponatremia. Patient also had multiple other medical issues, including change in mental status, subsequently developed CHF acute exacerbation as well as acute hypoxic hypercarbic respiratory failure. Patient mechanically intubated and monitor closely in ICU. The patient did recover. The patient was able to be extubated; however, after transferring to the medical floor, patient again took a turn for the worse. The patient again developed cardiorespiratory distress and code was called and the patient did not survive that particular episode and the patient succumbed to her above-mentioned multiple complex medical issues. The prognosis remained extremely guarded throughout the hospitalization and the patient was seen by multiple consultants. Please refer to the multiple mortgage consultant's notes, including Dr. Sin and Dr. Eckert as well as Dr. Lee's notes for further information. MMODL / IJN: [id number] /
== END 2017-12-21 23:02 | disposition expired | DRG 166 ==
LOC: EC 05:54 → 6ICU 07:25 → 4MS4W 12-11 14:05 → 6ICU 12-14 10:46 → 5MS5E 12-18 22:31 → 6ICU 12-21 17:12
PROVIDERS: ADMIT Internal Medicine; ATTEND Internal Medicine
PROC: 5A1945Z Respiratory Ventilation, 24-96 Consecutive Hours (ICD-10-PCS; principal; 2017-12-09)
PROC: 0BH17EZ Insertion of Endotracheal Airway into Trachea, Via Natural or Artificial Opening (ICD-10-PCS; 2017-12-09)
PROC: 5A09357 Assistance with Respiratory Ventilation, Less than 24 Consecutive Hours, Continuous Positive Airway Pressure (ICD-10-PCS; 2017-12-14)
PROC: 03HB33Z Insertion of Infusion Device into Right Radial Artery, Percutaneous Approach (ICD-10-PCS; 2017-12-14)
PROC: 05HM33Z Insertion of Infusion Device into Right Internal Jugular Vein, Percutaneous Approach (ICD-10-PCS; 2017-12-14)
PROC: 0B9J8ZX Drainage of Left Lower Lung Lobe, Via Natural or Artificial Opening Endoscopic, Diagnostic (ICD-10-PCS; 2017-12-16)
DX: J15.6 Pneumonia due to other Gram-negative bacteria (principal); G93.41 Metabolic encephalopathy; J96.21 Acute and chronic respiratory failure with hypoxia; I50.23 Acute on chronic systolic (congestive) heart failure; L89.153 Pressure ulcer of sacral region, stage 3; J96.22 Acute and chronic respiratory failure with hypercapnia; E87.4 Mixed disorder of acid-base balance; T17.890A Other foreign object in other parts of respiratory tract causing asphyxiation, initial encounter; E87.1 Hypo-osmolality and hyponatremia; I42.9 Cardiomyopathy, unspecified; J44.0 Chronic obstructive pulmonary disease with (acute) lower respiratory infection; J44.1 Chronic obstructive pulmonary disease with (acute) exacerbation; J98.11 Atelectasis; E87.5 Hyperkalemia; R57.1 Hypovolemic shock; I11.0 Hypertensive heart disease with heart failure; E86.1 Hypovolemia; I27.20 Pulmonary hypertension, unspecified; I48.0 Paroxysmal atrial fibrillation; I08.2 Rheumatic disorders of both aortic and tricuspid valves; E16.2 Hypoglycemia, unspecified; E87.6 Hypokalemia; F03.90 Unspecified dementia, unspecified severity, without behavioral disturbance, psychotic disturbance, mood disturbance, and anxiety; I25.2 Old myocardial infarction; M19.90 Unspecified osteoarthritis, unspecified site; T50.2X5A Adverse effect of carbonic-anhydrase inhibitors, benzothiadiazides and other diuretics, initial encounter; R74.8 Abnormal levels of other serum enzymes; H01.006 Unspecified blepharitis left eye, unspecified eyelid; H01.003 Unspecified blepharitis right eye, unspecified eyelid; R33.9 Retention of urine, unspecified; R53.81 Other malaise; M62.462 Contracture of muscle, left lower leg; M62.461 Contracture of muscle, right lower leg; R26.9 Unspecified abnormalities of gait and mobility; Z74.01 Bed confinement status; Z99.3 Dependence on wheelchair; Z79.899 Other long term (current) drug therapy; Z87.891 Personal history of nicotine dependence; Z87.440 Personal history of urinary (tract) infections; Z86.14 Personal history of Methicillin resistant Staphylococcus aureus infection
CPT/HCPCS: 31624; 36415; 36600; 51702; 70450; 71045; 71275; 80048; 80053; 80061; 80202; 81001; 82330; 82533; 82550; 82553; 82805; 83036; 83605; 83735; 83880; 83930; 83935; 84100; 84132; 84295; 84300; 84443; 84484; 84550; 85025; 85379; 85610; 85730; 87040; 87070; 87086; 87102; 87116; 87205; 87206; 87252; 87496; 87498; 87502; 87529; 87541; 87634; 87798; 93005; 93306; 94002; 94003; 94640; 94660; 94760; 94770; 96360; 96361; 96365; 96375; 99285